=== PATIENT | female | born 1940 | race Caucasian/White ===

== ENCOUNTER 2019-10-22 16:55 | Emergency (ER) | payer MEDICARE ==
[~2019-10-22] VITALS: Ht 157.5 cm; Wt 118.1 kg
[~2019-10-22 16:55] MED LIST: CARV6.2511 PO; EMPA25TA PO; ESCITALOPRAM OX10 MG PO; FURO20TA3 PO; GLIP10TA13 PO; LISI-130 PO; METF10007 PO; NPH,100V5 SQ; OXYC1TAB7 PO; SIMV40TA18 PO
[2019-10-22] MEDS ORDERED: HYDROcodone/APAP 5/325MG 1 TAB TABLET PO ONE (17:15)
--- NOTE | 2019-10-22 17:17 | PHYS DOC ---
Past Medical History Past Medical History: Arthritis, Diabetes-Type II, Hypertension Past Surgical History: Cholecystectomy, Tonsillectomy Additional Past Surgical Histo: BREAST CYSTS, CARPAL TUNNEL Alcohol Use: None Drug Use: None Adult General Chief Complaint Chief Complaint: KNEE INJURY HPI HPI Patient is a 78 year old female who presents with states she is walking with her walker when her right knee gave out and she fell to the carpeted floor. She states she fell on her right knee and then her right shoulder went into the corner of the wall. She denies hitting her head, syncope, dizziness, visual changes, weakness in her extremities, fever, dysuria, back pain, neck pain, numbness or tingling, shortness of breath, chest pain. Patient does wear 3 L of oxygen normally at home due to COPD. Patient is on 3 L of oxygen here in the ED and she is 98%. Review of Systems Review of Systems Musculoskeletal: Denies back pain. right knee and right shoulder joint pain [] All other systems were reviewed and found to be within normal limits, except as documented in this note. Current Medications Current Medications Current Medications Medications (Trade) Dose Ordered Sig/Yulisa Start Time Stop Time Status Last Admin Dose Admin Acetaminophen/ Hydrocodone Bitart (Lortab 5/325) 1 tab 1X ONCE 10/22/19 17:15 10/22/19 17:16 DC 10/22/19 17:55 1 TAB Allergies Allergies Allergies Coded Allergies Type Severity Reaction Last Updated Verified No Known Drug Allergies 08/15/17 No Physical Exam Physical Exam Constitutional: Well developed, well nourished, no acute distress, non-toxic appearance. [] HENT: Normocephalic, atraumatic, bilateral external ears normal, oropharynx moist, no oral exudates, nose normal. [] Eyes: PERRLA, EOMI, conjunctiva normal, no discharge. [] Neck: Normal range of motion, no tenderness, supple, no stridor. [] Cardiovascular:Heart rate regular rhythm, no murmur [] Lungs & Thorax: Bilateral breath sounds clear to auscultation [] Abdomen: Bowel sounds normal, soft, no tenderness, no masses, no pulsatile masses. [] Skin: Warm, dry, no erythema, no rash. [] Back: No tenderness, no CVA tenderness. [] Extremities: Right anterior knee and right lateral shoulder tenderness, no cyanosis, no clubbing, ROM intact, no edema. [] Neurologic: Alert and oriented X 3, normal motor function, normal sensory function, no focal deficits noted. [] Psychologic: Affect normal, judgement normal, mood normal. [] Current Patient Data Vital Signs Vital Signs Date Time Temp Pulse Resp B/P (MAP) Pulse Ox O2 Delivery O2 Flow Rate FiO2 10/22/19 17:55 22 10/22/19 17:04 97.5 84 198/95 (129) 96 Room Air 97.5 EKG EKG [] Radiology/Procedures Radiology/Procedures [] Impressions: [facility] [address] [place] [address] IMAGING REPORT Signed PATIENT: JHONY HOOPER ACCOUNT: [id number] : 1940 LOCATION: ER AGE: 78 SEX: F EXAM STATUS: REG ER ORD. PHYSICIAN: HAI TEJEDA APRN REASON: Fall PROCEDURE: SHOULDER 2+V RIGHT Exam: Right shoulder 3 views INDICATION: Fall TECHNIQUE: Frontal view of the right shoulder with internal and external rotation and transscapular Y view. Comparisons: 11/01/2017 FINDINGS: Right shoulder arthroplasty changes are again noted no acute or healed fractures. Soft tissues are unremarkable. Joint spaces are well-maintained. IMPRESSION: Right shoulder arthroplasty without evidence of acute fracture. Electronically signed by: Pauline Browne MD (10/22/2019 5:52 PM) [facility] DICTATED and SIGNED BY: PAULINE BROWNE MD DATE: 10/22/19 1752 [facility] [address] [place] [address] IMAGING REPORT Signed PATIENT: JHONY HOOPER ACCOUNT: [id number] : 1940 LOCATION: ER AGE: 78 SEX: F EXAM STATUS: REG ER ORD. PHYSICIAN: HAI TEJEDA APRN REASON: Fall PROCEDURE: KNEE RIGHT 4V Exam: Right knee 3 views INDICATION: Fall TECHNIQUE: Frontal, lateral, oblique and sunrise views of the right knee Comparisons: None FINDINGS: Right total knee arthroplasty changes are noted. No acute or healed fractures. Soft tissue swelling overlying the patella. No suprapatellar effusion. IMPRESSION: Right knee arthroplasty without evidence of acute osseous abnormality. Electronically signed by: Pauline Browne MD (10/22/2019 5:50 PM) [facility] DICTATED and SIGNED BY: PAULINE BROWNE MD DATE: 10/22/19 2760 Course & Med Decision Making Course & Med Decision Making She states she has no other complaints besides her knee hurting and her shoulder hurting. She's had a previous right knee replacement 2 years ago at [facility]. She had a right shoulder surgery done by Dr. Carson and 2018. Patient has full range of motion of her right knee. Tenderness to the anterior knee only. No bruising or deformity. Skin is pink warm and dry. No swelling in the knee. Pedal pulses strong and present. Cap refill less than 3 seconds. Lateral right shoulder tenderness with palpation. Patient has full range of motion of the right shoulder. Radial pulses are present. Skin pink warm and dry. There is no bruising, deformity or swelling to the right shoulder. Patient is up and ambulating with a steady gait in the emergency room. She is discharged home. Dragon Disclaimer Dragon Disclaimer This electronic medical record was generated, in whole or in part, using a voice recognition dictation system. Departure Departure Impression: Primary Impression: Fall Additional Impressions: Knee pain, right Shoulder pain, right Disposition: 01 HOME, SELF-CARE Condition: STABLE Referrals: PAIGE HOPE DO (PCP) JERZY CARSON MD Patient Instructions: Fall Prevention and Home Safety Additional Instructions: Follow up with Dr Carson or your primary care provider. Take pain medication as prescribed. Scripts Hydrocodone/Apap 5-325 (NORCO 5-325 TABLET) 1 Each Tablet 1 TAB PO PRN Q6HRS PRN for PAIN, #8 TAB 0 Refills Prov: PAULHAI M SENIOR REPORT DEVELOPER 10/22/19 Problem Qualifiers Primary Impression: Fall Encounter type: initial encounter Qualified Codes: W19.XXXA - Unspecified fall, initial encounter Additional Impressions: Knee pain, right Chronicity: acute Qualified Codes: M25.561 - Pain in right knee Shoulder pain, right Chronicity: acute Qualified Codes: M25.511 - Pain in right shoulder HAI TEJEDA APRN Oct 22, 2019 17:17
--- NOTE | 2019-10-22 17:52 | RAD ---
Exam: Right knee 3 views INDICATION: Fall TECHNIQUE: Frontal, lateral, oblique and sunrise views of the right knee Comparisons: None FINDINGS: Right total knee arthroplasty changes are noted. No acute or healed fractures. Soft tissue swelling overlying the patella. No suprapatellar effusion. IMPRESSION: Right knee arthroplasty without evidence of acute osseous abnormality. Electronically signed by: Pauline Pringle MD (10/22/2019 5:50 PM) [facility] [place]
--- NOTE | 2019-10-22 17:54 | RAD ---
Exam: Right shoulder 3 views INDICATION: Fall TECHNIQUE: Frontal view of the right shoulder with internal and external rotation and transscapular Y view. Comparisons: 11/01/2017 FINDINGS: Right shoulder arthroplasty changes are again noted no acute or healed fractures. Soft tissues are unremarkable. Joint spaces are well-maintained. IMPRESSION: Right shoulder arthroplasty without evidence of acute fracture. Electronically signed by: Pauline Pringle MD (10/22/2019 5:52 PM) [facility]
--- NOTE | 2019-10-22 18:47 | NUR ---
Noreen WARREN notified of pt ambulation.
[2019-10-22 18:49] VITALS: BP 152/100
[2019-10-22] MEDS ORDERED: HYDR-3164 PO (18:51)
== END 2019-10-22 19:15 | disposition home or self-care (01) ==
LOC: ER 16:55
DX: M25.561 Pain in right knee (principal); M25.511 Pain in right shoulder; G89.11 Acute pain due to trauma; E11.9 Type 2 diabetes mellitus without complications; I10 Essential (primary) hypertension; Z90.49 Acquired absence of other specified parts of digestive tract; W18.39XA Other fall on same level, initial encounter; Y93.89 Activity, other specified; Y92.89 Other specified places as the place of occurrence of the external cause; Y99.8 Other external cause status
CPT/HCPCS: 73030; 73564; 99284

== ENCOUNTER 2019-12-14 15:46 | Inpatient (IN) | payer MEDICARE ==
[~2019-12-14] VITALS: Ht 160 cm; Wt 111.6 kg
[~2019-12-14 15:46] MED LIST changes: +HYDR-3164 PO
--- NOTE | 2019-12-14 16:52 | PHYS DOC ---
Past Medical History Past Medical History: Arthritis, COPD, Diabetes-Type II, Hypertension Past Surgical History: Cholecystectomy, Knee Replacement, Tonsillectomy Additional Past Surgical Histo: BREAST CYSTS, CARPAL TUNNEL Smoking Status: Former Smoker Alcohol Use: None Drug Use: None Adult General Chief Complaint Chief Complaint: WEAKNESS/GENERALIZED HPI HPI 78-year-old female past medical history of COPD on 2 L nasal cannula presents with the chief complaint of shortness of breath. Patient states she has had shortness of breath for the last 3 weeks. Patient states today shortness of breath had noticeably increased. Shortness of breath is exacerbated with movement. Patient denies any associated chest pain, new cough, and/or fevers or chills. On exam patient has bilateral lower extremity edema with weeping wounds. Patient denies any chest pain. Review of Systems Review of Systems Constitutional: Denies fever or chills [] Eyes: Denies change in visual acuity, redness, or eye pain [] HENT: Denies nasal congestion or sore throat [] Respiratory: Denies cough or shortness of breath [] Cardiovascular: No additional information not addressed in HPI [] GI: Denies abdominal pain, nausea, vomiting, bloody stools or diarrhea [] : Denies dysuria or hematuria [] Musculoskeletal: Denies back pain or joint pain [] Integument: Denies rash or skin lesions [] Neurologic: Denies headache, focal weakness or sensory changes [] Endocrine: Denies polyuria or polydipsia [] All other systems were reviewed and found to be within normal limits, except as documented in this note. Current Medications Current Medications Current Medications Medications (Trade) Dose Ordered Sig/Yulisa Start Time Stop Time Status Last Admin Dose Admin Albuterol Sulfate (Ventolin Neb Soln) 10 mg 1X ONCE 12/14/19 18:00 12/14/19 18:01 DC Calcium Gluconate (Calcium Gluconate) 1,000 mg 1X ONCE 12/14/19 18:00 12/14/19 18:01 DC Furosemide (Lasix) 40 mg 1X ONCE 12/14/19 18:30 12/14/19 18:31 UNV Sodium Chloride 1,000 ml @ 1,000 mls/hr 1X ONCE 12/14/19 18:00 12/14/19 18:59 Vancomycin HCl 250 ml @ 166.667 mls/hr 1X ONCE 12/14/19 17:45 12/14/19 19:14 Allergies Allergies Allergies Coded Allergies Type Severity Reaction Last Updated Verified No Known Drug Allergies 08/15/17 No Physical Exam Physical Exam Constitutional: Well developed, well nourished, no acute distress, non-toxic appearance. [] HENT: Normocephalic, atraumatic, bilateral external ears normal, oropharynx moist, no oral exudates, nose normal. [] Eyes: PERRLA, EOMI, conjunctiva normal, no discharge. [] Neck: Normal range of motion, no tenderness, supple, no stridor. [] Cardiovascular:Heart rate regular rhythm, no murmur [] Lungs & Thorax: Bilateral breath sounds clear to auscultation [] Abdomen: Bowel sounds normal, soft, no tenderness, no masses, no pulsatile masses. [] Skin: Warm, dry, no erythema, no rash. [] Back: No tenderness, no CVA tenderness. [] Extremities: No tenderness, no cyanosis, no clubbing, ROM intact, no edema. [] Neurologic: Alert and oriented X 3, normal motor function, normal sensory function, no focal deficits noted. [] Psychologic: Affect normal, judgement normal, mood normal. [] Current Patient Data Lab Values Laboratory Tests Test 12/14/19 16:13 White Blood Count 8.3 x10^3/uL (4.0-11.0) Red Blood Count 3.96 x10^6/uL (3.50-5.40) Hemoglobin 10.6 g/dL (12.0-15.5) L Hematocrit 33.6 % (36.0-47.0) L Mean Corpuscular Volume 85 fL (79-100) Mean Corpuscular Hemoglobin 27 pg (25-35) Mean Corpuscular Hemoglobin Concent 31 g/dL (31-37) Red Cell Distribution Width 17.1 % (11.5-14.5) H Platelet Count 372 x10^3/uL (140-400) Neutrophils (%) (Auto) 81 % (31-73) H Lymphocytes (%) (Auto) 11 % (24-48) L Monocytes (%) (Auto) 7 % (0-9) Eosinophils (%) (Auto) 1 % (0-3) Basophils (%) (Auto) 1 % (0-3) Neutrophils # (Auto) 6.8 x10^3/uL (1.8-7.7) Lymphocytes # (Auto) 0.9 x10^3/uL (1.0-4.8) L Monocytes # (Auto) 0.5 x10^3/uL (0.0-1.1) Eosinophils # (Auto) 0.1 x10^3/uL (0.0-0.7) Basophils # (Auto) 0.1 x10^3/uL (0.0-0.2) Prothrombin Time 13.8 SEC (11.7-14.0) Prothrombin Time INR 1.1 (0.8-1.1) Activated Partial Thromboplast Time 30 SEC (24-38) Sodium Level 133 mmol/L (136-145) L Potassium Level 5.8 mmol/L (3.5-5.1) H Chloride Level 95 mmol/L (98-107) L Carbon Dioxide Level 31 mmol/L (21-32) Anion Gap 7 (6-14) Blood Urea Nitrogen 63 mg/dL (7-20) H Creatinine 3.4 mg/dL (0.6-1.0) H Estimated GFR (Cockcroft-Gault) 13.1 BUN/Creatinine Ratio 19 (6-20) Glucose Level 97 mg/dL (70-99) Calcium Level 9.2 mg/dL (8.5-10.1) Total Bilirubin 0.3 mg/dL (0.2-1.0) Aspartate Amino Transferase (AST) 48 U/L (15-37) H Alanine Aminotransferase (ALT) 54 U/L (14-59) Alkaline Phosphatase 354 U/L (46-116) H Troponin I Quantitative 0.324 ng/mL (0.000-0.055) TT-Vyt-I-Type Natriuretic Peptide 49878 pg/mL (0-449) H Total Protein 6.6 g/dL (6.4-8.2) Albumin 2.0 g/dL (3.4-5.0) L Albumin/Globulin Ratio 0.4 (1.0-1.7) L Laboratory Tests 12/14/19 16:13 Laboratory Tests 12/14/19 16:13 EKG EKG 1552hrs Sinus rhythm rate of [address] elevation no ST depression no acute MD [] Radiology/Procedures Radiology/Procedures [] Course & Med Decision Making Course & Med Decision Making Pertinent Labs and Imaging studies reviewed. (See chart for details) [] Dragon Disclaimer Dragon Disclaimer This electronic medical record was generated, in whole or in part, using a voice recognition dictation system. Departure Departure Impression: Primary Impression: Shortness of breath Additional Impressions: Cellulitis CHF (congestive heart failure) Elevated troponin Admitting Physician: [facility] Referrals: PAIGE HOPE DO (PCP) Problem Qualifiers SUDHA BOWDEN DO Dec 14, 2019 16:52
[2019-12-14 17:27] LABS: BASO # 0.1 x10^3/uL (0.0-0.2); BASO % 1 % (0-3); EOS # 0.1 x10^3/uL (0.0-0.7); EOS % 1 % (0-3); HEMATOCRIT 33.6 % (36.0-47.0); HEMOGLOBIN 10.6 g/dL (12.0-15.5); LYMPH # 0.9 x10^3/uL (1.0-4.8); LYMPH % 11 % (24-48); MEAN CORPUSCULAR HEMOGLOBIN 27 pg (25-35); MEAN CORPUSCULAR HGB CONC 31 g/dL (31-37); MEAN CORPUSCULAR VOLUME 85 fL (79-100); MONO # 0.5 x10^3/uL (0.0-1.1); MONO % 7 % (0-9); NEUT # 6.8 x10^3/uL (1.8-7.7); NEUT % 81 % (31-73); PLATELET COUNT 372 x10^3/uL (140-400); RED BLOOD COUNT 3.96 x10^6/uL (3.50-5.40); RED CELL DISTRIBUTION WIDTH 17.1 % (11.5-14.5); WHITE BLOOD COUNT 8.3 x10^3/uL (4.0-11.0)
[2019-12-14 17:37] LABS: CALCIUM 9.2 mg/dL (8.5-10.1); CREATININE 3.4 mg/dL (0.6-1.0); GFR 13.1; POTASSIUM 5.8 mmol/L (3.5-5.1)
[2019-12-14 17:39] LABS: PROTHROMBIN TIME PATIENT 13.8 SEC (11.7-14.0)
[2019-12-14 17:44] LABS: ALBUMIN/GLOBULIN RATIO 0.4 (1.0-1.7); TOTAL BILIRUBIN 0.3 mg/dL (0.2-1.0); TOTAL PROTEIN 6.6 g/dL (6.4-8.2)
[2019-12-14] MEDS ORDERED: VANCOMYCIN 1GM IVPB FOR OMNI 250 ML IV ONE (17:45)
[2019-12-14] MEDS ORDERED: CALCIUM GLUCONATE 1,000 MG/10 ML VIAL. IVP ONE (18:00)
[2019-12-14] MEDS ORDERED: ALBUTEROL SULFATE 2.5 MG/3 ML NEBU. CONT NEB ONE (18:00)
[2019-12-14] MEDS ORDERED: IV NORMAL SALINE 1000ML BAG 1,000 ML IV ONE (18:00)
[2019-12-14] MEDS ORDERED: FUROSEMIDE 40 MG TABLET. PO ONE (18:30)
[2019-12-14] MEDS ORDERED: FUROSEMIDE 40 MG/4 ML VIAL. IVP ONE (19:30)
[2019-12-14 20:20] VITALS: BP 123/68
--- NOTE | 2019-12-14 20:24 | RAD ---
AP portable chest radiograph 12/14/2019 Clinical History: Shortness of breath. An AP erect portable digital radiograph of the chest was obtained. Comparison study is dated 08/15/2017. The patient is post right shoulder joint replacement. The cardiac silhouette is mildly enlarged. Atherosclerotic calcification thoracic aorta is seen. No area of consolidation is noted. No pneumothorax or pleural effusion is seen. Slight prominence of pulmonary vasculature is seen which could reflect mild CHF. Clinical correlation is recommended. Degenerative changes are seen involving the thoracic spine along with the left shoulder. Impression: Question mild CHF. Electronically signed by: Leopoldo Ruff MD (12/14/2019 8:21 PM) [id number]
[2019-12-14 23:00] VITALS: BP 146/65
[2019-12-15] MEDS ORDERED: FLUT9.9S NS (00:36)
[2019-12-15] MEDS ORDERED: TRAM50TA PO (00:36)
[2019-12-15] MEDS ORDERED: TRIA15CR3 TP (00:36)
[2019-12-15 03:00] VITALS: BP 140/55
[2019-12-15 07:00] VITALS: BP 107/49
[2019-12-15 08:03] LABS: CALCIUM 8.6 mg/dL (8.5-10.1); CREATININE 3.7 mg/dL (0.6-1.0); GFR 11.9
[2019-12-15 08:07] LABS: POTASSIUM 6.2 mmol/L (3.5-5.1)
[2019-12-15] MEDS ORDERED: DEXTROSE 50% 25 GM / 50ML DISP.SYRIN. IV ONE ×2 (08:11→21:19)
[2019-12-15] MEDS ORDERED: SODIUM POLYSTYRENE SULFON/SORB 15 GM/60 ML ORAL.SUSP RC ONE (09:00)
[2019-12-15] MEDS ORDERED: SODIUM POLYSTYRENE SULFON/SORB 15 GM/60 ML ORAL.SUSP PO ONE (09:00)
--- NOTE | 2019-12-15 10:43 | PDOC2 ---
CONSULT Date of Consult Date of Consult DATE: 12/15/19 TIME: 10:37 Reason for Consult Reason for Consult: Shortness of breath. Referring Physician Referring Physician: Dr. Rosado Identification/Chief Complaint Chief Complaint Shortness of breath Source Source: Chart review, Patient History of Present Illness Reason for Visit: The patient is a 78-year-old female who presented to the emergency room with 2-3 weeks of increasing shortness of breath. Her shortness of breath had significantly increased the day of admission. Initial evaluation the emergency room showed a blood potassium elevated at 5.8 with a creatinine of 3.4, chest x- ray with probable mild heart failure and an EKG with no acute ischemic changes. Patient has a history of COPD, diabetes as well as hypertension but no documented history of coronary disease. She was treated with pulmonary medications and initially was some Lasix although this has been held at this t [place] due to her elevated creatinine. She is feeling better in the morning but still reports shortness of breath. Additionally she has bilateral lower extremity edema with findings of probable cellulitis. Past Medical History Cardiovascular: HTN, Hyperlipidemia Pulmonary: COPD Musculoskeletal: Osteoarthritis Endocrine: Diabetes Past Surgical History Past Surgical History: Cholecystectomy, Total knee replacement, Tonsillectomy Family History Family History: Hypertension Social History Quit ALCOHOL: none Drugs: None Current Problem List Problem List Problems Medical Problems: (1) Cellulitis Status: Acute (2) CHF (congestive heart failure) Status: Acute (3) Elevated troponin Status: Acute (4) Shortness of breath Status: Acute Current Medications Current Medications Current Medications Vancomycin HCl 250 ml @ 166.667 mls/hr 1X ONCE IV Last administered on 12/14/19at 18:24; Start 12/14/19 at 17:45; Stop 12/14/19 at 19:14; Status DC Sodium Chloride 1,000 ml @ 1,000 mls/hr 1X ONCE IV Last administered on 12/14/19at 18:23; Start 12/14/19 at 18:00; Stop 12/14/19 at 18:59; Status DC Calcium Gluconate (Calcium Gluconate) 1,000 mg 1X ONCE IVP Last administered on 12/14/19at 18:24; Start 12/14/19 at 18:00; Stop 12/14/19 at 18:01; Status DC Albuterol Sulfate (Ventolin Neb Soln) 10 mg 1X ONCE CONT NEB Last administered on 12/14/19at 18:00; Start 12/14/19 at 18:00; Stop 12/14/19 at 18:01; Status DC Furosemide (Lasix) 40 mg 1X ONCE PO ; Start 12/14/19 at 18:30; Stop 12/14/19 at 18:31; Status DC Enoxaparin Sodium (Lovenox 120mg Syringe) 120 mg 1X ONCE SQ Last administered on 12/14/19at 20:05; Start 12/14/19 at 19:30; Stop 12/14/19 at 19:31; Status DC Furosemide (Lasix) 40 mg 1X ONCE IVP Last administered on 12/14/19at 20:05; Start 12/14/19 at 19:30; Stop 12/14/19 at 19:31; Status DC Dextrose (Dextrose 50%-Water Syringe) 25 gm STK-MED ONCE IV ; Start 12/15/19 at 08:11; Stop 12/15/19 at 08:11; Status DC Sodium Polystyrene Sulfonate (Kayexalate) 30 gm 1X ONCE RC ; Start 12/15/19 at 09:00; Stop 12/15/19 at 08:38; Status DC Sodium Polystyrene Sulfonate (Kayexalate) 15 gm 1X ONCE PO Last administered on 12/15/19at 09:24; Start 12/15/19 at 09:00; Stop 12/15/19 at 09:01; Status DC Active Scripts Active Gilman 5-325 Tablet (Acetaminophen/Hydrocodone Bitart) 1 Each Tablet 1 Tab PO PRN Q6HRS PRN Oxycodone-Acetaminophen 5-325 (Oxycodone Hcl/Acetaminophen) 1 Each Tablet 1 Tab PO PRN Q4HRS PRN Reported Triamcinolone Acetonide 0.1% Cream (Triamcinolone Acetonide) 15 Gm Cream..g. 1 Isabell TP BID Tramadol Hcl 50 Mg Tablet 50 Mg PO DAILY PRN Flonase Allergy Relief (Fluticasone Propionate) 9.9 Ml Hardy.susp 2 Sprays NS DAILY Metformin Hcl 1,000 Mg Tablet 1,000 Mg PO BIDWMEALS Lisinopril 40 Mg Tablet 1 Tab PO DAILY Novolin N (Nph, Human Insulin Isophane) 100 Unit/1 Ml Vial 40 Unit SQ DAILY Carvedilol (Carvedilol) 6.25 Mg Tablet 6.25 Mg PO BIDWMEALS Escitalopram Oxalate 10 Mg Tablet 1 Tab PO DAILY Simvastatin 40 Mg Tablet 1 Tab PO QHS Glipizide 10 Mg Tablet 10 Mg PO BID Furosemide 20 Mg Tablet 1 Tab PO DAILY Allergies Allergies: Coded Allergies: No Known Drug Allergies (Unverified , 08/15/17) ROS General: YES: Fatigue Respiratory: YES: Shortness of breath, SOB with excertion Physical Exam General: mild distress Lungs: Other (decreased breath sounds bilaterally) Heart: Regular rate Abdomen: Normal bowel sounds Vitals VITALS Vital Signs Date Time Temp Pulse Resp B/P (MAP) Pulse Ox O2 Delivery O2 Flow Rate FiO2 12/15/19 07:00 97.7 63 20 107/49 (68) 95 Nasal Cannula 3.0 97.7 Labs Labs Laboratory Tests Test 12/14/19 16:13 12/15/19 00:30 12/15/19 06:30 12/15/19 08:38 White Blood Count 8.3 x10^3/uL (4.0-11.0) Red Blood Count 3.96 x10^6/uL (3.50-5.40) Hemoglobin 10.6 g/dL (12.0-15.5) Hematocrit 33.6 % (36.0-47.0) Mean Corpuscular Volume 85 fL (79-100) Mean Corpuscular Hemoglobin 27 pg (25-35) Mean Corpuscular Hemoglobin Concent 31 g/dL (31-37) Red Cell Distribution Width 17.1 % (11.5-14.5) Platelet Count 372 x10^3/uL (140-400) Neutrophils (%) (Auto) 81 % (31-73) Lymphocytes (%) (Auto) 11 % (24-48) Monocytes (%) (Auto) 7 % (0-9) Eosinophils (%) (Auto) 1 % (0-3) Basophils (%) (Auto) 1 % (0-3) Neutrophils # (Auto) 6.8 x10^3/uL (1.8-7.7) Lymphocytes # (Auto) 0.9 x10^3/uL (1.0-4.8) Monocytes # (Auto) 0.5 x10^3/uL (0.0-1.1) Eosinophils # (Auto) 0.1 x10^3/uL (0.0-0.7) Basophils # (Auto) 0.1 x10^3/uL (0.0-0.2) Prothrombin Time 13.8 SEC (11.7-14.0) Prothromb Time International Ratio 1.1 (0.8-1.1) Activated Partial Thromboplast Time 30 SEC (24-38) Sodium Level 133 mmol/L (136-145) 135 mmol/L (136-145) Potassium Level 5.8 mmol/L (3.5-5.1) 6.2 mmol/L (3.5-5.1) Chloride Level 95 mmol/L (98-107) 99 mmol/L (98-107) Carbon Dioxide Level 31 mmol/L (21-32) 32 mmol/L (21-32) Anion Gap 7 (6-14) 4 (6-14) Blood Urea Nitrogen 63 mg/dL (7-20) 68 mg/dL (7-20) Creatinine 3.4 mg/dL (0.6-1.0) 3.7 mg/dL (0.6-1.0) Estimated GFR (Cockcroft-Gault) 13.1 11.9 BUN/Creatinine Ratio 19 (6-20) Glucose Level 97 mg/dL (70-99) 35 mg/dL (70-99) Calcium Level 9.2 mg/dL (8.5-10.1) 8.6 mg/dL (8.5-10.1) Total Bilirubin 0.3 mg/dL (0.2-1.0) Aspartate Amino Transf (AST/SGOT) 48 U/L (15-37) Alanine Aminotransferase (ALT/SGPT) 54 U/L (14-59) Alkaline Phosphatase 354 U/L (46-116) Troponin I Quantitative 0.324 ng/mL (0.000-0.055) 0.278 ng/mL (0.000-0.055) 0.273 ng/mL (0.000-0.055) KK-Mse-L-Type Natriuretic Peptide 04299 pg/mL (0-449) Total Protein 6.6 g/dL (6.4-8.2) Albumin 2.0 g/dL (3.4-5.0) Albumin/Globulin Ratio 0.4 (1.0-1.7) Glucose (Fingerstick) 69 mg/dL (70-99) Laboratory Tests Test 12/14/19 16:13 12/15/19 00:30 12/15/19 06:30 12/15/19 08:38 White Blood Count 8.3 x10^3/uL (4.0-11.0) Red Blood Count 3.96 x10^6/uL (3.50-5.40) Hemoglobin 10.6 g/dL (12.0-15.5) Hematocrit 33.6 % (36.0-47.0) Mean Corpuscular Volume 85 fL (79-100) Mean Corpuscular Hemoglobin 27 pg (25-35) Mean Corpuscular Hemoglobin Concent 31 g/dL (31-37) Red Cell Distribution Width 17.1 % (11.5-14.5) Platelet Count 372 x10^3/uL (140-400) Neutrophils (%) (Auto) 81 % (31-73) Lymphocytes (%) (Auto) 11 % (24-48) Monocytes (%) (Auto) 7 % (0-9) Eosinophils (%) (Auto) 1 % (0-3) Basophils (%) (Auto) 1 % (0-3) Neutrophils # (Auto) 6.8 x10^3/uL (1.8-7.7) Lymphocytes # (Auto) 0.9 x10^3/uL (1.0-4.8) Monocytes # (Auto) 0.5 x10^3/uL (0.0-1.1) Eosinophils # (Auto) 0.1 x10^3/uL (0.0-0.7) Basophils # (Auto) 0.1 x10^3/uL (0.0-0.2) Prothrombin Time 13.8 SEC (11.7-14.0) Prothromb Time International Ratio 1.1 (0.8-1.1) Activated Partial Thromboplast Time 30 SEC (24-38) Sodium Level 133 mmol/L (136-145) 135 mmol/L (136-145) Potassium Level 5.8 mmol/L (3.5-5.1) 6.2 mmol/L (3.5-5.1) Chloride Level 95 mmol/L (98-107) 99 mmol/L (98-107) Carbon Dioxide Level 31 mmol/L (21-32) 32 mmol/L (21-32) Anion Gap 7 (6-14) 4 (6-14) Blood Urea Nitrogen 63 mg/dL (7-20) 68 mg/dL (7-20) Creatinine 3.4 mg/dL (0.6-1.0) 3.7 mg/dL (0.6-1.0) Estimated GFR (Cockcroft-Gault) 13.1 11.9 BUN/Creatinine Ratio 19 (6-20) Glucose Level 97 mg/dL (70-99) 35 mg/dL (70-99) Calcium Level 9.2 mg/dL (8.5-10.1) 8.6 mg/dL (8.5-10.1) Total Bilirubin 0.3 mg/dL (0.2-1.0) Aspartate Amino Transf (AST/SGOT) 48 U/L (15-37) Alanine Aminotransferase (ALT/SGPT) 54 U/L (14-59) Alkaline Phosphatase 354 U/L (46-116) Troponin I Quantitative 0.324 ng/mL (0.000-0.055) 0.278 ng/mL (0.000-0.055) 0.273 ng/mL (0.000-0.055) LH-Xaj-A-Type Natriuretic Peptide 47115 pg/mL (0-449) Total Protein 6.6 g/dL (6.4-8.2) Albumin 2.0 g/dL (3.4-5.0) Albumin/Globulin Ratio 0.4 (1.0-1.7) Glucose (Fingerstick) 69 mg/dL (70-99) Images Images Chest x-ray with findings of mild heart failure Assessment/Plan Assessment/Plan 1. Respiratory failure with elements of COPD, heart failure and [place]. Patient is feeling better this morning. Would continue present treatments. Will hold Lasix at this time until the patient is evaluated by the renal service for her morning creatinine of 3.7. We'll check an echocardiogram to evaluate LV function. 2. Probable acute heart failure. Patient denies a history of heart failure. Holding diuresis until evaluated by the renal service. We'll check an echocardiogram for LV function as above 3. SUN. Elevated potassium and creatinine of 3.7. Would suggest a renal evaluation. 4. Lower extremity cellulitis. Antibiotics as per the primary service. 5. Hypertension. Reasonable control. Will continue to monitor. Continue present medications. 6. Diabetes mellitus. As per the primary service. Thank you for allowing us to participate in the care of your patient. DANNY COLBY MD Dec 15, 2019 10:43
[2019-12-15 11:00] VITALS: BP 118/67
--- NOTE | 2019-12-15 12:41 | PDOC2 ---
CONSULT Date of Consult Date of Consult DATE: 12/15/19 TIME: 12:28 Reason for Consult Reason for Consult: SUN Source Source: Chart review, Patient History of Present Illness Reason for Visit: patient is a 78-year-old female history of COPD, diabetes , hypertension who presented to the emergency room with 2-3 weeks of increasing shortness of breath. Her shortness of breath had significantly increased the day of admission. Initial evaluation the emergency room showed a blood potassium el evated at 5.8 with a creatinine of 3.4, chest x-ray with probable mild heart failure and an EKG with no acute ischemic changes. She is feeling better in the morning but still reports shortness of breath. Additionally she has bilateral lower extremity edema with findings of probable cellulitis. Denies any urinary complaints .No UA or imaging done in ER Past Medical History Cardiovascular: HTN, Hyperlipidemia Pulmonary: COPD Musculoskeletal: Osteoarthritis Endocrine: Diabetes Past Surgical History Past Surgical History: Cholecystectomy, Total knee replacement, Tonsillectomy Family History Family History: Hypertension Social History Quit ALCOHOL: none Drugs: None Current Problem List Problem List Problems Medical Problems: (1) Cellulitis Status: Acute (2) CHF (congestive heart failure) Status: Acute (3) Elevated troponin Status: Acute (4) Shortness of breath Status: Acute Current Medications Current Medications Current Medications Vancomycin HCl 250 ml @ 166.667 mls/hr 1X ONCE IV Last administered on 12/14/19at 18:24; Start 12/14/19 at 17:45; Stop 12/14/19 at 19:14; Status DC Sodium Chloride 1,000 ml @ 1,000 mls/hr 1X ONCE IV Last administered on 12/14/19at 18:23; Start 12/14/19 at 18:00; Stop 12/14/19 at 18:59; Status DC Calcium Gluconate (Calcium Gluconate) 1,000 mg 1X ONCE IVP Last administered on 12/14/19at 18:24; Start 12/14/19 at 18:00; Stop 12/14/19 at 18:01; Status DC Albuterol Sulfate (Ventolin Neb Soln) 10 mg 1X ONCE CONT NEB Last administered on 12/14/19at 18:00; Start 12/14/19 at 18:00; Stop 12/14/19 at 18:01; Status DC Furosemide (Lasix) 40 mg 1X ONCE PO ; Start 12/14/19 at 18:30; Stop 12/14/19 at 18:31; Status DC Enoxaparin Sodium (Lovenox 120mg Syringe) 120 mg 1X ONCE SQ Last administered on 12/14/19at 20:05; Start 12/14/19 at 19:30; Stop 12/14/19 at 19:31; Status DC Furosemide (Lasix) 40 mg 1X ONCE IVP Last administered on 12/14/19at 20:05; Start 12/14/19 at 19:30; Stop 12/14/19 at 19:31; Status DC Dextrose (Dextrose 50%-Water Syringe) 25 gm STK-MED ONCE IV ; Start 12/15/19 at 08:11; Stop 12/15/19 at 08:11; Status DC Sodium Polystyrene Sulfonate (Kayexalate) 30 gm 1X ONCE RC ; Start 12/15/19 at 09:00; Stop 12/15/19 at 08:38; Status DC Sodium Polystyrene Sulfonate (Kayexalate) 15 gm 1X ONCE PO Last administered on 12/15/19at 09:24; Start 12/15/19 at 09:00; Stop 12/15/19 at 09:01; Status DC Active Scripts Active [place] 5-325 Tablet (Acetaminophen/Hydrocodone Bitart) 1 Each Tablet 1 Tab PO PRN Q6HRS PRN Oxycodone-Acetaminophen 5-325 (Oxycodone Hcl/Acetaminophen) 1 Each Tablet 1 Tab PO PRN Q4HRS PRN Reported Triamcinolone Acetonide 0.1% Cream (Triamcinolone Acetonide) 15 Gm Cream..g. 1 [place] TP BID Tramadol Hcl 50 Mg Tablet 50 Mg PO DAILY PRN Flonase Allergy Relief (Fluticasone Propionate) 9.9 Ml [place].susp 2 Sprays NS DAILY Metformin Hcl 1,000 Mg Tablet 1,000 Mg PO BIDWMEALS Lisinopril 40 Mg Tablet 1 Tab PO DAILY Novolin N (Nph, Human Insulin Isophane) 100 Unit/1 Ml Vial 40 Unit SQ DAILY Carvedilol (Carvedilol) 6.25 Mg Tablet 6.25 Mg PO BIDWMEALS Escitalopram Oxalate 10 Mg Tablet 1 Tab PO DAILY Simvastatin 40 Mg Tablet 1 Tab PO QHS Glipizide 10 Mg Tablet 10 Mg PO BID Furosemide 20 Mg Tablet 1 Tab PO DAILY Allergies Allergies: Coded Allergies: No Known Drug Allergies (Unverified , 08/15/17) ROS Review of System Per HPI Physical Exam Physical Exam GEN: NAD HEEN: om moist NECK: supple CVS: S1S2, RRR RESP: CTA, Non labored GI: BS + ve, NO Bruit, Non Tender, Non Distended : No CVA tenderness, No Suprapubic Tenderness NEURO- Grossly normal DERM- no Rash EXT Vital Signs Vital Signs Date Time Temp Pulse Resp B/P (MAP) Pulse Ox O2 Delivery O2 Flow Rate FiO2 12/15/19 11:00 98.0 64 22 118/67 (84) 95 Nasal Cannula 3.0 98.0 Assessment & Plan SUN - Pre-renal / JAYSON-I and lasix both started approx 3 weeks back 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 No EKG changes per ER report Suspect sec to SUN and JAYSON-I HypoNatremia- mild HTN- On Coreg,Lisinopril and Lasix at home Holding, BP low Respiratory failure - On Home O2 2-3 Lts Per primary/cardiology Lower extremity cellulitis. Antibiotics as per the primary service. Diabetes mellitus. As per the primary service. Labs Labs Laboratory Tests Test 12/14/19 16:13 12/15/19 00:30 12/15/19 06:30 12/15/19 08:38 White Blood Count 8.3 x10^3/uL (4.0-11.0) Red Blood Count 3.96 x10^6/uL (3.50-5.40) Hemoglobin 10.6 g/dL (12.0-15.5) Hematocrit 33.6 % (36.0-47.0) Mean Corpuscular Volume 85 fL (79-100) Mean Corpuscular Hemoglobin 27 pg (25-35) Mean Corpuscular Hemoglobin Concent 31 g/dL (31-37) Red Cell Distribution Width 17.1 % (11.5-14.5) Platelet Count 372 x10^3/uL (140-400) Neutrophils (%) (Auto) 81 % (31-73) Lymphocytes (%) (Auto) 11 % (24-48) Monocytes (%) (Auto) 7 % (0-9) Eosinophils (%) (Auto) 1 % (0-3) Basophils (%) (Auto) 1 % (0-3) Neutrophils # (Auto) 6.8 x10^3/uL (1.8-7.7) Lymphocytes # (Auto) 0.9 x10^3/uL (1.0-4.8) Monocytes # (Auto) 0.5 x10^3/uL (0.0-1.1) Eosinophils # (Auto) 0.1 x10^3/uL (0.0-0.7) Basophils # (Auto) 0.1 x10^3/uL (0.0-0.2) Prothrombin Time 13.8 SEC (11.7-14.0) Prothromb Time International Ratio 1.1 (0.8-1.1) Activated Partial Thromboplast Time 30 SEC (24-38) Sodium Level 133 mmol/L (136-145) 135 mmol/L (136-145) Potassium Level 5.8 mmol/L (3.5-5.1) 6.2 mmol/L (3.5-5.1) Chloride Level 95 mmol/L (98-107) 99 mmol/L (98-107) Carbon Dioxide Level 31 mmol/L (21-32) 32 mmol/L (21-32) Anion Gap 7 (6-14) 4 (6-14) Blood Urea Nitrogen 63 mg/dL (7-20) 68 mg/dL (7-20) Creatinine 3.4 mg/dL (0.6-1.0) 3.7 mg/dL (0.6-1.0) Estimated GFR (Cockcroft-Gault) 13.1 11.9 BUN/Creatinine Ratio 19 (6-20) Glucose Level 97 mg/dL (70-99) 35 mg/dL (70-99) Calcium Level 9.2 mg/dL (8.5-10.1) 8.6 mg/dL (8.5-10.1) Total Bilirubin 0.3 mg/dL (0.2-1.0) Aspartate Amino Transf (AST/SGOT) 48 U/L (15-37) Alanine Aminotransferase (ALT/SGPT) 54 U/L (14-59) Alkaline Phosphatase 354 U/L (46-116) Troponin I Quantitative 0.324 ng/mL (0.000-0.055) 0.278 ng/mL (0.000-0.055) 0.273 ng/mL (0.000-0.055) PU-Rmm-K-Type Natriuretic Peptide 93614 pg/mL (0-449) Total Protein 6.6 g/dL (6.4-8.2) Albumin 2.0 g/dL (3.4-5.0) Albumin/Globulin Ratio 0.4 (1.0-1.7) Glucose (Fingerstick) 69 mg/dL (70-99) Test 12/15/19 11:49 Glucose (Fingerstick) 85 mg/dL (70-99) Laboratory Tests Test 12/14/19 16:13 12/15/19 00:30 12/15/19 06:30 12/15/19 08:38 White Blood Count 8.3 x10^3/uL (4.0-11.0) Red Blood Count 3.96 x10^6/uL (3.50-5.40) Hemoglobin 10.6 g/dL (12.0-15.5) Hematocrit 33.6 % (36.0-47.0) Mean Corpuscular Volume 85 fL (79-100) Mean Corpuscular Hemoglobin 27 pg (25-35) Mean Corpuscular Hemoglobin Concent 31 g/dL (31-37) Red Cell Distribution Width 17.1 % (11.5-14.5) Platelet Count 372 x10^3/uL (140-400) Neutrophils (%) (Auto) 81 % (31-73) Lymphocytes (%) (Auto) 11 % (24-48) Monocytes (%) (Auto) 7 % (0-9) Eosinophils (%) (Auto) 1 % (0-3) Basophils (%) (Auto) 1 % (0-3) Neutrophils # (Auto) 6.8 x10^3/uL (1.8-7.7) Lymphocytes # (Auto) 0.9 x10^3/uL (1.0-4.8) Monocytes # (Auto) 0.5 x10^3/uL (0.0-1.1) Eosinophils # (Auto) 0.1 x10^3/uL (0.0-0.7) Basophils # (Auto) 0.1 x10^3/uL (0.0-0.2) Prothrombin Time 13.8 SEC (11.7-14.0) Prothromb Time International Ratio 1.1 (0.8-1.1) Activated Partial Thromboplast Time 30 SEC (24-38) Sodium Level 133 mmol/L (136-145) 135 mmol/L (136-145) Potassium Level 5.8 mmol/L (3.5-5.1) 6.2 mmol/L (3.5-5.1) Chloride Level 95 mmol/L (98-107) 99 mmol/L (98-107) Carbon Dioxide Level 31 mmol/L (21-32) 32 mmol/L (21-32) Anion Gap 7 (6-14) 4 (6-14) Blood Urea Nitrogen 63 mg/dL (7-20) 68 mg/dL (7-20) Creatinine 3.4 mg/dL (0.6-1.0) 3.7 mg/dL (0.6-1.0) Estimated GFR (Cockcroft-Gault) 13.1 11.9 BUN/Creatinine Ratio 19 (6-20) Glucose Level 97 mg/dL (70-99) 35 mg/dL (70-99) Calcium Level 9.2 mg/dL (8.5-10.1) 8.6 mg/dL (8.5-10.1) Total Bilirubin 0.3 mg/dL (0.2-1.0) Aspartate Amino Transf (AST/SGOT) 48 U/L (15-37) Alanine Aminotransferase (ALT/SGPT) 54 U/L (14-59) Alkaline Phosphatase 354 U/L (46-116) Troponin I Quantitative 0.324 ng/mL (0.000-0.055) 0.278 ng/mL (0.000-0.055) 0.273 ng/mL (0.000-0.055) VC-Afm-C-Type Natriuretic Peptide 88831 pg/mL (0-449) Total Protein 6.6 g/dL (6.4-8.2) Albumin 2.0 g/dL (3.4-5.0) Albumin/Globulin Ratio 0.4 (1.0-1.7) Glucose (Fingerstick) 69 mg/dL (70-99) Test 12/15/19 11:49 Glucose (Fingerstick) 85 mg/dL (70-99) Review All relevant outside records, renal labs, imaging studies, telemetry/EKG's were reviewed. Images Images CxR mild CHF EVGENY ESCALANTE MD Dec 15, 2019 12:41
[2019-12-15] MEDS ORDERED: PIP/TAZO PER PHARMACY MC PRN (13:00)
--- NOTE | 2019-12-15 13:23 | HP ---
ADMIT DATE: 12/15/2019 CHIEF COMPLAINT: Weakness. HISTORY OF PRESENT ILLNESS: The patient is a pleasant 78-year-old female who has multiple comorbidities. She is quite large. She has chronic COPD. She is on 2 liters at home. Basically, she presented with shortness of breath. She also has chronic cellulitis on both lower extremities. She is quite edematous. While in the ER, we also noted that she has acute kidney injury and her creatinine is up to 2. I believe she was started on Lasix and JAYSON inhibitor within the past few weeks. She also appears to be in acute on chronic systolic and diastolic heart failure. We are going to admit the patient and consult Cardiology and Nephrology. PAST MEDICAL HISTORY: COPD, arthritis, diabetes, hypertension, obesity, cholecystectomy, knee replacement, tonsillectomy, peripheral vascular disease, chronic lower extremity wounds, breast cyst, carpal tunnel surgery, previous tobacco abuse, probable CHF. ALLERGIES: None. FAMILY HISTORY: Coronary artery disease. SOCIAL HISTORY: She quit smoking, no drinking or drugs. MEDICATIONS: Reviewed, please refer to the MRAD. REVIEW OF SYSTEMS: GENERAL: She complains of weakness. SKIN: No bruising, hair changes or rashes. EYES: No blurred, double or loss of vision. NOSE AND THROAT: No history of nosebleeds, hoarseness or sore throat. HEART: No history of palpitations, chest pain or shortness of breath on exertion. PULMONARY: She complains of shortness of breath. GASTROINTESTINAL: Denies changes in appetite, nausea, vomiting, diarrhea or constipation. GENITOURINARY: No history of frequency, urgency, hesitancy or nocturia. NEUROLOGIC: Denies history of numbness, tingling, tremor or weakness. PSYCHIATRIC: No history of panic, anxiety or depression. ENDOCRINE: No history of heat or cold intolerance, polyuria or polydipsia. EXTREMITIES: She complains of lower extremity swelling and pain and erythema. PHYSICAL EXAMINATION: VITALS: Within normal limits and are stable. GENERAL: She is very large. HEENT: Normal cephalic atraumatic, external auditory canals are patent. Eyes: Extraocular muscles are intact, pupils are equally round and reactive to light and accommodation. MUSKULOSKELETAL: Well developed, well nourished, good range of motion. ENDOCRINE: No thyromegaly was palpated. LYMPHATICS: No cervical chain or axillary nodes were noted. HEMATOPOIETIC: No bruising. NECK: Supple, no JVD, no thyromegaly was noted. PULMONARY: She has decreased breath sounds. HEART: RRR, S1, S2 present. Peripheral pulses intact, no obvious murmurs were noted. ABDOMEN: Soft, nontender. Positive bowel sounds no organomegaly, normal bowel sounds. EXTREMITIES: She has bilateral lower extremity cellulitis with wounds that have been wrapped with clean, dry and intact dressing. NEUROLOGIC: Normal speech, normal tone. A & O x 3, moves all extremities, no obvious focal deficits. PSYCHIATRIC: She is anxious. SKIN: No ulcerations or rashes, good skin turgor, no jaundice. VASCULAR: Good capillary refill, neurovascular bundle appears to be intact. LABORATORY DATA: Potassium is 6.2, BUN 68, creatinine 3.7, hemoglobin is 10.6, INR is 1.1. BNP is 30,161. Troponin 0.27. ASSESSMENT AND PLAN: Acute on chronic kidney injury, hyperkalemia, hyponatremia at 135, azotemia, acute on chronic systolic and diastolic heart failure, elevated troponin which I suspect is secondary to her elevated creatinine, anemia and lower extremity wounds. The patient is being admitted. We will consult Nephrology and Cardiology. Hold her JAYSON inhibitor. Hold her diuretic. IV antibiotics. PT, OT. Wound care nurse to evaluate and treat. We will continue other home meds, DVT prophylaxis. Full code. Prognosis in long-term is extremely guarded. TOTAL TIME: 33 minutes. JOE MORGAN DO DR: NELIA/rose JOB#: [id number] / [id number]
[2019-12-15 15:00] VITALS: BP 120/58
--- NOTE | 2019-12-15 15:02 | RAD ---
RENAL COMPLETE BILATERAL History: Acute kidney injury. Comparison: None. Procedure: Transabdominal ultrasound images are obtained of the kidneys and bladder. Findings: Right kidney: measures 11.4 x 5.8 x 5.7 cm. Degraded evaluation due to patient body habitus. No hydronephrosis. Left kidney: measures 11.1 x 5.9 x 5.8 cm. Degraded evaluation due to patient body habitus. No hydronephrosis. Urinary bladder: Decompressed with Collier catheter in place. Aorta and IVC not well seen due to patient body habitus and patient's decreased mobility. IMPRESSION: 1. Degraded evaluation due to patient body habitus and decreased mobility. 2. No hydronephrosis. Electronically signed by: Te Felder DO (12/15/2019 2:59 PM) [id number]
[2019-12-15] MEDS: PIPERACILLIN/TAZOBACTAM 2.25 GM in IV NORMAL SALINE 50ML 50 ML IV SCH ×2 (16:59→23:18)
[2019-12-15 19:00] VITALS: BP 106/63
[2019-12-15] MEDS ORDERED: IV DEXTROSE 5% 250 ML BAG. IV PRN (21:15)
[2019-12-15] MEDS: DEXTROSE 50% 25 GM / 50ML DISP.SYRIN. IV PRN (21:24)
--- NOTE | 2019-12-15 22:51 | NUR ---
notified of hypoglycemic episode tonight for the second time today. Pt was given an amp of Dextrose and her sugar improved from 43 to 100 afterwards. Pt was slightly sleepy, but still easy to wake during hypoglycemic episode. More alert post dextrose admin. Physician states continue to monitor sugar and administer more dextrose prn hypoglycemia in the future.
[2019-12-15 23:00] VITALS: BP 106/60
[2019-12-16 03:00] VITALS: BP 110/53
[2019-12-16 04:12] LABS: BASO % 1 % (0-3); EOS % 1 % (0-3); HEMATOCRIT 31.4 % (36.0-47.0); HEMOGLOBIN 9.9 g/dL (12.0-15.5); LYMPH % 13 % (24-48); MEAN CORPUSCULAR HEMOGLOBIN 26 pg (25-35); MEAN CORPUSCULAR HGB CONC 31 g/dL (31-37); MEAN CORPUSCULAR VOLUME 84 fL (79-100); MONO # 0.7 x10^3/uL (0.0-1.1); MONO % 9 % (0-9); NEUT # 6.1 x10^3/uL (1.8-7.7); NEUT % 78 % (31-73); PLATELET COUNT 376 x10^3/uL (140-400); RED BLOOD COUNT 3.73 x10^6/uL (3.50-5.40); RED CELL DISTRIBUTION WIDTH 17.2 % (11.5-14.5); WHITE BLOOD COUNT 7.9 x10^3/uL (4.0-11.0)
[2019-12-16 04:31] LABS: CALCIUM 8.4 mg/dL (8.5-10.1); CREATININE 4.6 mg/dL (0.6-1.0); GFR 9.2; MAGNESIUM 1.6 mg/dL (1.8-2.4); POTASSIUM 5.3 mmol/L (3.5-5.1)
[2019-12-16 04:33] LABS: CHOLESTEROL/HDL RATIO 2.2
[2019-12-16] MEDS: PIPERACILLIN/TAZOBACTAM 2.25 GM in IV NORMAL SALINE 50ML 50 ML IV SCH ×3 (05:32→22:39)
--- NOTE | 2019-12-16 06:23 | NUR ---
notified at this time that patient has not had any urine output overnight. I also reported that her creatinine increased to 4.6 today and she is in respiratory distress with oxygen desaturations into low 80% when she is laying flat for turns or other activity. Currently she is resting with head of bed elevated. Order for pedraza catheter and keep NPO for now. We discussed renal sono results and other labs as well.
--- NOTE | 2019-12-16 06:28 | NUR ---
Bladder scan done at this time also was 9cc. No bladder distention noted
[2019-12-16 07:00] VITALS: BP 89/53
[2019-12-16 07:56] LABS: BILIRUBIN,URINE NEGATIVE (NEG); CLARITY,URINE CLOUDY; COLOR,URINE AMBER; NITRITE,URINE NEGATIVE (NEG); PROTEIN,URINE 100 mg/dL (NEG-TRACE); UROBILINOGEN,URINE 0.2 mg/dL (0.2 mg/dL)
[2019-12-16] MEDS: DEXTROSE 50% 25 GM / 50ML DISP.SYRIN. IV PRN (07:56)
[2019-12-16 08:14] LABS: AMORPHOUS SEDIMENT,UR PRESENT /HPF; BACTERIA,URINE 0 /HPF (0-FEW); RBC,URINE 0 /HPF (0-2); SQUAMOUS EPITHELIAL CELL,UR FEW /LPF; WBC,URINE 0 /HPF (0-4)
[2019-12-16 11:00] VITALS: BP 118/65
--- NOTE | 2019-12-16 11:20 | CARD ---
MR#: [id number] Date of Study: 12/16/2019 Ordering Physician: DANNY COLBY, Referring Physician: DANNY COLBY, Tech: Loulou Muhammad [facility] APPROVED REPORT EXAM: Two-dimensional and M-mode echocardiogram with Doppler and color Doppler. Other Information Quality : Fair Technically limited study due to body habitus. INDICATION Congestive Heart Failure Morbid Obesity 2D DIMENSIONS RVDd3.9 (2.9-3.5cm)Left Atrium(2D)4.0 (1.6-4.0cm) IVSd1.3 (0.7-1.1cm)Aortic Root(2D)2.8 (2.0-3.7cm) LVDd4.0 (3.9-5.9cm)LVOT Diameter2.2 (1.8-2.4cm) PWd1.2 (0.7-1.1cm)LVDs2.8 (2.5-4.0cm) FS (%) 29.8 %SV41.0 ml LVEF(%)57.4 (>50%) Aortic Valve AoV Peak Kirby.145.9cm/sAoV VTI27.2cm AO Peak GR.8.5mmHgLVOT VTI 22.06cm AO Mean GR.6mmHgAVA (VTI)3.10cm2 Mitral Valve MV E Eyezfqcw92.8cm/sMV DECEL [id number] MV A Pmbhimlo27.3cm/sE/A Ratio0.8 TDI Lateral E' P. V7.34cm/sMedial E' P. V4.63cm/s E/Lateral E'9.6E/Medial E'15.3 Tricuspid Valve TR P. [id number]/sRAP [id number] TR Peak Gr.[id number] LEFT VENTRICLE The left ventricle is normal size. There is mild concentric left ventricular hypertrophy. The left ve ntricular systolic function is low normal. EF 50% Septal motion suggestive of prior CABG and conducti on defect. Transmitral Doppler flow pattern is Grade I-abnormal relaxation pattern. RIGHT VENTRICLE The right ventricle is moderately dilated. RV Systolic function is mildly reduced. ATRIA The left atrium is mildly dilated. The right atrium is mildly dilated. The interatrial septum is inta ct with no evidence for an atrial septal defect or patent foramen ovale as noted on 2-D or Doppler im aging. AORTIC VALVE The aortic valve is calcified but opens well. Doppler and Color Flow revealed no significant aortic r egurgitation. There is no significant aortic valvular stenosis. MITRAL VALVE The mitral valve is normal in structure and function. Mitral annular calcification is mild. There is no evidence of mitral valve prolapse. There is no mitral valve stenosis. Doppler and Color Flow revea led no mitral valve regurgitation noted. TRICUSPID VALVE The tricuspid valve is normal in structure and function. Doppler and Color Flow revealed mild tricusp id regurgitation. There is moderate pulmonary hypertension. The PA pressure was estimated at 54 mmHg. There is no tricuspid valve stenosis. PULMONIC VALVE Doppler and Color Flow revealed mild pulmonic valvular regurgitation. There is no pulmonic valvular s tenosis. GREAT VESSELS The aortic root is normal in size. The ascending aorta is normal in size. There is mild pulmonary art eduardo dilatation. The IVC is dilated and collapses <50% with inspiration. PERICARDIAL EFFUSION There is no evidence of significant pericardial effusion. Critical Notification Critical Value: No <Conclusion> The left ventricular systolic function is low normal. EF 50% Septal motion suggestive of prior CABG and conduction defect. The right ventricle is moderately dilated. RV Systolic function is mildly reduced. Doppler and Color Flow revealed mild tricuspid regurgitation. There is moderate pulmonary hypertensio n. The PA pressure was estimated at 54 mmHg. Signed by : Giancarlo Aguirre, Electronically Approved : 12/16/2019 11:19:56
--- NOTE | 2019-12-16 11:23 | PDOC ---
PROGRESS NOTES History of Present Illness History of Present Illness ASSESSMENT AND PLAN: Acute on chronic kidney injury, hyperkalemia, hyponatremia at 135, azotemia, acute on chronic systolic and diastolic heart failure, elevated troponin anemia and lower extremity wounds. // Lower extremity cellulitis. admitted. consult Nephrology consult Cardiology. Hold JAYSON inhibitor. IV antibiotics. PT, OT. Wound care nurse to evaluate and treat. DVT prophylaxis. Full code. Prognosis //guarded. temp dialysis cath placement 12/15 38 min pt exam, chart review, > 50% of time spent with exam, chart review, pt care coordination Vitals Vitals Vital Signs Date Time Temp Pulse Resp B/P (MAP) Pulse Ox O2 Delivery O2 Flow Rate FiO2 12/16/19 07:00 97.5 90 22 89/53 (65) 96 Nasal Cannula 4.0 97.5 Physical Exam Physical Exam and accommodation. MUSKULOSKELETAL: Well developed, well nourished, good range of motion. ENDOCRINE: No thyromegaly was palpated. LYMPHATICS: No cervical chain or axillary nodes were noted. HEMATOPOIETIC: No bruising. NECK: Supple, no JVD, no thyromegaly was noted. PULMONARY: She has decreased breath sounds. HEART: RRR, S1, S2 present. Peripheral pulses intact, no obvious murmurs were noted. ABDOMEN: Soft, nontender. Positive bowel sounds no organomegaly, normal bowel sounds. EXTREMITIES: She has bilateral lower extremity cellulitis with wounds that have been wrapped with clean, dry and intact dressing. NEUROLOGIC: Normal speech, normal tone. A & O x 3, moves all extremities, no obvious focal deficits. PSYCHIATRIC: She is anxious. SKIN: No ulcerations or rashes, good skin turgor, no jaundice. VASCULAR: Good capillary refill, neurovascular bundle appears to be intact. General: Alert, Cooperative, mild distress Heart: Regular rate Lungs: Clear Abdomen: Normal bowel sounds, No tenderness Extremities: No cyanosis Labs LABS Mitral Valve MV E Velocity 70.8cm/s MV DECEL TIME 187ms MV A Velocity 92.3cm/s E/A Ratio 0.8 TDI Lateral E' P. V 7.34cm/s Medial E' P. V 4.63cm/s E/Lateral E' 9.6 E/Medial E' 15.3 Tricuspid Valve TR P. Velocity 310cm/s RAP ESTIMATE 15mmHg TR Peak Gr. 39mmHg RVSP 54mmHg LEFT VENTRICLE The left ventricle is normal size. There is mild concentric left ventricular hypertrophy. The left ventricular systolic function is low normal. EF 50% Septal motion suggestive of prior CABG and conduction defect. Transmitral Doppler flow pattern is Grade I-abnormal relaxation pattern. RIGHT VENTRICLE The right ventricle is moderately dilated. RV Systolic function is mildly reduced. ATRIA The left atrium is mildly dilated. The right atrium is mildly dilated. The interatrial septum is intact with no evidence for an atrial septal defect or patent foramen ovale as noted on 2-D or Doppler imaging. AORTIC VALVE The aortic valve is calcified but opens well. Doppler and Color Flow revealed no significant aortic regurgitation. There is no significant aortic valvular stenosis. MITRAL VALVE The mitral valve is normal in structure and function. Mitral annular calcification is mild. There is no evidence of mitral valve prolapse. There is no mitral valve stenosis. Doppler and Color Flow revealed no mitral valve regurgitation noted. TRICUSPID VALVE The tricuspid valve is normal in structure and function. Doppler and Color Flow revealed mild tricuspid regurgitation. There is moderate pulmonary hypertension. The PA pressure was estimated at 54 mmHg. There is no tricuspid valve stenosis. PULMONIC VALVE Doppler and Color Flow revealed mild pulmonic valvular regurgitation. There is no pulmonic valvular stenosis. GREAT VESSELS The aortic root is normal in size. The ascending aorta is normal in size. There is mild pulmonary artery dilatation. The IVC is dilated and collapses <50% with inspiration. PERICARDIAL EFFUSION There is no evidence of significant pericardial effusion. Critical Notification Critical Value: No <Conclusion> The left ventricular systolic function is low normal. EF 50% Septal motion suggestive of prior CABG and conduction defect. The right ventricle is moderately dilated. RV Systolic function is mildly reduced. Doppler and Color Flow revealed mild tricuspid regurgitation. There is moderate pulmonary hypertension. The PA pressure was estimated at 54 mmHg. Signed by : Andree Astorga, Electronically Approved : 12/16/2019 11:19:56 DICTATED and SIGNED BY: ANDREE ASTORGA MD DATE: 12/16/19 1102 Laboratory Tests Test 12/15/19 11:49 12/15/19 12:20 12/15/19 16:51 12/15/19 21:09 Glucose (Fingerstick) 85 mg/dL (70-99) 73 mg/dL (70-99) 40 mg/dL (70-99) Potassium Level 5.6 mmol/L (3.5-5.1) Troponin I Quantitative 0.217 ng/mL (0.000-0.055) Test 12/15/19 21:23 12/15/19 22:00 12/16/19 03:40 12/16/19 07:35 Glucose (Fingerstick) 43 mg/dL (70-99) 100 mg/dL (70-99) 41 mg/dL (70-99) White Blood Count 7.9 x10^3/uL (4.0-11.0) Red Blood Count 3.73 x10^6/uL (3.50-5.40) Hemoglobin 9.9 g/dL (12.0-15.5) Hematocrit 31.4 % (36.0-47.0) Mean Corpuscular Volume 84 fL (79-100) Mean Corpuscular Hemoglobin 26 pg (25-35) Mean Corpuscular Hemoglobin Concent 31 g/dL (31-37) Red Cell Distribution Width 17.2 % (11.5-14.5) Platelet Count 376 x10^3/uL (140-400) Neutrophils (%) (Auto) 78 % (31-73) Lymphocytes (%) (Auto) 13 % (24-48) Monocytes (%) (Auto) 9 % (0-9) Eosinophils (%) (Auto) 1 % (0-3) Basophils (%) (Auto) 1 % (0-3) Neutrophils # (Auto) 6.1 x10^3/uL (1.8-7.7) Lymphocytes # (Auto) 1.0 x10^3/uL (1.0-4.8) Monocytes # (Auto) 0.7 x10^3/uL (0.0-1.1) Eosinophils # (Auto) 0.0 x10^3/uL (0.0-0.7) Basophils # (Auto) 0.0 x10^3/uL (0.0-0.2) Sodium Level 136 mmol/L (136-145) Potassium Level 5.3 mmol/L (3.5-5.1) Chloride Level 98 mmol/L (98-107) Carbon Dioxide Level 30 mmol/L (21-32) Anion Gap 8 (6-14) Blood Urea Nitrogen 72 mg/dL (7-20) Creatinine 4.6 mg/dL (0.6-1.0) Estimated GFR (Cockcroft-Gault) 9.2 Glucose Level 43 mg/dL (70-99) Calcium Level 8.4 mg/dL (8.5-10.1) Magnesium Level 1.6 mg/dL (1.8-2.4) Creatine Kinase 45 U/L (26-192) Triglycerides Level 94 mg/dL (0-150) Cholesterol Level 103 mg/dL (0-200) LDL Cholesterol, Calculated 37 mg/dL (0-100) VLDL Cholesterol, Calculated 19 mg/dL (0-40) Non-HDL Cholesterol Calculated 56 mg/dL (0-129) HDL Cholesterol 47 mg/dL (40-60) Cholesterol/HDL Ratio 2.2 Test 12/16/19 07:45 12/16/19 08:54 Urine Collection Type Unknown Urine Color Ginger Urine Clarity Cloudy Urine pH 5.0 (<5.0-8.0) Urine Specific [place] 1.020 (1.000-1.030) Urine Protein 100 mg/dL (NEG-TRACE) Urine Glucose (UA) Negative mg/dL (NEG) Urine Ketones (Stick) Negative mg/dL (NEG) Urine Blood Trace (NEG) Urine Nitrite Negative (NEG) Urine Bilirubin Negative (NEG) Urine Urobilinogen Dipstick 0.2 mg/dL (0.2 mg/dL) Urine Leukocyte Esterase Negative (NEG) Urine RBC 0 /HPF (0-2) Urine WBC 0 /HPF (0-4) Urine Squamous Epithelial Cells Few /LPF Urine Amorphous Sediment Present /HPF Urine Bacteria 0 /HPF (0-FEW) Glucose (Fingerstick) 175 mg/dL (70-99) Assessment and Plan Assessmemt and Plan Problems Medical Problems: (1) Cellulitis Status: Acute (2) CHF (congestive heart failure) Status: Acute (3) Elevated troponin Status: Acute (4) Shortness of breath Status: Acute Comment Review of Relevant I have reviewed the following items monalisa (where applicable) has been applied. Labs Laboratory Tests Test 12/14/19 16:13 12/15/19 00:30 12/15/19 06:30 12/15/19 08:38 White Blood Count 8.3 x10^3/uL (4.0-11.0) Red Blood Count 3.96 x10^6/uL (3.50-5.40) Hemoglobin 10.6 g/dL (12.0-15.5) Hematocrit 33.6 % (36.0-47.0) Mean Corpuscular Volume 85 fL (79-100) Mean Corpuscular Hemoglobin 27 pg (25-35) Mean Corpuscular Hemoglobin Concent 31 g/dL (31-37) Red Cell Distribution Width 17.1 % (11.5-14.5) Platelet Count 372 x10^3/uL (140-400) Neutrophils (%) (Auto) 81 % (31-73) Lymphocytes (%) (Auto) 11 % (24-48) Monocytes (%) (Auto) 7 % (0-9) Eosinophils (%) (Auto) 1 % (0-3) Basophils (%) (Auto) 1 % (0-3) Neutrophils # (Auto) 6.8 x10^3/uL (1.8-7.7) Lymphocytes # (Auto) 0.9 x10^3/uL (1.0-4.8) Monocytes # (Auto) 0.5 x10^3/uL (0.0-1.1) Eosinophils # (Auto) 0.1 x10^3/uL (0.0-0.7) Basophils # (Auto) 0.1 x10^3/uL (0.0-0.2) Prothrombin Time 13.8 SEC (11.7-14.0) Prothromb Time International Ratio 1.1 (0.8-1.1) Activated Partial Thromboplast Time 30 SEC (24-38) Sodium Level 133 mmol/L (136-145) 135 mmol/L (136-145) Potassium Level 5.8 mmol/L (3.5-5.1) 6.2 mmol/L (3.5-5.1) Chloride Level 95 mmol/L (98-107) 99 mmol/L (98-107) Carbon Dioxide Level 31 mmol/L (21-32) 32 mmol/L (21-32) Anion Gap 7 (6-14) 4 (6-14) Blood Urea Nitrogen 63 mg/dL (7-20) 68 mg/dL (7-20) Creatinine 3.4 mg/dL (0.6-1.0) 3.7 mg/dL (0.6-1.0) Estimated GFR (Cockcroft-Gault) 13.1 11.9 BUN/Creatinine Ratio 19 (6-20) Glucose Level 97 mg/dL (70-99) 35 mg/dL (70-99) Calcium Level 9.2 mg/dL (8.5-10.1) 8.6 mg/dL (8.5-10.1) Total Bilirubin 0.3 mg/dL (0.2-1.0) Aspartate Amino Transf (AST/SGOT) 48 U/L (15-37) Alanine Aminotransferase (ALT/SGPT) 54 U/L (14-59) Alkaline Phosphatase 354 U/L (46-116) Troponin I Quantitative 0.324 ng/mL (0.000-0.055) 0.278 ng/mL (0.000-0.055) 0.273 ng/mL (0.000-0.055) EF-Mba-X-Type Natriuretic Peptide 84491 pg/mL (0-449) Total Protein 6.6 g/dL (6.4-8.2) Albumin 2.0 g/dL (3.4-5.0) Albumin/Globulin Ratio 0.4 (1.0-1.7) Glucose (Fingerstick) 69 mg/dL (70-99) Test 12/15/19 11:49 12/15/19 12:20 12/15/19 16:51 12/15/19 21:09 Glucose (Fingerstick) 85 mg/dL (70-99) 73 mg/dL (70-99) 40 mg/dL (70-99) Potassium Level 5.6 mmol/L (3.5-5.1) Troponin I Quantitative 0.217 ng/mL (0.000-0.055) Test 12/15/19 21:23 12/15/19 22:00 12/16/19 03:40 12/16/19 07:35 Glucose (Fingerstick) 43 mg/dL (70-99) 100 mg/dL (70-99) 41 mg/dL (70-99) White Blood Count 7.9 x10^3/uL (4.0-11.0) Red Blood Count 3.73 x10^6/uL (3.50-5.40) Hemoglobin 9.9 g/dL (12.0-15.5) Hematocrit 31.4 % (36.0-47.0) Mean Corpuscular Volume 84 fL (79-100) Mean Corpuscular Hemoglobin 26 pg (25-35) Mean Corpuscular Hemoglobin Concent 31 g/dL (31-37) Red Cell Distribution Width 17.2 % (11.5-14.5) Platelet Count 376 x10^3/uL (140-400) Neutrophils (%) (Auto) 78 % (31-73) Lymphocytes (%) (Auto) 13 % (24-48) Monocytes (%) (Auto) 9 % (0-9) Eosinophils (%) (Auto) 1 % (0-3) Basophils (%) (Auto) 1 % (0-3) Neutrophils # (Auto) 6.1 x10^3/uL (1.8-7.7) Lymphocytes # (Auto) 1.0 x10^3/uL (1.0-4.8) Monocytes # (Auto) 0.7 x10^3/uL (0.0-1.1) Eosinophils # (Auto) 0.0 x10^3/uL (0.0-0.7) Basophils # (Auto) 0.0 x10^3/uL (0.0-0.2) Sodium Level 136 mmol/L (136-145) Potassium Level 5.3 mmol/L (3.5-5.1) Chloride Level 98 mmol/L (98-107) Carbon Dioxide Level 30 mmol/L (21-32) Anion Gap 8 (6-14) Blood Urea Nitrogen 72 mg/dL (7-20) Creatinine 4.6 mg/dL (0.6-1.0) Estimated GFR (Cockcroft-Gault) 9.2 Glucose Level 43 mg/dL (70-99) Calcium Level 8.4 mg/dL (8.5-10.1) Magnesium Level 1.6 mg/dL (1.8-2.4) Creatine Kinase 45 U/L (26-192) Triglycerides Level 94 mg/dL (0-150) Cholesterol Level 103 mg/dL (0-200) LDL Cholesterol, Calculated 37 mg/dL (0-100) VLDL Cholesterol, Calculated 19 mg/dL (0-40) Non-HDL Cholesterol Calculated 56 mg/dL (0-129) HDL Cholesterol 47 mg/dL (40-60) Cholesterol/HDL Ratio 2.2 Test 12/16/19 07:45 12/16/19 08:54 Urine Collection Type Unknown Urine Color Ginger Urine Clarity Cloudy Urine pH 5.0 (<5.0-8.0) Urine Specific [place] 1.020 (1.000-1.030) Urine Protein 100 mg/dL (NEG-TRACE) Urine Glucose (UA) Negative mg/dL (NEG) Urine Ketones (Stick) Negative mg/dL (NEG) Urine Blood Trace (NEG) Urine Nitrite Negative (NEG) Urine Bilirubin Negative (NEG) Urine Urobilinogen Dipstick 0.2 mg/dL (0.2 mg/dL) Urine Leukocyte Esterase Negative (NEG) Urine RBC 0 /HPF (0-2) Urine WBC 0 /HPF (0-4) Urine Squamous Epithelial Cells Few /LPF Urine Amorphous Sediment Present /HPF Urine Bacteria 0 /HPF (0-FEW) Glucose (Fingerstick) 175 mg/dL (70-99) Laboratory Tests Test 12/15/19 11:49 12/15/19 12:20 12/15/19 16:51 12/15/19 21:09 Glucose (Fingerstick) 85 mg/dL (70-99) 73 mg/dL (70-99) 40 mg/dL (70-99) Potassium Level 5.6 mmol/L (3.5-5.1) Troponin I Quantitative 0.217 ng/mL (0.000-0.055) Test 12/15/19 21:23 12/15/19 22:00 12/16/19 03:40 12/16/19 07:35 Glucose (Fingerstick) 43 mg/dL (70-99) 100 mg/dL (70-99) 41 mg/dL (70-99) White Blood Count 7.9 x10^3/uL (4.0-11.0) Red Blood Count 3.73 x10^6/uL (3.50-5.40) Hemoglobin 9.9 g/dL (12.0-15.5) Hematocrit 31.4 % (36.0-47.0) Mean Corpuscular Volume 84 fL (79-100) Mean Corpuscular Hemoglobin 26 pg (25-35) Mean Corpuscular Hemoglobin Concent 31 g/dL (31-37) Red Cell Distribution Width 17.2 % (11.5-14.5) Platelet Count 376 x10^3/uL (140-400) Neutrophils (%) (Auto) 78 % (31-73) Lymphocytes (%) (Auto) 13 % (24-48) Monocytes (%) (Auto) 9 % (0-9) Eosinophils (%) (Auto) 1 % (0-3) Basophils (%) (Auto) 1 % (0-3) Neutrophils # (Auto) 6.1 x10^3/uL (1.8-7.7) Lymphocytes # (Auto) 1.0 x10^3/uL (1.0-4.8) Monocytes # (Auto) 0.7 x10^3/uL (0.0-1.1) Eosinophils # (Auto) 0.0 x10^3/uL (0.0-0.7) Basophils # (Auto) 0.0 x10^3/uL (0.0-0.2) Sodium Level 136 mmol/L (136-145) Potassium Level 5.3 mmol/L (3.5-5.1) Chloride Level 98 mmol/L (98-107) Carbon Dioxide Level 30 mmol/L (21-32) Anion Gap 8 (6-14) Blood Urea Nitrogen 72 mg/dL (7-20) Creatinine 4.6 mg/dL (0.6-1.0) Estimated GFR (Cockcroft-Gault) 9.2 Glucose Level 43 mg/dL (70-99) Calcium Level 8.4 mg/dL (8.5-10.1) Magnesium Level 1.6 mg/dL (1.8-2.4) Creatine Kinase 45 U/L (26-192) Triglycerides Level 94 mg/dL (0-150) Cholesterol Level 103 mg/dL (0-200) LDL Cholesterol, Calculated 37 mg/dL (0-100) VLDL Cholesterol, Calculated 19 mg/dL (0-40) Non-HDL Cholesterol Calculated 56 mg/dL (0-129) HDL Cholesterol 47 mg/dL (40-60) Cholesterol/HDL Ratio 2.2 Test 12/16/19 07:45 12/16/19 08:54 Urine Collection Type Unknown Urine Color Ginger Urine Clarity Cloudy Urine pH 5.0 (<5.0-8.0) Urine Specific [place] 1.020 (1.000-1.030) Urine Protein 100 mg/dL (NEG-TRACE) Urine Glucose (UA) Negative mg/dL (NEG) Urine Ketones (Stick) Negative mg/dL (NEG) Urine Blood Trace (NEG) Urine Nitrite Negative (NEG) Urine Bilirubin Negative (NEG) Urine Urobilinogen Dipstick 0.2 mg/dL (0.2 mg/dL) Urine Leukocyte Esterase Negative (NEG) Urine RBC 0 /HPF (0-2) Urine WBC 0 /HPF (0-4) Urine Squamous Epithelial Cells Few /LPF Urine Amorphous Sediment Present /HPF Urine Bacteria 0 /HPF (0-FEW) Glucose (Fingerstick) 175 mg/dL (70-99) Medications Current Medications Vancomycin HCl 250 ml @ 166.667 mls/hr 1X ONCE IV Last administered on 12/14/19at 18:24; Start 12/14/19 at 17:45; Stop 12/14/19 at 19:14; Status DC Sodium Chloride 1,000 ml @ 1,000 mls/hr 1X ONCE IV Last administered on 12/14/19at 18:23; Start 12/14/19 at 18:00; Stop 12/14/19 at 18:59; Status DC Calcium Gluconate (Calcium Gluconate) 1,000 mg 1X ONCE IVP Last administered on 12/14/19at 18:24; Start 12/14/19 at 18:00; Stop 12/14/19 at 18:01; Status DC Albuterol Sulfate (Ventolin Neb Soln) 10 mg 1X ONCE CONT NEB Last administered on 12/14/19at 18:00; Start 12/14/19 at 18:00; Stop 12/14/19 at 18:01; Status DC Furosemide (Lasix) 40 mg 1X ONCE PO ; Start 12/14/19 at 18:30; Stop 12/14/19 at 18:31; Status DC Enoxaparin Sodium (Lovenox 120mg Syringe) 120 mg 1X ONCE SQ Last administered on 12/14/19at 20:05; Start 12/14/19 at 19:30; Stop 12/14/19 at 19:31; Status DC Furosemide (Lasix) 40 mg 1X ONCE IVP Last administered on 12/14/19at 20:05; Start 12/14/19 at 19:30; Stop 12/14/19 at 19:31; Status DC Dextrose (Dextrose 50%-Water Syringe) 25 gm STK-MED ONCE IV ; Start 12/15/19 at 08:11; Stop 12/15/19 at 08:11; Status DC Sodium Polystyrene Sulfonate (Kayexalate) 30 gm 1X ONCE RC ; Start 12/15/19 at 09:00; Stop 12/15/19 at 08:38; Status DC Sodium Polystyrene Sulfonate (Kayexalate) 15 gm 1X ONCE PO Last administered on 12/15/19at 09:24; Start 12/15/19 at 09:00; Stop 12/15/19 at 09:01; Status DC Piperacillin Sod/ Tazobactam Sod (Zosyn Per Pharmacy) 1 each PRN DAILY PRN MC SEE COMMENTS; Start 12/15/19 at 13:00 Piperacillin Sod/ Tazobactam Sod 2.25 gm/Sodium Chloride 50 ml @ 100 mls/hr Q6HRS IV Last administered on 12/16/19at 05:32; Start 12/15/19 at 14:00 Dextrose (Dextrose 50%-Water Syringe) 12.5 gm PRN Q15MIN PRN IV SEE COMMENTS Last administered on 12/16/19at 07:56; Start 12/15/19 at 21:15 Dextrose (Iv Dextrose 5%) 250 ml PRN Q15MIN PRN IV SEE COMMENTS; Start 12/15/19 at 21:15 Dextrose (Dextrose 50%-Water Syringe) 25 gm STK-MED ONCE IV ; Start 12/15/19 at 21:19; Stop 12/15/19 at 21:19; Status DC Active Scripts Active [place] 5-325 Tablet (Acetaminophen/Hydrocodone Bitart) 1 Each Tablet 1 Tab PO PRN Q6HRS PRN Oxycodone-Acetaminophen 5-325 (Oxycodone Hcl/Acetaminophen) 1 Each Tablet 1 Tab PO PRN Q4HRS PRN Reported Triamcinolone Acetonide 0.1% Cream (Triamcinolone Acetonide) 15 Gm Cream..g. 1 [place] TP BID Tramadol Hcl 50 Mg Tablet 50 Mg PO DAILY PRN Flonase Allergy Relief (Fluticasone Propionate) 9.9 Ml [place].susp 2 Sprays NS DAILY Metformin Hcl 1,000 Mg Tablet 1,000 Mg PO BIDWMEALS Lisinopril 40 Mg Tablet 1 Tab PO DAILY Novolin N (Nph, Human Insulin Isophane) 100 Unit/1 Ml Vial 40 Unit SQ DAILY Carvedilol (Carvedilol) 6.25 Mg Tablet 6.25 Mg PO BIDWMEALS Escitalopram Oxalate 10 Mg Tablet 1 Tab PO DAILY Simvastatin 40 Mg Tablet 1 Tab PO QHS Glipizide 10 Mg Tablet 10 Mg PO BID Furosemide 20 Mg Tablet 1 Tab PO DAILY Vitals/I & O Vital Sign - Last 24 Hours 12/15/19 12/15/19 12/15/19 12/15/19 15:00 19:00 20:00 23:00 Temp 98.7 97.9 98.6 98.7 97.9 98.6 Pulse 75 74 58 Resp 20 20 B/P (MAP) 120/58 (78) 106/63 (77) 106/60 (75) Pulse Ox 94 93 92 O2 Delivery Nasal Cannula Nasal Cannula Nasal Cannula Nasal Cannula O2 Flow Rate 3.0 3.0 3.0 3.0 12/16/19 12/16/19 03:00 07:00 Temp 97.9 97.5 97.9 97.5 Pulse 55 90 Resp 22 B/P (MAP) 110/53 (72) 89/53 (65) Pulse Ox 94 96 O2 Delivery Nasal Cannula Nasal Cannula O2 Flow Rate 3.0 4.0 Intake and Output 12/15/19 12/15/19 12/16/19 14:59 22:59 06:59 Intake Total 480 ml 440 ml 350 ml Balance 480 ml 440 ml 350 ml CHINO MORALES MD Dec 16, 2019 11:23
--- NOTE | 2019-12-16 11:23 | EKG ---
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
--- NOTE | 2019-12-16 11:43 | PDOC ---
Renal-Progress Notes Subjective Notes Notes SOB History of Present Illness Hx of present illness NOT ANY BETTER, NOW NOT MAKING ANY URINE Vitals Vitals Vital Signs Date Time Temp Pulse Resp B/P (MAP) Pulse Ox O2 Delivery O2 Flow Rate FiO2 12/16/19 11:00 97.5 91 22 118/65 (82) 92 Nasal Cannula 4.0 97.5 Weight Weight [ ] I.O. Intake and Output Intake and Output 12/16/19 07:00 Intake Total 1270 ml Balance 1270 ml Intake Oral 1270 ml # Bowel Movements 5 Labs Labs Laboratory Tests Test 12/15/19 11:49 12/15/19 12:20 12/15/19 16:51 12/15/19 21:09 Glucose (Fingerstick) 85 mg/dL (70-99) 73 mg/dL (70-99) 40 mg/dL (70-99) Potassium Level 5.6 mmol/L (3.5-5.1) Troponin I Quantitative 0.217 ng/mL (0.000-0.055) Test 12/15/19 21:23 12/15/19 22:00 12/16/19 03:40 12/16/19 07:35 Glucose (Fingerstick) 43 mg/dL (70-99) 100 mg/dL (70-99) 41 mg/dL (70-99) White Blood Count 7.9 x10^3/uL (4.0-11.0) Red Blood Count 3.73 x10^6/uL (3.50-5.40) Hemoglobin 9.9 g/dL (12.0-15.5) Hematocrit 31.4 % (36.0-47.0) Mean Corpuscular Volume 84 fL (79-100) Mean Corpuscular Hemoglobin 26 pg (25-35) Mean Corpuscular Hemoglobin Concent 31 g/dL (31-37) Red Cell Distribution Width 17.2 % (11.5-14.5) Platelet Count 376 x10^3/uL (140-400) Neutrophils (%) (Auto) 78 % (31-73) Lymphocytes (%) (Auto) 13 % (24-48) Monocytes (%) (Auto) 9 % (0-9) Eosinophils (%) (Auto) 1 % (0-3) Basophils (%) (Auto) 1 % (0-3) Neutrophils # (Auto) 6.1 x10^3/uL (1.8-7.7) Lymphocytes # (Auto) 1.0 x10^3/uL (1.0-4.8) Monocytes # (Auto) 0.7 x10^3/uL (0.0-1.1) Eosinophils # (Auto) 0.0 x10^3/uL (0.0-0.7) Basophils # (Auto) 0.0 x10^3/uL (0.0-0.2) Sodium Level 136 mmol/L (136-145) Potassium Level 5.3 mmol/L (3.5-5.1) Chloride Level 98 mmol/L (98-107) Carbon Dioxide Level 30 mmol/L (21-32) Anion Gap 8 (6-14) Blood Urea Nitrogen 72 mg/dL (7-20) Creatinine 4.6 mg/dL (0.6-1.0) Estimated GFR (Cockcroft-Gault) 9.2 Glucose Level 43 mg/dL (70-99) Calcium Level 8.4 mg/dL (8.5-10.1) Magnesium Level 1.6 mg/dL (1.8-2.4) Creatine Kinase 45 U/L (26-192) Triglycerides Level 94 mg/dL (0-150) Cholesterol Level 103 mg/dL (0-200) LDL Cholesterol, Calculated 37 mg/dL (0-100) VLDL Cholesterol, Calculated 19 mg/dL (0-40) Non-HDL Cholesterol Calculated 56 mg/dL (0-129) HDL Cholesterol 47 mg/dL (40-60) Cholesterol/HDL Ratio 2.2 Test 12/16/19 07:45 12/16/19 08:54 Urine Collection Type Unknown Urine Color Ginger Urine Clarity Cloudy Urine pH 5.0 (<5.0-8.0) Urine Specific [place] 1.020 (1.000-1.030) Urine Protein 100 mg/dL (NEG-TRACE) Urine Glucose (UA) Negative mg/dL (NEG) Urine Ketones (Stick) Negative mg/dL (NEG) Urine Blood Trace (NEG) Urine Nitrite Negative (NEG) Urine Bilirubin Negative (NEG) Urine Urobilinogen Dipstick 0.2 mg/dL (0.2 mg/dL) Urine Leukocyte Esterase Negative (NEG) Urine RBC 0 /HPF (0-2) Urine WBC 0 /HPF (0-4) Urine Squamous Epithelial Cells Few /LPF Urine Amorphous Sediment Present /HPF Urine Bacteria 0 /HPF (0-FEW) Glucose (Fingerstick) 175 mg/dL (70-99) Review of Systems Constitutional: yes: alert, oriented Eyes: Yes: no symptom reported Pulmonary: Yes dyspnea Cardiovascular: Yes no symptom reported Gastrointestional: Yes: no symptom reported Genitourinary: Yes: no symptom reported Musculoskeletal: Yes: no symptom reported Skin: Yes no symptom reported Psychiatric/Neurological: Yes: no symptom reported Endocrine: Yes: no symptom reported Hematologic/Lymphatic: Yes: no symptom reported Physical Exam General Appearance: no apparent distress Skin: warm Respiratory: decreased breath sounds Heart: S1S2 Abdomen: soft, bowel sounds present Genitourinary: bladder flat Extremities: pulses present Neurology: alert Assessment Assessment IMP SUN - ATN - ANURIA CKD SUSPECT NEAR END STAGE-CR OF 1.7 IN 2017 BUT NEVER FOLLOWED UP ACUTE ON CHRONIC HYPOXIC RESP FAILURE-ON HOME O2 2-3 L LE CELLULITIS MILD HYPOTENSION DM II HTN ANEMIA PLAN ANTIBIOTICS CHECK IRON STORES CHECK PO4 HD RECOMMENDED TO PT TODAY SHE DOES NOT WANT TO DO THIS EXPLAINED TO HER THAT SHE MAY SHE WILL D/W HER FAMILY AND GET BACK TO ME CONT TO HOLD ANTIHYPERTENSIVES D/W STAFF IV ALEXSANDER FOR YASSINE CAMPUZANO MD Dec 16, 2019 11:43
--- NOTE | 2019-12-16 12:17 | NUR ---
SS following for discharge planning. SS reviewed pt chart and discussed with pt RN and Dr. Haynes. Pt is from home and is currently requiring oxygen. Per Dr. Haynes pt needing outpatient dialysis set up. Pt now agreeable to temporary dialysis. SS will continue to follow for discharge planning.
--- NOTE | 2019-12-16 12:27 | PDOC ---
CARDIO Progress Notes Date and Time Date of Service 12/16/19 Time of Evaluation 1210 Subjective Subjective: No Chest Pain, No Palpitations, No Dizziness, Other (still SOA) Vitals Vitals Vital Signs Date Time Temp Pulse Resp B/P (MAP) Pulse Ox O2 Delivery O2 Flow Rate FiO2 12/16/19 11:00 97.5 91 22 118/65 (82) 92 Nasal Cannula 4.0 97.5 Weight Weight [ ] Input and Output Intake and Output Intake and Output 12/16/19 07:00 Intake Total 1270 ml Balance 1270 ml Intake Oral 1270 ml # Bowel Movements 5 Laboratory Labs Laboratory Tests Test 12/15/19 16:51 12/15/19 21:09 12/15/19 21:23 12/15/19 22:00 Glucose (Fingerstick) 73 mg/dL (70-99) 40 mg/dL (70-99) 43 mg/dL (70-99) 100 mg/dL (70-99) Test 12/16/19 03:40 12/16/19 07:35 12/16/19 07:45 12/16/19 08:54 White Blood Count 7.9 x10^3/uL (4.0-11.0) Red Blood Count 3.73 x10^6/uL (3.50-5.40) Hemoglobin 9.9 g/dL (12.0-15.5) Hematocrit 31.4 % (36.0-47.0) Mean Corpuscular Volume 84 fL (79-100) Mean Corpuscular Hemoglobin 26 pg (25-35) Mean Corpuscular Hemoglobin Concent 31 g/dL (31-37) Red Cell Distribution Width 17.2 % (11.5-14.5) Platelet Count 376 x10^3/uL (140-400) Neutrophils (%) (Auto) 78 % (31-73) Lymphocytes (%) (Auto) 13 % (24-48) Monocytes (%) (Auto) 9 % (0-9) Eosinophils (%) (Auto) 1 % (0-3) Basophils (%) (Auto) 1 % (0-3) Neutrophils # (Auto) 6.1 x10^3/uL (1.8-7.7) Lymphocytes # (Auto) 1.0 x10^3/uL (1.0-4.8) Monocytes # (Auto) 0.7 x10^3/uL (0.0-1.1) Eosinophils # (Auto) 0.0 x10^3/uL (0.0-0.7) Basophils # (Auto) 0.0 x10^3/uL (0.0-0.2) Sodium Level 136 mmol/L (136-145) Potassium Level 5.3 mmol/L (3.5-5.1) Chloride Level 98 mmol/L (98-107) Carbon Dioxide Level 30 mmol/L (21-32) Anion Gap 8 (6-14) Blood Urea Nitrogen 72 mg/dL (7-20) Creatinine 4.6 mg/dL (0.6-1.0) Estimated GFR (Cockcroft-Gault) 9.2 Glucose Level 43 mg/dL (70-99) Calcium Level 8.4 mg/dL (8.5-10.1) Magnesium Level 1.6 mg/dL (1.8-2.4) Creatine Kinase 45 U/L (26-192) Triglycerides Level 94 mg/dL (0-150) Cholesterol Level 103 mg/dL (0-200) LDL Cholesterol, Calculated 37 mg/dL (0-100) VLDL Cholesterol, Calculated 19 mg/dL (0-40) Non-HDL Cholesterol Calculated 56 mg/dL (0-129) HDL Cholesterol 47 mg/dL (40-60) Cholesterol/HDL Ratio 2.2 Glucose (Fingerstick) 41 mg/dL (70-99) 175 mg/dL (70-99) Urine Collection Type Unknown Urine Color Ginger Urine Clarity Cloudy Urine pH 5.0 (<5.0-8.0) Urine Specific [place] 1.020 (1.000-1.030) Urine Protein 100 mg/dL (NEG-TRACE) Urine Glucose (UA) Negative mg/dL (NEG) Urine Ketones (Stick) Negative mg/dL (NEG) Urine Blood Trace (NEG) Urine Nitrite Negative (NEG) Urine Bilirubin Negative (NEG) Urine Urobilinogen Dipstick 0.2 mg/dL (0.2 mg/dL) Urine Leukocyte Esterase Negative (NEG) Urine RBC 0 /HPF (0-2) Urine WBC 0 /HPF (0-4) Urine Squamous Epithelial Cells Few /LPF Urine Amorphous Sediment Present /HPF Urine Bacteria 0 /HPF (0-FEW) Test 12/16/19 12:16 Glucose (Fingerstick) 76 mg/dL (70-99) Review of Systems Constitutional: yes: alert, oriented Eyes: Yes: no symptom reported Pulmonary: Yes dyspnea Cardiovascular: Yes no symptom reported Gastrointestional: Yes: no symptom reported Genitourinary: Yes: no symptom reported Musculoskeletal: Yes: no symptom reported Skin: Yes no symptom reported Psychiatric/Neurological: Yes: no symptom reported Endocrine: Yes: no symptom reported Hematologic/Lymphatic: Yes: no symptom reported Physical Exam HEENT: Neck Supple W Full Motion Chest: Symmetric LUNGS: Other (diminished ) Heart: RRR, murmurs (2/6 systolic murmur ) Extremities: Other (2+ bilateral LE edema, erythema ) Neurology: alert, oriented, follow commands Assessment Assessment 1. Acute on chronic respiratory failure with a/c diastolic CHF, AE COPD. Renal disease also contributing factor as she is not producing urine 2. Acute on chronic diastolic CHF; Echo with preserved LV systolic function 3. SUN on CKD; Cr ^ 4.6. Anuric despite IV Lasix. Hesitant to start HD, but has agreed to proceed. As per renal 4. Mild troponin elevation; peak 0.3. Most probably type II, demand ischemia in setting of above. CP free. 5. LE cellulitis. Antibiotics as per IM. 6. Hypertension; BP lower end 7. Diabetes, II 8. Hypomagnesemia Recommendations Hold coreg with hypotension Hold lisinopril with SUN Add ASA Replace Mg Fluid offloading via HD Ongoing antibiotics for LE cellulitis Supportive care Consider outpatient ischemic evaluation given risk factors LA MELARA APRN Dec 16, 2019 12:27
[2019-12-16] MEDS: FUROSEMIDE 40 MG/4 ML VIAL. IVP SCH (12:30)
[2019-12-16] MEDS ORDERED: LIDOCAINE WITH 8.4% SOD BICARB 3 ML DISP.SYRIN. ONE (12:36)
[2019-12-16] MEDS ORDERED: LIDOCAINE WITH 8.4% SOD BICARB 3 ML DISP.SYRIN. INJ ONE (12:45)
[2019-12-16] MEDS ORDERED: IV NORMAL SALINE 1000ML BAG 1,000 ML IV PRN ×2 (13:11)
[2019-12-16] MEDS ORDERED: diphenhydrAMINE 50 MG/ML VIAL IV PRN ×2 (13:15)
[2019-12-16] MEDS ORDERED: ALBUMIN HUMAN 25% 200 ML IV PRN (13:15)
[2019-12-16] MEDS ORDERED: DIALYSIS PATIENT. MC PRN (13:15)
[2019-12-16] MEDS ORDERED: MAGNESIUM SULFATE 2GM 50 ML IV ONE (15:45)
--- NOTE | 2019-12-16 16:41 | NUR ---
SS following up with discharge planning. SS phoned and faxed referral to [facility], ; fax [phone]. SS currently awaiting IR report for tunneled catheter and first flow sheets. SS will continue to follow for discharge planning.
[2019-12-16 19:49] VITALS: BP 109/71
[2019-12-16] MEDS: HYDROcodone/APAP 5/325MG 1 TAB TABLET PO PRN (22:32)
[2019-12-16 22:54] VITALS: BP 111/55
[2019-12-17] VITALS (7 sets, daily range): BP systolic 104–142; BP diastolic 52–69
[2019-12-17 04:53] LABS: HEMATOCRIT 32.1 % (36.0-47.0); HEMOGLOBIN 9.9 g/dL (12.0-15.5); RED BLOOD COUNT 3.76 x10^6/uL (3.50-5.40); RED CELL DISTRIBUTION WIDTH 17.7 % (11.5-14.5); WHITE BLOOD COUNT 8.1 x10^3/uL (4.0-11.0)
[2019-12-17] MEDS: HYDROcodone/APAP 5/325MG 1 TAB TABLET PO PRN ×3 (05:13→23:31)
[2019-12-17 05:22] LABS: CALCIUM 8.1 mg/dL (8.5-10.1); CREATININE 4.1 mg/dL (0.6-1.0); GFR 10.6; PHOSPHORUS 5.2 mg/dL (2.6-4.7); POTASSIUM 4.9 mmol/L (3.5-5.1)
[2019-12-17] MEDS: PIPERACILLIN/TAZOBACTAM 2.25 GM in IV NORMAL SALINE 50ML 50 ML IV SCH ×3 (06:14→22:45)
[2019-12-17] MEDS: FUROSEMIDE 40 MG/4 ML VIAL. IVP SCH (09:29)
[2019-12-17] MEDS: ASPIRIN ENTERIC COATED 81 MG TABLET.DR. PO SCH (09:31)
[2019-12-17] MEDS ORDERED: IV NORMAL SALINE 1000ML BAG 1,000 ML IV PRN ×2 (09:55)
[2019-12-17] MEDS ORDERED: ALBUMIN HUMAN 25% 200 ML IV PRN (10:00)
[2019-12-17] MEDS ORDERED: DIALYSIS PATIENT. MC PRN ×2 (10:00)
--- NOTE | 2019-12-17 10:21 | PDOC ---
LA MELARA FIRER TUNNEL KILN 12/17/19 1021: CARDIO Progress Notes Date and Time Date of Service 12/17/19 Time of Evaluation 1020 Subjective Subjective: No Chest Pain, No Palpitations, No Dizziness, Other (still SOA, cough. Seen in HD) Vitals Vitals Vital Signs Date Time Temp Pulse Resp B/P (MAP) Pulse Ox O2 Delivery O2 Flow Rate FiO2 12/17/19 07:00 96.5 68 24 104/59 (74) 99 Nasal Cannula 4.0 96.5 Weight Weight [ ] Input and Output Intake and Output Intake and Output 12/17/19 07:00 Intake Total 1100 ml Output Total 1 ml Balance 1099 ml Intake Oral 1100 ml Output Stool Total 1 ml # Voids 3 # Bowel Movements 1 Laboratory Labs Laboratory Tests Test 12/16/19 12:16 12/16/19 14:45 12/16/19 15:50 12/16/19 21:34 Glucose (Fingerstick) 76 mg/dL (70-99) 60 mg/dL (70-99) 148 mg/dL (70-99) Hepatitis B Surface Antibody, Quant <3.1 mIU/mL (Immunity>9.9) Test 12/17/19 04:10 12/17/19 07:59 White Blood Count 8.1 x10^3/uL (4.0-11.0) Red Blood Count 3.76 x10^6/uL (3.50-5.40) Hemoglobin 9.9 g/dL (12.0-15.5) Hematocrit 32.1 % (36.0-47.0) Mean Corpuscular Volume 85 fL (79-100) Mean Corpuscular Hemoglobin 26 pg (25-35) Mean Corpuscular Hemoglobin Concent 31 g/dL (31-37) Red Cell Distribution Width 17.7 % (11.5-14.5) Platelet Count 289 x10^3/uL (140-400) Sodium Level 133 mmol/L (136-145) Potassium Level 4.9 mmol/L (3.5-5.1) Chloride Level 97 mmol/L (98-107) Carbon Dioxide Level 29 mmol/L (21-32) Anion Gap 7 (6-14) Blood Urea Nitrogen 50 mg/dL (7-20) Creatinine 4.1 mg/dL (0.6-1.0) Estimated GFR (Cockcroft-Gault) 10.6 Glucose Level 148 mg/dL (70-99) Calcium Level 8.1 mg/dL (8.5-10.1) Phosphorus Level 5.2 mg/dL (2.6-4.7) Iron Level 17 ug/dL (50-170) Total Iron Binding Capacity 237 ug/dL (250-450) Iron Saturation 7 % (15-34) Glucose (Fingerstick) 129 mg/dL (70-99) Review of Systems Constitutional: yes: alert, oriented Eyes: Yes: no symptom reported Pulmonary: Yes dyspnea Cardiovascular: Yes no symptom reported Gastrointestional: Yes: no symptom reported Genitourinary: Yes: no symptom reported Musculoskeletal: Yes: no symptom reported Skin: Yes no symptom reported Psychiatric/Neurological: Yes: no symptom reported Endocrine: Yes: no symptom reported Hematologic/Lymphatic: Yes: no symptom reported Physical Exam HEENT: Neck Supple W Full Motion Chest: Symmetric LUNGS: Other (diminished ) Heart: RRR, murmurs (2/6 systolic murmur ) Abdomen: Soft N/T, Other (obese ) Extremities: Other (1+ bilateral LE edema, erythema bilateral LE dressings intact) Neurology: alert, oriented, follow commands, other (drowsy ) Assessment Assessment 1. Acute on chronic respiratory failure with a/c diastolic CHF, AE COPD. Renal disease also contributing factor as she is not producing urine 2. Acute on chronic diastolic CHF; Echo with preserved LV systolic function 3. SUN on CKD; uremic. HD initiated 12/15. As per renal 4. Mild troponin elevation; peak 0.3. Most probably type II, demand ischemia in setting of above. CP free. 5. LE cellulitis. Antibiotics as per IM. 6. Hypertension; BP low end 7. Diabetes, II Recommendations repeat CXR Hold coreg with hypotension JAYSON discontinued with SUN ASA therapy Fluid offloading via HD Ongoing antibiotics for LE cellulitis Supportive care Consider outpatient ischemic evaluation given risk factors NADREE ASTORGA MD 12/17/19 1525: CARDIO Progress Notes Plan Plan Patient seen and examined. Agree with above nurse practitioner note. She's currently on dialysis. She has tolerated fluid removal. Her echocardiogram demonstrates biventricular failure likely due to morbid obe sity and underlying kidney disease. She will need outpatient ischemic testing. Supportive care for now. Continue diuresis with hemodialysis. LA MELARA APRN Dec 17, 2019 10:21 ANDREE ASTORGA MD Dec 17, 2019 15:25
--- NOTE | 2019-12-17 10:26 | PDOC ---
PROGRESS NOTES History of Present Illness History of Present Illness ASSESSMENT AND PLAN: Acute on chronic kidney injury, hyperkalemia, hyponatremia at 135, azotemia, acute on chronic systolic and diastolic heart failure, elevated troponin anemia and lower extremity wounds. // Lower extremity cellulitis. admitted. consult Nephrology consult Cardiology. Hold JAYSON inhibitor. IV antibiotics. PT, OT. Wound care nurse to evaluate and treat. DVT prophylaxis. Full code. Prognosis //guarded. temp dialysis cath placement 12/15 Ultrasound and fluoroscopic guided placement of right internal jugular temporary dialysis catheter 28 min pt exam, chart review, > 50% of time spent with exam, chart review, pt care coordination Vitals Vitals Vital Signs Date Time Temp Pulse Resp B/P (MAP) Pulse Ox O2 Delivery O2 Flow Rate FiO2 12/17/19 07:00 96.5 68 24 104/59 (74) 99 Nasal Cannula 4.0 96.5 Physical Exam Physical Exam and accommodation. MUSKULOSKELETAL: Well developed, well nourished, good range of motion. ENDOCRINE: No thyromegaly was palpated. LYMPHATICS: No cervical chain or axillary nodes were noted. HEMATOPOIETIC: No bruising. NECK: Supple, no JVD, no thyromegaly was noted. PULMONARY: She has decreased breath sounds. HEART: RRR, S1, S2 present. Peripheral pulses intact, no obvious murmurs were noted. ABDOMEN: Soft, nontender. Positive bowel sounds no organomegaly, normal bowel sounds. EXTREMITIES: She has bilateral lower extremity cellulitis with wounds that have been wrapped with clean, dry and intact dressing. NEUROLOGIC: Normal speech, normal tone. A & O x 3, moves all extremities, no obvious focal deficits. PSYCHIATRIC: She is anxious. SKIN: No ulcerations or rashes, good skin turgor, no jaundice. VASCULAR: Good capillary refill, neurovascular bundle appears to be intact. General: Alert, Cooperative, No acute distress, mild distress Heart: Regular rate Lungs: Clear Abdomen: Normal bowel sounds, No tenderness Extremities: No clubbing, No cyanosis Labs LABS Procedure: Temporary hemodialysis catheter placement under fluoroscopy Clinical Indication: Renal failure Total fluoroscopy time:: 0.2 min Dose area product: 3 Gycm2 Sterility: All elements of maximal sterile barrier technique including the use of a cap, mask, sterile gown, sterile gloves, large sterile sheet, appropriate hand hygiene, and 2% chlorhexidine for cutaneous antisepsis (or acceptable alternative antiseptic per current guidelines) were followed for this procedure. Consent: The procedure was explained in its entirety to the patient or the patients designated liability claims representative by a member of the treatment team, including a discussion of the risks, benefits and commonly accepted alternatives to the procedure, as well as the expected consequences of no therapy whatsoever. Discussion of the risks included, but was not limited to, those that are most frequent and those that are rare but possibly severe or life-threatening, as well as the possibility of unforeseen complications. Technique and Findings: Following informed consent, the patient was prepped and draped in the usual sterile fashion. Ultrasound interrogation of the right neck revealed patency and compressibility of the right internal jugular vein. A 21-gauge micropuncture needle was used to gain access to this vein after 1% Lidocaine was used to achieve local anesthesia. A hardcopy ultrasound image was recorded. The needle was exchanged over a wire for serial dilators followed by a 20 cm temporary hemodialysis catheter which was deployed under fluoroscopic guidance such that the distal tip resided in the mid right atrium. The catheter flow rates were assessed manually and found to be excellent. The catheter was then flushed, packed with Heparin, capped, and sutured to the skin. Complications: No immediate Impression: 1. Ultrasound and fluoroscopic guided placement of right internal jugular temporary dialysis catheter DICTATED and SIGNED BY: HEIDI SARAVIA MD DATE: 12/17/19 1045 Laboratory Tests Test 12/16/19 12:16 12/16/19 14:45 12/16/19 15:50 12/16/19 21:34 Glucose (Fingerstick) 76 mg/dL (70-99) 60 mg/dL (70-99) 148 mg/dL (70-99) Hepatitis B Surface Antibody, Quant <3.1 mIU/mL (Immunity>9.9) Test 12/17/19 04:10 12/17/19 07:59 White Blood Count 8.1 x10^3/uL (4.0-11.0) Red Blood Count 3.76 x10^6/uL (3.50-5.40) Hemoglobin 9.9 g/dL (12.0-15.5) Hematocrit 32.1 % (36.0-47.0) Mean Corpuscular Volume 85 fL (79-100) Mean Corpuscular Hemoglobin 26 pg (25-35) Mean Corpuscular Hemoglobin Concent 31 g/dL (31-37) Red Cell Distribution Width 17.7 % (11.5-14.5) Platelet Count 289 x10^3/uL (140-400) Sodium Level 133 mmol/L (136-145) Potassium Level 4.9 mmol/L (3.5-5.1) Chloride Level 97 mmol/L (98-107) Carbon Dioxide Level 29 mmol/L (21-32) Anion Gap 7 (6-14) Blood Urea Nitrogen 50 mg/dL (7-20) Creatinine 4.1 mg/dL (0.6-1.0) Estimated GFR (Cockcroft-Gault) 10.6 Glucose Level 148 mg/dL (70-99) Calcium Level 8.1 mg/dL (8.5-10.1) Phosphorus Level 5.2 mg/dL (2.6-4.7) Iron Level 17 ug/dL (50-170) Total Iron Binding Capacity 237 ug/dL (250-450) Iron Saturation 7 % (15-34) Glucose (Fingerstick) 129 mg/dL (70-99) Assessment and Plan Assessmemt and Plan Problems Medical Problems: (1) Cellulitis Status: Acute (2) CHF (congestive heart failure) Status: Acute (3) Elevated troponin Status: Acute (4) Shortness of breath Status: Acute Comment Review of Relevant I have reviewed the following items monalisa (where applicable) has been applied. Labs Laboratory Tests Test 12/15/19 11:49 12/15/19 12:20 12/15/19 16:51 12/15/19 21:09 Glucose (Fingerstick) 85 mg/dL (70-99) 73 mg/dL (70-99) 40 mg/dL (70-99) Potassium Level 5.6 mmol/L (3.5-5.1) Troponin I Quantitative 0.217 ng/mL (0.000-0.055) Test 12/15/19 21:23 12/15/19 22:00 12/16/19 03:40 12/16/19 07:35 Glucose (Fingerstick) 43 mg/dL (70-99) 100 mg/dL (70-99) 41 mg/dL (70-99) White Blood Count 7.9 x10^3/uL (4.0-11.0) Red Blood Count 3.73 x10^6/uL (3.50-5.40) Hemoglobin 9.9 g/dL (12.0-15.5) Hematocrit 31.4 % (36.0-47.0) Mean Corpuscular Volume 84 fL (79-100) Mean Corpuscular Hemoglobin 26 pg (25-35) Mean Corpuscular Hemoglobin Concent 31 g/dL (31-37) Red Cell Distribution Width 17.2 % (11.5-14.5) Platelet Count 376 x10^3/uL (140-400) Neutrophils (%) (Auto) 78 % (31-73) Lymphocytes (%) (Auto) 13 % (24-48) Monocytes (%) (Auto) 9 % (0-9) Eosinophils (%) (Auto) 1 % (0-3) Basophils (%) (Auto) 1 % (0-3) Neutrophils # (Auto) 6.1 x10^3/uL (1.8-7.7) Lymphocytes # (Auto) 1.0 x10^3/uL (1.0-4.8) Monocytes # (Auto) 0.7 x10^3/uL (0.0-1.1) Eosinophils # (Auto) 0.0 x10^3/uL (0.0-0.7) Basophils # (Auto) 0.0 x10^3/uL (0.0-0.2) Sodium Level 136 mmol/L (136-145) Potassium Level 5.3 mmol/L (3.5-5.1) Chloride Level 98 mmol/L (98-107) Carbon Dioxide Level 30 mmol/L (21-32) Anion Gap 8 (6-14) Blood Urea Nitrogen 72 mg/dL (7-20) Creatinine 4.6 mg/dL (0.6-1.0) Estimated GFR (Cockcroft-Gault) 9.2 Glucose Level 43 mg/dL (70-99) Calcium Level 8.4 mg/dL (8.5-10.1) Magnesium Level 1.6 mg/dL (1.8-2.4) Creatine Kinase 45 U/L (26-192) Triglycerides Level 94 mg/dL (0-150) Cholesterol Level 103 mg/dL (0-200) LDL Cholesterol, Calculated 37 mg/dL (0-100) VLDL Cholesterol, Calculated 19 mg/dL (0-40) Non-HDL Cholesterol Calculated 56 mg/dL (0-129) HDL Cholesterol 47 mg/dL (40-60) Cholesterol/HDL Ratio 2.2 Hepatitis B Surface Antigen Nonreactive (Nonreactive) Hepatitis B Surface Antibody Nonreactive Hepatitis B Core Total Antibody Nonreactive (Nonreactive) Test 12/16/19 07:45 12/16/19 08:54 12/16/19 12:16 12/16/19 14:45 Urine Collection Type Unknown Urine Color Ginger Urine Clarity Cloudy Urine pH 5.0 (<5.0-8.0) Urine Specific [place] 1.020 (1.000-1.030) Urine Protein 100 mg/dL (NEG-TRACE) Urine Glucose (UA) Negative mg/dL (NEG) Urine Ketones (Stick) Negative mg/dL (NEG) Urine Blood Trace (NEG) Urine Nitrite Negative (NEG) Urine Bilirubin Negative (NEG) Urine Urobilinogen Dipstick 0.2 mg/dL (0.2 mg/dL) Urine Leukocyte Esterase Negative (NEG) Urine RBC 0 /HPF (0-2) Urine WBC 0 /HPF (0-4) Urine Squamous Epithelial Cells Few /LPF Urine Amorphous Sediment Present /HPF Urine Bacteria 0 /HPF (0-FEW) Glucose (Fingerstick) 175 mg/dL (70-99) 76 mg/dL (70-99) Hepatitis B Surface Antibody, Quant <3.1 mIU/mL (Immunity>9.9) Test 12/16/19 15:50 12/16/19 21:34 12/17/19 04:10 12/17/19 07:59 Glucose (Fingerstick) 60 mg/dL (70-99) 148 mg/dL (70-99) 129 mg/dL (70-99) White Blood Count 8.1 x10^3/uL (4.0-11.0) Red Blood Count 3.76 x10^6/uL (3.50-5.40) Hemoglobin 9.9 g/dL (12.0-15.5) Hematocrit 32.1 % (36.0-47.0) Mean Corpuscular Volume 85 fL (79-100) Mean Corpuscular Hemoglobin 26 pg (25-35) Mean Corpuscular Hemoglobin Concent 31 g/dL (31-37) Red Cell Distribution Width 17.7 % (11.5-14.5) Platelet Count 289 x10^3/uL (140-400) Sodium Level 133 mmol/L (136-145) Potassium Level 4.9 mmol/L (3.5-5.1) Chloride Level 97 mmol/L (98-107) Carbon Dioxide Level 29 mmol/L (21-32) Anion Gap 7 (6-14) Blood Urea Nitrogen 50 mg/dL (7-20) Creatinine 4.1 mg/dL (0.6-1.0) Estimated GFR (Cockcroft-Gault) 10.6 Glucose Level 148 mg/dL (70-99) Calcium Level 8.1 mg/dL (8.5-10.1) Phosphorus Level 5.2 mg/dL (2.6-4.7) Iron Level 17 ug/dL (50-170) Total Iron Binding Capacity 237 ug/dL (250-450) Iron Saturation 7 % (15-34) Laboratory Tests Test 12/16/19 12:16 12/16/19 14:45 12/16/19 15:50 12/16/19 21:34 Glucose (Fingerstick) 76 mg/dL (70-99) 60 mg/dL (70-99) 148 mg/dL (70-99) Hepatitis B Surface Antibody, Quant <3.1 mIU/mL (Immunity>9.9) Test 12/17/19 04:10 12/17/19 07:59 White Blood Count 8.1 x10^3/uL (4.0-11.0) Red Blood Count 3.76 x10^6/uL (3.50-5.40) Hemoglobin 9.9 g/dL (12.0-15.5) Hematocrit 32.1 % (36.0-47.0) Mean Corpuscular Volume 85 fL (79-100) Mean Corpuscular Hemoglobin 26 pg (25-35) Mean Corpuscular Hemoglobin Concent 31 g/dL (31-37) Red Cell Distribution Width 17.7 % (11.5-14.5) Platelet Count 289 x10^3/uL (140-400) Sodium Level 133 mmol/L (136-145) Potassium Level 4.9 mmol/L (3.5-5.1) Chloride Level 97 mmol/L (98-107) Carbon Dioxide Level 29 mmol/L (21-32) Anion Gap 7 (6-14) Blood Urea Nitrogen 50 mg/dL (7-20) Creatinine 4.1 mg/dL (0.6-1.0) Estimated GFR (Cockcroft-Gault) 10.6 Glucose Level 148 mg/dL (70-99) Calcium Level 8.1 mg/dL (8.5-10.1) Phosphorus Level 5.2 mg/dL (2.6-4.7) Iron Level 17 ug/dL (50-170) Total Iron Binding Capacity 237 ug/dL (250-450) Iron Saturation 7 % (15-34) Glucose (Fingerstick) 129 mg/dL (70-99) Medications Current Medications Vancomycin HCl 250 ml @ 166.667 mls/hr 1X ONCE IV Last administered on 12/14/19at 18:24; Start 12/14/19 at 17:45; Stop 12/14/19 at 19:14; Status DC Sodium Chloride 1,000 ml @ 1,000 mls/hr 1X ONCE IV Last administered on 12/14/19at 18:23; Start 12/14/19 at 18:00; Stop 12/14/19 at 18:59; Status DC Calcium Gluconate (Calcium Gluconate) 1,000 mg 1X ONCE IVP Last administered on 12/14/19at 18:24; Start 12/14/19 at 18:00; Stop 12/14/19 at 18:01; Status DC Albuterol Sulfate (Ventolin Neb Soln) 10 mg 1X ONCE CONT NEB Last administered on 12/14/19at 18:00; Start 12/14/19 at 18:00; Stop 12/14/19 at 18:01; Status DC Furosemide (Lasix) 40 mg 1X ONCE PO ; Start 12/14/19 at 18:30; Stop 12/14/19 at 18:31; Status DC Enoxaparin Sodium (Lovenox 120mg Syringe) 120 mg 1X ONCE SQ Last administered on 12/14/19at 20:05; Start 12/14/19 at 19:30; Stop 12/14/19 at 19:31; Status DC Furosemide (Lasix) 40 mg 1X ONCE IVP Last administered on 12/14/19at 20:05; Start 12/14/19 at 19:30; Stop 12/14/19 at 19:31; Status DC Dextrose (Dextrose 50%-Water Syringe) 25 gm STK-MED ONCE IV ; Start 12/15/19 at 08:11; Stop 12/15/19 at 08:11; Status DC Sodium Polystyrene Sulfonate (Kayexalate) 30 gm 1X ONCE RC ; Start 12/15/19 at 09:00; Stop 12/15/19 at 08:38; Status DC Sodium Polystyrene Sulfonate (Kayexalate) 15 gm 1X ONCE PO Last administered on 12/15/19at 09:24; Start 12/15/19 at 09:00; Stop 12/15/19 at 09:01; Status DC Piperacillin Sod/ Tazobactam Sod (Zosyn Per Pharmacy) 1 each PRN DAILY PRN MC SEE COMMENTS; Start 12/15/19 at 13:00 Piperacillin Sod/ Tazobactam Sod 2.25 gm/Sodium Chloride 50 ml @ 100 mls/hr Q6HRS IV Last administered on 12/16/19at 05:32; Start 12/15/19 at 14:00; Stop 12/16/19 at 16:05; Status DC Dextrose (Dextrose 50%-Water Syringe) 12.5 gm PRN Q15MIN PRN IV SEE COMMENTS Last administered on 12/16/19at 07:56; Start 12/15/19 at 21:15 Dextrose (Iv Dextrose 5%) 250 ml PRN Q15MIN PRN IV SEE COMMENTS; Start 12/15/19 at 21:15 Dextrose (Dextrose 50%-Water Syringe) 25 gm STK-MED ONCE IV ; Start 12/15/19 at 21:19; Stop 12/15/19 at 21:19; Status DC Furosemide (Lasix) 60 mg DAILY IVP Last administered on 12/17/19at 09:29; Start 12/16/19 at 12:30 Lidocaine HCl (Buffered Lidocaine 1%) 3 ml STK-MED ONCE .ROUTE ; Start 12/16/19 at 12:36; Stop 12/16/19 at 12:36; Status DC Lidocaine HCl (Buffered Lidocaine 1%) 6 ml 1X ONCE INJ Last administered on 12/16/19at 12:56; Start 12/16/19 at 12:45; Stop 12/16/19 at 12:46; Status DC Sodium Chloride 1,000 ml @ 1,000 mls/hr Q1H PRN IV hypotension; Start 12/16/19 at 13:11; Stop 12/16/19 at 19:10; Status DC Albumin Human 200 ml @ 200 mls/hr 1X PRN PRN IV Hypotension; Start 12/16/19 at 13:15; Stop 12/16/19 at 19:14; Status DC Diphenhydramine HCl (Benadryl) 25 mg 1X PRN PRN IV ITCHING; Start 12/16/19 at 13:15; Stop 12/17/19 at 13:14 Diphenhydramine HCl (Benadryl) 25 mg 1X PRN PRN IV ITCHING; Start 12/16/19 at 13:15; Stop 12/17/19 at 13:14 Sodium Chloride 1,000 ml @ 400 mls/hr Q2H30M PRN IV PATENCY; Start 12/16/19 at 13:11; Stop 12/17/19 at 01:10; Status DC Info (PHARMACY MONITORING -- do not chart) 1 each PRN DAILY PRN MC SEE COMMENTS; Start 12/16/19 at 13:15 Magnesium Sulfate 50 ml @ 25 mls/hr 1X ONCE IV Last administered on 12/16/19at 19:21; Start 12/16/19 at 15:45; Stop 12/16/19 at 17:44; Status DC Aspirin (Ecotrin) 81 mg DAILYWBKFT PO Last administered on 12/17/19at 09:31; Start 12/17/19 at 08:00 Piperacillin Sod/ Tazobactam Sod 2.25 gm/Sodium Chloride 50 ml @ 100 mls/hr Q8HRS IV Last administered on 12/17/19at 06:14; Start 12/16/19 at 17:00 Acetaminophen/ Hydrocodone Bitart (Lortab 5/325) 1 tab PRN Q6HRS PRN PO MODERATE PAIN 4-6 Last administered on 12/17/19at 05:13; Start 12/16/19 at 22:00 Sodium Chloride 1,000 ml @ 1,000 mls/hr Q1H PRN IV hypotension; Start 12/17/19 at 09:55; Stop 12/17/19 at 15:54 Albumin Human 200 ml @ 200 mls/hr 1X PRN PRN IV Hypotension; Start 12/17/19 at 10:00; Stop 12/17/19 at 15:59 Sodium Chloride 1,000 ml @ 400 mls/hr Q2H30M PRN IV PATENCY; Start 12/17/19 at 09:55; Stop 12/17/19 at 21:54 Info (PHARMACY MONITORING -- do not chart) 1 each PRN DAILY PRN MC SEE COMMENTS; Start 12/17/19 at 10:00; Status UNV Info (PHARMACY MONITORING -- do not chart) 1 each PRN DAILY PRN MC SEE COMMENTS; Start 12/17/19 at 10:00; Status UNV Active Scripts Active [place] 5-325 Tablet (Acetaminophen/Hydrocodone Bitart) 1 Each Tablet 1 Tab PO PRN Q6HRS PRN Oxycodone-Acetaminophen 5-325 (Oxycodone Hcl/Acetaminophen) 1 Each Tablet 1 Tab PO PRN Q4HRS PRN Reported Triamcinolone Acetonide 0.1% Cream (Triamcinolone Acetonide) 15 Gm Cream..g. 1 [place] TP BID Tramadol Hcl 50 Mg Tablet 50 Mg PO DAILY PRN Flonase Allergy Relief (Fluticasone Propionate) 9.9 Ml [place].susp 2 Sprays NS DAILY Metformin Hcl 1,000 Mg Tablet 1,000 Mg PO BIDWMEALS Lisinopril 40 Mg Tablet 1 Tab PO DAILY Novolin N (Nph, Human Insulin Isophane) 100 Unit/1 Ml Vial 40 Unit SQ DAILY Carvedilol (Carvedilol) 6.25 Mg Tablet 6.25 Mg PO BIDWMEALS Escitalopram Oxalate 10 Mg Tablet 1 Tab PO DAILY Simvastatin 40 Mg Tablet 1 Tab PO QHS Glipizide 10 Mg Tablet 10 Mg PO BID Furosemide 20 Mg Tablet 1 Tab PO DAILY Vitals/I & O Vital Sign - Last 24 Hours 12/16/19 12/16/19 12/16/19 12/16/19 11:00 19:49 22:32 22:54 Temp 97.5 97.5 98.0 97.5 97.5 98.0 Pulse 91 90 90 Resp 22 22 B/P (MAP) 118/65 (82) 109/71 (84) 111/55 (73) Pulse Ox 92 92 98 97 O2 Delivery Nasal Cannula Nasal Cannula Nasal Cannula Nasal Cannula O2 Flow Rate 4.0 4.0 4.0 4.0 12/16/19 12/17/19 12/17/19 12/17/19 23:35 02:17 05:13 06:17 Temp 98.3 98.3 Pulse 88 Resp 20 20 24 22 B/P (MAP) 104/52 (69) Pulse Ox 98 O2 Delivery Nasal Cannula Nasal Cannula Nasal Cannula O2 Flow Rate 4.0 4.0 12/17/19 07:00 Temp 96.5 96.5 Pulse 68 Resp 24 B/P (MAP) 104/59 (74) Pulse Ox 99 O2 Delivery Nasal Cannula O2 Flow Rate 4.0 Intake and Output 12/16/19 12/16/19 12/17/19 15:00 23:00 07:00 Intake Total 0 ml 800 ml 300 ml Output Total 1 ml Balance 0 ml 800 ml 299 ml CHINO MORALES MD Dec 17, 2019 10:26
--- NOTE | 2019-12-17 10:49 | RAD ---
Procedure: Temporary hemodialysis catheter placement under fluoroscopy Clinical Indication: Renal failure Total fluoroscopy time:: 0.2 min Dose area product: 3 Gycm2 Sterility: All elements of maximal sterile barrier technique including the use of a cap, mask, sterile gown, sterile gloves, large sterile sheet, appropriate hand hygiene, and 2% chlorhexidine for cutaneous antisepsis (or acceptable alternative antiseptic per current guidelines) were followed for this procedure. Consent: The procedure was explained in its entirety to the patient or the patients designated traveling representative by a member of the treatment team, including a discussion of the risks, benefits and commonly accepted alternatives to the procedure, as well as the expected consequences of no therapy whatsoever. Discussion of the risks included, but was not limited to, those that are most frequent and those that are rare but possibly severe or life-threatening, as well as the possibility of unforeseen complications. Technique and Findings: Following informed consent, the patient was prepped and draped in the usual sterile fashion. Ultrasound interrogation of the right neck revealed patency and compressibility of the right internal jugular vein. A 21-gauge micropuncture needle was used to gain access to this vein after 1% Lidocaine was used to achieve local anesthesia. A hardcopy ultrasound image was recorded. The needle was exchanged over a wire for serial dilators followed by a 20 cm temporary hemodialysis catheter which was deployed under fluoroscopic guidance such that the distal tip resided in the mid right atrium. The catheter flow rates were assessed manually and found to be excellent. The catheter was then flushed, packed with Heparin, capped, and sutured to the skin. Complications: No immediate Impression: 1. Ultrasound and fluoroscopic guided placement of right internal jugular temporary dialysis catheter
--- NOTE | 2019-12-17 11:43 | NUR ---
KATINA following. Discussed with RN. data processing systems project planner, Promise faxed additional clinicals to Gabino. Gabino contacted KATINA with various questions. KATINA passed on questions to Promise Zaragoza.
--- NOTE | 2019-12-17 12:11 | PDOC ---
Renal-Progress Notes Subjective Notes Notes LESS SOB AFTER HD YESTERDAY History of Present Illness Hx of present illness NO CHANGES Vitals Vitals Vital Signs Date Time Temp Pulse Resp B/P (MAP) Pulse Ox O2 Delivery O2 Flow Rate FiO2 12/17/19 07:00 96.5 68 24 104/59 (74) 99 Nasal Cannula 4.0 96.5 Weight Weight [ ] I.O. Intake and Output Intake and Output 12/17/19 07:00 Intake Total 1100 ml Output Total 1 ml Balance 1099 ml Intake Oral 1100 ml Output Stool Total 1 ml # Voids 3 # Bowel Movements 1 Labs Labs Laboratory Tests Test 12/16/19 12:16 12/16/19 14:45 12/16/19 15:50 12/16/19 21:34 Glucose (Fingerstick) 76 mg/dL (70-99) 60 mg/dL (70-99) 148 mg/dL (70-99) Hepatitis B Surface Antibody, Quant <3.1 mIU/mL (Immunity>9.9) Test 12/17/19 04:10 12/17/19 07:59 White Blood Count 8.1 x10^3/uL (4.0-11.0) Red Blood Count 3.76 x10^6/uL (3.50-5.40) Hemoglobin 9.9 g/dL (12.0-15.5) Hematocrit 32.1 % (36.0-47.0) Mean Corpuscular Volume 85 fL (79-100) Mean Corpuscular Hemoglobin 26 pg (25-35) Mean Corpuscular Hemoglobin Concent 31 g/dL (31-37) Red Cell Distribution Width 17.7 % (11.5-14.5) Platelet Count 289 x10^3/uL (140-400) Sodium Level 133 mmol/L (136-145) Potassium Level 4.9 mmol/L (3.5-5.1) Chloride Level 97 mmol/L (98-107) Carbon Dioxide Level 29 mmol/L (21-32) Anion Gap 7 (6-14) Blood Urea Nitrogen 50 mg/dL (7-20) Creatinine 4.1 mg/dL (0.6-1.0) Estimated GFR (Cockcroft-Gault) 10.6 Glucose Level 148 mg/dL (70-99) Calcium Level 8.1 mg/dL (8.5-10.1) Phosphorus Level 5.2 mg/dL (2.6-4.7) Magnesium Level 2.0 mg/dL (1.8-2.4) Iron Level 17 ug/dL (50-170) Total Iron Binding Capacity 237 ug/dL (250-450) Iron Saturation 7 % (15-34) Glucose (Fingerstick) 129 mg/dL (70-99) Review of Systems Constitutional: yes: alert, oriented Eyes: Yes: no symptom reported Pulmonary: Yes dyspnea Cardiovascular: Yes no symptom reported Gastrointestional: Yes: no symptom reported Genitourinary: Yes: no symptom reported Musculoskeletal: Yes: no symptom reported Skin: Yes no symptom reported Psychiatric/Neurological: Yes: no symptom reported Endocrine: Yes: no symptom reported Hematologic/Lymphatic: Yes: no symptom reported Physical Exam General Appearance: no apparent distress Skin: warm Respiratory: decreased breath sounds Heart: S1S2 Abdomen: soft, bowel sounds present Genitourinary: bladder flat Extremities: pulses present Neurology: alert, oriented, follow commands Assessment Assessment IMP SUN - ATN - ANURIA-SUSPECT ESRD-RENAL SONO NEG, UA NEG CKD SUSPECT NEAR END STAGE-CR OF 1.7 IN 2017 BUT NEVER FOLLOWED UP ACUTE ON CHRONIC HYPOXIC RESP FAILURE-ON HOME O2 2-3 L LE CELLULITIS MILD HYPOTENSION DM II HTN ANEMIA IRON DEFICIENCY PLAN ANTIBIOTICS IV VENOFER MAY NEED AYAD PT DECIDED TO PURSURE HD HD TODAY UF ABOUT 3.0 LITERS TOLERATED CONT TO HOLD ANTIHYPERTENSIVES D/W STAFF IV LASIX FOR NOW WILL PROB NEED TDC AND OP HD SET UP D/W YASSINE THOMSON MD Dec 17, 2019 12:11
[2019-12-17] MEDS ORDERED: LIDOCAINE 1%/EPI 1:100,000 20 ML VIAL. ONE (12:29)
[2019-12-17] MEDS ORDERED: fentaNYL PF VIAL 100 MCG/2 ML VIAL ONE (12:34)
[2019-12-17] MEDS ORDERED: MIDAZOLAM HCL/PF 2 MG/2 ML VIAL. ONE (12:34)
[2019-12-17] MEDS ORDERED: fentaNYL PF VIAL 100 MCG/2 ML VIAL IV ONE (12:45)
[2019-12-17] MEDS ORDERED: LIDOCAINE 1%/EPI 1:100,000 20 ML VIAL. SQ ONE (12:45)
[2019-12-17] MEDS ORDERED: MIDAZOLAM HCL/PF 2 MG/2 ML VIAL. IV ONE (12:45)
[2019-12-17] MEDS ORDERED: IRON SUCROSE COMPLEX 500 MG in IV NORMAL SALINE 250ML 250 ML IV ONE (13:00)
--- NOTE | 2019-12-17 13:42 | RAD ---
CHEST AP ONLY History: Shortness of breath. Cough. Comparison: December 14, 2019 Findings: Decreased volumes compared to prior. Interstitial and patchy bibasilar opacities. Small left pleural effusion, unchanged. No pneumothorax. Interval placement right IJ central line with tip projecting over the right atrium, unchanged. Unchanged heart size. Postoperative changes right reverse total shoulder arthroplasty. Impression: 1. Diffuse interstitial thickening with patchy bibasilar opacities, similar compared to prior. Findings may represent pulmonary edema or atypical infection including viral pneumonia. 2. Small left pleural effusion, unchanged. Electronically signed by: Te Felder DO (12/17/2019 1:39 PM) [id number]
--- NOTE | 2019-12-17 17:00 | NUR ---
Wound Care Wound Type/Assessment: BLE stasis ulcers, L plantar heel DFU, bilateral buttocks & coccyx Stage III pressure ulcers Treatment Recommendations/Plan: BLE-Thorough cleaning and removal of skin in the periwound, lotion to intact skin, Xeroform gauze, ABDs and kerlix, Medigrip compression (when pt can tolerate), change dressings every other day. L plantar foot/heel-Iodoflex and foam dressing, after imaging completed, change every 3-4 days. Buttocks/Coccyx-Calazime cream TID and PRN, as pt is having incontinent episodes. Once that resolves, recommend Hydrocolloid and foam dressings every 3-4 days. Education provided: Pt educated on turning Q2 hours from side to side d/t P.U. on backside, and also instructed on allowing staff to clean and change her dressings on her legs every other day, pt v/u. POC discussed with KELVIN Cruz. Offloading surface/device: P500 low air loss bed Recommended Referrals/Tests: Soft tissue x-ray of L plantar foot/heel to evaluate for foreign body. Also would like BLE Arterial & Venous U/S, but understand this may have to be done on outpt basis. Discharge Recommendations for dressings: BLE-Thorough cleaning and removal of skin in the periwound, lotion to intact skin, Xeroform gauze, ABDs and kerlix, Medigrip compression (when pt can tolerate), change dressings every other day. L plantar foot/heel-Iodoflex and foam dressing, change every 3-4 days. Buttocks/Coccyx-Calazime cream TID and PRN, as pt is having incontinent episodes. Once that resolves, recommend Hydrocolloid and foam dressings every 3-4 days.
[2019-12-17] MEDS: LACTOBACILLUS RHAMNOSUS GG 1 CAPSULE. PO SCH (21:30)
[2019-12-18 03:13] VITALS: BP 96/54
[2019-12-18 03:38] LABS: HEMOGLOBIN 9.8 g/dL (12.0-15.5); RED BLOOD COUNT 3.72 x10^6/uL (3.50-5.40); RED CELL DISTRIBUTION WIDTH 18.1 % (11.5-14.5); WHITE BLOOD COUNT 7.1 x10^3/uL (4.0-11.0)
[2019-12-18 04:43] LABS: CALCIUM 7.9 mg/dL (8.5-10.1); CREATININE 4.1 mg/dL (0.6-1.0); GFR 10.6; POTASSIUM 4.9 mmol/L (3.5-5.1)
[2019-12-18] MEDS: PIPERACILLIN/TAZOBACTAM 2.25 GM in IV NORMAL SALINE 50ML 50 ML IV SCH ×2 (05:44→18:39)
[2019-12-18 07:00] VITALS: BP 148/72
--- NOTE | 2019-12-18 07:54 | RAD ---
Conversion of right internal jugular temporary dialysis catheter to a tunneled hemodialysis catheter Indication: Longer term dialysis access needed Procedure: The procedure was explained in its entirety to the patient or the patients designated risk control field representative by a member of the treatment team, including a discussion of the risks, benefits and commonly accepted alternatives to the procedure, as well as the expected consequences of no therapy whatsoever. Discussion of the risks included, but was not limited to, those that are most frequent and those that are rare but possibly severe or life-threatening, as well as the possibility of unforeseen complications. All elements of maximal sterile barrier technique including the use of a cap, mask, sterile gown, sterile gloves, large sterile sheet, appropriate hand hygiene, and 2% chlorhexidine for cutaneous antisepsis (or acceptable alternative antiseptic per current guidelines) were followed for this procedure. The pre-existing catheter was evaluated under fluoroscopy and found to be normal in position. A guidewire was advanced into the IVC. A 23 cm tip to cuff tunneled hemodialysis catheter was advanced from small dermatotomy, several centimeters inferior to the pre-existing catheter entry site, to the venotomy site. The pre-existing catheter was removed over the guidewire and a peel-away sheath placed. The new tunneled catheter was advanced through the peel-away sheath such that its tip was positioned in the proximal right atrium with the patient supine. The sheath was removed. The new catheter was found to flush and aspirate normally. Catheter was flushed, and secured in place. Sterile dressings were applied. No immediate complications were identified. Total fluoroscopy time: 0.6 min Dose area product: 4 Gycm2 The procedure was performed under conscious sedation including continuous cardiopulmonary monitoring via dedicated sedation nurse. [id number] sedation time: 20 minutes Impression: Conversion of a right internal jugular temporary dialysis catheter to a tunneled dialysis catheter
[2019-12-18] MEDS: ASPIRIN ENTERIC COATED 81 MG TABLET.DR. PO SCH (08:29)
[2019-12-18] MEDS: LACTOBACILLUS RHAMNOSUS GG 1 CAPSULE. PO SCH ×2 (08:29→22:01)
[2019-12-18] MEDS: HYDROcodone/APAP 5/325MG 1 TAB TABLET PO PRN (08:30)
[2019-12-18] MEDS: FUROSEMIDE 40 MG/4 ML VIAL. IVP SCH (08:30)
--- NOTE | 2019-12-18 10:45 | PDOC ---
PROGRESS NOTES History of Present Illness History of Present Illness ASSESSMENT AND PLAN: Acute on chronic kidney injury, hyperkalemia, hyponatremia at 135, azotemia, acute on chronic systolic and diastolic heart failure, elevated troponin anemia and lower extremity wounds. // Lower extremity cellulitis. admitted. consult Nephrology consult Cardiology. Hold JAYSON inhibitor. IV antibiotics. PT, OT. Wound care nurse to evaluate and treat. DVT prophylaxis. Full code. Prognosis //guarded. temp dialysis cath placement 12/15 Ultrasound and fluoroscopic guided placement of right internal jugular temporary dialysis catheter NEEDS TDC AND OP HD SET UP 12/17 dilysis today 29 min pt exam, chart review, > 50% of time spent with exam, chart review, pt care coordination Vitals Vitals Vital Signs Date Time Temp Pulse Resp B/P (MAP) Pulse Ox O2 Delivery O2 Flow Rate FiO2 12/18/19 09:30 91 Nasal Cannula 5.0 12/18/19 07:00 97.4 69 24 148/72 (97) 97.4 Physical Exam Physical Exam and accommodation. MUSKULOSKELETAL: Well developed, well nourished, good range of motion. ENDOCRINE: No thyromegaly was palpated. LYMPHATICS: No cervical chain or axillary nodes were noted. HEMATOPOIETIC: No bruising. NECK: Supple, no JVD, no thyromegaly was noted. PULMONARY: She has decreased breath sounds. HEART: RRR, S1, S2 present. Peripheral pulses intact, no obvious murmurs were noted. ABDOMEN: Soft, nontender. Positive bowel sounds no organomegaly, normal bowel sounds. EXTREMITIES: She has bilateral lower extremity cellulitis with wounds that have been wrapped with clean, dry and intact dressing. NEUROLOGIC: Normal speech, normal tone. A & O x 3, moves all extremities, no obvious focal deficits. PSYCHIATRIC: She is anxious. SKIN: No ulcerations or rashes, good skin turgor, no jaundice. VASCULAR: Good capillary refill, neurovascular bundle appears to be intact. General: Alert, Oriented X3, Cooperative, No acute distress, mild distress Heart: Regular rate Lungs: Clear Abdomen: Normal bowel sounds, No tenderness Extremities: No clubbing, No cyanosis Labs LABS Laboratory Tests Test 12/17/19 17:09 12/17/19 20:25 12/18/19 03:15 12/18/19 07:13 Glucose (Fingerstick) 181 mg/dL (70-99) 237 mg/dL (70-99) 273 mg/dL (70-99) White Blood Count 7.1 x10^3/uL (4.0-11.0) Red Blood Count 3.72 x10^6/uL (3.50-5.40) Hemoglobin 9.8 g/dL (12.0-15.5) Hematocrit 32.0 % (36.0-47.0) Mean Corpuscular Volume 86 fL (79-100) Mean Corpuscular Hemoglobin 26 pg (25-35) Mean Corpuscular Hemoglobin Concent 31 g/dL (31-37) Red Cell Distribution Width 18.1 % (11.5-14.5) Platelet Count 280 x10^3/uL (140-400) Sodium Level 133 mmol/L (136-145) Potassium Level 4.9 mmol/L (3.5-5.1) Chloride Level 96 mmol/L (98-107) Carbon Dioxide Level 28 mmol/L (21-32) Anion Gap 9 (6-14) Blood Urea Nitrogen 42 mg/dL (7-20) Creatinine 4.1 mg/dL (0.6-1.0) Estimated GFR (Cockcroft-Gault) 10.6 Glucose Level 201 mg/dL (70-99) Calcium Level 7.9 mg/dL (8.5-10.1) Assessment and Plan Assessmemt and Plan Problems Medical Problems: (1) Cellulitis Status: Acute (2) CHF (congestive heart failure) Status: Acute (3) Elevated troponin Status: Acute (4) Shortness of breath Status: Acute Comment Review of Relevant I have reviewed the following items monalisa (where applicable) has been applied. Labs Laboratory Tests Test 12/16/19 12:16 12/16/19 14:45 12/16/19 15:50 12/16/19 21:34 Glucose (Fingerstick) 76 mg/dL (70-99) 60 mg/dL (70-99) 148 mg/dL (70-99) Hepatitis B Surface Antibody, Quant <3.1 mIU/mL (Immunity>9.9) Test 12/17/19 04:10 12/17/19 07:59 12/17/19 17:09 12/17/19 20:25 White Blood Count 8.1 x10^3/uL (4.0-11.0) Red Blood Count 3.76 x10^6/uL (3.50-5.40) Hemoglobin 9.9 g/dL (12.0-15.5) Hematocrit 32.1 % (36.0-47.0) Mean Corpuscular Volume 85 fL (79-100) Mean Corpuscular Hemoglobin 26 pg (25-35) Mean Corpuscular Hemoglobin Concent 31 g/dL (31-37) Red Cell Distribution Width 17.7 % (11.5-14.5) Platelet Count 289 x10^3/uL (140-400) Sodium Level 133 mmol/L (136-145) Potassium Level 4.9 mmol/L (3.5-5.1) Chloride Level 97 mmol/L (98-107) Carbon Dioxide Level 29 mmol/L (21-32) Anion Gap 7 (6-14) Blood Urea Nitrogen 50 mg/dL (7-20) Creatinine 4.1 mg/dL (0.6-1.0) Estimated GFR (Cockcroft-Gault) 10.6 Glucose Level 148 mg/dL (70-99) Calcium Level 8.1 mg/dL (8.5-10.1) Phosphorus Level 5.2 mg/dL (2.6-4.7) Magnesium Level 2.0 mg/dL (1.8-2.4) Iron Level 17 ug/dL (50-170) Total Iron Binding Capacity 237 ug/dL (250-450) Iron Saturation 7 % (15-34) Glucose (Fingerstick) 129 mg/dL (70-99) 181 mg/dL (70-99) 237 mg/dL (70-99) Test 12/18/19 03:15 12/18/19 07:13 White Blood Count 7.1 x10^3/uL (4.0-11.0) Red Blood Count 3.72 x10^6/uL (3.50-5.40) Hemoglobin 9.8 g/dL (12.0-15.5) Hematocrit 32.0 % (36.0-47.0) Mean Corpuscular Volume 86 fL (79-100) Mean Corpuscular Hemoglobin 26 pg (25-35) Mean Corpuscular Hemoglobin Concent 31 g/dL (31-37) Red Cell Distribution Width 18.1 % (11.5-14.5) Platelet Count 280 x10^3/uL (140-400) Sodium Level 133 mmol/L (136-145) Potassium Level 4.9 mmol/L (3.5-5.1) Chloride Level 96 mmol/L (98-107) Carbon Dioxide Level 28 mmol/L (21-32) Anion Gap 9 (6-14) Blood Urea Nitrogen 42 mg/dL (7-20) Creatinine 4.1 mg/dL (0.6-1.0) Estimated GFR (Cockcroft-Gault) 10.6 Glucose Level 201 mg/dL (70-99) Calcium Level 7.9 mg/dL (8.5-10.1) Glucose (Fingerstick) 273 mg/dL (70-99) Laboratory Tests Test 12/17/19 17:09 12/17/19 20:25 12/18/19 03:15 12/18/19 07:13 Glucose (Fingerstick) 181 mg/dL (70-99) 237 mg/dL (70-99) 273 mg/dL (70-99) White Blood Count 7.1 x10^3/uL (4.0-11.0) Red Blood Count 3.72 x10^6/uL (3.50-5.40) Hemoglobin 9.8 g/dL (12.0-15.5) Hematocrit 32.0 % (36.0-47.0) Mean Corpuscular Volume 86 fL (79-100) Mean Corpuscular Hemoglobin 26 pg (25-35) Mean Corpuscular Hemoglobin Concent 31 g/dL (31-37) Red Cell Distribution Width 18.1 % (11.5-14.5) Platelet Count 280 x10^3/uL (140-400) Sodium Level 133 mmol/L (136-145) Potassium Level 4.9 mmol/L (3.5-5.1) Chloride Level 96 mmol/L (98-107) Carbon Dioxide Level 28 mmol/L (21-32) Anion Gap 9 (6-14) Blood Urea Nitrogen 42 mg/dL (7-20) Creatinine 4.1 mg/dL (0.6-1.0) Estimated GFR (Cockcroft-Gault) 10.6 Glucose Level 201 mg/dL (70-99) Calcium Level 7.9 mg/dL (8.5-10.1) Medications Current Medications Vancomycin HCl 250 ml @ 166.667 mls/hr 1X ONCE IV Last administered on 12/14/19at 18:24; Start 12/14/19 at 17:45; Stop 12/14/19 at 19:14; Status DC Sodium Chloride 1,000 ml @ 1,000 mls/hr 1X ONCE IV Last administered on 12/14/19at 18:23; Start 12/14/19 at 18:00; Stop 12/14/19 at 18:59; Status DC Calcium Gluconate (Calcium Gluconate) 1,000 mg 1X ONCE IVP Last administered on 12/14/19at 18:24; Start 12/14/19 at 18:00; Stop 12/14/19 at 18:01; Status DC Albuterol Sulfate (Ventolin Neb Soln) 10 mg 1X ONCE CONT NEB Last administered on 12/14/19at 18:00; Start 12/14/19 at 18:00; Stop 12/14/19 at 18:01; Status DC Furosemide (Lasix) 40 mg 1X ONCE PO ; Start 12/14/19 at 18:30; Stop 12/14/19 at 18:31; Status DC Enoxaparin Sodium (Lovenox 120mg Syringe) 120 mg 1X ONCE SQ Last administered on 12/14/19at 20:05; Start 12/14/19 at 19:30; Stop 12/14/19 at 19:31; Status DC Furosemide (Lasix) 40 mg 1X ONCE IVP Last administered on 12/14/19at 20:05; Start 12/14/19 at 19:30; Stop 12/14/19 at 19:31; Status DC Dextrose (Dextrose 50%-Water Syringe) 25 gm STK-MED ONCE IV ; Start 12/15/19 at 08:11; Stop 12/15/19 at 08:11; Status DC Sodium Polystyrene Sulfonate (Kayexalate) 30 gm 1X ONCE RC ; Start 12/15/19 at 09:00; Stop 12/15/19 at 08:38; Status DC Sodium Polystyrene Sulfonate (Kayexalate) 15 gm 1X ONCE PO Last administered on 12/15/19at 09:24; Start 12/15/19 at 09:00; Stop 12/15/19 at 09:01; Status DC Piperacillin Sod/ Tazobactam Sod (Zosyn Per Pharmacy) 1 each PRN DAILY PRN MC SEE COMMENTS; Start 12/15/19 at 13:00 Piperacillin Sod/ Tazobactam Sod 2.25 gm/Sodium Chloride 50 ml @ 100 mls/hr Q6HRS IV Last administered on 12/16/19at 05:32; Start 12/15/19 at 14:00; Stop 12/16/19 at 16:05; Status DC Dextrose (Dextrose 50%-Water Syringe) 12.5 gm PRN Q15MIN PRN IV SEE COMMENTS Last administered on 12/16/19at 07:56; Start 12/15/19 at 21:15 Dextrose (Iv Dextrose 5%) 250 ml PRN Q15MIN PRN IV SEE COMMENTS; Start 12/15/19 at 21:15 Dextrose (Dextrose 50%-Water Syringe) 25 gm STK-MED ONCE IV ; Start 12/15/19 at 21:19; Stop 12/15/19 at 21:19; Status DC Furosemide (Lasix) 60 mg DAILY IVP Last administered on 12/18/19at 08:30; Start 12/16/19 at 12:30 Lidocaine HCl (Buffered Lidocaine 1%) 3 ml STK-MED ONCE .ROUTE ; Start 12/16/19 at 12:36; Stop 12/16/19 at 12:36; Status DC Lidocaine HCl (Buffered Lidocaine 1%) 6 ml 1X ONCE INJ Last administered on 12/16/19at 12:56; Start 12/16/19 at 12:45; Stop 12/16/19 at 12:46; Status DC Sodium Chloride 1,000 ml @ 1,000 mls/hr Q1H PRN IV hypotension; Start 12/16/19 at 13:11; Stop 12/16/19 at 19:10; Status DC Albumin Human 200 ml @ 200 mls/hr 1X PRN PRN IV Hypotension; Start 12/16/19 at 13:15; Stop 12/16/19 at 19:14; Status DC Diphenhydramine HCl (Benadryl) 25 mg 1X PRN PRN IV ITCHING; Start 12/16/19 at 13:15; Stop 12/17/19 at 13:14; Status DC Diphenhydramine HCl (Benadryl) 25 mg 1X PRN PRN IV ITCHING; Start 12/16/19 at 13:15; Stop 12/17/19 at 13:14; Status DC Sodium Chloride 1,000 ml @ 400 mls/hr Q2H30M PRN IV PATENCY; Start 12/16/19 at 13:11; Stop 12/17/19 at 01:10; Status DC Info (PHARMACY MONITORING -- do not chart) 1 each PRN DAILY PRN MC SEE COMMENTS; Start 12/16/19 at 13:15 Magnesium Sulfate 50 ml @ 25 mls/hr 1X ONCE IV Last administered on 12/16/19at 19:21; Start 12/16/19 at 15:45; Stop 12/16/19 at 17:44; Status DC Aspirin (Ecotrin) 81 mg DAILYWBKFT PO Last administered on 12/18/19at 08:29; Start 12/17/19 at 08:00 Piperacillin Sod/ Tazobactam Sod 2.25 gm/Sodium Chloride 50 ml @ 100 mls/hr Q8HRS IV Last administered on 12/18/19at 05:44; Start 12/16/19 at 17:00 Acetaminophen/ Hydrocodone Bitart (Lortab 5/325) 1 tab PRN Q6HRS PRN PO MODERATE PAIN 4-6 Last administered on 12/18/19at 08:30; Start 12/16/19 at 22:00 Sodium Chloride 1,000 ml @ 1,000 mls/hr Q1H PRN IV hypotension; Start 12/17/19 at 09:55; Stop 12/17/19 at 15:54; Status DC Albumin Human 200 ml @ 200 mls/hr 1X PRN PRN IV Hypotension Last administered on 12/17/19at 10:48; Start 12/17/19 at 10:00; Stop 12/17/19 at 15:59; Status DC Sodium Chloride 1,000 ml @ 400 mls/hr Q2H30M PRN IV PATENCY; Start 12/17/19 at 09:55; Stop 12/17/19 at 21:54; Status DC Info (PHARMACY MONITORING -- do not chart) 1 each PRN DAILY PRN MC SEE COMMENTS; Start 12/17/19 at 10:00; Status UNV Info (PHARMACY MONITORING -- do not chart) 1 each PRN DAILY PRN MC SEE COMMENTS; Start 12/17/19 at 10:00; Status UNV Iron Sucrose 500 mg/Sodium Chloride 275 ml @ 78.571 mls/ hr 1X ONCE IV Last administered on 12/17/19at 16:08; Start 12/17/19 at 13:00; Stop 12/17/19 at 16:29; Status DC Lidocaine/ Epinephrine (LIDOCAINE 1%-EPI 1:100,000 Multi-Dose) 20 ml STK-MED ONCE .ROUTE ; Start 12/17/19 at 12:29; Stop 12/17/19 at 12:30; Status DC Midazolam HCl (Versed) 2 mg STK-MED ONCE .ROUTE ; Start 12/17/19 at 12:34; Stop 12/17/19 at 12:34; Status DC Fentanyl Citrate (Fentanyl 2ml Vial) 100 mcg STK-MED ONCE .ROUTE ; Start at 12:34; Stop 12/17/19 at 12:34; Status DC Midazolam HCl (Versed) 2 mg 1X ONCE IV Last administered on 12/17/19at 13:08; Start 12/17/19 at 12:45; Stop 12/17/19 at 12:47; Status DC Fentanyl Citrate (Fentanyl 2ml Vial) 100 mcg 1X ONCE IV Last administered on 12/17/19at 13:08; Start 12/17/19 at 12:45; Stop 12/17/19 at 12:47; Status DC Lidocaine/ Epinephrine (LIDOCAINE 1%-EPI 1:100,000 Multi-Dose) 20 ml 1X ONCE SQ Last administered on 12/17/19at 13:10; Start 12/17/19 at 12:45; Stop 12/17/19 at 12:47; Status DC Lactobacillus Rhamnosus (Culturelle) 1 cap BID PO Last administered on 12/18/19at 08:29; Start 12/17/19 at 21:00 Active Scripts Active Ransom 5-325 Tablet (Acetaminophen/Hydrocodone Bitart) 1 Each Tablet 1 Tab PO PRN Q6HRS PRN Oxycodone-Acetaminophen 5-325 (Oxycodone Hcl/Acetaminophen) 1 Each Tablet 1 Tab PO PRN Q4HRS PRN Reported Triamcinolone Acetonide 0.1% Cream (Triamcinolone Acetonide) 15 Gm Cream..g. 1 Isabell TP BID Tramadol Hcl 50 Mg Tablet 50 Mg PO DAILY PRN Flonase Allergy Relief (Fluticasone Propionate) 9.9 Ml Perdido.susp 2 Sprays NS DAILY Metformin Hcl 1,000 Mg Tablet 1,000 Mg PO BIDWMEALS Lisinopril 40 Mg Tablet 1 Tab PO DAILY Novolin N (Nph, Human Insulin Isophane) 100 Unit/1 Ml Vial 40 Unit SQ DAILY Carvedilol (Carvedilol) 6.25 Mg Tablet 6.25 Mg PO BIDWMEALS Escitalopram Oxalate 10 Mg Tablet 1 Tab PO DAILY Simvastatin 40 Mg Tablet 1 Tab PO QHS Glipizide 10 Mg Tablet 10 Mg PO BID Furosemide 20 Mg Tablet 1 Tab PO DAILY Vitals/I & O Vital Sign - Last 24 Hours 12/17/19 12/17/19 12/17/19 12/17/19 12:15 13:08 13:25 15:00 Temp 97.3 97.3 Pulse 65 73 Resp 22 24 24 B/P (MAP) 119/59 (79) 114/58 (76) Pulse Ox 100 93 O2 Delivery Nasal Cannula Nasal Cannula O2 Flow Rate 4.0 4.0 12/17/19 12/17/19 12/17/19 12/17/19 17:35 18:35 19:16 20:00 Temp 97.5 97.5 Pulse 73 Resp 24 B/P (MAP) 118/53 (74) Pulse Ox 93 93 95 O2 Delivery Nasal Cannula Nasal Cannula Nasal Cannula Nasal Cannula O2 Flow Rate 4.0 4.0 4.0 4.0 12/17/19 12/17/19 12/18/19 12/18/19 22:48 23:31 00:31 03:13 Temp 97.5 97.5 97.5 97.5 Pulse 73 87 Resp 24 20 20 24 B/P (MAP) 122/69 (86) 96/54 (68) Pulse Ox 95 95 95 95 O2 Delivery Nasal Cannula Nasal Cannula Nasal Cannula Nasal Cannula O2 Flow Rate 4.0 4.0 4.0 4.0 12/18/19 12/18/19 12/18/19 12/18/19 07:00 08:00 08:30 09:30 Temp 97.4 97.4 Pulse 69 Resp 24 B/P (MAP) 148/72 (97) Pulse Ox 91 91 91 O2 Delivery Nasal Cannula Nasal Cannula Nasal Cannula Nasal Cannula O2 Flow Rate 4.0 4.0 5.0 5.0 Intake and Output 12/17/19 12/17/19 12/18/19 15:00 23:00 07:00 Intake Total 180 ml 340 ml 420 ml Output Total 200 ml 200 ml Balance 180 ml 140 ml 220 ml CHINO MORALES MD Dec 18, 2019 10:45
[2019-12-18 11:00] VITALS: BP 140/82
--- NOTE | 2019-12-18 11:29 | NUR ---
SS following up with discharge planning. SS notified that pt has outpatient dialysis chair time at [facility], ; fax [phone], Monday, Monday, and Monday, at 0630. SS faxed IR report for tunneled catheter and recent flow sheets to [facility], fax [phone]. SS received phone contact from pt's niece, Leigh Ann, , expressing concern that pt cannot return to home and is unsafe to go home. Pt's niece reported that nephew cannot take care of pt due to pt's weakness. Pt's niece requesting PT/OT evaluations. Pt's niece reported that there is no Power of Warehouse Coordinator and pt is own person. Pt's niece reported that pt was DNR at home and would look in pt's home for copy. Pt's niece reporting that pt and nephew wanting pt to return to home. SS discussed with pt's RN. PT/OT ordered. SS will discuss recommendations of PT/OT with pt. SS will continue to follow for discharge planning.
--- NOTE | 2019-12-18 11:34 | PDOC ---
LA MELARA SUPERVISOR AGRICULTURAL EDUCATION 12/18/19 1134: CARDIO Progress Notes Date and Time Date of Service 12/18/19 Time of Evaluation 0940 Subjective Subjective: No Chest Pain, No Palpitations, No Dizziness, Other (SOA and LE edema improved ) Vitals Vitals Vital Signs Date Time Temp Pulse Resp B/P (MAP) Pulse Ox O2 Delivery O2 Flow Rate FiO2 12/18/19 09:30 91 Nasal Cannula 5.0 12/18/19 07:00 97.4 69 24 148/72 (97) 97.4 Weight Weight [ ] Input and Output Intake and Output Intake and Output 12/18/19 07:00 Intake Total 940 ml Output Total 400 ml Balance 540 ml Intake Oral 940 ml Output Urine Total 400 ml # Bowel Movements 3 Laboratory Labs Laboratory Tests Test 12/17/19 17:09 12/17/19 20:25 12/18/19 03:15 12/18/19 07:13 Glucose (Fingerstick) 181 mg/dL (70-99) 237 mg/dL (70-99) 273 mg/dL (70-99) White Blood Count 7.1 x10^3/uL (4.0-11.0) Red Blood Count 3.72 x10^6/uL (3.50-5.40) Hemoglobin 9.8 g/dL (12.0-15.5) Hematocrit 32.0 % (36.0-47.0) Mean Corpuscular Volume 86 fL (79-100) Mean Corpuscular Hemoglobin 26 pg (25-35) Mean Corpuscular Hemoglobin Concent 31 g/dL (31-37) Red Cell Distribution Width 18.1 % (11.5-14.5) Platelet Count 280 x10^3/uL (140-400) Sodium Level 133 mmol/L (136-145) Potassium Level 4.9 mmol/L (3.5-5.1) Chloride Level 96 mmol/L (98-107) Carbon Dioxide Level 28 mmol/L (21-32) Anion Gap 9 (6-14) Blood Urea Nitrogen 42 mg/dL (7-20) Creatinine 4.1 mg/dL (0.6-1.0) Estimated GFR (Cockcroft-Gault) 10.6 Glucose Level 201 mg/dL (70-99) Calcium Level 7.9 mg/dL (8.5-10.1) Review of Systems Constitutional: yes: alert, oriented Eyes: Yes: no symptom reported Pulmonary: Yes dyspnea Cardiovascular: Yes no symptom reported Gastrointestional: Yes: no symptom reported Genitourinary: Yes: no symptom reported Musculoskeletal: Yes: no symptom reported Skin: Yes no symptom reported Psychiatric/Neurological: Yes: no symptom reported Endocrine: Yes: no symptom reported Hematologic/Lymphatic: Yes: no symptom reported Physical Exam HEENT: Neck Supple W Full Motion Chest: Symmetric LUNGS: Other (diminished ) Heart: RRR, murmurs (2/6 systolic murmur ) Abdomen: Soft N/T, Other (obese ) Extremities: Other (1+ bilateral LE edema, bilateral LE dressings intact) Neurology: alert, oriented, follow commands, other (drowsy ) Assessment Assessment 1. Acute on chronic respiratory failure with a/c diastolic CHF, AE COPD. improved 2. Acute on chronic diastolic CHF; Echo with preserved LV systolic function 3. SUN on CKD; uremic. HD initiated 12/15. 4. Mild troponin elevation; peak 0.3. Most probably type II, demand ischemia in setting of above. CP free. 5. LE cellulitis. Antibiotics as per IM. 6. Hypertension; BP low end 7. Diabetes, II Recommendations Resume low-dose coreg as BP allows No ACEi with SUN ASA therapy Fluid offloading via HD Supportive care Will plan for outpatient ischemic evaluation Follow up in our office with Dr. Berg as scheduled. ANDREE ASTORGA MD 12/18/19 1341: CARDIO Progress Notes Plan Plan Pt. seen and examined. 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 Supportive care. Continue HD treatments. LA MELARA APRN Dec 18, 2019 11:34 ANDREE ASTORGA MD Dec 18, 2019 13:41
--- NOTE | 2019-12-18 11:40 | PDOC ---
Renal-Progress Notes Subjective Notes Notes NO NEW COMPLAINTS History of Present Illness Hx of present illness STABLE Vitals Vitals Vital Signs Date Time Temp Pulse Resp B/P (MAP) Pulse Ox O2 Delivery O2 Flow Rate FiO2 12/18/19 09:30 91 Nasal Cannula 5.0 12/18/19 07:00 97.4 69 24 148/72 (97) 97.4 Weight Weight [ ] I.O. Intake and Output Intake and Output 12/18/19 07:00 Intake Total 940 ml Output Total 400 ml Balance 540 ml Intake Oral 940 ml Output Urine Total 400 ml # Bowel Movements 3 Labs Labs Laboratory Tests Test 12/17/19 17:09 12/17/19 20:25 12/18/19 03:15 12/18/19 07:13 Glucose (Fingerstick) 181 mg/dL (70-99) 237 mg/dL (70-99) 273 mg/dL (70-99) White Blood Count 7.1 x10^3/uL (4.0-11.0) Red Blood Count 3.72 x10^6/uL (3.50-5.40) Hemoglobin 9.8 g/dL (12.0-15.5) Hematocrit 32.0 % (36.0-47.0) Mean Corpuscular Volume 86 fL (79-100) Mean Corpuscular Hemoglobin 26 pg (25-35) Mean Corpuscular Hemoglobin Concent 31 g/dL (31-37) Red Cell Distribution Width 18.1 % (11.5-14.5) Platelet Count 280 x10^3/uL (140-400) Sodium Level 133 mmol/L (136-145) Potassium Level 4.9 mmol/L (3.5-5.1) Chloride Level 96 mmol/L (98-107) Carbon Dioxide Level 28 mmol/L (21-32) Anion Gap 9 (6-14) Blood Urea Nitrogen 42 mg/dL (7-20) Creatinine 4.1 mg/dL (0.6-1.0) Estimated GFR (Cockcroft-Gault) 10.6 Glucose Level 201 mg/dL (70-99) Calcium Level 7.9 mg/dL (8.5-10.1) Review of Systems Constitutional: yes: alert, oriented Eyes: Yes: no symptom reported Pulmonary: Yes dyspnea Cardiovascular: Yes no symptom reported Gastrointestional: Yes: no symptom reported Genitourinary: Yes: no symptom reported Musculoskeletal: Yes: no symptom reported Skin: Yes no symptom reported Psychiatric/Neurological: Yes: no symptom reported Endocrine: Yes: no symptom reported Hematologic/Lymphatic: Yes: no symptom reported Physical Exam General Appearance: no apparent distress Skin: warm Respiratory: decreased breath sounds Heart: S1S2 Abdomen: soft, bowel sounds present Genitourinary: bladder flat Extremities: pulses present Neurology: alert, oriented, follow commands, other (drowsy ) Assessment Assessment IMP SUN - ATN - ANURIA-SUSPECT ESRD-RENAL SONO NEG, UA NEG CKD SUSPECT NEAR END STAGE-CR OF 1.7 IN 2017 BUT NEVER FOLLOWED UP ACUTE ON CHRONIC HYPOXIC RESP FAILURE-ON HOME O2 2-3 L O2 DEPENDENT COPD LE CELLULITIS MILD HYPOTENSION DM II HTN ANEMIA IRON DEFICIENCY S/P TUNNELED HD CATHETER PLAN ANTIBIOTICS IV VENOFER ARANESP OP HD BEING SET UP SUPPLEMENTAL O2 HD TODAY UF TO YASSINE SAWYER MD Dec 18, 2019 11:40
[2019-12-18] MEDS: ALBUTEROL SULFATE 2.5 MG/3 ML NEBU. NEB SCH ×3 (11:55→19:49)
[2019-12-18] MEDS ORDERED: IV NORMAL SALINE 1000ML BAG 1,000 ML IV PRN (14:02)
[2019-12-18] MEDS ORDERED: 0.9 % SODIUM CHLORIDE 10 ML DISP.SYRIN. IV PRN ×2 (14:15)
[2019-12-18] MEDS ORDERED: DIALYSIS PATIENT. MC PRN ×2 (14:15)
--- NOTE | 2019-12-18 14:57 | RAD ---
FOOT LEFT 3V History: Diabetic foot ulcer. Technique: 3 views left foot. Comparison: None. Findings: Normal alignment. No fracture. No radiopaque foreign body. Mild first MTP DJD. Left fifth proximal phalanx periosteal reaction Impression: 1. Left fifth proximal phalanx periosteal reaction, may relate to healing fracture. If concern for infection this region, recommend MRI to rule out osteomyelitis. 2. No radiopaque foreign body. Electronically signed by: Te Felder DO (12/18/2019 2:54 PM) [id number]
[2019-12-18 18:10] VITALS: BP 140/88
[2019-12-18] MEDS ORDERED: DARBEPOETIN ALFA 60 MCG/0.3 ML DISP.SYRIN. SQ SCH (21:00)
[2019-12-18 23:33] VITALS: BP 153/61
[2019-12-19] MEDS: PIPERACILLIN/TAZOBACTAM 2.25 GM in IV NORMAL SALINE 50ML 50 ML IV SCH ×4 (00:28→21:43)
[2019-12-19 02:25] VITALS: BP 116/66
[2019-12-19 07:00] VITALS: BP 164/65
[2019-12-19 07:16] LABS: BASO # 0.1 x10^3/uL (0.0-0.2); BASO % 1 % (0-3); EOS # 0.1 x10^3/uL (0.0-0.7); EOS % 2 % (0-3); HEMATOCRIT 33.1 % (36.0-47.0); HEMOGLOBIN 10.3 g/dL (12.0-15.5); LYMPH # 0.7 x10^3/uL (1.0-4.8); LYMPH % 10 % (24-48); MEAN CORPUSCULAR HEMOGLOBIN 27 pg (25-35); MEAN CORPUSCULAR HGB CONC 31 g/dL (31-37); MEAN CORPUSCULAR VOLUME 86 fL (79-100); MONO # 0.6 x10^3/uL (0.0-1.1); MONO % 9 % (0-9); NEUT # 5.3 x10^3/uL (1.8-7.7); NEUT % 78 % (31-73); PLATELET COUNT 313 x10^3/uL (140-400); RED BLOOD COUNT 3.87 x10^6/uL (3.50-5.40); WHITE BLOOD COUNT 6.7 x10^3/uL (4.0-11.0)
[2019-12-19 07:30] LABS: ALBUMIN 2.3 g/dL (3.4-5.0); ALBUMIN/GLOBULIN RATIO 0.5 (1.0-1.7); CALCIUM 8.5 mg/dL (8.5-10.1); CREATININE 3.4 mg/dL (0.6-1.0); GFR 13.1; POTASSIUM 4.5 mmol/L (3.5-5.1); TOTAL BILIRUBIN 0.6 mg/dL (0.2-1.0); TOTAL PROTEIN 6.9 g/dL (6.4-8.2)
[2019-12-19] MEDS: ALBUTEROL SULFATE 2.5 MG/3 ML NEBU. NEB SCH ×4 (07:51→20:01)
--- NOTE | 2019-12-19 09:04 | PDOC ---
Infectious Disease Note Vital Sign Vital Signs Vital Signs Date Time Temp Pulse Resp B/P (MAP) Pulse Ox O2 Delivery O2 Flow Rate FiO2 12/19/19 07:53 92 Venturi Mask 12.0 12/19/19 07:00 98.6 82 20 164/65 (98) 98.6 Physical Exam PHYSICAL EXAM and accommodation. MUSKULOSKELETAL: Well developed, well nourished, good range of motion. ENDOCRINE: No thyromegaly was palpated. LYMPHATICS: No cervical chain or axillary nodes were noted. HEMATOPOIETIC: No bruising. NECK: Supple, no JVD, no thyromegaly was noted. PULMONARY: She has decreased breath sounds. HEART: RRR, S1, S2 present. Peripheral pulses intact, no obvious murmurs were noted. ABDOMEN: Soft, nontender. Positive bowel sounds no organomegaly, normal bowel sounds. EXTREMITIES: She has bilateral lower extremity cellulitis with wounds that have been wrapped with clean, dry and intact dressing. NEUROLOGIC: Normal speech, normal tone. A & O x 3, moves all extremities, no obvious focal deficits. PSYCHIATRIC: She is anxious. SKIN: No ulcerations or rashes, good skin turgor, no jaundice. VASCULAR: Good capillary refill, neurovascular bundle appears to be intact. Labs Lab Laboratory Tests Test 12/18/19 12:15 12/18/19 18:32 12/18/19 21:10 12/19/19 06:40 Glucose (Fingerstick) 178 mg/dL (70-99) 125 mg/dL (70-99) 243 mg/dL (70-99) White Blood Count 6.7 x10^3/uL (4.0-11.0) Red Blood Count 3.87 x10^6/uL (3.50-5.40) Hemoglobin 10.3 g/dL (12.0-15.5) Hematocrit 33.1 % (36.0-47.0) Mean Corpuscular Volume 86 fL (79-100) Mean Corpuscular Hemoglobin 27 pg (25-35) Mean Corpuscular Hemoglobin Concent 31 g/dL (31-37) Red Cell Distribution Width 18.0 % (11.5-14.5) Platelet Count 313 x10^3/uL (140-400) Neutrophils (%) (Auto) 78 % (31-73) Lymphocytes (%) (Auto) 10 % (24-48) Monocytes (%) (Auto) 9 % (0-9) Eosinophils (%) (Auto) 2 % (0-3) Basophils (%) (Auto) 1 % (0-3) Neutrophils # (Auto) 5.3 x10^3/uL (1.8-7.7) Lymphocytes # (Auto) 0.7 x10^3/uL (1.0-4.8) Monocytes # (Auto) 0.6 x10^3/uL (0.0-1.1) Eosinophils # (Auto) 0.1 x10^3/uL (0.0-0.7) Basophils # (Auto) 0.1 x10^3/uL (0.0-0.2) Sodium Level 137 mmol/L (136-145) Potassium Level 4.5 mmol/L (3.5-5.1) Chloride Level 99 mmol/L (98-107) Carbon Dioxide Level 29 mmol/L (21-32) Anion Gap 9 (6-14) Blood Urea Nitrogen 29 mg/dL (7-20) Creatinine 3.4 mg/dL (0.6-1.0) Estimated GFR (Cockcroft-Gault) 13.1 BUN/Creatinine Ratio 9 (6-20) Glucose Level 200 mg/dL (70-99) Calcium Level 8.5 mg/dL (8.5-10.1) Total Bilirubin 0.6 mg/dL (0.2-1.0) Aspartate Amino Transf (AST/SGOT) 20 U/L (15-37) Alanine Aminotransferase (ALT/SGPT) 33 U/L (14-59) Alkaline Phosphatase 452 U/L (46-116) Total Protein 6.9 g/dL (6.4-8.2) Albumin 2.3 g/dL (3.4-5.0) Albumin/Globulin Ratio 0.5 (1.0-1.7) Test 12/19/19 08:05 Glucose (Fingerstick) 190 mg/dL (70-99) Objective Assessment pt seen, consult dictated Plan Plan of Care // SKIP JACKSON MD Dec 19, 2019 09:04
[2019-12-19] MEDS: MULTIVITAMIN with MINERAL TABLET. PO SCH (09:39)
[2019-12-19] MEDS: ASPIRIN ENTERIC COATED 81 MG TABLET.DR. PO SCH (09:39)
[2019-12-19] MEDS: LACTOBACILLUS RHAMNOSUS GG 1 CAPSULE. PO SCH ×2 (09:39→21:43)
[2019-12-19] MEDS: ASCORBIC ACID 500 MG TABLET PO SCH (09:39)
[2019-12-19] MEDS: FUROSEMIDE 40 MG/4 ML VIAL. IVP SCH (09:47)
--- NOTE | 2019-12-19 09:51 | CONS ---
DATE OF CONSULTATION: 12/19/2019 REQUESTING PHYSICIAN: Dr. Rosado. REASON FOR CONSULTATION: Cellulitis of the leg and question osteomyelitis of the foot. HISTORY OF PRESENT ILLNESS: This is a 79-year-old female with history of multiple medical problems who came in with weakness. The patient had lower extremity swelling. The patient was found to have acute kidney injury on top of chronic renal insufficiency, hyperkalemia, hyponatremia, azotemia. The patient also has congestive heart failure, feet pains, more so on the left than right and the redness and blistering of both legs. The focus was on the kidney and electrolytes which appears to have improved. The new dialysis catheter was placed and dialysis has been started in last 3 days. The patient is still requiring Ventimask with more oxygen than her usual at home and not able to do anything. The patient has been put on Zosyn for bilateral lower extremity cellulitis and x-ray of the foot showed questionable old fracture versus osteo, hence the consultation. The patient denies any nausea, vomiting, diarrhea. Denies any chest pains. Denied any trauma to the feet. Denied any abdominal pain, urinary symptoms, headache or visual symptoms. The patient's oxygen is not great and requiring Ventimask. PAST MEDICAL HISTORY: Positive for COPD, congestive heart failure, diabetes, obesity, arthritis. Has had knee replacement, cholecystectomy, venous insufficiency. SOCIAL HISTORY: The patient quit smoking, no drinking or drug use. ALLERGIES: No known drug allergies. CURRENT MEDICATIONS: Reviewed. The patient is on Zosyn. REVIEW OF SYSTEMS: As per HPI, all other systems reviewed are negative. PHYSICAL EXAMINATION: GENERAL: Alert, oriented female, not in distress. VITAL SIGNS: Stable, afebrile. HEENT: NAD. NECK: Supple, no JVP, no lymphadenopathy. LUNGS: Clear. HEART: S1, S2 regular. ABDOMEN: Soft and nontender. No organomegaly. EXTREMITIES: Bilateral lower extremity pitting edema present. The patient does have excoriation of both the legs with superficial ulcerations. Foot has no wound at the fifth metatarsal or phalangeal area bilaterally. The patient appears to have puncture wound with slight dry crackly skin into the actually calcaneal area. Dorsalis pedis is palpable bilaterally. NEUROLOGIC: The patient is alert, awake and appropriate. No focal neurologic deficit. LABORATORY DATA: White count is normal, hemoglobin 10.3, platelets are normal. BUN and creatinine are 29 and 3.4. Urinalysis unremarkable. Hepatitis screen is negative. Foot x-ray showed left fifth proximal phalanx periosteal reaction, it read as may relate to healing fracture. There is no wound there, so there is no concern for osteomyelitis. Chest x-ray showed diffuse interstitial thickening with patchy bibasilar opacity, pulmonary edema versus infection, small left pleural effusion. IMPRESSION: 1. Bilateral lower extremity venous insufficiency with superficial ulcerations and possible secondary infection. 2. Left fifth phalangeal changes on x-ray, likely secondary to the trauma and healing fracture, not infection as there is no open wound there. Likely have a puncture wound into the calcaneal area with pain. 3. Congestive heart failure. 4. Acute on chronic renal insufficiency, on hemodialysis now. 5. Diabetes. 6. Hypertension. 7. Obesity. RECOMMENDATIONS: 1. The patient needs leg elevation to be able to heal those superficial ulcers. 2. Continue Zosyn for the time being. 3. Supportive care. Oxygenation has not improved. The patient has not been able to ambulate yet. The patient needs PT, OT and we will continue to follow. Thank you very much, Dr. Rosado, for giving me the opportunity to participate in this patient's care. SKIP JACKSON MD DR: AYDEE/rose JOB#: [id number] / [id number]
--- NOTE | 2019-12-19 10:43 | PDOC ---
PROGRESS NOTES History of Present Illness History of Present Illness ASSESSMENT AND PLAN: Acute on chronic kidney injury, hyperkalemia, hyponatremia at 135, azotemia, acute on chronic systolic and diastolic heart failure, elevated troponin anemia and lower extremity wounds. // Lower extremity cellulitis. admitted. consult Nephrology consult Cardiology. Hold JAYSON inhibitor. IV antibiotics. PT, OT. Wound care nurse to evaluate and treat. DVT prophylaxis. Full code. Prognosis //guarded. temp dialysis cath placement 12/15 OP HD SET UP FOR MWF Ultrasound and fluoroscopic guided placement of right internal jugular temporary dialysis catheter NEEDS TDC AND OP HD SET UP 12/18 dilysis tomorrow 27 min pt exam, chart review, > 50% of time spent with exam, chart review, pt care coordination Vitals Vitals Vital Signs Date Time Temp Pulse Resp B/P (MAP) Pulse Ox O2 Delivery O2 Flow Rate FiO2 12/19/19 07:53 92 Venturi Mask 12.0 12/19/19 07:00 98.6 82 20 164/65 (98) 98.6 Physical Exam Physical Exam and accommodation. MUSKULOSKELETAL: Well developed, well nourished, good range of motion. ENDOCRINE: No thyromegaly was palpated. LYMPHATICS: No cervical chain or axillary nodes were noted. HEMATOPOIETIC: No bruising. NECK: Supple, no JVD, no thyromegaly was noted. PULMONARY: She has decreased breath sounds. HEART: RRR, S1, S2 present. Peripheral pulses intact, no obvious murmurs were noted. ABDOMEN: Soft, nontender. Positive bowel sounds no organomegaly, normal bowel sounds. EXTREMITIES: She has bilateral lower extremity cellulitis with wounds that have been wrapped with clean, dry and intact dressing. NEUROLOGIC: Normal speech, normal tone. A & O x 3, moves all extremities, no obvious focal deficits. PSYCHIATRIC: She is anxious. SKIN: No ulcerations or rashes, good skin turgor, no jaundice. VASCULAR: Good capillary refill, neurovascular bundle appears to be intact. General: Alert, Oriented X3, Cooperative, No acute distress, mild distress Heart: Regular rate Lungs: Clear Abdomen: Normal bowel sounds, No tenderness Extremities: No clubbing, No cyanosis Labs LABS Laboratory Tests Test 12/18/19 12:15 12/18/19 18:32 12/18/19 21:10 12/19/19 06:40 Glucose (Fingerstick) 178 mg/dL (70-99) 125 mg/dL (70-99) 243 mg/dL (70-99) White Blood Count 6.7 x10^3/uL (4.0-11.0) Red Blood Count 3.87 x10^6/uL (3.50-5.40) Hemoglobin 10.3 g/dL (12.0-15.5) Hematocrit 33.1 % (36.0-47.0) Mean Corpuscular Volume 86 fL (79-100) Mean Corpuscular Hemoglobin 27 pg (25-35) Mean Corpuscular Hemoglobin Concent 31 g/dL (31-37) Red Cell Distribution Width 18.0 % (11.5-14.5) Platelet Count 313 x10^3/uL (140-400) Neutrophils (%) (Auto) 78 % (31-73) Lymphocytes (%) (Auto) 10 % (24-48) Monocytes (%) (Auto) 9 % (0-9) Eosinophils (%) (Auto) 2 % (0-3) Basophils (%) (Auto) 1 % (0-3) Neutrophils # (Auto) 5.3 x10^3/uL (1.8-7.7) Lymphocytes # (Auto) 0.7 x10^3/uL (1.0-4.8) Monocytes # (Auto) 0.6 x10^3/uL (0.0-1.1) Eosinophils # (Auto) 0.1 x10^3/uL (0.0-0.7) Basophils # (Auto) 0.1 x10^3/uL (0.0-0.2) Sodium Level 137 mmol/L (136-145) Potassium Level 4.5 mmol/L (3.5-5.1) Chloride Level 99 mmol/L (98-107) Carbon Dioxide Level 29 mmol/L (21-32) Anion Gap 9 (6-14) Blood Urea Nitrogen 29 mg/dL (7-20) Creatinine 3.4 mg/dL (0.6-1.0) Estimated GFR (Cockcroft-Gault) 13.1 BUN/Creatinine Ratio 9 (6-20) Glucose Level 200 mg/dL (70-99) Calcium Level 8.5 mg/dL (8.5-10.1) Total Bilirubin 0.6 mg/dL (0.2-1.0) Aspartate Amino Transf (AST/SGOT) 20 U/L (15-37) Alanine Aminotransferase (ALT/SGPT) 33 U/L (14-59) Alkaline Phosphatase 452 U/L (46-116) Total Protein 6.9 g/dL (6.4-8.2) Albumin 2.3 g/dL (3.4-5.0) Albumin/Globulin Ratio 0.5 (1.0-1.7) Test 12/19/19 08:05 Glucose (Fingerstick) 190 mg/dL (70-99) Assessment and Plan Assessmemt and Plan Problems Medical Problems: (1) Cellulitis Status: Acute (2) CHF (congestive heart failure) Status: Acute (3) Elevated troponin Status: Acute (4) Shortness of breath Status: Acute Comment Review of Relevant I have reviewed the following items monalisa (where applicable) has been applied. Labs Laboratory Tests Test 12/17/19 17:09 12/17/19 20:25 12/18/19 03:15 12/18/19 07:13 Glucose (Fingerstick) 181 mg/dL (70-99) 237 mg/dL (70-99) 273 mg/dL (70-99) White Blood Count 7.1 x10^3/uL (4.0-11.0) Red Blood Count 3.72 x10^6/uL (3.50-5.40) Hemoglobin 9.8 g/dL (12.0-15.5) Hematocrit 32.0 % (36.0-47.0) Mean Corpuscular Volume 86 fL (79-100) Mean Corpuscular Hemoglobin 26 pg (25-35) Mean Corpuscular Hemoglobin Concent 31 g/dL (31-37) Red Cell Distribution Width 18.1 % (11.5-14.5) Platelet Count 280 x10^3/uL (140-400) Sodium Level 133 mmol/L (136-145) Potassium Level 4.9 mmol/L (3.5-5.1) Chloride Level 96 mmol/L (98-107) Carbon Dioxide Level 28 mmol/L (21-32) Anion Gap 9 (6-14) Blood Urea Nitrogen 42 mg/dL (7-20) Creatinine 4.1 mg/dL (0.6-1.0) Estimated GFR (Cockcroft-Gault) 10.6 Glucose Level 201 mg/dL (70-99) Calcium Level 7.9 mg/dL (8.5-10.1) Test 12/18/19 12:15 12/18/19 18:32 12/18/19 21:10 12/19/19 06:40 Glucose (Fingerstick) 178 mg/dL (70-99) 125 mg/dL (70-99) 243 mg/dL (70-99) White Blood Count 6.7 x10^3/uL (4.0-11.0) Red Blood Count 3.87 x10^6/uL (3.50-5.40) Hemoglobin 10.3 g/dL (12.0-15.5) Hematocrit 33.1 % (36.0-47.0) Mean Corpuscular Volume 86 fL (79-100) Mean Corpuscular Hemoglobin 27 pg (25-35) Mean Corpuscular Hemoglobin Concent 31 g/dL (31-37) Red Cell Distribution Width 18.0 % (11.5-14.5) Platelet Count 313 x10^3/uL (140-400) Neutrophils (%) (Auto) 78 % (31-73) Lymphocytes (%) (Auto) 10 % (24-48) Monocytes (%) (Auto) 9 % (0-9) Eosinophils (%) (Auto) 2 % (0-3) Basophils (%) (Auto) 1 % (0-3) Neutrophils # (Auto) 5.3 x10^3/uL (1.8-7.7) Lymphocytes # (Auto) 0.7 x10^3/uL (1.0-4.8) Monocytes # (Auto) 0.6 x10^3/uL (0.0-1.1) Eosinophils # (Auto) 0.1 x10^3/uL (0.0-0.7) Basophils # (Auto) 0.1 x10^3/uL (0.0-0.2) Sodium Level 137 mmol/L (136-145) Potassium Level 4.5 mmol/L (3.5-5.1) Chloride Level 99 mmol/L (98-107) Carbon Dioxide Level 29 mmol/L (21-32) Anion Gap 9 (6-14) Blood Urea Nitrogen 29 mg/dL (7-20) Creatinine 3.4 mg/dL (0.6-1.0) Estimated GFR (Cockcroft-Gault) 13.1 BUN/Creatinine Ratio 9 (6-20) Glucose Level 200 mg/dL (70-99) Calcium Level 8.5 mg/dL (8.5-10.1) Total Bilirubin 0.6 mg/dL (0.2-1.0) Aspartate Amino Transf (AST/SGOT) 20 U/L (15-37) Alanine Aminotransferase (ALT/SGPT) 33 U/L (14-59) Alkaline Phosphatase 452 U/L (46-116) Total Protein 6.9 g/dL (6.4-8.2) Albumin 2.3 g/dL (3.4-5.0) Albumin/Globulin Ratio 0.5 (1.0-1.7) Test 12/19/19 08:05 Glucose (Fingerstick) 190 mg/dL (70-99) Laboratory Tests Test 12/18/19 12:15 12/18/19 18:32 12/18/19 21:10 12/19/19 06:40 Glucose (Fingerstick) 178 mg/dL (70-99) 125 mg/dL (70-99) 243 mg/dL (70-99) White Blood Count 6.7 x10^3/uL (4.0-11.0) Red Blood Count 3.87 x10^6/uL (3.50-5.40) Hemoglobin 10.3 g/dL (12.0-15.5) Hematocrit 33.1 % (36.0-47.0) Mean Corpuscular Volume 86 fL (79-100) Mean Corpuscular Hemoglobin 27 pg (25-35) Mean Corpuscular Hemoglobin Concent 31 g/dL (31-37) Red Cell Distribution Width 18.0 % (11.5-14.5) Platelet Count 313 x10^3/uL (140-400) Neutrophils (%) (Auto) 78 % (31-73) Lymphocytes (%) (Auto) 10 % (24-48) Monocytes (%) (Auto) 9 % (0-9) Eosinophils (%) (Auto) 2 % (0-3) Basophils (%) (Auto) 1 % (0-3) Neutrophils # (Auto) 5.3 x10^3/uL (1.8-7.7) Lymphocytes # (Auto) 0.7 x10^3/uL (1.0-4.8) Monocytes # (Auto) 0.6 x10^3/uL (0.0-1.1) Eosinophils # (Auto) 0.1 x10^3/uL (0.0-0.7) Basophils # (Auto) 0.1 x10^3/uL (0.0-0.2) Sodium Level 137 mmol/L (136-145) Potassium Level 4.5 mmol/L (3.5-5.1) Chloride Level 99 mmol/L (98-107) Carbon Dioxide Level 29 mmol/L (21-32) Anion Gap 9 (6-14) Blood Urea Nitrogen 29 mg/dL (7-20) Creatinine 3.4 mg/dL (0.6-1.0) Estimated GFR (Cockcroft-Gault) 13.1 BUN/Creatinine Ratio 9 (6-20) Glucose Level 200 mg/dL (70-99) Calcium Level 8.5 mg/dL (8.5-10.1) Total Bilirubin 0.6 mg/dL (0.2-1.0) Aspartate Amino Transf (AST/SGOT) 20 U/L (15-37) Alanine Aminotransferase (ALT/SGPT) 33 U/L (14-59) Alkaline Phosphatase 452 U/L (46-116) Total Protein 6.9 g/dL (6.4-8.2) Albumin 2.3 g/dL (3.4-5.0) Albumin/Globulin Ratio 0.5 (1.0-1.7) Test 12/19/19 08:05 Glucose (Fingerstick) 190 mg/dL (70-99) Medications Current Medications Vancomycin HCl 250 ml @ 166.667 mls/hr 1X ONCE IV Last administered on 12/14/19at 18:24; Start 12/14/19 at 17:45; Stop 12/14/19 at 19:14; Status DC Sodium Chloride 1,000 ml @ 1,000 mls/hr 1X ONCE IV Last administered on 12/14/19at 18:23; Start 12/14/19 at 18:00; Stop 12/14/19 at 18:59; Status DC Calcium Gluconate (Calcium Gluconate) 1,000 mg 1X ONCE IVP Last administered on 12/14/19at 18:24; Start 12/14/19 at 18:00; Stop 12/14/19 at 18:01; Status DC Albuterol Sulfate (Ventolin Neb Soln) 10 mg 1X ONCE CONT NEB Last administered on 12/14/19at 18:00; Start 12/14/19 at 18:00; Stop 12/14/19 at 18:01; Status DC Furosemide (Lasix) 40 mg 1X ONCE PO ; Start 12/14/19 at 18:30; Stop 12/14/19 at 18:31; Status DC Enoxaparin Sodium (Lovenox 120mg Syringe) 120 mg 1X ONCE SQ Last administered on 12/14/19at 20:05; Start 12/14/19 at 19:30; Stop 12/14/19 at 19:31; Status DC Furosemide (Lasix) 40 mg 1X ONCE IVP Last administered on 12/14/19at 20:05; Start 12/14/19 at 19:30; Stop 12/14/19 at 19:31; Status DC Dextrose (Dextrose 50%-Water Syringe) 25 gm STK-MED ONCE IV ; Start 12/15/19 at 08:11; Stop 12/15/19 at 08:11; Status DC Sodium Polystyrene Sulfonate (Kayexalate) 30 gm 1X ONCE RC ; Start 12/15/19 at 09:00; Stop 12/15/19 at 08:38; Status DC Sodium Polystyrene Sulfonate (Kayexalate) 15 gm 1X ONCE PO Last administered on 12/15/19at 09:24; Start 12/15/19 at 09:00; Stop 12/15/19 at 09:01; Status DC Piperacillin Sod/ Tazobactam Sod (Zosyn Per Pharmacy) 1 each PRN DAILY PRN MC SEE COMMENTS; Start 12/15/19 at 13:00 Piperacillin Sod/ Tazobactam Sod 2.25 gm/Sodium Chloride 50 ml @ 100 mls/hr Q6HRS IV Last administered on 12/16/19at 05:32; Start 12/15/19 at 14:00; Stop 12/16/19 at 16:05; Status DC Dextrose (Dextrose 50%-Water Syringe) 12.5 gm PRN Q15MIN PRN IV SEE COMMENTS Last administered on 12/16/19at 07:56; Start 12/15/19 at 21:15 Dextrose (Iv Dextrose 5%) 250 ml PRN Q15MIN PRN IV SEE COMMENTS; Start 12/15/19 at 21:15 Dextrose (Dextrose 50%-Water Syringe) 25 gm STK-MED ONCE IV ; Start 12/15/19 at 21:19; Stop 12/15/19 at 21:19; Status DC Furosemide (Lasix) 60 mg DAILY IVP Last administered on 12/19/19at 09:47; Start 12/16/19 at 12:30 Lidocaine HCl (Buffered Lidocaine 1%) 3 ml STK-MED ONCE .ROUTE ; Start 12/16/19 at 12:36; Stop 12/16/19 at 12:36; Status DC Lidocaine HCl (Buffered Lidocaine 1%) 6 ml 1X ONCE INJ Last administered on 12/16/19at 12:56; Start 12/16/19 at 12:45; Stop 12/16/19 at 12:46; Status DC Sodium Chloride 1,000 ml @ 1,000 mls/hr Q1H PRN IV hypotension; Start 12/16/19 at 13:11; Stop 12/16/19 at 19:10; Status DC Albumin Human 200 ml @ 200 mls/hr 1X PRN PRN IV Hypotension; Start 12/16/19 at 13:15; Stop 12/16/19 at 19:14; Status DC Diphenhydramine HCl (Benadryl) 25 mg 1X PRN PRN IV ITCHING; Start 12/16/19 at 13:15; Stop 12/17/19 at 13:14; Status DC Diphenhydramine HCl (Benadryl) 25 mg 1X PRN PRN IV ITCHING; Start 12/16/19 at 13:15; Stop 12/17/19 at 13:14; Status DC Sodium Chloride 1,000 ml @ 400 mls/hr Q2H30M PRN IV PATENCY; Start 12/16/19 at 13:11; Stop 12/17/19 at 01:10; Status DC Info (PHARMACY MONITORING -- do not chart) 1 each PRN DAILY PRN MC SEE COMMENTS; Start 12/16/19 at 13:15 Magnesium Sulfate 50 ml @ 25 mls/hr 1X ONCE IV Last administered on 12/16/19at 19:21; Start 12/16/19 at 15:45; Stop 12/16/19 at 17:44; Status DC Aspirin (Ecotrin) 81 mg DAILYWBKFT PO Last administered on 12/19/19at 09:39; Start 12/17/19 at 08:00 Piperacillin Sod/ Tazobactam Sod 2.25 gm/Sodium Chloride 50 ml @ 100 mls/hr Q8HRS IV Last administered on 12/19/19at 06:16; Start 12/16/19 at 17:00 Acetaminophen/ Hydrocodone Bitart (Lortab 5/325) 1 tab PRN Q6HRS PRN PO MODERATE PAIN 4-6 Last administered on 12/18/19at 08:30; Start 12/16/19 at 22:00 Sodium Chloride 1,000 ml @ 1,000 mls/hr Q1H PRN IV hypotension; Start 12/17/19 at 09:55; Stop 12/17/19 at 15:54; Status DC Albumin Human 200 ml @ 200 mls/hr 1X PRN PRN IV Hypotension Last administered on 12/17/19at 10:48; Start 12/17/19 at 10:00; Stop 12/17/19 at 15:59; Status DC Sodium Chloride 1,000 ml @ 400 mls/hr Q2H30M PRN IV PATENCY; Start 12/17/19 at 09:55; Stop 12/17/19 at 21:54; Status DC Info (PHARMACY MONITORING -- do not chart) 1 each PRN DAILY PRN MC SEE COMMENTS; Start 12/17/19 at 10:00; Status UNV Info (PHARMACY MONITORING -- do not chart) 1 each PRN DAILY PRN MC SEE COMMENTS; Start 12/17/19 at 10:00; Status UNV Iron Sucrose 500 mg/Sodium Chloride 275 ml @ 78.571 mls/ hr 1X ONCE IV Last administered on 12/17/19at 16:08; Start 12/17/19 at 13:00; Stop 12/17/19 at 16:29; Status DC Lidocaine/ Epinephrine (LIDOCAINE 1%-EPI 1:100,000 Multi-Dose) 20 ml STK-MED ONCE .ROUTE ; Start 12/17/19 at 12:29; Stop 12/17/19 at 12:30; Status DC Midazolam HCl (Versed) 2 mg STK-MED ONCE .ROUTE ; Start 12/17/19 at 12:34; Stop 12/17/19 at 12:34; Status DC Fentanyl Citrate (Fentanyl 2ml Vial) 100 mcg STK-MED ONCE .ROUTE ; Start 12/17/19 at 12:34; Stop 12/17/19 at 12:34; Status DC Midazolam HCl (Versed) 2 mg 1X ONCE IV Last administered on 12/17/19at 13:08; Start 12/17/19 at 12:45; Stop 12/17/19 at 12:47; Status DC Fentanyl Citrate (Fentanyl 2ml Vial) 100 mcg 1X ONCE IV Last administered on 12/17/19at 13:08; Start 12/17/19 at 12:45; Stop 12/17/19 at 12:47; Status DC Lidocaine/ Epinephrine (LIDOCAINE 1%-EPI 1:100,000 Multi-Dose) 20 ml 1X ONCE SQ Last administered on 12/17/19at 13:10; Start 12/17/19 at 12:45; Stop 12/17/19 at 12:47; Status DC Lactobacillus Rhamnosus (Culturelle) 1 cap BID PO Last administered on 12/19/19at 09:39; Start 12/17/19 at 21:00 Albuterol Sulfate (Ventolin Neb Soln) 2.5 mg RTQID NEB Last administered on 12/19/19at 07:51; Start 12/18/19 at 12:00 Darbepoetin Norberto (ARANESP for DIALYSIS PTS) 60 mcg WEEKLYHS SQ Last administered on 12/18/19at 22:02; Start 12/18/19 at 21:00 Sodium Chloride 1,000 ml @ 1,000 mls/hr Q1H PRN IV hypotension; Start 12/18/19 at 14:02; Stop 12/18/19 at 20:01; Status DC Sodium Chloride (Normal Saline Flush) 10 ml 1X PRN PRN IV AP catheter pack; Start 12/18/19 at 14:15; Stop 12/19/19 at 14:14 Sodium Chloride (Normal Saline Flush) 10 ml 1X PRN PRN IV [employer] catheter pack; Start 12/18/19 at 14:15; Stop 12/19/19 at 14:14 Info (PHARMACY MONITORING -- do not chart) 1 each PRN DAILY PRN MC SEE COMMENTS; Start 12/18/19 at 14:15; Status UNV Info (PHARMACY MONITORING -- do not chart) 1 each PRN DAILY PRN MC SEE COMMENTS; Start 12/18/19 at 14:15 Multivitamins (Thera M Plus) 1 tab DAILY PO Last administered on 12/19/19at 09:39; Start 12/19/19 at 09:00 Ascorbic Acid (Vitamin C) 500 mg DAILY PO Last administered on 12/19/19at 09:39; Start 12/19/19 at 09:00 Active Scripts Active [place] 5-325 Tablet (Acetaminophen/Hydrocodone Bitart) 1 Each Tablet 1 Tab PO PRN Q6HRS PRN Oxycodone-Acetaminophen 5-325 (Oxycodone Hcl/Acetaminophen) 1 Each Tablet 1 Tab PO PRN Q4HRS PRN Reported Triamcinolone Acetonide 0.1% Cream (Triamcinolone Acetonide) 15 Gm Cream..g. 1 [place] TP BID Tramadol Hcl 50 Mg Tablet 50 Mg PO DAILY PRN Flonase Allergy Relief (Fluticasone Propionate) 9.9 Ml [place].susp 2 Sprays NS DAILY Metformin Hcl 1,000 Mg Tablet 1,000 Mg PO BIDWMEALS Lisinopril 40 Mg Tablet 1 Tab PO DAILY Novolin N (Nph, Human Insulin Isophane) 100 Unit/1 Ml Vial 40 Unit SQ DAILY Carvedilol (Carvedilol) 6.25 Mg Tablet 6.25 Mg PO BIDWMEALS Escitalopram Oxalate 10 Mg Tablet 1 Tab PO DAILY Simvastatin 40 Mg Tablet 1 Tab PO QHS Glipizide 10 Mg Tablet 10 Mg PO BID Furosemide 20 Mg Tablet 1 Tab PO DAILY Vitals/I & O Vital Sign - Last 24 Hours 12/18/19 12/18/19 12/18/19 12/18/19 11:00 11:56 16:37 18:10 Temp 97.8 97.4 97.8 97.4 Pulse 76 85 Resp 24 24 B/P (MAP) 140/82 (101) 140/88 (105) Pulse Ox 93 98 95 92 O2 Delivery Nasal Cannula Simple Mask Venturi Mask Venturi Mask O2 Flow Rate 4.0 5.0 12.0 12.0 4/1/20 12/18/19 12/18/19 12/19/19 19:57 20:00 23:33 02:25 Temp 97.6 97.5 97.6 97.5 Pulse 85 85 Resp 24 24 B/P (MAP) 153/61 (91) 116/66 (83) Pulse Ox 90 91 99 O2 Delivery Venturi Mask Venturi Mask Venturi Mask Venturi Mask O2 Flow Rate 12.0 15.0 12.0 12.0 12/19/19 12/19/19 07:00 07:53 Temp 98.6 98.6 Pulse 82 Resp 20 B/P (MAP) 164/65 (98) Pulse Ox 93 92 O2 Delivery Venturi Mask Venturi Mask O2 Flow Rate 12.0 12.0 Intake and Output 12/18/19 12/18/19 12/19/19 15:00 23:00 07:00 Intake Total 750 ml 500 ml Output Total 450 ml 100 ml Balance 300 ml 400 ml CHINO MORALES MD Dec 19, 2019 10:43
[2019-12-19 11:00] VITALS: BP 177/86
--- NOTE | 2019-12-19 11:12 | PDOC ---
Renal-Progress Notes Subjective Notes Notes NO NEW COMPLAINTS History of Present Illness Hx of present illness STABLE Vitals Vitals Vital Signs Date Time Temp Pulse Resp B/P (MAP) Pulse Ox O2 Delivery O2 Flow Rate FiO2 12/19/19 07:53 92 Venturi Mask 12.0 12/19/19 07:00 98.6 82 20 164/65 (98) 98.6 Weight Weight [ ] I.O. Intake and Output Intake and Output 12/19/19 07:00 Intake Total 1250 ml Output Total 550 ml Balance 700 ml Intake Oral 1200 ml IV Total 50 ml Output Urine Total 550 ml # Bowel Movements 2 Labs Labs Laboratory Tests Test 12/18/19 12:15 12/18/19 18:32 12/18/19 21:10 12/19/19 06:40 Glucose (Fingerstick) 178 mg/dL (70-99) 125 mg/dL (70-99) 243 mg/dL (70-99) White Blood Count 6.7 x10^3/uL (4.0-11.0) Red Blood Count 3.87 x10^6/uL (3.50-5.40) Hemoglobin 10.3 g/dL (12.0-15.5) Hematocrit 33.1 % (36.0-47.0) Mean Corpuscular Volume 86 fL (79-100) Mean Corpuscular Hemoglobin 27 pg (25-35) Mean Corpuscular Hemoglobin Concent 31 g/dL (31-37) Red Cell Distribution Width 18.0 % (11.5-14.5) Platelet Count 313 x10^3/uL (140-400) Neutrophils (%) (Auto) 78 % (31-73) Lymphocytes (%) (Auto) 10 % (24-48) Monocytes (%) (Auto) 9 % (0-9) Eosinophils (%) (Auto) 2 % (0-3) Basophils (%) (Auto) 1 % (0-3) Neutrophils # (Auto) 5.3 x10^3/uL (1.8-7.7) Lymphocytes # (Auto) 0.7 x10^3/uL (1.0-4.8) Monocytes # (Auto) 0.6 x10^3/uL (0.0-1.1) Eosinophils # (Auto) 0.1 x10^3/uL (0.0-0.7) Basophils # (Auto) 0.1 x10^3/uL (0.0-0.2) Sodium Level 137 mmol/L (136-145) Potassium Level 4.5 mmol/L (3.5-5.1) Chloride Level 99 mmol/L (98-107) Carbon Dioxide Level 29 mmol/L (21-32) Anion Gap 9 (6-14) Blood Urea Nitrogen 29 mg/dL (7-20) Creatinine 3.4 mg/dL (0.6-1.0) Estimated GFR (Cockcroft-Gault) 13.1 BUN/Creatinine Ratio 9 (6-20) Glucose Level 200 mg/dL (70-99) Calcium Level 8.5 mg/dL (8.5-10.1) Total Bilirubin 0.6 mg/dL (0.2-1.0) Aspartate Amino Transf (AST/SGOT) 20 U/L (15-37) Alanine Aminotransferase (ALT/SGPT) 33 U/L (14-59) Alkaline Phosphatase 452 U/L (46-116) Total Protein 6.9 g/dL (6.4-8.2) Albumin 2.3 g/dL (3.4-5.0) Albumin/Globulin Ratio 0.5 (1.0-1.7) Test 12/19/19 08:05 Glucose (Fingerstick) 190 mg/dL (70-99) Review of Systems Constitutional: yes: alert, oriented Eyes: Yes: no symptom reported Pulmonary: Yes dyspnea Cardiovascular: Yes no symptom reported Gastrointestional: Yes: no symptom reported Genitourinary: Yes: no symptom reported Musculoskeletal: Yes: no symptom reported Skin: Yes no symptom reported Psychiatric/Neurological: Yes: no symptom reported Endocrine: Yes: no symptom reported Hematologic/Lymphatic: Yes: no symptom reported Physical Exam General Appearance: no apparent distress Skin: warm Respiratory: decreased breath sounds Heart: S1S2 Abdomen: soft, bowel sounds present Genitourinary: bladder flat Extremities: pulses present Neurology: alert, oriented, follow commands, other (drowsy ) Assessment Assessment IMP ESRD-RENAL SONO NEG, UA NEG CKD SUSPECT NEAR END STAGE-CR OF 1.7 IN 2017 BUT NEVER FOLLOWED UP ACUTE ON CHRONIC HYPOXIC RESP FAILURE-ON HOME O2 2-3 L O2 DEPENDENT COPD LE CELLULITIS MILD HYPOTENSION DM II HTN ANEMIA IRON DEFICIENCY S/P TUNNELED HD CATHETER PLAN ANTIBIOTICS ARANESP OP HD SET UP FOR MWF SUPPLEMENTAL O2 HD TOMORROW YASSINE MARTINEZ MD Dec 19, 2019 11:12
[2019-12-19 15:00] VITALS: BP 155/79
--- NOTE | 2019-12-19 15:06 | NUR ---
SS following up with discharge planning. PT/OT recommended retirement unit at discharge. SS met with pt and discussed retirement unit and discharge planning. SS also contacted pt's nephew per request. Pt and pt's nephew agreeable to retirement unit and requested referral be sent to [facility], ; fax [phone] with a second option of [facility] [place], ; fax [phone]. SS phoned and faxed referral to [facility]. SS will await acceptance decision and insurance determination and will proceed accordingly with discharge planning.
[2019-12-19 19:36] VITALS: BP 179/79
[2019-12-19 22:29] VITALS: BP 138/57
[2019-12-20 03:57] VITALS: BP 148/58
[2019-12-20] MEDS: PIPERACILLIN/TAZOBACTAM 2.25 GM in IV NORMAL SALINE 50ML 50 ML IV SCH ×3 (06:22→21:39)
[2019-12-20 07:00] VITALS: BP 142/65
[2019-12-20] MEDS: ALBUTEROL SULFATE 2.5 MG/3 ML NEBU. NEB SCH ×4 (07:17→20:15)
[2019-12-20] MEDS: ASPIRIN ENTERIC COATED 81 MG TABLET.DR. PO SCH (08:00)
[2019-12-20] MEDS ORDERED: IV NORMAL SALINE 1000ML BAG 1,000 ML IV PRN ×2 (08:11)
[2019-12-20] MEDS ORDERED: diphenhydrAMINE 50 MG/ML VIAL IV PRN ×2 (08:15)
[2019-12-20] MEDS ORDERED: DIALYSIS PATIENT. MC PRN (08:15)
[2019-12-20] MEDS ORDERED: ALBUMIN HUMAN 25% 200 ML IV PRN (08:15)
[2019-12-20] MEDS ORDERED: ACETAMINOPHEN 500 MG TABLET PO PRN (08:15)
[2019-12-20] MEDS: MULTIVITAMIN with MINERAL TABLET. PO SCH (08:23)
[2019-12-20] MEDS: FUROSEMIDE 40 MG/4 ML VIAL. IVP SCH (08:23)
[2019-12-20] MEDS: ASCORBIC ACID 500 MG TABLET PO SCH (08:23)
[2019-12-20] MEDS: LACTOBACILLUS RHAMNOSUS GG 1 CAPSULE. PO SCH ×2 (08:23→20:47)
--- NOTE | 2019-12-20 08:46 | PDOC ---
Infectious Disease Note Subjective Subjective pt is feeling good ROS ROS no n/v/d/sob Vital Sign Vital Signs Vital Signs Date Time Temp Pulse Resp B/P (MAP) Pulse Ox O2 Delivery O2 Flow Rate FiO2 12/20/19 07:17 96 Venturi Mask 12.0 12/20/19 03:57 97.5 97 22 148/58 (88) 97.5 Physical Exam PHYSICAL EXAM GENERAL: Alert, oriented female, not in distress. VITAL SIGNS: Stable, afebrile. HEENT: NAD. NECK: Supple, no JVP, no lymphadenopathy. LUNGS: Clear. HEART: S1, S2 regular. ABDOMEN: Soft and nontender. No organomegaly. EXTREMITIES: Bilateral lower extremity pitting edema present. The patient does have excoriation of both the legs with superficial ulcerations. Foot has no wound at the fifth metatarsal or phalangeal area bilaterally. The patient appears to have puncture wound with slight dry crackly skin into the actually calcaneal area. Dorsalis pedis is palpable bilaterally. NEUROLOGIC: The patient is alert, awake and appropriate. No focal neurologic deficit. Labs Lab Laboratory Tests Test 12/19/19 12:30 12/19/19 17:09 12/19/19 21:08 12/20/19 07:46 Glucose (Fingerstick) 213 mg/dL (70-99) 201 mg/dL (70-99) 257 mg/dL (70-99) 204 mg/dL (70-99) Objective Assessment IMPRESSION: 1. Bilateral lower extremity venous insufficiency with superficial ulcerations and possible secondary infection. 2. Left fifth phalangeal changes on x-ray, likely secondary to the trauma and healing fracture, not infection as there is no open wound there. Likely have a puncture wound into the calcaneal area with pain. 3. Congestive heart failure. 4. Acute on chronic renal insufficiency, on hemodialysis now. 5. Diabetes. 6. Hypertension. 7. Obesity. Plan Plan of Care cont antibiotics cont supportive care SKIP JACKSON MD Dec 20, 2019 08:46
--- NOTE | 2019-12-20 10:40 | PDOC ---
PROGRESS NOTES History of Present Illness History of Present Illness ASSESSMENT AND PLAN: Acute on chronic kidney injury, hyperkalemia, hyponatremia at 135, azotemia, acute on chronic systolic and diastolic heart failure, elevated troponin anemia and lower extremity wounds. // Lower extremity cellulitis. Left fifth phalangeal changes on x-ray, likely secondary to the trauma and healing fracture, admitted. consult Nephrology consult Cardiology. Hold JAYSON inhibitor. IV antibiotics. PT, OT. Wound care nurse to evaluate and treat. DVT prophylaxis. Full code. Prognosis //guarded. temp dialysis cath placement 12/15 OP HD SET UP FOR MWF Ultrasound and fluoroscopic guided placement of right internal jugular temporary dialysis catheter NEEDS TDC AND OP HD SET UP 12/18 dilysis tomorrow 27 min pt exam, chart review, > 50% of time spent with exam, chart review, pt care coordination Vitals Vitals Vital Signs Date Time Temp Pulse Resp B/P (MAP) Pulse Ox O2 Delivery O2 Flow Rate FiO2 12/20/19 07:17 96 Venturi Mask 12.0 12/20/19 07:00 96.5 78 26 142/65 (90) 96.5 Physical Exam Physical Exam GENERAL: Alert, oriented female, not in distress. VITAL SIGNS: Stable, afebrile. HEENT: NAD. NECK: Supple, no JVP, no lymphadenopathy. LUNGS: Clear. HEART: S1, S2 regular. ABDOMEN: Soft and nontender. No organomegaly. EXTREMITIES: Bilateral lower extremity pitting edema present. The patient does have excoriation of both the legs with superficial ulcerations. Foot has no wound at the fifth metatarsal or phalangeal area bilaterally. The patient appears to have puncture wound with slight dry crackly skin into the actually calcaneal area. Dorsalis pedis is palpable bilaterally. NEUROLOGIC: The patient is alert, awake and appropriate. No focal neurologic deficit. General: Alert, Oriented X3, Cooperative, No acute distress, mild distress Heart: Regular rate Lungs: Clear Abdomen: Normal bowel sounds, No tenderness Extremities: No clubbing, No cyanosis Labs LABS FOOT LEFT 3V History: Diabetic foot ulcer. Technique: 3 views left foot. Comparison: None. Findings: Normal alignment. No fracture. No radiopaque foreign body. Mild first MTP DJD. Left fifth proximal phalanx periosteal reaction Impression: 1. Left fifth proximal phalanx periosteal reaction, may relate to healing fracture. If concern for infection this region, recommend MRI to rule out osteomyelitis. 2. No radiopaque foreign body. Electronically signed by: Te Colin DO (12/18/2019 2:54 PM) [id number] DICTATED and SIGNED BY: TE COLIN DO DATE: 12/18/19 1454 Laboratory Tests Test 12/19/19 12:30 12/19/19 17:09 12/19/19 21:08 12/20/19 07:46 Glucose (Fingerstick) 213 mg/dL (70-99) 201 mg/dL (70-99) 257 mg/dL (70-99) 204 mg/dL (70-99) Assessment and Plan Assessmemt and Plan Problems Medical Problems: (1) Cellulitis Status: Acute (2) CHF (congestive heart failure) Status: Acute (3) Elevated troponin Status: Acute (4) Shortness of breath Status: Acute Comment Review of Relevant I have reviewed the following items monalisa (where applicable) has been applied. Labs Laboratory Tests Test 12/18/19 12:15 12/18/19 18:32 12/18/19 21:10 12/19/19 06:40 Glucose (Fingerstick) 178 mg/dL (70-99) 125 mg/dL (70-99) 243 mg/dL (70-99) White Blood Count 6.7 x10^3/uL (4.0-11.0) Red Blood Count 3.87 x10^6/uL (3.50-5.40) Hemoglobin 10.3 g/dL (12.0-15.5) Hematocrit 33.1 % (36.0-47.0) Mean Corpuscular Volume 86 fL (79-100) Mean Corpuscular Hemoglobin 27 pg (25-35) Mean Corpuscular Hemoglobin Concent 31 g/dL (31-37) Red Cell Distribution Width 18.0 % (11.5-14.5) Platelet Count 313 x10^3/uL (140-400) Neutrophils (%) (Auto) 78 % (31-73) Lymphocytes (%) (Auto) 10 % (24-48) Monocytes (%) (Auto) 9 % (0-9) Eosinophils (%) (Auto) 2 % (0-3) Basophils (%) (Auto) 1 % (0-3) Neutrophils # (Auto) 5.3 x10^3/uL (1.8-7.7) Lymphocytes # (Auto) 0.7 x10^3/uL (1.0-4.8) Monocytes # (Auto) 0.6 x10^3/uL (0.0-1.1) Eosinophils # (Auto) 0.1 x10^3/uL (0.0-0.7) Basophils # (Auto) 0.1 x10^3/uL (0.0-0.2) Sodium Level 137 mmol/L (136-145) Potassium Level 4.5 mmol/L (3.5-5.1) Chloride Level 99 mmol/L (98-107) Carbon Dioxide Level 29 mmol/L (21-32) Anion Gap 9 (6-14) Blood Urea Nitrogen 29 mg/dL (7-20) Creatinine 3.4 mg/dL (0.6-1.0) Estimated GFR (Cockcroft-Gault) 13.1 BUN/Creatinine Ratio 9 (6-20) Glucose Level 200 mg/dL (70-99) Calcium Level 8.5 mg/dL (8.5-10.1) Total Bilirubin 0.6 mg/dL (0.2-1.0) Aspartate Amino Transf (AST/SGOT) 20 U/L (15-37) Alanine Aminotransferase (ALT/SGPT) 33 U/L (14-59) Alkaline Phosphatase 452 U/L (46-116) Total Protein 6.9 g/dL (6.4-8.2) Albumin 2.3 g/dL (3.4-5.0) Albumin/Globulin Ratio 0.5 (1.0-1.7) Test 12/19/19 08:05 12/19/19 12:30 12/19/19 17:09 12/19/19 21:08 Glucose (Fingerstick) 190 mg/dL (70-99) 213 mg/dL (70-99) 201 mg/dL (70-99) 257 mg/dL (70-99) Test 12/20/19 07:46 Glucose (Fingerstick) 204 mg/dL (70-99) Laboratory Tests Test 12/19/19 12:30 12/19/19 17:09 12/19/19 21:12/20/19 07:46 Glucose (Fingerstick) 213 mg/dL (70-99) 201 mg/dL (70-99) 257 mg/dL (70-99) 204 mg/dL (70-99) Medications Current Medications Vancomycin HCl 250 ml @ 166.667 mls/hr 1X ONCE IV Last administered on 11/17 18:24; Start 12/14/19 at 17:45; Stop 12/14/19 at 19:14; Status DC Sodium Chloride 1,000 ml @ 1,000 mls/hr 1X ONCE IV Last administered on 12/14/19at 18:23; Start 12/14/19 at 18:00; Stop 12/14/19 at 18:59; Status DC Calcium Gluconate (Calcium Gluconate) 1,000 mg 1X ONCE IVP Last administered on 12/14/19at 18:24; Start 12/14/19 at 18:00; Stop 12/14/19 at 18:01; Status DC Albuterol Sulfate (Ventolin Neb Soln) 10 mg 1X ONCE CONT NEB Last administered on 12/14/19at 18:00; Start 12/14/19 at 18:00; Stop 12/14/19 at 18:01; Status DC Furosemide (Lasix) 40 mg 1X ONCE PO ; Start 12/14/19 at 18:30; Stop 12/14/19 at 18:31; Status DC Enoxaparin Sodium (Lovenox 120mg Syringe) 120 mg 1X ONCE SQ Last administered on 12/14/19at 20:05; Start 12/14/19 at 19:30; Stop 12/14/19 at 19:31; Status DC Furosemide (Lasix) 40 mg 1X ONCE IVP Last administered on 12/14/19at 20:05; Start 12/14/19 at 19:30; Stop 12/14/19 at 19:31; Status DC Dextrose (Dextrose 50%-Water Syringe) 25 gm STK-MED ONCE IV ; Start 12/15/19 at 08:11; Stop 12/15/19 at 08:11; Status DC Sodium Polystyrene Sulfonate (Kayexalate) 30 gm 1X ONCE RC ; Start 12/15/19 at 09:00; Stop 12/15/19 at 08:38; Status DC Sodium Polystyrene Sulfonate (Kayexalate) 15 gm 1X ONCE PO Last administered on 12/15/19at 09:24; Start 12/15/19 at 09:00; Stop 12/15/19 at 09:01; Status DC Piperacillin Sod/ Tazobactam Sod (Zosyn Per Pharmacy) 1 each PRN DAILY PRN MC SEE COMMENTS; Start 12/15/19 at 13:00 Piperacillin Sod/ Tazobactam Sod 2.25 gm/Sodium Chloride 50 ml @ 100 mls/hr Q6HRS IV Last administered on 12/16/19at 05:32; Start 12/15/19 at 14:00; Stop 12/16/19 at 16:05; Status DC Dextrose (Dextrose 50%-Water Syringe) 12.5 gm PRN Q15MIN PRN IV SEE COMMENTS Last administered on 12/16/19at 07:56; Start 12/15/19 at 21:15 Dextrose (Iv Dextrose 5%) 250 ml PRN Q15MIN PRN IV SEE COMMENTS; Start 12/15/19 at 21:15 Dextrose (Dextrose 50%-Water Syringe) 25 gm STK-MED ONCE IV ; Start 12/15/19 at 21:19; Stop 12/15/19 at 21:19; Status DC Furosemide (Lasix) 60 mg DAILY IVP Last administered on 12/19/19at 09:47; Start 12/16/19 at 12:30 Lidocaine HCl (Buffered Lidocaine 1%) 3 ml STK-MED ONCE .ROUTE ; Start 12/16/19 at 12:36; Stop 12/16/19 at 12:36; Status DC Lidocaine HCl (Buffered Lidocaine 1%) 6 ml 1X ONCE INJ Last administered on 12/16/19at 12:56; Start 12/16/19 at 12:45; Stop 12/16/19 at 12:46; Status DC Sodium Chloride 1,000 ml @ 1,000 mls/hr Q1H PRN IV hypotension; Start 12/16/19 at 13:11; Stop 12/16/19 at 19:10; Status DC Albumin Human 200 ml @ 200 mls/hr 1X PRN PRN IV Hypotension; Start 12/16/19 at 13:15; Stop 12/16/19 at 19:14; Status DC Diphenhydramine HCl (Benadryl) 25 mg 1X PRN PRN IV ITCHING; Start 12/16/19 at 13:15; Stop 12/17/19 at 13:14; Status DC Diphenhydramine HCl (Benadryl) 25 mg 1X PRN PRN IV ITCHING; Start 12/16/19 at 13:15; Stop 12/17/19 at 13:14; Status DC Sodium Chloride 1,000 ml @ 400 mls/hr Q2H30M PRN IV PATENCY; Start 12/16/19 at 13:11; Stop 12/17/19 at 01:10; Status DC Info (PHARMACY MONITORING -- do not chart) 1 each PRN DAILY PRN MC SEE COMMENTS; Start 12/16/19 at 13:15 Magnesium Sulfate 50 ml @ 25 mls/hr 1X ONCE IV Last administered on 12/16/19at 19:21; Start 12/16/19 at 15:45; Stop 12/16/19 at 17:44; Status DC Aspirin (Ecotrin) 81 mg DAILYWBKFT PO Last administered on 12/19/19at 09:39; Start 12/17/19 at 08:00 Piperacillin Sod/ Tazobactam Sod 2.25 gm/Sodium Chloride 50 ml @ 100 mls/hr Q8HRS IV Last administered on 12/20/19at 06:22; Start 12/16/19 at 17:00 Acetaminophen/ Hydrocodone Bitart (Lortab 5/325) 1 tab PRN Q6HRS PRN PO MODERATE PAIN 4-6 Last administered on 12/18/19at 08:30; Start 12/16/19 at 22:00 Sodium Chloride 1,000 ml @ 1,000 mls/hr Q1H PRN IV hypotension; Start 12/17/19 at 09:55; Stop 12/17/19 at 15:54; Status DC Albumin Human 200 ml @ 200 mls/hr 1X PRN PRN IV Hypotension Last administered on 12/17/19at 10:48; Start 12/17/19 at 10:00; Stop 12/17/19 at 15:59; Status DC Sodium Chloride 1,000 ml @ 400 mls/hr Q2H30M PRN IV PATENCY; Start 12/17/19 at 09:55; Stop 12/17/19 at 21:54; Status DC Info (PHARMACY MONITORING -- do not chart) 1 each PRN DAILY PRN MC SEE COMMENTS; Start 12/17/19 at 10:00; Status UNV Info (PHARMACY MONITORING -- do not chart) 1 each PRN DAILY PRN MC SEE COMMENTS; Start 12/17/19 at 10:00; Status UNV Iron Sucrose 500 mg/Sodium Chloride 275 ml @ 78.571 mls/ hr 1X ONCE IV Last administered on 12/17/19at 16:08; Start 12/17/19 at 13:00; Stop 12/17/19 at 16:29; Status DC Lidocaine/ Epinephrine (LIDOCAINE 1%-EPI 1:100,000 Multi-Dose) 20 ml STK-MED ONCE .ROUTE ; Start 12/17/19 at 12:29; Stop 12/17/19 at 12:30; Status DC Midazolam HCl (Versed) 2 mg STK-MED ONCE .ROUTE ; Start 12/17/19 at 12:34; Stop 12/17/19 at 12:34; Status DC Fentanyl Citrate (Fentanyl 2ml Vial) 100 mcg STK-MED ONCE .ROUTE ; Start 12/17/19 at 12:34; Stop 12/17/19 at 12:34; Status DC Midazolam HCl (Versed) 2 mg 1X ONCE IV Last administered on 12/17/19at 13:08; Start 12/17/19 at 12:45; Stop 12/17/19 at 12:47; Status DC Fentanyl Citrate (Fentanyl 2ml Vial) 100 mcg 1X ONCE IV Last administered on 12/17/19at 13:08; Start 12/17/19 at 12:45; Stop 12/17/19 at 12:47; Status DC Lidocaine/ Epinephrine (LIDOCAINE 1%-EPI 1:100,000 Multi-Dose) 20 ml 1X ONCE SQ Last administered on 12/17/19at 13:10; Start 12/17/19 at 12:45; Stop 12/17/19 at 12:47; Status DC Lactobacillus Rhamnosus (Culturelle) 1 cap BID PO Last administered on 12/19/19at 21:43; Start 12/17/19 at 21:00 Albuterol Sulfate (Ventolin Neb Soln) 2.5 mg RTQID NEB Last administered on 12/20/19at 07:17; Start 12/18/19 at 12:00 Darbepoetin Norberto (ARANESP for DIALYSIS PTS) 60 mcg WEEKLYHS SQ Last administered on 12/18/19at 22:02; Start 12/18/19 at 21:00 Sodium Chloride 1,000 ml @ 1,000 mls/hr Q1H PRN IV hypotension; Start 12/18/19 at 14:02; Stop 12/18/19 at 20:01; Status DC Sodium Chloride (Normal Saline Flush) 10 ml 1X PRN PRN IV AP catheter pack; Start 12/18/19 at 14:15; Stop 12/19/19 at 14:14; Status DC Sodium Chloride (Normal Saline Flush) 10 ml 1X PRN PRN IV MANAGER ANALYSIS catheter pack; Start 12/18/19 at 14:15; Stop 12/19/19 at 14:14; Status DC Info (PHARMACY MONITORING -- do not chart) 1 each PRN DAILY PRN MC SEE SOHAN TS; Start 12/18/19 at 14:15; Status UNV Info (PHARMACY MONITORING -- do not chart) 1 each PRN DAILY PRN MC SEE COMMENTS; Start 12/18/19 at 14:15 Multivitamins (Thera M Plus) 1 tab DAILY PO Last administered on 12/19/19at 09:39; Start 12/19/19 at 09:00 Ascorbic Acid (Vitamin C) 500 mg DAILY PO Last administered on 12/19/19at 09:39; Start 12/19/19 at 09:00 Sodium Chloride 1,000 ml @ 1,000 mls/hr Q1H PRN IV hypotension; Start 12/20/19 at 08:11; Stop 12/20/19 at 14:10 Albumin Human 200 ml @ 200 mls/hr 1X PRN PRN IV Hypotension; Start 12/20/19 at 08:15; Stop 12/20/19 at 14:14 Acetaminophen (Tylenol) 500 mg 1X PRN PRN PO MILD PAIN / TEMP; Start 12/20/19 at 08:15; Stop 12/21/19 at 08:14 Diphenhydramine HCl (Benadryl) 25 mg 1X PRN PRN IV ITCHING; Start 12/20/19 at 08:15; Stop 12/21/19 at 08:14 Diphenhydramine HCl (Benadryl) 25 mg 1X PRN PRN IV ITCHING; Start 12/20/19 at 08:15; Stop 12/21/19 at 08:14 Sodium Chloride 1,000 ml @ 400 mls/hr Q2H30M PRN IV PATENCY; Start 12/20/19 at 08:11; Stop 12/20/19 at 20:10 Info (PHARMACY MONITORING -- do not chart) 1 each PRN DAILY PRN MC SEE COMMENTS; Start 12/20/19 at 08:15 Active Scripts Active Treece 5-325 Tablet (Acetaminophen/Hydrocodone Bitart) 1 Each Tablet 1 Tab PO PRN Q6HRS PRN Oxycodone-Acetaminophen 5-325 (Oxycodone Hcl/Acetaminophen) 1 Each Tablet 1 Tab PO PRN Q4HRS PRN Reported Triamcinolone Acetonide 0.1% Cream (Triamcinolone Acetonide) 15 Gm Cream..g. 1 Isabell TP BID Tramadol Hcl 50 Mg Tablet 50 Mg PO DAILY PRN Flonase Allergy Relief (Fluticasone Propionate) 9.9 Ml [place].susp 2 Sprays NS DAILY Metformin Hcl 1,000 Mg Tablet 1,000 Mg PO BIDWMEALS Lisinopril 40 Mg Tablet 1 Tab PO DAILY Novolin N (Nph, Human Insulin Isophane) 100 Unit/1 Ml Vial 40 Unit SQ DAILY Carvedilol (Carvedilol) 6.25 Mg Tablet 6.25 Mg PO BIDWMEALS Escitalopram Oxalate 10 Mg Tablet 1 Tab PO DAILY Simvastatin 40 Mg Tablet 1 Tab PO QHS Glipizide 10 Mg Tablet 10 Mg PO BID Furosemide 20 Mg Tablet 1 Tab PO DAILY Vitals/I & O Vital Sign - Last 24 Hours 12/19/19 12/19/19 12/19/19 12/19/19 11:00 15:00 16:06 19:36 Temp 97.9 97.4 98.1 97.9 97.4 98.1 Pulse 87 99 81 Resp 20 20 20 B/P (MAP) 177/86 (116) 155/79 (104) 179/79 (112) Pulse Ox 96 90 93 95 O2 Delivery Venturi Mask Venturi Mask Venturi Mask Venturi Mask O2 Flow Rate 15.0 15.0 12.0 15.0 12/19/19 12/19/19 12/19/19 12/20/19 20:00 20:01 22:29 03:57 Temp 97.3 97.5 97.3 97.5 Pulse 93 97 Resp 18 22 B/P (MAP) 138/57 (84) 148/58 (88) Pulse Ox 93 94 94 O2 Delivery Venturi Mask Venturi Mask Venturi Mask Venturi Mask O2 Flow Rate 15.0 12.0 15.0 15.0 12/20/19 12/20/19 07:00 07:17 Temp 96.5 96.5 Pulse 78 Resp 26 B/P (MAP) 142/65 (90) Pulse Ox 94 96 O2 Delivery Venturi Mask Venturi Mask O2 Flow Rate 15.0 12.0 Intake and Output 12/19/19 12/19/19 12/20/19 14:59 22:59 06:59 Intake Total 280 ml 50 ml Output Total 125 ml 225 ml Balance 155 ml -175 ml CHINO MORALES MD Dec 20, 2019 10:40
--- NOTE | 2019-12-20 12:07 | NUR ---
SS following up with discharge planning. [facility] notified SS that they are not taking admissions at this time. SS phoned and faxed referral to [facility], ; fax [phone]. [facility] notified SS that they are not accepting admissions until 12/23/2019. SS contacted pt's nephew, Ruddy, and notified. Pt and pt's nephew declining [facility] due to previous experience. SS provided other options to pt and pt's nephew. Pt's nephew reporting that he is going to contact pt by phone to discuss and will contact SS once discussed. Per pt's RN, pt on 15 liter venturi mask and not ready today. SS will continue to follow for discharge planning.
[2019-12-20 13:00] VITALS: BP 108/51
--- NOTE | 2019-12-20 13:13 | PDOC ---
Renal-Progress Notes Subjective Notes Notes NO NEW COMPLAINTS History of Present Illness Hx of present illness NO CHANGES Vitals Vitals Vital Signs Date Time Temp Pulse Resp B/P (MAP) Pulse Ox O2 Delivery O2 Flow Rate FiO2 12/20/19 07:17 96 Venturi Mask 12.0 12/20/19 07:00 96.5 78 26 142/65 (90) 96.5 Weight Weight [ ] I.O. Intake and Output Intake and Output 12/20/19 07:00 Intake Total 330 ml Output Total 350 ml Balance -20 ml Intake Oral 330 ml Output Urine Total 350 ml # Bowel Movements 2 Labs Labs Laboratory Tests Test 12/19/19 17:09 12/19/19 21:08 12/20/19 07:46 Glucose (Fingerstick) 201 mg/dL (70-99) 257 mg/dL (70-99) 204 mg/dL (70-99) Review of Systems Constitutional: yes: alert, oriented Eyes: Yes: no symptom reported Pulmonary: Yes dyspnea Cardiovascular: Yes no symptom reported Gastrointestional: Yes: no symptom reported Genitourinary: Yes: no symptom reported Musculoskeletal: Yes: no symptom reported Skin: Yes no symptom reported Psychiatric/Neurological: Yes: no symptom reported Endocrine: Yes: no symptom reported Hematologic/Lymphatic: Yes: no symptom reported Physical Exam General Appearance: no apparent distress Skin: warm Respiratory: decreased breath sounds Heart: S1S2 Abdomen: soft, bowel sounds present Genitourinary: bladder flat Extremities: pulses present Neurology: alert, oriented, follow commands, other (drowsy ) Assessment Assessment IMP ESRD-RENAL SONO NEG, UA NEG CKD SUSPECT NEAR END STAGE-CR OF 1.7 IN 2017 BUT NEVER FOLLOWED UP ACUTE ON CHRONIC HYPOXIC RESP FAILURE-ON HOME O2 2-3 L O2 DEPENDENT COPD LE CELLULITIS DM II HTN ANEMIA IRON DEFICIENCY-S/P VENOFER S/P TUNNELED HD CATHETER PLAN ANTIBIOTICS ARANESP OP HD SET UP FOR MWF SUPPLEMENTAL O2 HD TODAY UF OF 4.0 L TOLERATED. WILL NEED ADDITIONAL FLUID OFF LOADING WILL THEREFORE PLAN HD AGAIN TOMORROW D/C SHOULD BE POSTPONED YASSINE MARTINEZ MD Dec 20, 2019 13:12
[2019-12-20 15:00] VITALS: BP 162/86
[2019-12-20] MEDS ORDERED: LATA2.5D2 OP (16:13)
[2019-12-20] MEDS ORDERED: LISI1TAB19 PO (16:13)
[2019-12-20] MEDS ORDERED: GLIP10TA24 PO (16:13)
[2019-12-20] MEDS ORDERED: METF100010 PO (16:14)
[2019-12-20 19:43] VITALS: BP 149/62
[2019-12-20 23:18] VITALS: BP 127/70
[2019-12-21 03:13] VITALS: BP 157/79
[2019-12-21] MEDS: PIPERACILLIN/TAZOBACTAM 2.25 GM in IV NORMAL SALINE 50ML 50 ML IV SCH ×3 (06:15→21:04)
[2019-12-21 07:00] VITALS: BP 163/70
[2019-12-21] MEDS ORDERED: IV NORMAL SALINE 1000ML BAG 1,000 ML IV PRN ×2 (07:40)
[2019-12-21] MEDS ORDERED: DIALYSIS PATIENT. MC PRN (07:45)
[2019-12-21] MEDS ORDERED: ALBUMIN HUMAN 25% 200 ML IV PRN (07:45)
[2019-12-21] MEDS ORDERED: ACETAMINOPHEN 500 MG TABLET PO PRN (07:45)
[2019-12-21] MEDS ORDERED: 0.9 % SODIUM CHLORIDE 10 ML DISP.SYRIN. IV PRN ×2 (07:45)
[2019-12-21] MEDS ORDERED: diphenhydrAMINE 50 MG/ML VIAL IV PRN ×2 (07:45)
[2019-12-21] MEDS: ALBUTEROL SULFATE 2.5 MG/3 ML NEBU. NEB SCH ×4 (08:07→20:03)
[2019-12-21] MEDS: MULTIVITAMIN with MINERAL TABLET. PO SCH (13:47)
[2019-12-21] MEDS: FUROSEMIDE 40 MG/4 ML VIAL. IVP SCH (13:47)
[2019-12-21] MEDS: ASCORBIC ACID 500 MG TABLET PO SCH (13:47)
[2019-12-21] MEDS: ASPIRIN ENTERIC COATED 81 MG TABLET.DR. PO SCH (13:47)
[2019-12-21] MEDS: LACTOBACILLUS RHAMNOSUS GG 1 CAPSULE. PO SCH ×2 (13:47→21:00)
[2019-12-21] MEDS: INSULIN GLARGINE SYRINGE. SQ SCH (13:48)
--- NOTE | 2019-12-21 14:05 | PDOC ---
SUBJECTIVE ROS Follow-up for ESRD She was dialyzed earlier today and tolerated well. She remains on a Venti-mask currently. Patient claims her breathing is more or less the same. This hasn't improved much. She does feel tired and somewhat dry CVS: no Orthopnea, no CP RESP: + SOB, ? JOYCE (not ambulated much) denies phlegm sputum production GI: no Nausea, no Vomiting : no Dysuria, no Urgency OBJECTIVE Vital Signs Vital Signs Date Time Temp Pulse Resp B/P (MAP) Pulse Ox O2 Delivery O2 Flow Rate FiO2 12/21/19 13:25 93 Venturi Mask 15.0 12/21/19 07:00 98.1 99 16 163/70 (101) 98.1 I & 0 Intake and Output 12/21/19 07:00 Intake Total 760 ml Output Total 150 ml Balance 610 ml Intake Oral 760 ml Output Urine Total 150 ml # Bowel Movements 1 PHYSICAL EXAM Physical Exam GEN: Awake, Oriented x 2-3 , In no visible resp distress EYES: Vision Unchanged, Conjunctiva Normal EN: No EN Drainage, Mucous Membranes dryish NECK: no JVD, min JVP, Supple, no Thyromegaly CVS: S1S2, ? Murmur, No Gallop, No Rub,tr Edema RESP: no Rales, no Rhonchi,no Acc. Muscle Use GI: BS + ve, NO Bruit, Non Tender, Non Distended : no CVA tenderness, no Suprapubic Tenderness DIAGNOSIS/ASSESSMENT Assessment & Plan ESRD: Patient was dialyzed earlier today and tolerated well by her reports she does feel a little tired currently. On her ongoing respiratory difficulty, she may need extra dialysis tomorrow. We'll check chest x-ray Room air hypoxemia: Patient remains on a Ventimask at this time. She does appear to use 2-3 L nasal cannula as an outpatient as reported. We'll check chest x-ray for fluid status/infiltrates. May need extra dialysis tomorrow Possible pneumonia: Patient remains on antibiotics. We'll await ID recommendations with regards to transitioning to oral antibiotics versus need for near-term central access for the same ANEMIAb (and deficiency as well as C KD associated); when necessary as ordered. Aranap as ordered, Transfuse with next HD as needed HTN: Current BP meds as reviewed. See orders for changes. BONE & MINERAL: Follow phosphorus levels and add/alter binder regimen if needed. end point for discharge would probably be able off oxygen dependency Discussed Plan of Care with patient and nurse at bedside COMMENT/RELEVANT DATA Meds Current Medications Medications (Trade) Dose Ordered Sig/Yulisa Start Time Stop Time Status Last Admin Dose Admin Acetaminophen (Tylenol) 500 mg 1X PRN PRN 12/21/19 07:45 12/22/19 07:44 Acetaminophen/ Hydrocodone Bitart (Lortab 5/325) 1 tab PRN Q6HRS PRN 12/16/19 22:00 12/18/19 08:30 1 TAB Albumin Human 200 ml @ 200 mls/hr 1X PRN PRN 12/21/19 07:45 12/21/19 13:44 DC Albuterol Sulfate (Ventolin Neb Soln) 2.5 mg RTQID 12/18/19 12:00 12/21/19 13:25 2.5 MG Ascorbic Acid (Vitamin C) 500 mg DAILY 12/19/19 09:00 12/19/19 09:39 500 MG Aspirin (Ecotrin) 81 mg DAILYWBKFT 12/17/19 08:00 12/19/19 09:39 81 MG Calcium Gluconate (Calcium Gluconate) 1,000 mg 1X ONCE 12/14/19 18:00 12/14/19 18:01 DC 12/14/19 18:24 1,000 MG Darbepoetin Norberto (ARANESP for DIALYSIS PTS) 60 mcg WEEKLYHS 12/18/19 21:00 12/18/19 22:02 60 MCG Dextrose (Dextrose 50%-Water Syringe) 25 gm STK-MED ONCE 12/15/19 21:19 12/15/19 21:19 DC Dextrose (Iv Dextrose 5%) 250 ml PRN Q15MIN PRN 12/15/19 21:15 Diphenhydramine HCl (Benadryl) 25 mg 1X PRN PRN 12/21/19 07:45 12/22/19 07:44 Enoxaparin Sodium (Lovenox 120mg Syringe) 120 mg 1X ONCE 12/14/19 19:30 12/14/19 19:31 DC 12/14/19 20:05 120 MG Fentanyl Citrate (Fentanyl 2ml Vial) 100 mcg 1X ONCE 12/17/19 12:45 12/17/19 12:47 DC 12/17/19 13:08 50 MCG Furosemide (Lasix) 60 mg DAILY 12/16/19 12:30 12/19/19 09:47 60 MG Info (PHARMACY MONITORING -- do not chart) 1 each PRN DAILY PRN 12/21/19 07:45 Insulin Glargine (Lantus Syringe) 40 unit DAILY 12/21/19 09:00 Iron Sucrose 500 mg/Sodium Chloride 275 ml @ 78.571 mls/ hr 1X ONCE 12/17/19 13:00 12/17/19 16:29 DC 12/17/19 16:08 78.571 MLS/HR Lactobacillus Rhamnosus (Culturelle) 1 cap BID 12/17/19 21:00 12/20/19 20:47 1 CAP Lidocaine HCl (Buffered Lidocaine 1%) 6 ml 1X ONCE 12/16/19 12:45 12/16/19 12:46 DC 12/16/19 12:56 3 ML Lidocaine/ Epinephrine (LIDOCAINE 1%-EPI 1:100,000 Multi-Dose) 20 ml 1X ONCE 12/17/19 12:45 12/17/19 12:47 DC 12/17/19 13:10 10 ML Magnesium Sulfate 50 ml @ 25 mls/hr 1X ONCE 12/16/19 15:45 12/16/19 17:44 DC 12/16/19 19:21 25 MLS/HR Midazolam HCl (Versed) 2 mg 1X ONCE 12/17/19 12:45 12/17/19 12:47 DC 12/17/19 13:08 1 MG Multivitamins (Thera M Plus) 1 tab DAILY 12/19/19 09:00 12/19/19 09:39 1 TAB Piperacillin Sod/ Tazobactam Sod (Zosyn Per Pharmacy) 1 each PRN DAILY PRN 12/15/19 13:00 Piperacillin Sod/ Tazobactam Sod 2.25 gm/Sodium Chloride 50 ml @ 100 mls/hr Q8HRS 12/16/19 17:00 12/21/19 06:15 100 MLS/HR Sodium Polystyrene Sulfonate (Kayexalate) 15 gm 1X ONCE 12/15/19 09:00 12/15/19 09:01 DC 12/15/19 09:24 15 GM Sodium Chloride 1,000 ml @ 400 mls/hr Q2H30M PRN 12/21/19 07:40 12/21/19 19:39 Sodium Chloride (Normal Saline Flush) 10 ml 1X PRN PRN 12/21/19 07:45 12/22/19 07:44 Vancomycin HCl 250 ml @ 166.667 mls/hr 1X ONCE 12/14/19 17:45 12/14/19 19:14 DC 12/14/19 18:24 166.667 MLS/HR Lab Laboratory Tests Test 12/20/19 17:08 12/20/19 20:33 12/21/19 08:02 Glucose (Fingerstick) 194 mg/dL (70-99) 228 mg/dL (70-99) 182 mg/dL (70-99) Results All relevant outside records, renal labs, imaging studies, telemetry/EKG's were reviewed. ANAYELI JACKSON MD Dec 21, 2019 14:05
[2019-12-21 14:51] LABS: BASO # 0.1 x10^3/uL (0.0-0.2); BASO % 1 % (0-3); EOS # 0.1 x10^3/uL (0.0-0.7); EOS % 1 % (0-3); HEMATOCRIT 33.7 % (36.0-47.0); HEMOGLOBIN 10.4 g/dL (12.0-15.5); LYMPH # 0.6 x10^3/uL (1.0-4.8); LYMPH % 8 % (24-48); MEAN CORPUSCULAR HEMOGLOBIN 27 pg (25-35); MEAN CORPUSCULAR HGB CONC 31 g/dL (31-37); MEAN CORPUSCULAR VOLUME 87 fL (79-100); MONO # 0.7 x10^3/uL (0.0-1.1); MONO % 9 % (0-9); NEUT # 6.4 x10^3/uL (1.8-7.7); NEUT % 81 % (31-73); PLATELET COUNT 287 x10^3/uL (140-400); RED BLOOD COUNT 3.89 x10^6/uL (3.50-5.40); RED CELL DISTRIBUTION WIDTH 18.2 % (11.5-14.5); WHITE BLOOD COUNT 7.9 x10^3/uL (4.0-11.0)
[2019-12-21 15:00] VITALS: BP 123/53
[2019-12-21 15:03] LABS: GFR 24.2; PHOSPHORUS 2.3 mg/dL (2.6-4.7); POTASSIUM 3.9 mmol/L (3.5-5.1)
--- NOTE | 2019-12-21 15:46 | PDOC ---
Infectious Disease Note Subjective: Subjective Pt says feels better no f/c/n/v Vital Signs: Vital Signs Vital Signs Date Time Temp Pulse Resp B/P (MAP) Pulse Ox O2 Delivery O2 Flow Rate FiO2 12/21/19 13:25 93 Venturi Mask 15.0 12/21/19 07:00 98.1 99 16 163/70 (101) 98.1 Physical Exam: PHYSICAL EXAM GENERAL: Alert, oriented female, not in distress. VITAL SIGNS: Stable, afebrile. HEENT: NAD. NECK: Supple, no JVP, no lymphadenopathy. LUNGS: Clear. HEART: S1, S2 regular. ABDOMEN: Soft and nontender. No organomegaly. EXTREMITIES: Bilateral lower extremity pitting edema present. The patient does have excoriation of both the legs with superficial ulcerations. Foot has no wound at the fifth metatarsal or phalangeal area bilaterally. The patient appears to have puncture wound with slight dry crackly skin into the actually calcaneal area. Dorsalis pedis is palpable bilaterally. NEUROLOGIC: The patient is alert, awake and appropriate. No focal neurologic deficit. Medications: Inpatient Meds: Current Medications Medications (Trade) Dose Ordered Sig/Yulisa Start Time Stop Time Status Last Admin Dose Admin Acetaminophen (Tylenol) 500 mg 1X PRN PRN 12/21/19 07:45 12/22/19 07:44 Acetaminophen/ Hydrocodone Bitart (Lortab 5/325) 1 tab PRN Q6HRS PRN 12/16/19 22:00 12/18/19 08:30 1 TAB Albumin Human 200 ml @ 200 mls/hr 1X PRN PRN 12/21/19 07:45 12/21/19 13:44 DC Albuterol Sulfate (Ventolin Neb Soln) 2.5 mg RTQID 12/18/19 12:00 12/21/19 13:25 2.5 MG Ascorbic Acid (Vitamin C) 500 mg DAILY 12/19/19 09:00 12/21/19 13:47 500 MG Aspirin (Ecotrin) 81 mg DAILYWBKFT 12/17/19 08:00 12/21/19 13:47 81 MG Calcium Gluconate (Calcium Gluconate) 1,000 mg 1X ONCE 12/14/19 18:00 12/14/19 18:01 DC 12/14/19 18:24 1,000 MG Darbepoetin Norberto (ARANESP for DIALYSIS PTS) 60 mcg WEEKLYHS 12/18/19 21:00 12/18/19 22:02 60 MCG Dextrose (Dextrose 50%-Water Syringe) 25 gm STK-MED ONCE 12/15/19 21:19 12/15/19 21:19 DC Dextrose (Iv Dextrose 5%) 250 ml PRN Q15MIN PRN 12/15/19 21:15 Diphenhydramine HCl (Benadryl) 25 mg 1X PRN PRN 12/21/19 07:45 12/22/19 07:44 Enoxaparin Sodium (Lovenox 120mg Syringe) 120 mg 1X ONCE 12/14/19 19:30 12/14/19 19:31 DC 12/14/19 20:05 120 MG Fentanyl Citrate (Fentanyl 2ml Vial) 100 mcg 1X ONCE 12/17/19 12:45 12/17/19 12:47 DC 12/17/19 13:08 50 MCG Furosemide (Lasix) 60 mg DAILY 12/16/19 12:30 12/21/19 13:47 60 MG Info (PHARMACY MONITORING -- do not chart) 1 each PRN DAILY PRN 12/21/19 07:45 Insulin Glargine (Lantus Syringe) 40 unit DAILY 12/21/19 09:00 12/21/19 13:48 40 UNIT Iron Sucrose 500 mg/Sodium Chloride 275 ml @ 78.571 mls/ hr 1X ONCE 12/17/19 13:00 12/17/19 16:29 DC 12/17/19 16:08 78.571 MLS/HR Lactobacillus Rhamnosus (Culturelle) 1 cap BID 12/17/19 21:00 12/21/19 13:47 1 CAP Lidocaine HCl (Buffered Lidocaine 1%) 6 ml 1X ONCE 12/16/19 12:45 12/16/19 12:46 DC 12/16/19 12:56 3 ML Lidocaine/ Epinephrine (LIDOCAINE 1%-EPI 1:100,000 Multi-Dose) 20 ml 1X ONCE 12/17/19 12:45 12/17/19 12:47 DC 12/17/19 13:10 10 ML Magnesium Sulfate 50 ml @ 25 mls/hr 1X ONCE 12/16/19 15:45 12/16/19 17:44 DC 12/16/19 19:21 25 MLS/HR Midazolam HCl (Versed) 2 mg 1X ONCE 12/17/19 12:45 12/17/19 12:47 DC 12/17/19 13:08 1 MG Multivitamins (Thera M Plus) 1 tab DAILY 12/19/19 09:00 12/21/19 13:47 1 TAB Piperacillin Sod/ Tazobactam Sod (Zosyn Per Pharmacy) 1 each PRN DAILY PRN 12/15/19 13:00 Piperacillin Sod/ Tazobactam Sod 2.25 gm/Sodium Chloride 50 ml @ 100 mls/hr Q8HRS 12/16/19 17:00 12/21/19 13:55 100 MLS/HR Sodium Polystyrene Sulfonate (Kayexalate) 15 gm 1X ONCE 12/15/19 09:00 12/15/19 09:01 DC 12/15/19 09:24 15 GM Sodium Chloride 1,000 ml @ 400 mls/hr Q2H30M PRN 12/21/19 07:40 12/21/19 19:39 Sodium Chloride (Normal Saline Flush) 10 ml 1X PRN PRN 12/21/19 07:45 12/22/19 07:44 Vancomycin HCl 250 ml @ 166.667 mls/hr 1X ONCE 12/14/19 17:45 12/14/19 19:14 DC 12/14/19 18:24 166.667 MLS/HR Labs: Lab Laboratory Tests Test 12/20/19 17:08 12/20/19 20:33 12/21/19 08:02 12/21/19 14:35 Glucose (Fingerstick) 194 mg/dL (70-99) 228 mg/dL (70-99) 182 mg/dL (70-99) White Blood Count 7.9 x10^3/uL (4.0-11.0) Red Blood Count 3.89 x10^6/uL (3.50-5.40) Hemoglobin 10.4 g/dL (12.0-15.5) Hematocrit 33.7 % (36.0-47.0) Mean Corpuscular Volume 87 fL (79-100) Mean Corpuscular Hemoglobin 27 pg (25-35) Mean Corpuscular Hemoglobin Concent 31 g/dL (31-37) Red Cell Distribution Width 18.2 % (11.5-14.5) Platelet Count 287 x10^3/uL (140-400) Neutrophils (%) (Auto) 81 % (31-73) Lymphocytes (%) (Auto) 8 % (24-48) Monocytes (%) (Auto) 9 % (0-9) Eosinophils (%) (Auto) 1 % (0-3) Basophils (%) (Auto) 1 % (0-3) Neutrophils # (Auto) 6.4 x10^3/uL (1.8-7.7) Lymphocytes # (Auto) 0.6 x10^3/uL (1.0-4.8) Monocytes # (Auto) 0.7 x10^3/uL (0.0-1.1) Eosinophils # (Auto) 0.1 x10^3/uL (0.0-0.7) Basophils # (Auto) 0.1 x10^3/uL (0.0-0.2) Sodium Level 138 mmol/L (136-145) Potassium Level 3.9 mmol/L (3.5-5.1) Chloride Level 100 mmol/L (98-107) Carbon Dioxide Level 33 mmol/L (21-32) Anion Gap 5 (6-14) Blood Urea Nitrogen 10 mg/dL (7-20) Creatinine 2.0 mg/dL (0.6-1.0) Estimated GFR (Cockcroft-Gault) 24.2 Glucose Level 200 mg/dL (70-99) Calcium Level 8.0 mg/dL (8.5-10.1) Phosphorus Level 2.3 mg/dL (2.6-4.7) Albumin 2.0 g/dL (3.4-5.0) Objective: Assessment: 1. Bilateral lower extremity venous insufficiency with superficial ulcerations and possible secondary infection. 2. Left fifth phalangeal changes on x-ray, likely secondary to the trauma and healing fracture, not infection as there is no open wound there. Likely have a puncture wound into the calcaneal area with pain. 3. Congestive heart failure. 4. Acute on chronic renal insufficiency, on hemodialysis now. 5. Diabetes. 6. Hypertension. 7. Obesity Plan: Plan of Care cont zosyn will deescalate soon to po abx cont local wound care cont supportive care ASIA JACKSON MD Dec 21, 2019 15:46
--- NOTE | 2019-12-21 18:14 | PDOC ---
PROGRESS NOTES Chief Complaint Chief Complaint Acute on chronic kidney injury, hyperkalemia, hyponatremia at 135, azotemia, acute on chronic systolic and diastolic heart failure, elevated troponin anemia and lower extremity wounds. // Lower extremity cellulitis. Left fifth phalangeal changes on x-ray, likely secondary to the trauma and healing fracture, follow Nephrology crop consultant recommendations follow Cardiology. recommendations Hold JAYSON inhibitor. IV antibiotics. PT, OT. Wound care nurse to evaluate and treat. DVT prophylaxis. Full code. Prognosis //guarded. temp dialysis cath placement 12/15 OP HD SET UP FOR MWF Ultrasound and fluoroscopic guided placement of right internal jugular temporary dialysis catheter NEEDS TDC AND OP HD SET UP 12/18 dilysis tomorrow History of Present Illness History of Present Illness No acute events reported overnight, case discussed with nursing staff patient in no acute distress no complaints during my visit Vitals Vitals Vital Signs Date Time Temp Pulse Resp B/P (MAP) Pulse Ox O2 Delivery O2 Flow Rate FiO2 12/21/19 16:34 94 Venturi Mask 12.0 12/21/19 15:00 98.6 73 16 123/53 (76) 98.6 Physical Exam Physical Exam GENERAL: Alert, oriented female, not in distress. VITAL SIGNS: Stable, afebrile. HEENT: NAD. NECK: Supple, no JVP, no lymphadenopathy. LUNGS: Clear. HEART: S1, S2 regular. ABDOMEN: Soft and nontender. No organomegaly. EXTREMITIES: Bilateral lower extremity pitting edema present. The patient does have excoriation of both the legs with superficial ulcerations. Foot has no wound at the fifth metatarsal or phalangeal area bilaterally. The patient appears to have puncture wound with slight dry crackly skin into the actually calcaneal area. Dorsalis pedis is palpable bilaterally. NEUROLOGIC: The patient is alert, awake and appropriate. No focal neurologic deficit. General: Alert, Oriented X3, Cooperative, No acute distress, mild distress Heart: Regular rate Lungs: Clear Abdomen: Normal bowel sounds, No tenderness Extremities: No clubbing, No cyanosis Labs LABS Laboratory Tests Test 12/20/19 20:33 12/21/19 08:02 12/21/19 14:35 12/21/19 17:31 Glucose (Fingerstick) 228 mg/dL (70-99) 182 mg/dL (70-99) 182 mg/dL (70-99) White Blood Count 7.9 x10^3/uL (4.0-11.0) Red Blood Count 3.89 x10^6/uL (3.50-5.40) Hemoglobin 10.4 g/dL (12.0-15.5) Hematocrit 33.7 % (36.0-47.0) Mean Corpuscular Volume 87 fL (79-100) Mean Corpuscular Hemoglobin 27 pg (25-35) Mean Corpuscular Hemoglobin Concent 31 g/dL (31-37) Red Cell Distribution Width 18.2 % (11.5-14.5) Platelet Count 287 x10^3/uL (140-400) Neutrophils (%) (Auto) 81 % (31-73) Lymphocytes (%) (Auto) 8 % (24-48) Monocytes (%) (Auto) 9 % (0-9) Eosinophils (%) (Auto) 1 % (0-3) Basophils (%) (Auto) 1 % (0-3) Neutrophils # (Auto) 6.4 x10^3/uL (1.8-7.7) Lymphocytes # (Auto) 0.6 x10^3/uL (1.0-4.8) Monocytes # (Auto) 0.7 x10^3/uL (0.0-1.1) Eosinophils # (Auto) 0.1 x10^3/uL (0.0-0.7) Basophils # (Auto) 0.1 x10^3/uL (0.0-0.2) Sodium Level 138 mmol/L (136-145) Potassium Level 3.9 mmol/L (3.5-5.1) Chloride Level 100 mmol/L (98-107) Carbon Dioxide Level 33 mmol/L (21-32) Anion Gap 5 (6-14) Blood Urea Nitrogen 10 mg/dL (7-20) Creatinine 2.0 mg/dL (0.6-1.0) Estimated GFR (Cockcroft-Gault) 24.2 Glucose Level 200 mg/dL (70-99) Calcium Level 8.0 mg/dL (8.5-10.1) Phosphorus Level 2.3 mg/dL (2.6-4.7) Albumin 2.0 g/dL (3.4-5.0) Assessment and Plan Assessmemt and Plan Problems Medical Problems: (1) Cellulitis Status: Acute (2) CHF (congestive heart failure) Status: Acute (3) Elevated troponin Status: Acute (4) Shortness of breath Status: Acute Comment Review of Relevant I have reviewed the following items monalisa (where applicable) has been applied. Labs Laboratory Tests Test 12/19/19 21:08 12/20/19 07:46 12/20/19 13:25 12/20/19 17:08 Glucose (Fingerstick) 257 mg/dL (70-99) 204 mg/dL (70-99) 124 mg/dL (70-99) 194 mg/dL (70-99) Test 12/20/19 20:33 12/21/19 08:02 12/21/19 14:35 12/21/19 17:31 Glucose (Fingerstick) 228 mg/dL (70-99) 182 mg/dL (70-99) 182 mg/dL (70-99) White Blood Count 7.9 x10^3/uL (4.0-11.0) Red Blood Count 3.89 x10^6/uL (3.50-5.40) Hemoglobin 10.4 g/dL (12.0-15.5) Hematocrit 33.7 % (36.0-47.0) Mean Corpuscular Volume 87 fL (79-100) Mean Corpuscular Hemoglobin 27 pg (25-35) Mean Corpuscular Hemoglobin Concent 31 g/dL (31-37) Red Cell Distribution Width 18.2 % (11.5-14.5) Platelet Count 287 x10^3/uL (140-400) Neutrophils (%) (Auto) 81 % (31-73) Lymphocytes (%) (Auto) 8 % (24-48) Monocytes (%) (Auto) 9 % (0-9) Eosinophils (%) (Auto) 1 % (0-3) Basophils (%) (Auto) 1 % (0-3) Neutrophils # (Auto) 6.4 x10^3/uL (1.8-7.7) Lymphocytes # (Auto) 0.6 x10^3/uL (1.0-4.8) Monocytes # (Auto) 0.7 x10^3/uL (0.0-1.1) Eosinophils # (Auto) 0.1 x10^3/uL (0.0-0.7) Basophils # (Auto) 0.1 x10^3/uL (0.0-0.2) Sodium Level 138 mmol/L (136-145) Potassium Level 3.9 mmol/L (3.5-5.1) Chloride Level 100 mmol/L (98-107) Carbon Dioxide Level 33 mmol/L (21-32) Anion Gap 5 (6-14) Blood Urea Nitrogen 10 mg/dL (7-20) Creatinine 2.0 mg/dL (0.6-1.0) Estimated GFR (Cockcroft-Gault) 24.2 Glucose Level 200 mg/dL (70-99) Calcium Level 8.0 mg/dL (8.5-10.1) Phosphorus Level 2.3 mg/dL (2.6-4.7) Albumin 2.0 g/dL (3.4-5.0) Laboratory Tests Test 12/20/19 20:33 12/21/19 08:02 12/21/19 14:35 12/21/19 17:31 Glucose (Fingerstick) 228 mg/dL (70-99) 182 mg/dL (70-99) 182 mg/dL (70-99) White Blood Count 7.9 x10^3/uL (4.0-11.0) Red Blood Count 3.89 x10^6/uL (3.50-5.40) Hemoglobin 10.4 g/dL (12.0-15.5) Hematocrit 33.7 % (36.0-47.0) Mean Corpuscular Volume 87 fL (79-100) Mean Corpuscular Hemoglobin 27 pg (25-35) Mean Corpuscular Hemoglobin Concent 31 g/dL (31-37) Red Cell Distribution Width 18.2 % (11.5-14.5) Platelet Count 287 x10^3/uL (140-400) Neutrophils (%) (Auto) 81 % (31-73) Lymphocytes (%) (Auto) 8 % (24-48) Monocytes (%) (Auto) 9 % (0-9) Eosinophils (%) (Auto) 1 % (0-3) Basophils (%) (Auto) 1 % (0-3) Neutrophils # (Auto) 6.4 x10^3/uL (1.8-7.7) Lymphocytes # (Auto) 0.6 x10^3/uL (1.0-4.8) Monocytes # (Auto) 0.7 x10^3/uL (0.0-1.1) Eosinophils # (Auto) 0.1 x10^3/uL (0.0-0.7) Basophils # (Auto) 0.1 x10^3/uL (0.0-0.2) Sodium Level 138 mmol/L (136-145) Potassium Level 3.9 mmol/L (3.5-5.1) Chloride Level 100 mmol/L (98-107) Carbon Dioxide Level 33 mmol/L (21-32) Anion Gap 5 (6-14) Blood Urea Nitrogen 10 mg/dL (7-20) Creatinine 2.0 mg/dL (0.6-1.0) Estimated GFR (Cockcroft-Gault) 24.2 Glucose Level 200 mg/dL (70-99) Calcium Level 8.0 mg/dL (8.5-10.1) Phosphorus Level 2.3 mg/dL (2.6-4.7) Albumin 2.0 g/dL (3.4-5.0) Medications Current Medications Vancomycin HCl 250 ml @ 166.667 mls/hr 1X ONCE IV Last administered on 12/14/19at 18:24; Start 12/14/19 at 17:45; Stop 12/14/19 at 19:14; Status DC Sodium Chloride 1,000 ml @ 1,000 mls/hr 1X ONCE IV Last administered on 12/14/19at 18:23; Start 12/14/19 at 18:00; Stop 12/14/19 at 18:59; Status DC Calcium Gluconate (Calcium Gluconate) 1,000 mg 1X ONCE IVP Last administered on 12/14/19at 18:24; Start 12/14/19 at 18:00; Stop 12/14/19 at 18:01; Status DC Albuterol Sulfate (Ventolin Neb Soln) 10 mg 1X ONCE CONT NEB Last administered on 12/14/19at 18:00; Start 12/14/19 at 18:00; Stop 12/14/19 at 18:01; Status DC Furosemide (Lasix) 40 mg 1X ONCE PO ; Start 12/14/19 at 18:30; Stop 12/14/19 at 18:31; Status DC Enoxaparin Sodium (Lovenox 120mg Syringe) 120 mg 1X ONCE SQ Last administered on 12/14/19at 20:05; Start 12/14/19 at 19:30; Stop 12/14/19 at 19:31; Status DC Furosemide (Lasix) 40 mg 1X ONCE IVP Last administered on 12/14/19at 20:05; Start 12/14/19 at 19:30; Stop 12/14/19 at 19:31; Status DC Dextrose (Dextrose 50%-Water Syringe) 25 gm STK-MED ONCE IV ; Start 12/15/19 at 08:11; Stop 12/15/19 at 08:11; Status DC Sodium Polystyrene Sulfonate (Kayexalate) 30 gm 1X ONCE RC ; Start 12/15/19 at 09:00; Stop 12/15/19 at 08:38; Status DC Sodium Polystyrene Sulfonate (Kayexalate) 15 gm 1X ONCE PO Last administered on 12/15/19at 09:24; Start 12/15/19 at 09:00; Stop 12/15/19 at 09:01; Status DC Piperacillin Sod/ Tazobactam Sod (Zosyn Per Pharmacy) 1 each PRN DAILY PRN MC SEE COMMENTS; Start 12/15/19 at 13:00 Piperacillin Sod/ Tazobactam Sod 2.25 gm/Sodium Chloride 50 ml @ 100 mls/hr Q6HRS IV Last administered on 12/16/19at 05:32; Start 12/15/19 at 14:00; Stop 12/16/19 at 16:05; Status DC Dextrose (Dextrose 50%-Water Syringe) 12.5 gm PRN Q15MIN PRN IV SEE COMMENTS Last administered on 12/16/19at 07:56; Start 12/15/19 at 21:15 Dextrose (Iv Dextrose 5%) 250 ml PRN Q15MIN PRN IV SEE COMMENTS; Start 12/15/19 at 21:15 Dextrose (Dextrose 50%-Water Syringe) 25 gm STK-MED ONCE IV ; Start 12/15/19 at 21:19; Stop 12/15/19 at 21:19; Status DC Furosemide (Lasix) 60 mg DAILY IVP Last administered on 12/21/19at 13:47; Start 12/16/19 at 12:30 Lidocaine HCl (Buffered Lidocaine 1%) 3 ml STK-MED ONCE .ROUTE ; Start 12/16/19 at 12:36; Stop 12/16/19 at 12:36; Status DC Lidocaine HCl (Buffered Lidocaine 1%) 6 ml 1X ONCE INJ Last administered on 12/16/19at 12:56; Start 12/16/19 at 12:45; Stop 12/16/19 at 12:46; Status DC Sodium Chloride 1,000 ml @ 1,000 mls/hr Q1H PRN IV hypotension; Start 12/16/19 at 13:11; Stop 12/16/19 at 19:10; Status DC Albumin Human 200 ml @ 200 mls/hr 1X PRN PRN IV Hypotension; Start 12/16/19 at 13:15; Stop 12/16/19 at 19:14; Status DC Diphenhydramine HCl (Benadryl) 25 mg 1X PRN PRN IV ITCHING; Start 12/16/19 at 13:15; Stop 12/17/19 at 13:14; Status DC Diphenhydramine HCl (Benadryl) 25 mg 1X PRN PRN IV ITCHING; Start 12/16/19 at 13:15; Stop 12/17/19 at 13:14; Status DC Sodium Chloride 1,000 ml @ 400 mls/hr Q2H30M PRN IV PATENCY; Start 12/16/19 at 13:11; Stop 12/17/19 at 01:10; Status DC Info (PHARMACY MONITORING -- do not chart) 1 each PRN DAILY PRN MC SEE COMMENTS; Start 12/16/19 at 13:15; Stop 12/20/19 at 16:02; Status DC Magnesium Sulfate 50 ml @ 25 mls/hr 1X ONCE IV Last administered on 12/16/19at 19:21; Start 12/16/19 at 15:45; Stop 12/16/19 at 17:44; Status DC Aspirin (Ecotrin) 81 mg DAILYWBKFT PO Last administered on 12/21/19at 13:47; Start 12/17/19 at 08:00 Piperacillin Sod/ Tazobactam Sod 2.25 gm/Sodium Chloride 50 ml @ 100 mls/hr Q8HRS IV Last administered on 12/21/19at 13:55; Start 12/16/19 at 17:00 Acetaminophen/ Hydrocodone Bitart (Lortab 5/325) 1 tab PRN Q6HRS PRN PO MODERATE PAIN 4-6 Last administered on 12/18/19at 08:30; Start 12/16/19 at 22:00 Sodium Chloride 1,000 ml @ 1,000 mls/hr Q1H PRN IV hypotension; Start 12/17/19 at 09:55; Stop 12/17/19 at 15:54; Status DC Albumin Human 200 ml @ 200 mls/hr 1X PRN PRN IV Hypotension Last administered on 12/17/19at 10:48; Start 12/17/19 at 10:00; Stop 12/17/19 at 15:59; Status DC Sodium Chloride 1,000 ml @ 400 mls/hr Q2H30M PRN IV PATENCY; Start 12/17/19 at 09:55; Stop 12/17/19 at 21:54; Status DC Info (PHARMACY MONITORING -- do not chart) 1 each PRN DAILY PRN MC SEE COMMENTS; Start 12/17/19 at 10:00; Status UNV Info (PHARMACY MONITORING -- do not chart) 1 each PRN DAILY PRN MC SEE C OMMENTS; Start 12/17/19 at 10:00; Status UNV Iron Sucrose 500 mg/Sodium Chloride 275 ml @ 78.571 mls/ hr 1X ONCE IV Last administered on 12/17/19at 16:08; Start 12/17/19 at 13:00; Stop 12/17/19 at 16:29; Status DC Lidocaine/ Epinephrine (LIDOCAINE 1%-EPI 1:100,000 Multi-Dose) 20 ml STK-MED ONCE .ROUTE ; Start 12/17/19 at 12:29; Stop 12/17/19 at 12:30; Status DC Midazolam HCl (Versed) 2 mg STK-MED ONCE .ROUTE ; Start 12/17/19 at 12:34; Stop 12/17/19 at 12:34; Status DC Fentanyl Citrate (Fentanyl 2ml Vial) 100 mcg STK-MED ONCE .ROUTE ; Start 12/17/19 at 12:34; Stop 12/17/19 at 12:34; Status DC Midazolam HCl (Versed) 2 mg 1X ONCE IV Last administered on 12/17/19at 13:08; Start 12/17/19 at 12:45; Stop 12/17/19 at 12:47; Status DC Fentanyl Citrate (Fentanyl 2ml Vial) 100 mcg 1X ONCE IV Last administered on 12/17/19at 13:08; Start 12/17/19 at 12:45; Stop 12/17/19 at 12:47; Status DC Lidocaine/ Epinephrine (LIDOCAINE 1%-EPI 1:100,000 Multi-Dose) 20 ml 1X ONCE SQ Last administered on 12/17/19at 13:10; Start 12/17/19 at 12:45; Stop 12/17/19 at 12:47; Status DC Lactobacillus Rhamnosus (Culturelle) 1 cap BID PO Last administered on 12/21/19at 13:47; Start 12/17/19 at 21:00 Albuterol Sulfate (Ventolin Neb Soln) 2.5 mg RTQID NEB Last administered on 12/21/19at 16:34; Start 12/18/19 at 12:00 Darbepoetin Norberto (ARANESP for DIALYSIS PTS) 60 mcg WEEKLYHS SQ Last administered on 12/18/19at 22:02; Start 12/18/19 at 21:00 Sodium Chloride 1,000 ml @ 1,000 mls/hr Q1H PRN IV hypotension; Start 12/18/19 at 14:02; Stop 12/18/19 at 20:01; Status DC Sodium Chloride (Normal Saline Flush) 10 ml 1X PRN PRN IV AP catheter pack; Start 12/18/19 at 14:15; Stop 12/19/19 at 14:14; Status DC Sodium Chloride (Normal Saline Flush) 10 ml 1X PRN PRN IV SECURITY STRATEGIST catheter pack; Start 12/18/19 at 14:15; Stop 12/19/19 at 14:14; Status DC Info (PHARMACY MONITORING -- do not chart) 1 each PRN DAILY PRN MC SEE COMMENTS; Start 12/18/19 at 14:15; Status UNV Info (PHARMACY MONITORING -- do not chart) 1 each PRN DAILY PRN MC SEE COMMENTS; Start 12/18/19 at 14:15; Stop 12/20/19 at 16:03; Status DC Multivitamins (Thera M Plus) 1 tab DAILY PO Last administered on 12/21/19at 13:47; Start 12/19/19 at 09:00 Ascorbic Acid (Vitamin C) 500 mg DAILY PO Last administered on 12/21/19at 13:47; Start 12/19/19 at 09:00 Sodium Chloride 1,000 ml @ 1,000 mls/hr Q1H PRN IV hypotension; Start 12/20/19 at 08:11; Stop 12/20/19 at 14:10; Status DC Albumin Human 200 ml @ 200 mls/hr 1X PRN PRN IV Hypotension; Start 12/20/19 at 08:15; Stop 12/20/19 at 14:14; Status DC Acetaminophen (Tylenol) 500 mg 1X PRN PRN PO MILD PAIN / TEMP; Start 12/20/19 at 08:15; Stop 12/21/19 at 08:14; Status DC Diphenhydramine HCl (Benadryl) 25 mg 1X PRN PRN IV ITCHING; Start 12/20/19 at 08:15; Stop 12/21/19 at 08:14; Status DC Diphenhydramine HCl (Benadryl) 25 mg 1X PRN PRN IV ITCHING; Start 12/20/19 at 08:15; Stop 12/21/19 at 08:14; Status DC Sodium Chloride 1,000 ml @ 400 mls/hr Q2H30M PRN IV PATENCY; Start 12/20/19 at 08:11; Stop 12/20/19 at 20:10; Status DC Info (PHARMACY MONITORING -- do not chart) 1 each PRN DAILY PRN MC SEE COMMENTS; Start 12/20/19 at 08:15 Insulin Glargine (Lantus Syringe) 40 unit DAILY SQ Last administered on 12/21/19 at 13:48; Start 12/21/19 at 09:00 Sodium Chloride 1,000 ml @ 1,000 mls/hr Q1H PRN IV hypotension; Start 12/21/19 at 07:40; Stop 12/21/19 at 13:39; Status DC Albumin Human 200 ml @ 200 mls/hr 1X PRN PRN IV Hypotension; Start 12/21/19 at 07:45; Stop 12/21/19 at 13:44; Status DC Acetaminophen (Tylenol) 500 mg 1X PRN PRN PO MILD PAIN / TEMP; Start 12/21/19 at 07:45; Stop 12/22/19 at 07:44 Diphenhydramine HCl (Benadryl) 25 mg 1X PRN PRN IV ITCHING; Start 12/21/19 at 07:45; Stop 12/22/19 at 07:44 Diphenhydramine HCl (Benadryl) 25 mg 1X PRN PRN IV ITCHING; Start 12/21/19 at 07:45; Stop 12/22/19 at 07:44 Sodium Chloride (Normal Saline Flush) 10 ml 1X PRN PRN IV AP catheter pack; Start 12/21/19 at 07:45; Stop 12/22/19 at 07:44 Sodium Chloride (Normal Saline Flush) 10 ml 1X PRN PRN IV SECURITY STRATEGIST catheter pack; Start 12/21/19 at 07:45; Stop 12/22/19 at 07:44 Sodium Chloride 1,000 ml @ 400 mls/hr Q2H30M PRN IV PATENCY; Start 12/21/19 at 07:40; Stop 12/21/19 at 19:39 Info (PHARMACY MONITORING -- do not chart) 1 each PRN DAILY PRN MC SEE COMMENTS; Start 12/21/19 at 07:45 Active Scripts Active Reported Metformin Hcl Er (Metformin Hcl) 1,000 Mg Tab.er.24 1,000 Mg PO BIDWMEALS Lisinopril-Hctz 20-12.5 Mg Tab (Lisinopril/Hydrochlorothiazide) 1 Each Tablet 1 Tab PO DAILY Glipizide Er (Glipizide) 10 Mg Tab.er.24 10 Mg PO BIDWMEALS Xalatan (Latanoprost) 2.5 Ml Drops 1 Drop OP HS Triamcinolone Acetonide 0.1% Cream (Triamcinolone Acetonide) 15 Gm Cream..g. 1 Isabell TP BID Tramadol Hcl 50 Mg Tablet 50 Mg PO DAILY PRN Flonase Allergy Relief (Fluticasone Propionate) 9.9 Ml [place].susp 2 Sprays NS DAILY Novolin N (Nph, Human Insulin Isophane) 100 Unit/1 Ml Vial 40 Unit SQ DAILYWBKFT Carvedilol (Carvedilol) 6.25 Mg Tablet 6.25 Mg PO BIDWMEALS Simvastatin 40 Mg Tablet 1 Tab PO QHS Furosemide 20 Mg Tablet 1 Tab PO DAILY Vitals/I & O Vital Sign - Last 24 Hours 12/20/19 12/20/19 12/20/1920 19:43 19:54 20:16 23:18 Temp 97.8 97.9 97.8 97.9 Pulse 107 107 Resp B/P (MAP) 149/62 (91) 127/70 (89) Pulse Ox 95 99 97 O2 Delivery Venturi Mask Venturi Mask Venturi Mask Venturi Mask O2 Flow Rate 12.0 12.0 12/21/19 12/21/19 12/21/19 12/21/19 03:13 07:00 08:00 08:08 Temp 97.7 98.1 97.7 98.1 Pulse 87 99 Resp 16 B/P (MAP) 157/79 (105) 163/70 (101) Pulse Ox 97 95 97 O2 Delivery Venturi Mask Venturi Mask Venturi Mask Venturi Mask O2 Flow Rate 12.0 12.0 12/21/19 12/21/19 12/21/19 13:25 15:00 16:34 Temp 98.6 98.6 Pulse 73 Resp 16 B/P (MAP) 123/53 (76) Pulse Ox 93 97 94 O2 Delivery Venturi Mask Venturi Mask Venturi Mask O2 Flow Rate 15.0 12.0 Intake and Output 12/20/19 12/20/19 12/21/19 14:59 22:59 06:59 Intake Total 0 ml 500 ml 260 ml Output Total 150 ml Balance 0 ml 500 ml 110 ml JO OLIVIA MD Dec 21, 2019 18:14
--- NOTE | 2019-12-21 18:46 | RAD ---
AP chest. HISTORY: Persistent hypoxia AP view was taken of the chest. Right dialysis catheter is unchanged. 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 There is a left pleural effusion. There is left basilar atelectasis or infiltrate. Pattern is similar to the study from December 16. There is still mild vascular congestion. IMPRESSION: 1. Little change from the prior study. Electronically signed by: Jett Chung MD (12/21/2019 6:43 PM) [id number]
[2019-12-21 19:29] VITALS: BP 120/88
[2019-12-21 22:30] VITALS: BP 118/54
[2019-12-22 02:50] VITALS: BP 141/69
[2019-12-22] MEDS: PIPERACILLIN/TAZOBACTAM 2.25 GM in IV NORMAL SALINE 50ML 50 ML IV SCH ×3 (05:40→21:06)
[2019-12-22 07:00] VITALS: BP 127/56
[2019-12-22] MEDS: INSULIN GLARGINE SYRINGE. SQ SCH (07:55)
[2019-12-22] MEDS: ALBUTEROL SULFATE 2.5 MG/3 ML NEBU. NEB SCH ×4 (08:20→19:55)
[2019-12-22] MEDS: ASPIRIN ENTERIC COATED 81 MG TABLET.DR. PO SCH (08:54)
[2019-12-22] MEDS: LACTOBACILLUS RHAMNOSUS GG 1 CAPSULE. PO SCH ×2 (08:54→21:06)
[2019-12-22] MEDS: MULTIVITAMIN with MINERAL TABLET. PO SCH (08:54)
[2019-12-22] MEDS: ASCORBIC ACID 500 MG TABLET PO SCH (08:54)
[2019-12-22] MEDS: FUROSEMIDE 40 MG/4 ML VIAL. IVP SCH (08:55)
--- NOTE | 2019-12-22 09:24 | PDOC ---
Infectious Disease Note Subjective Subjective Comfortable, denies pain Some sinus drainage On 4L O2 Loose stools Denies F/C/SOA/N/V ROS ROS per HPI Vital Sign Vital Signs Vital Signs Date Time Temp Pulse Resp B/P (MAP) Pulse Ox O2 Delivery O2 Flow Rate FiO2 12/22/19 07:00 98.5 92 19 127/56 (79) 95 Ventilator 98.5 12/21/19 20:03 12.0 Physical Exam PHYSICAL EXAM GENERAL: Propped up in bed, alert in NAD HEENT: Oral cavity pink, no lesions NECK: Supple LUNGS: Clear. HEART: S1, S2 regular. ABDOMEN: Obese, soft and nontender. : Collier in place EXTREMITIES: Bilateral lower extremity pitting edema and excoriation of both the legs with superficial ulcerations. Foot has no wound at the fifth metatarsal or phalangeal area bilaterally. The patient appears to have puncture wound with slight dry crackly skin into the actually calcaneal area. Dorsalis pedis is palpable bilaterally. NEUROLOGIC: Alert, awake and appropriate. No focal neurologic deficit. Tunneled HD catheter (12/16) without signs of infection PIV ok Labs Lab Laboratory Tests Test 12/21/19 14:35 12/21/19 17:31 12/21/19 20:28 12/22/19 07:49 White Blood Count 7.9 x10^3/uL (4.0-11.0) Red Blood Count 3.89 x10^6/uL (3.50-5.40) Hemoglobin 10.4 g/dL (12.0-15.5) Hematocrit 33.7 % (36.0-47.0) Mean Corpuscular Volume 87 fL (79-100) Mean Corpuscular Hemoglobin 27 pg (25-35) Mean Corpuscular Hemoglobin Concent 31 g/dL (31-37) Red Cell Distribution Width 18.2 % (11.5-14.5) Platelet Count 287 x10^3/uL (140-400) Neutrophils (%) (Auto) 81 % (31-73) Lymphocytes (%) (Auto) 8 % (24-48) Monocytes (%) (Auto) 9 % (0-9) Eosinophils (%) (Auto) 1 % (0-3) Basophils (%) (Auto) 1 % (0-3) Neutrophils # (Auto) 6.4 x10^3/uL (1.8-7.7) Lymphocytes # (Auto) 0.6 x10^3/uL (1.0-4.8) Monocytes # (Auto) 0.7 x10^3/uL (0.0-1.1) Eosinophils # (Auto) 0.1 x10^3/uL (0.0-0.7) Basophils # (Auto) 0.1 x10^3/uL (0.0-0.2) Sodium Level 138 mmol/L (136-145) Potassium Level 3.9 mmol/L (3.5-5.1) Chloride Level 100 mmol/L (98-107) Carbon Dioxide Level 33 mmol/L (21-32) Anion Gap 5 (6-14) Blood Urea Nitrogen 10 mg/dL (7-20) Creatinine 2.0 mg/dL (0.6-1.0) Estimated GFR (Cockcroft-Gault) 24.2 Glucose Level 200 mg/dL (70-99) Calcium Level 8.0 mg/dL (8.5-10.1) Phosphorus Level 2.3 mg/dL (2.6-4.7) Albumin 2.0 g/dL (3.4-5.0) Glucose (Fingerstick) 182 mg/dL (70-99) 184 mg/dL (70-99) 68 mg/dL (70-99) Test 12/22/19 08:24 Glucose (Fingerstick) 118 mg/dL (70-99) CXR, 12/20 HISTORY: Persistent hypoxia AP view was taken of the chest. Right dialysis catheter is unchanged. 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 There is a left pleural effusion. There is left basilar atelectasis or infiltrate. Pattern is similar to the study from December 16. There is still mild vascular congestion. IMPRESSION: 1. Little change from the prior study. Objective Assessment Bilateral lower extremity venous insufficiency with superficial ulcerations and possible secondary infection. Left fifth phalangeal changes on x-ray, likely secondary to the trauma and healing fracture, not infection as there is no open wound there. Likely have a puncture wound into the calcaneal area with pain. Congestive heart failure. Acute on chronic renal insufficiency, on hemodialysis now via tunneled HD catheter Diabetes. Hypertension. Obesity Plan Plan of Care cont zosyn for now, wean to po soon Probiotics Local wound care Supportive care Attending Co-Sign The patient was seen and interviewed as well as examined at the bedside. The art was reviewed. The case was discussed. Agree with the plan of care. JOSELIN SMITH APRN Dec 22, 2019 09:24 ASIA JACKSON MD Dec 22, 2019 12:14
--- NOTE | 2019-12-22 10:20 | PDOC ---
SUBJECTIVE ROS New onset ESRD Patient time she is feeling much better today. She was able to be weaned from a Ventimask to nasal cannula oxygen and appears to be oxygenating well with the same. She did have IV access issues yesterday this appears to have been addressed. She does not know when was the last time she walked independently on her own. She is reported to have significant weakness and is unable to stand for a PA and lateral chest x-ray. Orthostasis is not documented CVS: no Orthopnea, no CP RESP: Improved SOB, no JOYCE GI: no Nausea, no Vomiting : no Dysuria, no Urgency OBJECTIVE Vital Signs Vital Signs Date Time Temp Pulse Resp B/P (MAP) Pulse Ox O2 Delivery O2 Flow Rate FiO2 12/22/19 08:00 Nasal Cannula 4.0 12/22/19 07:00 98.5 92 19 127/56 (79) 95 98.5 I & 0 Intake and Output 12/22/19 07:00 Intake Total 150 ml Output Total 300 ml Balance -150 ml Intake Oral 150 ml Output Urine Total 300 ml # Bowel Movements 1 PHYSICAL EXAM Physical Exam GEN: Awake, Oriented x 2-3 , In no visible resp distress, on nasal cannula oxygen EYES: Vision Unchanged, Conjunctiva Normal EN: No EN Drainage, Mucous Membranes moist NECK: no JVD, min JVP, Supple, no Thyromegaly CVS: S1S2, ? Murmur, No Gallop, No Rub,tr Edema RESP: no Rales, no Rhonchi,no Acc. Muscle Use GI: BS + ve, NO Bruit, Non Tender, Non Distended him a somewhat obese : no CVA tenderness, no Suprapubic Tenderness DIAGNOSIS/ASSESSMENT Assessment & Plan ESRD: Current fluid and E-lyte status does not necessitate emergent need for dialysis. Will re-evaluate for dialysis in the am and continue on Monday schedule. Room air hypoxemia: Patient remains on a nasal cannula oxygen at 4 L at this time. She does appear to use 2-3 L nasal cannula as an outpatient as reported. chest x-ray does not show any significant worsening for fluid status/infiltrates. Possible pneumonia: Patient remains on antibiotics. We'll await ID recommendations with regards to transitioning to oral antibiotics versus need for near-term central access for the same ANEMIA (iron deficiency as well as CKD associated); . Aranap as ordered, Transfuse with next HD as needed HTN: Current BP meds as reviewed. See orders for changes. BONE & MINERAL: Follow phosphorus levels and add/alter binder regimen if needed. Potentially nearing point of discharge Discussed Plan of Care with patient and nurse at bedside COMMENT/RELEVANT DATA Meds Current Medications Medications (Trade) Dose Ordered Sig/Yulisa Start Time Stop Time Status Last Admin Dose Admin Acetaminophen (Tylenol) 500 mg 1X PRN PRN 12/21/19 07:45 12/22/19 07:44 DC Acetaminophen/ Hydrocodone Bitart (Lortab 5/325) 1 tab PRN Q6HRS PRN 12/16/19 22:00 12/18/19 08:30 1 TAB Albumin Human 200 ml @ 200 mls/hr 1X PRN PRN 12/21/19 07:45 12/21/19 13:44 DC Albuterol Sulfate (Ventolin Neb Soln) 2.5 mg RTQID 12/18/19 12:00 12/22/19 08:20 2.5 MG Ascorbic Acid (Vitamin C) 500 mg DAILY 12/19/19 09:00 12/22/19 08:54 500 MG Aspirin (Ecotrin) 81 mg DAILYWBKFT 12/17/19 08:00 12/22/19 08:54 81 MG Calcium Gluconate (Calcium Gluconate) 1,000 mg 1X ONCE 12/14/19 18:00 12/14/19 18:01 DC 12/14/19 18:24 1,000 MG Darbepoetin Norberto (ARANESP for DIALYSIS PTS) 60 mcg WEEKLYHS 12/18/19 21:00 12/18/19 22:02 60 MCG Dextrose (Dextrose 50%-Water Syringe) 25 gm STK-MED ONCE 12/15/19 21:19 12/15/19 21:19 DC Dextrose (Iv Dextrose 5%) 250 ml PRN Q15MIN PRN 12/15/19 21:15 Diphenhydramine HCl (Benadryl) 25 mg 1X PRN PRN 12/21/19 07:45 12/22/19 07:44 DC Enoxaparin Sodium (Lovenox 120mg Syringe) 120 mg 1X ONCE 12/14/19 19:30 12/14/19 19:31 DC 12/14/19 20:05 120 MG Fentanyl Citrate (Fentanyl 2ml Vial) 100 mcg 1X ONCE 12/17/19 12:45 12/17/19 12:47 DC 12/17/19 13:08 50 MCG Furosemide (Lasix) 60 mg DAILY 12/16/19 12:30 12/22/19 08:55 60 MG Info (PHARMACY MONITORING -- do not chart) 1 each PRN DAILY PRN 12/21/19 07:45 Insulin Glargine (Lantus Syringe) 40 unit DAILY 12/21/19 09:00 12/21/19 13:48 40 UNIT Iron Sucrose 500 mg/Sodium Chloride 275 ml @ 78.571 mls/ hr 1X ONCE 12/17/19 13:00 12/17/19 16:29 DC 12/17/19 16:08 78.571 MLS/HR Lactobacillus Rhamnosus (Culturelle) 1 cap BID 12/17/19 21:00 12/22/19 08:54 1 CAP Lidocaine HCl (Buffered Lidocaine 1%) 6 ml 1X ONCE 12/16/19 12:45 12/16/19 12:46 DC 12/16/19 12:56 3 ML Lidocaine/ Epinephrine (LIDOCAINE 1%-EPI 1:100,000 Multi-Dose) 20 ml 1X ONCE 12/17/19 12:45 12/17/19 12:47 DC 12/17/19 13:10 10 ML Magnesium Sulfate 50 ml @ 25 mls/hr 1X ONCE 12/16/19 15:45 12/16/19 17:44 DC 12/16/19 19:21 25 MLS/HR Midazolam HCl (Versed) 2 mg 1X ONCE 12/17/19 12:45 12/17/19 12:47 DC 12/17/19 13:08 1 MG Multivitamins (Thera M Plus) 1 tab DAILY 12/19/19 09:00 12/22/19 08:54 1 TAB Piperacillin Sod/ Tazobactam Sod (Zosyn Per Pharmacy) 1 each PRN DAILY PRN 12/15/19 13:00 Piperacillin Sod/ Tazobactam Sod 2.25 gm/Sodium Chloride 50 ml @ 100 mls/hr Q8HRS 12/16/19 17:00 12/22/19 05:40 100 MLS/HR Sodium Polystyrene Sulfonate (Kayexalate) 15 gm 1X ONCE 3/29/20 09:00 12/15/19 09:01 DC 12/15/19 09:24 15 GM Sodium Chloride 1,000 ml @ 400 mls/hr Q2H30M PRN 12/21/19 07:40 12/21/19 19:39 DC Sodium Chloride (Normal Saline Flush) 10 ml 1X PRN PRN 12/21/19 07:45 12/22/19 07:44 DC Vancomycin HCl 250 ml @ 166.667 mls/hr 1X ONCE 12/14/19 17:45 12/14/19 19:14 DC 12/14/19 18:24 166.667 MLS/HR Lab Laboratory Tests Test 12/21/19 14:35 12/21/19 17:31 12/21/19 20:28 12/22/19 07:49 White Blood Count 7.9 x10^3/uL (4.0-11.0) Red Blood Count 3.89 x10^6/uL (3.50-5.40) Hemoglobin 10.4 g/dL (12.0-15.5) Hematocrit 33.7 % (36.0-47.0) Mean Corpuscular Volume 87 fL (79-100) Mean Corpuscular Hemoglobin 27 pg (25-35) Mean Corpuscular Hemoglobin Concent 31 g/dL (31-37) Red Cell Distribution Width 18.2 % (11.5-14.5) Platelet Count 287 x10^3/uL (140-400) Neutrophils (%) (Auto) 81 % (31-73) Lymphocytes (%) (Auto) 8 % (24-48) Monocytes (%) (Auto) 9 % (0-9) Eosinophils (%) (Auto) 1 % (0-3) Basophils (%) (Auto) 1 % (0-3) Neutrophils # (Auto) 6.4 x10^3/uL (1.8-7.7) Lymphocytes # (Auto) 0.6 x10^3/uL (1.0-4.8) Monocytes # (Auto) 0.7 x10^3/uL (0.0-1.1) Eosinophils # (Auto) 0.1 x10^3/uL (0.0-0.7) Basophils # (Auto) 0.1 x10^3/uL (0.0-0.2) Sodium Level 138 mmol/L (136-145) Potassium Level 3.9 mmol/L (3.5-5.1) Chloride Level 100 mmol/L (98-107) Carbon Dioxide Level 33 mmol/L (21-32) Anion Gap 5 (6-14) Blood Urea Nitrogen 10 mg/dL (7-20) Creatinine 2.0 mg/dL (0.6-1.0) Estimated GFR (Cockcroft-Gault) 24.2 Glucose Level 200 mg/dL (70-99) Calcium Level 8.0 mg/dL (8.5-10.1) Phosphorus Level 2.3 mg/dL (2.6-4.7) Albumin 2.0 g/dL (3.4-5.0) Glucose (Fingerstick) 182 mg/dL (70-99) 184 mg/dL (70-99) 68 mg/dL (70-99) Test 12/22/19 08:24 Glucose (Fingerstick) 118 mg/dL (70-99) Results All relevant outside records, renal labs, imaging studies, telemetry/EKG's were reviewed. Other Chest x-ray from 12/21/19 (post dialysis) HISTORY: Persistent hypoxia AP view was taken of the chest. Right dialysis catheter is unchanged. 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 There is a left pleural effusion. There is left basilar atelectasis or infiltrate. Pattern is similar to the study from December 16. There is still mild vascular congestion. IMPRESSION: 1. Little change from the prior study. ANAYELI JACKSON MD Dec 22, 2019 10:20
[2019-12-22 11:00] VITALS: BP 99/41
[2019-12-22] MEDS: HYDROcodone/APAP 5/325MG 1 TAB TABLET PO PRN ×2 (14:42→21:06)
[2019-12-22 15:00] VITALS: BP 90/47
--- NOTE | 2019-12-22 16:10 | PDOC ---
PROGRESS NOTES Chief Complaint Chief Complaint Acute on chronic kidney injury, hyperkalemia, resolved hyponatremia resolved azotemia, imrpoved acute on chronic systolic and diastolic heart failure, elevated troponin anemia and lower extremity wounds. // Lower extremity cellulitis. Left fifth phalangeal changes on x-ray, likely secondary to the trauma and healing fracture, follow Nephrology art consultant recommendations follow Cardiology. recommendations Hold JAYSON inhibitor. IV antibiotics. PT, OT. Wound care nurse to evaluate and treat. DVT prophylaxis. Full code. Prognosis //guarded. temp dialysis cath placement 12/15 OP HD SET UP FOR MWF Ultrasound and fluoroscopic guided placement of right internal jugular temporary dialysis catheter NEEDS TDC AND OP HD SET UP Dialysis as per art consultant History of Present Illness History of Present Illness No acute events reported overnight, case discussed with nursing staff patient in no acute distress no complaints during my visit most likely will require placement Vitals Vitals Vital Signs Date Time Temp Pulse Resp B/P (MAP) Pulse Ox O2 Delivery O2 Flow Rate FiO2 12/22/19 15:42 93 Nasal Cannula 5.0 12/22/19 15:00 98.0 100 19 90/47 (61) 98.0 Physical Exam Physical Exam GENERAL: Propped up in bed, alert in NAD HEENT: Oral cavity pink, no lesions NECK: Supple LUNGS: Clear. HEART: S1, S2 regular. ABDOMEN: Obese, soft and nontender. : Collier in place EXTREMITIES: Bilateral lower extremity pitting edema and excoriation of both the legs with superficial ulcerations. Foot has no wound at the fifth metatarsal or phalangeal area bilaterally. The patient appears to have puncture wound with slight dry crackly skin into the actually calcaneal area. Dorsalis pedis is palpable bilaterally. NEUROLOGIC: Alert, awake and appropriate. No focal neurologic deficit. Tunneled HD catheter (12/16) without signs of infection PIV ok General: Alert, Oriented X3, Cooperative, No acute distress, mild distress Heart: Regular rate Lungs: Clear Abdomen: Normal bowel sounds, No tenderness Extremities: No clubbing, No cyanosis Labs LABS Laboratory Tests Test 12/21/19 17:31 12/21/19 20:28 12/22/19 07:49 12/22/19 08:24 Glucose (Fingerstick) 182 mg/dL (70-99) 184 mg/dL (70-99) 68 mg/dL (70-99) 118 mg/dL (70-99) Test 12/22/19 11:42 Glucose (Fingerstick) 119 mg/dL (70-99) Assessment and Plan Assessmemt and Plan Problems Medical Problems: (1) Cellulitis Status: Acute (2) CHF (congestive heart failure) Status: Acute (3) Elevated troponin Status: Acute (4) Shortness of breath Status: Acute Comment Review of Relevant I have reviewed the following items monalisa (where applicable) has been applied. Labs Laboratory Tests Test 12/20/19 17:08 12/20/19 20:33 12/21/19 08:02 12/21/19 14:35 Glucose (Fingerstick) 194 mg/dL (70-99) 228 mg/dL (70-99) 182 mg/dL (70-99) White Blood Count 7.9 x10^3/uL (4.0-11.0) Red Blood Count 3.89 x10^6/uL (3.50-5.40) Hemoglobin 10.4 g/dL (12.0-15.5) Hematocrit 33.7 % (36.0-47.0) Mean Corpuscular Volume 87 fL (79-100) Mean Corpuscular Hemoglobin 27 pg (25-35) Mean Corpuscular Hemoglobin Concent 31 g/dL (31-37) Red Cell Distribution Width 18.2 % (11.5-14.5) Platelet Count 287 x10^3/uL (140-400) Neutrophils (%) (Auto) 81 % (31-73) Lymphocytes (%) (Auto) 8 % (24-48) Monocytes (%) (Auto) 9 % (0-9) Eosinophils (%) (Auto) 1 % (0-3) Basophils (%) (Auto) 1 % (0-3) Neutrophils # (Auto) 6.4 x10^3/uL (1.8-7.7) Lymphocytes # (Auto) 0.6 x10^3/uL (1.0-4.8) Monocytes # (Auto) 0.7 x10^3/uL (0.0-1.1) Eosinophils # (Auto) 0.1 x10^3/uL (0.0-0.7) Basophils # (Auto) 0.1 x10^3/uL (0.0-0.2) Sodium Level 138 mmol/L (136-145) Potassium Level 3.9 mmol/L (3.5-5.1) Chloride Level 100 mmol/L (98-107) Carbon Dioxide Level 33 mmol/L (21-32) Anion Gap 5 (6-14) Blood Urea Nitrogen 10 mg/dL (7-20) Creatinine 2.0 mg/dL (0.6-1.0) Estimated GFR (Cockcroft-Gault) 24.2 Glucose Level 200 mg/dL (70-99) Calcium Level 8.0 mg/dL (8.5-10.1) Phosphorus Level 2.3 mg/dL (2.6-4.7) Albumin 2.0 g/dL (3.4-5.0) Test 12/21/19 17:31 12/21/19 20:28 12/22/19 07:49 12/22/19 08:24 Glucose (Fingerstick) 182 mg/dL (70-99) 184 mg/dL (70-99) 68 mg/dL (70-99) 118 mg/dL (70-99) Test 12/22/19 11:42 Glucose (Fingerstick) 119 mg/dL (70-99) Laboratory Tests Test 12/21/19 17:31 12/21/19 20:28 12/22/19 07:49 12/22/19 08:24 Glucose (Fingerstick) 182 mg/dL (70-99) 184 mg/dL (70-99) 68 mg/dL (70-99) 118 mg/dL (70-99) Test 12/22/19 11:42 Glucose (Fingerstick) 119 mg/dL (70-99) Medications Current Medications Vancomycin HCl 250 ml @ 166.667 mls/hr 1X ONCE IV Last administered on 12/14/19at 18:24; Start 12/14/19 at 17:45; Stop 12/14/19 at 19:14; Status DC Sodium Chloride 1,000 ml @ 1,000 mls/hr 1X ONCE IV Last administered on 12/14/19at 18:23; Start 12/14/19 at 18:00; Stop 12/14/19 at 18:59; Status DC Calcium Gluconate (Calcium Gluconate) 1,000 mg 1X ONCE IVP Last administered on 12/14/19at 18:24; Start 12/14/19 at 18:00; Stop 12/14/19 at 18:01; Status DC Albuterol Sulfate (Ventolin Neb Soln) 10 mg 1X ONCE CONT NEB Last administered on 12/14/19at 18:00; Start 12/14/19 at 18:00; Stop 12/14/19 at 18:01; Status DC Furosemide (Lasix) 40 mg 1X ONCE PO ; Start 12/14/19 at 18:30; Stop 12/14/19 at 18:31; Status DC Enoxaparin Sodium (Lovenox 120mg Syringe) 120 mg 1X ONCE SQ Last administered on 12/14/19at 20:05; Start 12/14/19 at 19:30; Stop 12/14/19 at 19:31; Status DC Furosemide (Lasix) 40 mg 1X ONCE IVP Last administered on 12/14/19at 20:05; Start 12/14/19 at 19:30; Stop 12/14/19 at 19:31; Status DC Dextrose (Dextrose 50%-Water Syringe) 25 gm STK-MED ONCE IV ; Start 12/15/19 at 08:11; Stop 12/15/19 at 08:11; Status DC Sodium Polystyrene Sulfonate (Kayexalate) 30 gm 1X ONCE RC ; Start 12/15/19 at 09:00; Stop 12/15/19 at 08:38; Status DC Sodium Polystyrene Sulfonate (Kayexalate) 15 gm 1X ONCE PO Last administered on 12/15/19at 09:24; Start 12/15/19 at 09:00; Stop 12/15/19 at 09:01; Status DC Piperacillin Sod/ Tazobactam Sod (Zosyn Per Pharmacy) 1 each PRN DAILY PRN MC SEE COMMENTS; Start 12/15/19 at 13:00 Piperacillin Sod/ Tazobactam Sod 2.25 gm/Sodium Chloride 50 ml @ 100 mls/hr Q6HRS IV Last administered on 12/16/19at 05:32; Start 12/15/19 at 14:00; Stop 12/16/19 at 16:05; Status DC Dextrose (Dextrose 50%-Water Syringe) 12.5 gm PRN Q15MIN PRN IV SEE COMMENTS Last administered on 12/16/19at 07:56; Start 12/15/19 at 21:15 Dextrose (Iv Dextrose 5%) 250 ml PRN Q15MIN PRN IV SEE COMMENTS; Start 12/15/19 at 21:15 Dextrose (Dextrose 50%-Water Syringe) 25 gm STK-MED ONCE IV ; Start 12/15/19 at 21:19; Stop 12/15/19 at 21:19; Status DC Furosemide (Lasix) 60 mg DAILY IVP Last administered on 12/22/19at 08:55; Start 12/16/19 at 12:30 Lidocaine HCl (Buffered Lidocaine 1%) 3 ml STK-MED ONCE .ROUTE ; Start 12/16/19 at 12:36; Stop 12/16/19 at 12:36; Status DC Lidocaine HCl (Buffered Lidocaine 1%) 6 ml 1X ONCE INJ Last administered on 12/16/19at 12:56; Start 12/16/19 at 12:45; Stop 12/16/19 at 12:46; Status DC Sodium Chloride 1,000 ml @ 1,000 mls/hr Q1H PRN IV hypotension; Start 12/16/19 at 13:11; Stop 12/16/19 at 19:10; Status DC Albumin Human 200 ml @ 200 mls/hr 1X PRN PRN IV Hypotension; Start 12/16/19 at 13:15; Stop 12/16/19 at 19:14; Status DC Diphenhydramine HCl (Benadryl) 25 mg 1X PRN PRN IV ITCHING; Start 12/16/19 at 13:15; Stop 12/17/19 at 13:14; Status DC Diphenhydramine HCl (Benadryl) 25 mg 1X PRN PRN IV ITCHING; Start 12/16/19 at 13:15; Stop 12/17/19 at 13:14; Status DC Sodium Chloride 1,000 ml @ 400 mls/hr Q2H30M PRN IV PATENCY; Start 12/16/19 at 13:11; Stop 12/17/19 at 01:10; Status DC Info (PHARMACY MONITORING -- do not chart) 1 each PRN DAILY PRN MC SEE COMMEN TS; Start 12/16/19 at 13:15; Stop 12/20/19 at 16:02; Status DC Magnesium Sulfate 50 ml @ 25 mls/hr 1X ONCE IV Last administered on 12/16/19at 19:21; Start 12/16/19 at 15:45; Stop 12/16/19 at 17:44; Status DC Aspirin (Ecotrin) 81 mg DAILYWBKFT PO Last administered on 12/22/19at 08:54; Start 12/17/19 at 08:00 Piperacillin Sod/ Tazobactam Sod 2.25 gm/Sodium Chloride 50 ml @ 100 mls/hr Q8HRS IV Last administered on 12/22/19at 15:15; Start 12/16/19 at 17:00 Acetaminophen/ Hydrocodone Bitart (Lortab 5/325) 1 tab PRN Q6HRS PRN PO MODERATE PAIN 4-6 Last administered on 12/22/19at 14:42; Start 12/16/19 at 22:00 Sodium Chloride 1,000 ml @ 1,000 mls/hr Q1H PRN IV hypotension; Start 12/17/19 at 09:55; Stop 12/17/19 at 15:54; Status DC Albumin Human 200 ml @ 200 mls/hr 1X PRN PRN IV Hypotension Last administered on 12/17/19at 10:48; Start 12/17/19 at 10:00; Stop 12/17/19 at 15:59; Status DC Sodium Chloride 1,000 ml @ 400 mls/hr Q2H30M PRN IV PATENCY; Start 12/17/19 at 09:55; Stop 12/17/19 at 21:54; Status DC Info (PHARMACY MONITORING -- do not chart) 1 each PRN DAILY PRN MC SEE COMMENTS; Start 12/17/19 at 10:00; Status UNV Info (PHARMACY MONITORING -- do not chart) 1 each PRN DAILY PRN MC SEE COMMENTS; Start 12/17/19 at 10:00; Status UNV Iron Sucrose 500 mg/Sodium Chloride 275 ml @ 78.571 mls/ hr 1X ONCE IV Last administered on 12/17/19at 16:08; Start 12/17/19 at 13:00; Stop 12/17/19 at 16:29; Status DC Lidocaine/ Epinephrine (LIDOCAINE 1%-EPI 1:100,000 Multi-Dose) 20 ml STK-MED ONCE .ROUTE ; Start 12/17/19 at 12:29; Stop 12/17/19 at 12:30; Status DC Midazolam HCl (Versed) 2 mg STK-MED ONCE .ROUTE ; Start 12/17/19 at 12:34; Stop 12/17/19 at 12:34; Status DC Fentanyl Citrate (Fentanyl 2ml Vial) 100 mcg STK-MED ONCE .ROUTE ; Start 12/17/19 at 12:34; Stop 12/17/19 at 12:34; Status DC Midazolam HCl (Versed) 2 mg 1X ONCE IV Last administered on 12/17/19at 13:08; Start 12/17/19 at 12:45; Stop 12/17/19 at 12:47; Status DC Fentanyl Citrate (Fentanyl 2ml Vial) 100 mcg 1X ONCE IV Last administered on 12/17/19at 13:08; Start 12/17/19 at 12:45; Stop 12/17/19 at 12:47; Status DC Lidocaine/ Epinephrine (LIDOCAINE 1%-EPI 1:100,000 Multi-Dose) 20 ml 1X ONCE SQ Last administered on 12/17/19at 13:10; Start 12/17/19 at 12:45; Stop 12/17/19 at 12:47; Status DC Lactobacillus Rhamnosus (Culturelle) 1 cap BID PO Last administered on 12/22/19at 08:54; Start 12/17/19 at 21:00 Albuterol Sulfate (Ventolin Neb Soln) 2.5 mg RTQID NEB Last administered on 12/22/19at 12:34; Start 12/18/19 at 12:00 Darbepoetin Norberto (ARANESP for DIALYSIS PTS) 60 mcg WEEKLYHS SQ Last administered on 12/18/19at 22:02; Start 12/18/19 at 21:00 Sodium Chloride 1,000 ml @ 1,000 mls/hr Q1H PRN IV hypotension; Start 12/18/19 at 14:02; Stop 12/18/19 at 20:01; Status DC Sodium Chloride (Normal Saline Flush) 10 ml 1X PRN PRN IV AP catheter pack; Start 12/18/19 at 14:15; Stop 12/19/19 at 14:14; Status DC Sodium Chloride (Normal Saline Flush) 10 ml 1X PRN PRN IV ACTIVITIES ASSISTANT catheter pack; Start 12/18/19 at 14:15; Stop 12/19/19 at 14:14; Status DC Info (PHARMACY MONITORING -- do not chart) 1 each PRN DAILY PRN MC SEE COMMENTS; Start 12/18/19 at 14:15; Status UNV Info (PHARMACY MONITORING -- do not chart) 1 each PRN DAILY PRN MC SEE COMMENTS; Start 12/18/19 at 14:15; Stop 12/20/19 at 16:03; Status DC Multivitamins (Thera M Plus) 1 tab DAILY PO Last administered on 12/22/19at 08:54; Start 12/19/19 at 09:00 Ascorbic Acid (Vitamin C) 500 mg DAILY PO Last administered on 12/22/19at 08:54; Start 12/19/19 at 09:00 Sodium Chloride 1,000 ml @ 1,000 mls/hr Q1H PRN IV hypotension; Start 12/20/19 at 08:11; Stop 12/20/19 at 14:10; Status DC Albumin Human 200 ml @ 200 mls/hr 1X PRN PRN IV Hypotension; Start 12/20/19 at 08:15; Stop 12/20/19 at 14:14; Status DC Acetaminophen (Tylenol) 500 mg 1X PRN PRN PO MILD PAIN / TEMP; Start 12/20/19 at 08:15; Stop 12/21/19 at 08:14; Status DC Diphenhydramine HCl (Benadryl) 25 mg 1X PRN PRN IV ITCHING; Start 12/20/19 at 08:15; Stop 12/21/19 at 08:14; Status DC Diphenhydramine HCl (Benadryl) 25 mg 1X PRN PRN IV ITCHING; Start 12/20/19 at 08:15; Stop 12/21/19 at 08:14; Status DC Sodium Chloride 1,000 ml @ 400 mls/hr Q2H30M PRN IV PATENCY; Start 12/20/19 at 08:11; Stop 12/20/19 at 20:10; Status DC Info (PHARMACY MONITORING -- do not chart) 1 each PRN DAILY PRN MC SEE COMMENTS; Start 12/20/19 at 08:15 Insulin Glargine (Lantus Syringe) 40 unit DAILY SQ Last administered on 12/21/19at 13:48; Start 12/21/19 at 09:00 Sodium Chloride 1,000 ml @ 1,000 mls/hr Q1H PRN IV hypotension; Start 4/4/20 at 07:40; Stop 12/21/19 at 13:39; Status DC Albumin Human 200 ml @ 200 mls/hr 1X PRN PRN IV Hypotension; Start 12/21/19 at 07:45; Stop 12/21/19 at 13:44; Status DC Acetaminophen (Tylenol) 500 mg 1X PRN PRN PO MILD PAIN / TEMP; Start 12/21/19 at 07:45; Stop 12/22/19 at 07:44; Status DC Diphenhydramine HCl (Benadryl) 25 mg 1X PRN PRN IV ITCHING; Start 12/21/19 at 07:45; Stop 12/22/19 at 07:44; Status DC Diphenhydramine HCl (Benadryl) 25 mg 1X PRN PRN IV ITCHING; Start 12/21/19 at 07:45; Stop 12/22/19 at 07:44; Status DC Sodium Chloride (Normal Saline Flush) 10 ml 1X PRN PRN IV AP catheter pack; Start 12/21/19 at 07:45; Stop 12/22/19 at 07:44; Status DC Sodium Chloride (Normal Saline Flush) 10 ml 1X PRN PRN IV ACTIVITIES ASSISTANT catheter pack; Start 12/21/19 at 07:45; Stop 12/22/19 at 07:44; Status DC Sodium Chloride 1,000 ml @ 400 mls/hr Q2H30M PRN IV PATENCY; Start 12/21/19 at 07:40; Stop 12/21/19 at 19:39; Status DC Info (PHARMACY MONITORING -- do not chart) 1 each PRN DAILY PRN MC SEE COMMENTS; Start 12/21/19 at 07:45 Active Scripts Active Reported Metformin Hcl Er (Metformin Hcl) 1,000 Mg Tab.er.24 1,000 Mg PO BIDWMEALS Lisinopril-Hctz 20-12.5 Mg Tab (Lisinopril/Hydrochlorothiazide) 1 Each Tablet 1 Tab PO DAILY Glipizide Er (Glipizide) 10 Mg Tab.er.24 10 Mg PO BIDWMEALS Xalatan (Latanoprost) 2.5 Ml Drops 1 Drop OP HS Triamcinolone Acetonide 0.1% Cream (Triamcinolone Acetonide) 15 Gm Cream..g. 1 [place]ab[place] TP BID Tramadol Hcl 50 Mg Tablet 50 Mg PO DAILY PRN Flonase Allergy Relief (Fluticasone Propionate) 9.9 Ml [place].susp 2 Sprays NS DAILY Novolin N (Nph, Human Insulin Isophane) 100 Unit/1 Ml Vial 40 Unit SQ DAILYWBKFT Carvedilol (Carvedilol) 6.25 Mg Tablet 6.25 Mg PO BIDWMEALS Simvastatin 40 Mg Tablet 1 Tab PO QHS Furosemide 20 Mg Tablet 1 Tab PO DAILY Vitals/I & O Vital Sign - Last 24 Hours 12/21/19 12/21/19 12/21/19 12/21/19 16:34 19:11 19:29 20:03 Temp 98.7 98.7 Pulse 73 Resp 16 B/P (MAP) 120/88 (99) Pulse Ox 94 97 95 O2 Delivery Venturi Mask Venturi Mask Venturi Mask Venturi Mask O2 Flow Rate 12.0 12.0 12.0 12/21/19 12/22/19 12/22/19 12/22/19 22:30 02:50 07:00 08:00 Temp 98.5 98.7 98.5 98.5 98.7 98.5 Pulse 73 73 92 Resp 16 16 19 B/P (MAP) 118/54 (75) 141/69 (93) 127/56 (79) Pulse Ox 97 97 95 O2 Delivery Venturi Mask Venturi Mask Ventilator Nasal Cannula O2 Flow Rate 4.0 12/22/19 12/22/19 12/22/19 12/22/19 11:00 12:32 14:42 15:00 Temp 98.2 98.0 98.2 98.0 Pulse 85 100 Resp 19 18 19 B/P (MAP) 99/41 (60) 90/47 (61) Pulse Ox 93 93 93 93 O2 Delivery Nasal Cannula Nasal Cannula Nasal Cannula Nasal Cannula O2 Flow Rate 4.0 5.0 5.0 5.0 12/22/19 15:42 Pulse Ox 93 O2 Delivery Nasal Cannula O2 Flow Rate 5.0 Intake and Output 12/21/19 12/21/19 12/22/19 15:00 23:00 07:00 Intake Total 100 ml 50 ml Output Total 200 ml 100 ml Balance -100 ml -50 ml JO OLIVIA MD Dec 22, 2019 16:10
[2019-12-22 19:55] VITALS: BP 119/60
[2019-12-22 23:41] VITALS: BP 115/51
[2019-12-23 03:00] VITALS: BP 116/51
[2019-12-23] MEDS: PIPERACILLIN/TAZOBACTAM 2.25 GM in IV NORMAL SALINE 50ML 50 ML IV SCH (04:59)
[2019-12-23 07:00] VITALS: BP 129/71
[2019-12-23 07:02] LABS: CALCIUM 8.5 mg/dL (8.5-10.1); CREATININE 4.2 mg/dL (0.6-1.0); GFR 10.3; POTASSIUM 3.9 mmol/L (3.5-5.1)
[2019-12-23 07:11] LABS: BASO # 0.1 x10^3/uL (0.0-0.2); BASO % 1 % (0-3); EOS # 0.2 x10^3/uL (0.0-0.7); EOS % 2 % (0-3); HEMATOCRIT 34.7 % (36.0-47.0); HEMOGLOBIN 10.5 g/dL (12.0-15.5); LYMPH # 0.9 x10^3/uL (1.0-4.8); LYMPH % 13 % (24-48); MEAN CORPUSCULAR HEMOGLOBIN 27 pg (25-35); MEAN CORPUSCULAR HGB CONC 30 g/dL (31-37); MEAN CORPUSCULAR VOLUME 88 fL (79-100); MONO # 0.7 x10^3/uL (0.0-1.1); MONO % 10 % (0-9); NEUT # 5.1 x10^3/uL (1.8-7.7); NEUT % 73 % (31-73); PLATELET COUNT 302 x10^3/uL (140-400); RED BLOOD COUNT 3.93 x10^6/uL (3.50-5.40); RED CELL DISTRIBUTION WIDTH 18.5 % (11.5-14.5)
[2019-12-23] MEDS: ALBUTEROL SULFATE 2.5 MG/3 ML NEBU. NEB SCH ×4 (07:14→20:04)
[2019-12-23] MEDS ORDERED: IV NORMAL SALINE 1000ML BAG 1,000 ML IV PRN ×2 (07:41)
[2019-12-23] MEDS ORDERED: ACETAMINOPHEN 500 MG TABLET PO PRN (07:45)
[2019-12-23] MEDS ORDERED: diphenhydrAMINE 50 MG/ML VIAL IV PRN ×2 (07:45)
[2019-12-23] MEDS ORDERED: ALBUMIN HUMAN 25% 200 ML IV PRN (07:45)
[2019-12-23] MEDS ORDERED: DIALYSIS PATIENT. MC PRN (07:45)
--- NOTE | 2019-12-23 08:03 | PDOC ---
Infectious Disease Note Subjective: Subjective Comfortable, denies pain eager for dc to rehab facility Denies F/C/SOA/N/V Vital Signs: Vital Signs Vital Signs Date Time Temp Pulse Resp B/P (MAP) Pulse Ox O2 Delivery O2 Flow Rate FiO2 12/23/19 07:15 93 Nasal Cannula 5.0 12/23/19 07:00 98.3 98 18 129/71 (90) 98.3 Physical Exam: PHYSICAL EXAM GENERAL: Propped up in bed, alert in NAD HEENT: Oral cavity pink, no lesions NECK: Supple LUNGS: Clear. HEART: S1, S2 regular. ABDOMEN: Obese, soft and nontender. : Collier in place EXTREMITIES: Bilateral lower extremity pitting edema and excoriation of both the legs with superficial ulcerations. Foot has no wound at the fifth metatarsal or phalangeal area bilaterally. The patient appears to have puncture wound with slight dry crackly skin into the actually calcaneal area. Dorsalis pedis is palpable bilaterally. NEUROLOGIC: Alert, awake and appropriate. No focal neurologic deficit. Tunneled HD catheter (12/16) without signs of infection PIV ok Medications: Inpatient Meds: Current Medications Medications (Trade) Dose Ordered Sig/Yulisa Start Time Stop Time Status Last Admin Dose Admin Acetaminophen (Tylenol) 500 mg 1X PRN PRN 12/23/19 07:45 12/24/19 07:44 Acetaminophen/ Hydrocodone Bitart (Lortab 5/325) 1 tab PRN Q6HRS PRN 12/16/19 22:00 12/22/19 21:06 1 TAB Albumin Human 200 ml @ 200 mls/hr 1X PRN PRN 12/23/19 07:45 12/23/19 13:44 Albuterol Sulfate (Ventolin Neb Soln) 2.5 mg RTQID 12/18/19 12:00 12/23/19 07:14 2.5 MG Ascorbic Acid (Vitamin C) 500 mg DAILY 12/19/19 09:00 12/22/19 08:54 500 MG Aspirin (Ecotrin) 81 mg [id number] 12/17/19 08:00 12/22/19 08:54 81 MG Calcium Gluconate (Calcium Gluconate) 1,000 mg 1X ONCE 12/14/19 18:00 12/14/19 18:01 DC 12/14/19 18:24 1,000 MG Darbepoetin Norberto (ARANESP for DIALYSIS PTS) 60 mcg WEEKLYHS 12/18/19 21:00 12/18/19 22:02 60 MCG Dextrose (Dextrose 50%-Water Syringe) 25 gm STK-MED ONCE 12/15/19 21:19 12/15/19 21:19 DC Dextrose (Iv Dextrose 5%) 250 ml PRN Q15MIN PRN 12/15/19 21:15 Diphenhydramine HCl (Benadryl) 25 mg 1X PRN PRN 12/23/19 07:45 12/24/19 07:44 Enoxaparin Sodium (Lovenox 120mg Syringe) 120 mg 1X ONCE 12/14/19 19:30 12/14/19 19:31 DC 12/14/19 20:05 120 MG Fentanyl Citrate (Fentanyl 2ml Vial) 100 mcg 1X ONCE 12/17/19 12:45 12/17/19 12:47 DC 12/17/19 13:08 50 MCG Furosemide (Lasix) 60 mg DAILY 12/16/19 12:30 12/22/19 08:55 60 MG Info (PHARMACY MONITORING -- do not chart) 1 each PRN DAILY PRN 12/23/19 07:45 Insulin Glargine (Lantus Syringe) 40 unit DAILY 12/21/19 09:00 12/21/19 13:48 40 UNIT Iron Sucrose 500 mg/Sodium Chloride 275 ml @ 78.571 mls/ hr 1X ONCE 12/17/19 13:00 12/17/19 16:29 DC 12/17/19 16:08 78.571 MLS/HR Lactobacillus Rhamnosus (Culturelle) 1 cap BID 12/17/19 21:00 12/22/19 21:06 1 CAP Lidocaine HCl (Buffered Lidocaine 1%) 6 ml 1X ONCE 12/16/19 12:45 12/16/19 12:46 DC 12/16/19 12:56 3 ML Lidocaine/ Epinephrine (LIDOCAINE 1%-EPI 1:100,000 Multi-Dose) 20 ml 1X ONCE 12/17/19 12:45 12/17/19 12:47 DC 12/17/19 13:10 10 ML Magnesium Sulfate 50 ml @ 25 mls/hr 1X ONCE 12/16/19 15:45 12/16/19 17:44 DC 12/16/19 19:21 25 MLS/HR Midazolam HCl (Versed) 2 mg 1X ONCE 12/17/19 12:45 12/17/19 12:47 DC 12/17/19 13:08 1 MG Multivitamins (Thera M Plus) 1 tab DAILY 12/19/19 09:00 12/22/19 08:54 1 TAB Piperacillin Sod/ Tazobactam Sod (Zosyn Per Pharmacy) 1 each PRN DAILY PRN 12/15/19 13:00 Piperacillin Sod/ Tazobactam Sod 2.25 gm/Sodium Chloride 50 ml @ 100 mls/hr Q8HRS 12/16/19 17:00 12/23/19 04:59 100 MLS/HR Sodium Polystyrene Sulfonate (Kayexalate) 15 gm 1X ONCE 12/15/19 09:00 12/15/19 09:01 DC 12/15/19 09:24 15 GM Sodium Chloride 1,000 ml @ 400 mls/hr Q2H30M PRN 12/23/19 07:41 12/23/19 19:40 Sodium Chloride (Normal Saline Flush) 10 ml 1X PRN PRN 12/21/19 07:45 12/22/19 07:44 DC Vancomycin HCl 250 ml @ 166.667 mls/hr 1X ONCE 12/14/19 17:45 12/14/19 19:14 DC 12/14/19 18:24 166.667 MLS/HR Labs: Lab Laboratory Tests Test 12/22/19 08:24 12/22/19 11:42 12/22/19 16:35 12/22/19 20:46 Glucose (Fingerstick) 118 mg/dL (70-99) 119 mg/dL (70-99) 268 mg/dL (70-99) 271 mg/dL (70-99) Test 12/23/19 06:00 12/23/19 07:26 White Blood Count 7.0 x10^3/uL (4.0-11.0) Red Blood Count 3.93 x10^6/uL (3.50-5.40) Hemoglobin 10.5 g/dL (12.0-15.5) Hematocrit 34.7 % (36.0-47.0) Mean Corpuscular Volume 88 fL (79-100) Mean Corpuscular Hemoglobin 27 pg (25-35) Mean Corpuscular Hemoglobin Concent 30 g/dL (31-37) Red Cell Distribution Width 18.5 % (11.5-14.5) Platelet Count 302 x10^3/uL (140-400) Neutrophils (%) (Auto) 73 % (31-73) Lymphocytes (%) (Auto) 13 % (24-48) Monocytes (%) (Auto) 10 % (0-9) Eosinophils (%) (Auto) 2 % (0-3) Basophils (%) (Auto) 1 % (0-3) Neutrophils # (Auto) 5.1 x10^3/uL (1.8-7.7) Lymphocytes # (Auto) 0.9 x10^3/uL (1.0-4.8) Monocytes # (Auto) 0.7 x10^3/uL (0.0-1.1) Eosinophils # (Auto) 0.2 x10^3/uL (0.0-0.7) Basophils # (Auto) 0.1 x10^3/uL (0.0-0.2) Sodium Level 139 mmol/L (136-145) Potassium Level 3.9 mmol/L (3.5-5.1) Chloride Level 100 mmol/L (98-107) Carbon Dioxide Level 30 mmol/L (21-32) Anion Gap 9 (6-14) Blood Urea Nitrogen 22 mg/dL (7-20) Creatinine 4.2 mg/dL (0.6-1.0) Estimated GFR (Cockcroft-Gault) 10.3 Glucose Level 198 mg/dL (70-99) Calcium Level 8.5 mg/dL (8.5-10.1) Glucose (Fingerstick) 195 mg/dL (70-99) Objective: Assessment: 1. Bilateral lower extremity venous insufficiency with superficial ulcerations and possible secondary infection. 2. Left fifth phalangeal changes on x-ray, likely secondary to the trauma and healing fracture, not infection as there is no open wound there. Likely have a puncture wound into the calcaneal area with pain. 3. Congestive heart failure. 4. Acute on chronic renal insufficiency, on hemodialysis now. 5. Diabetes. 6. Hypertension. 7. Obesity Plan: Plan of Care DC zosyn augmentin bid 5 days renal dosing Probiotics Local wound care Supportive care ASIA JACKSON MD Dec 23, 2019 08:03
[2019-12-23] MEDS: INSULIN GLARGINE SYRINGE. SQ SCH (09:00)
--- NOTE | 2019-12-23 10:08 | PDOC ---
PROGRESS NOTES Chief Complaint Chief Complaint Acute on chronic kidney injury, hyperkalemia, resolved hyponatremia resolved azotemia, imrpoved acute on chronic systolic and diastolic heart failure, elevated troponin anemia and lower extremity wounds. // Lower extremity cellulitis. Left fifth phalangeal changes on x-ray, likely secondary to the trauma and healing fracture, follow Nephrology business operations consultant recommendations follow Cardiology. recommendations Hold JAYSON inhibitor. IV antibiotics. PT, OT. Wound care nurse to evaluate and treat. DVT prophylaxis. Full code. Prognosis //guarded. temp dialysis cath placement 12/15 OP HD SET UP FOR MWF Ultrasound and fluoroscopic guided placement of right internal jugular temporary dialysis catheter NEEDS TDC AND OP HD SET UP Dialysis as per business operations consultant History of Present Illness History of Present Illness No acute events reported overnight, case discussed with nursing staff patient in no acute distress no complaints during my visit most likely will require placement Vitals Vitals Vital Signs Date Time Temp Pulse Resp B/P (MAP) Pulse Ox O2 Delivery O2 Flow Rate FiO2 12/23/19 07:15 93 Nasal Cannula 5.0 12/23/19 07:00 98.3 98 18 129/71 (90) 98.3 Physical Exam Physical Exam GENERAL: Propped up in bed, alert in NAD HEENT: Oral cavity pink, no lesions NECK: Supple LUNGS: Clear. HEART: S1, S2 regular. ABDOMEN: Obese, soft and nontender. : Collier in place EXTREMITIES: Bilateral lower extremity pitting edema and excoriation of both the legs with superficial ulcerations. Foot has no wound at the fifth metatarsal or phalangeal area bilaterally. The patient appears to have puncture wound with slight dry crackly skin into the actually calcaneal area. Dorsalis pedis is palpable bilaterally. NEUROLOGIC: Alert, awake and appropriate. No focal neurologic deficit. Tunneled HD catheter (12/16) without signs of infection PIV ok General: Alert, Oriented X3, Cooperative, No acute distress, mild distress Heart: Regular rate Lungs: Clear Abdomen: Normal bowel sounds, No tenderness Extremities: No clubbing, No cyanosis Labs LABS Laboratory Tests Test 12/22/19 11:42 12/22/19 16:35 12/22/19 20:46 12/23/19 06:00 Glucose (Fingerstick) 119 mg/dL (70-99) 268 mg/dL (70-99) 271 mg/dL (70-99) White Blood Count 7.0 x10^3/uL (4.0-11.0) Red Blood Count 3.93 x10^6/uL (3.50-5.40) Hemoglobin 10.5 g/dL (12.0-15.5) Hematocrit 34.7 % (36.0-47.0) Mean Corpuscular Volume 88 fL (79-100) Mean Corpuscular Hemoglobin 27 pg (25-35) Mean Corpuscular Hemoglobin Concent 30 g/dL (31-37) Red Cell Distribution Width 18.5 % (11.5-14.5) Platelet Count 302 x10^3/uL (140-400) Neutrophils (%) (Auto) 73 % (31-73) Lymphocytes (%) (Auto) 13 % (24-48) Monocytes (%) (Auto) 10 % (0-9) Eosinophils (%) (Auto) 2 % (0-3) Basophils (%) (Auto) 1 % (0-3) Neutrophils # (Auto) 5.1 x10^3/uL (1.8-7.7) Lymphocytes # (Auto) 0.9 x10^3/uL (1.0-4.8) Monocytes # (Auto) 0.7 x10^3/uL (0.0-1.1) Eosinophils # (Auto) 0.2 x10^3/uL (0.0-0.7) Basophils # (Auto) 0.1 x10^3/uL (0.0-0.2) Sodium Level 139 mmol/L (136-145) Potassium Level 3.9 mmol/L (3.5-5.1) Chloride Level 100 mmol/L (98-107) Carbon Dioxide Level 30 mmol/L (21-32) Anion Gap 9 (6-14) Blood Urea Nitrogen 22 mg/dL (7-20) Creatinine 4.2 mg/dL (0.6-1.0) Estimated GFR (Cockcroft-Gault) 10.3 Glucose Level 198 mg/dL (70-99) Calcium Level 8.5 mg/dL (8.5-10.1) Test 12/23/19 07:26 Glucose (Fingerstick) 195 mg/dL (70-99) Assessment and Plan Assessmemt and Plan Problems Medical Problems: (1) Cellulitis Status: Acute (2) CHF (congestive heart failure) Status: Acute (3) Elevated troponin Status: Acute (4) Shortness of breath Status: Acute Comment Review of Relevant I have reviewed the following items monalisa (where applicable) has been applied. Labs Laboratory Tests Test 12/21/19 14:35 12/21/19 17:31 12/21/19 20:28 12/22/19 07:49 White Blood Count 7.9 x10^3/uL (4.0-11.0) Red Blood Count 3.89 x10^6/uL (3.50-5.40) Hemoglobin 10.4 g/dL (12.0-15.5) Hematocrit 33.7 % (36.0-47.0) Mean Corpuscular Volume 87 fL (79-100) Mean Corpuscular Hemoglobin 27 pg (25-35) Mean Corpuscular Hemoglobin Concent 31 g/dL (31-37) Red Cell Distribution Width 18.2 % (11.5-14.5) Platelet Count 287 x10^3/uL (140-400) Neutrophils (%) (Auto) 81 % (31-73) Lymphocytes (%) (Auto) 8 % (24-48) Monocytes (%) (Auto) 9 % (0-9) Eosinophils (%) (Auto) 1 % (0-3) Basophils (%) (Auto) 1 % (0-3) Neutrophils # (Auto) 6.4 x10^3/uL (1.8-7.7) Lymphocytes # (Auto) 0.6 x10^3/uL (1.0-4.8) Monocytes # (Auto) 0.7 x10^3/uL (0.0-1.1) Eosinophils # (Auto) 0.1 x10^3/uL (0.0-0.7) Basophils # (Auto) 0.1 x10^3/uL (0.0-0.2) Sodium Level 138 mmol/L (136-145) Potassium Level 3.9 mmol/L (3.5-5.1) Chloride Level 100 mmol/L (98-107) Carbon Dioxide Level 33 mmol/L (21-32) Anion Gap 5 (6-14) Blood Urea Nitrogen 10 mg/dL (7-20) Creatinine 2.0 mg/dL (0.6-1.0) Estimated GFR (Cockcroft-Gault) 24.2 Glucose Level 200 mg/dL (70-99) Calcium Level 8.0 mg/dL (8.5-10.1) Phosphorus Level 2.3 mg/dL (2.6-4.7) Albumin 2.0 g/dL (3.4-5.0) Glucose (Fingerstick) 182 mg/dL (70-99) 184 mg/dL (70-99) 68 mg/dL (70-99) Test 12/22/19 08:24 12/22/19 11:42 12/22/19 16:35 12/22/19 20:46 Glucose (Fingerstick) 118 mg/dL (70-99) 119 mg/dL (70-99) 268 mg/dL (70-99) 271 mg/dL (70-99) Test 12/23/19 06:00 12/23/19 07:26 White Blood Count 7.0 x10^3/uL (4.0-11.0) Red Blood Count 3.93 x10^6/uL (3.50-5.40) Hemoglobin 10.5 g/dL (12.0-15.5) Hematocrit 34.7 % (36.0-47.0) Mean Corpuscular Volume 88 fL (79-100) Mean Corpuscular Hemoglobin 27 pg (25-35) Mean Corpuscular Hemoglobin Concent 30 g/dL (31-37) Red Cell Distribution Width 18.5 % (11.5-14.5) Platelet Count 302 x10^3/uL (140-400) Neutrophils (%) (Auto) 73 % (31-73) Lymphocytes (%) (Auto) 13 % (24-48) Monocytes (%) (Auto) 10 % (0-9) Eosinophils (%) (Auto) 2 % (0-3) Basophils (%) (Auto) 1 % (0-3) Neutrophils # (Auto) 5.1 x10^3/uL (1.8-7.7) Lymphocytes # (Auto) 0.9 x10^3/uL (1.0-4.8) Monocytes # (Auto) 0.7 x10^3/uL (0.0-1.1) Eosinophils # (Auto) 0.2 x10^3/uL (0.0-0.7) Basophils # (Auto) 0.1 x10^3/uL (0.0-0.2) Sodium Level 139 mmol/L (136-145) Potassium Level 3.9 mmol/L (3.5-5.1) Chloride Level 100 mmol/L (98-107) Carbon Dioxide Level 30 mmol/L (21-32) Anion Gap 9 (6-14) Blood Urea Nitrogen 22 mg/dL (7-20) Creatinine 4.2 mg/dL (0.6-1.0) Estimated GFR (Cockcroft-Gault) 10.3 Glucose Level 198 mg/dL (70-99) Calcium Level 8.5 mg/dL (8.5-10.1) Glucose (Fingerstick) 195 mg/dL (70-99) Laboratory Tests Test 12/22/19 11:42 12/22/19 16:35 12/22/19 20:46 12/23/19 06:00 Glucose (Fingerstick) 119 mg/dL (70-99) 268 mg/dL (70-99) 271 mg/dL (70-99) White Blood Count 7.0 x10^3/uL (4.0-11.0) Red Blood Count 3.93 x10^6/uL (3.50-5.40) Hemoglobin 10.5 g/dL (12.0-15.5) Hematocrit 34.7 % (36.0-47.0) Mean Corpuscular Volume 88 fL (79-100) Mean Corpuscular Hemoglobin 27 pg (25-35) Mean Corpuscular Hemoglobin Concent 30 g/dL (31-37) Red Cell Distribution Width 18.5 % (11.5-14.5) Platelet Count 302 x10^3/uL (140-400) Neutrophils (%) (Auto) 73 % (31-73) Lymphocytes (%) (Auto) 13 % (24-48) Monocytes (%) (Auto) 10 % (0-9) Eosinophils (%) (Auto) 2 % (0-3) Basophils (%) (Auto) 1 % (0-3) Neutrophils # (Auto) 5.1 x10^3/uL (1.8-7.7) Lymphocytes # (Auto) 0.9 x10^3/uL (1.0-4.8) Monocytes # (Auto) 0.7 x10^3/uL (0.0-1.1) Eosinophils # (Auto) 0.2 x10^3/uL (0.0-0.7) Basophils # (Auto) 0.1 x10^3/uL (0.0-0.2) Sodium Level 139 mmol/L (136-145) Potassium Level 3.9 mmol/L (3.5-5.1) Chloride Level 100 mmol/L (98-107) Carbon Dioxide Level 30 mmol/L (21-32) Anion Gap 9 (6-14) Blood Urea Nitrogen 22 mg/dL (7-20) Creatinine 4.2 mg/dL (0.6-1.0) Estimated GFR (Cockcroft-Gault) 10.3 Glucose Level 198 mg/dL (70-99) Calcium Level 8.5 mg/dL (8.5-10.1) Test 12/23/19 07:26 Glucose (Fingerstick) 195 mg/dL (70-99) Medications Current Medications Vancomycin HCl 250 ml @ 166.667 mls/hr 1X ONCE IV Last administered on 12/14/19at 18:24; Start 12/14/19 at 17:45; Stop 12/14/19 at 19:14; Status DC Sodium Chloride 1,000 ml @ 1,000 mls/hr 1X ONCE IV Last administered on 12/14/19at 18:23; Start 12/14/19 at 18:00; Stop 12/14/19 at 18:59; Status DC Calcium Gluconate (Calcium Gluconate) 1,000 mg 1X ONCE IVP Last administered on 12/14/19at 18:24; Start 12/14/19 at 18:00; Stop 12/14/19 at 18:01; Status DC Albuterol Sulfate (Ventolin Neb Soln) 10 mg 1X ONCE CONT NEB Last administered on 12/14/19at 18:00; Start 12/14/19 at 18:00; Stop 12/14/19 at 18:01; Status DC Furosemide (Lasix) 40 mg 1X ONCE PO ; Start 12/14/19 at 18:30; Stop 12/14/19 at 18:31; Status DC Enoxaparin Sodium (Lovenox 120mg Syringe) 120 mg 1X ONCE SQ Last administered on 12/14/19at 20:05; Start 12/14/19 at 19:30; Stop 12/14/19 at 19:31; Status DC Furosemide (Lasix) 40 mg 1X ONCE IVP Last administered on 12/14/19at 20:05; Start 12/14/19 at 19:30; Stop 12/14/19 at 19:31; Status DC Dextrose (Dextrose 50%-Water Syringe) 25 gm STK-MED ONCE IV ; Start 12/15/19 at 08:11; Stop 12/15/19 at 08:11; Status DC Sodium Polystyrene Sulfonate (Kayexalate) 30 gm 1X ONCE RC ; Start 12/15/19 at 09:00; Stop 12/15/19 at 08:38; Status DC Sodium Polystyrene Sulfonate (Kayexalate) 15 gm 1X ONCE PO Last administered on 12/15/19at 09:24; Start 12/15/19 at 09:00; Stop 12/15/19 at 09:01; Status DC Piperacillin Sod/ Tazobactam Sod (Zosyn Per Pharmacy) 1 each PRN DAILY PRN MC SEE COMMENTS; Start 12/15/19 at 13:00; Stop 12/23/19 at 08:56; Status DC Piperacillin Sod/ Tazobactam Sod 2.25 gm/Sodium Chloride 50 ml @ 100 mls/hr Q6HRS IV Last administered on 12/16/19at 05:32; Start 12/15/19 at 14:00; Stop 12/16/19 at 16:05; Status DC Dextrose (Dextrose 50%-Water Syringe) 12.5 gm PRN Q15MIN PRN IV SEE COMMENTS Last administered on 12/16/19at 07:56; Start 12/15/19 at 21:15 Dextrose (Iv Dextrose 5%) 250 ml PRN Q15MIN PRN IV SEE COMMENTS; Start 12/15/19 at 21:15 Dextrose (Dextrose 50%-Water Syringe) 25 gm STK-MED ONCE IV ; Start 12/15/19 at 21:19; Stop 12/15/19 at 21:19; Status DC Furosemide (Lasix) 60 mg DAILY IVP Last administered on 12/22/19at 08:55; Start 12/16/19 at 12:30 Lidocaine HCl (Buffered Lidocaine 1%) 3 ml STK-MED ONCE .ROUTE ; Start 12/16/19 at 12:36; Stop 12/16/19 at 12:36; Status DC Lidocaine HCl (Buffered Lidocaine 1%) 6 ml 1X ONCE INJ Last administered on 12/16/19at 12:56; Start 12/16/19 at 12:45; Stop 12/16/19 at 12:46; Status DC Sodium Chloride 1,000 ml @ 1,000 mls/hr Q1H PRN IV hypotension; Start 12/16/19 at 13:11; Stop 12/16/19 at 19:10; Status DC Albumin Human 200 ml @ 200 mls/hr 1X PRN PRN IV Hypotension; Start 12/16/19 at 13:15; Stop 12/16/19 at 19:14; Status DC Diphenhydramine HCl (Benadryl) 25 mg 1X PRN PRN IV ITCHING; Start 12/16/19 at 13:15; Stop 12/17/19 at 13:14; Status DC Diphenhydramine HCl (Benadryl) 25 mg 1X PRN PRN IV ITCHING; Start 12/16/19 at 13:15; Stop 12/17/19 at 13:14; Status DC Sodium Chloride 1,000 ml @ 400 mls/hr Q2H30M PRN IV PATENCY; Start 12/16/19 at 13:11; Stop 12/17/19 at 01:10; Status DC Info (PHARMACY MONITORING -- do not chart) 1 each PRN DAILY PRN MC SEE COMMENTS; Start 12/16/19 at 13:15; Stop 12/20/19 at 16:02; Status DC Magnesium Sulfate 50 ml @ 25 mls/hr 1X ONCE IV Last administered on 12/16/19at 19:21; Start 12/16/19 at 15:45; Stop 12/16/19 at 17:44; Status DC Aspirin (Ecotrin) 81 mg DAILYWBKFT PO Last administered on 12/22/19at 08:54; Start 12/17/19 at 08:00 Piperacillin Sod/ Tazobactam Sod 2.25 gm/Sodium Chloride 50 ml @ 100 mls/hr Q8HRS IV Last administered on 12/23/19at 04:59; Start 12/16/19 at 17:00; Stop 12/23/19 at 08:54; Status DC Acetaminophen/ Hydrocodone Bitart (Lortab 5/325) 1 tab PRN Q6HRS PRN PO MODERATE PAIN 4-6 Last administered on 12/22/19at 21:06; Start 12/16/19 at 22:00 Sodium Chloride 1,000 ml @ 1,000 mls/hr Q1H PRN IV hypotension; Start 12/17/19 at 09:55; Stop 12/17/19 at 15:54; Status DC Albumin Human 200 ml @ 200 mls/hr 1X PRN PRN IV Hypotension Last administered on 12/17/19at 10:48; Start 12/17/19 at 10:00; Stop 12/17/19 at 15:59; Status DC Sodium Chloride 1,000 ml @ 400 mls/hr Q2H30M PRN IV PATENCY; Start 12/17/19 at 09:55; Stop 12/17/19 at 21:54; Status DC Info (PHARMACY MONITORING -- do not chart) 1 each PRN DAILY PRN MC SEE COMMENTS; Start 12/17/19 at 10:00; Status UNV Info (PHARMACY MONITORING -- do not chart) 1 each PRN DAILY PRN MC SEE COMMENTS; Start 12/17/19 at 10:00; Status UNV Iron Sucrose 500 mg/Sodium Chloride 275 ml @ 78.571 mls/ hr 1X ONCE IV Last administered on 12/17/19at 16:08; Start 12/17/19 at 13:00; Stop 12/17/19 at 16:29; Status DC Lidocaine/ Epinephrine (LIDOCAINE 1%-EPI 1:100,000 Multi-Dose) 20 ml STK-MED ONCE .ROUTE ; Start 12/17/19 at 12:29; Stop 12/17/19 at 12:30; Status DC Midazolam HCl (Versed) 2 mg STK-MED ONCE .ROUTE ; Start 12/17/19 at 12:34; Stop 12/17/19 at 12:34; Status DC Fentanyl Citrate (Fentanyl 2ml Vial) 100 mcg STK-MED ONCE .ROUTE ; Start 12/17/19 at 12:34; Stop 12/17/19 at 12:34; Status DC Midazolam HCl (Versed) 2 mg 1X ONCE IV Last administered on 12/17/19at 13:08; Start 12/17/19 at 12:45; Stop 12/17/19 at 12:47; Status DC Fentanyl Citrate (Fentanyl 2ml Vial) 100 mcg 1X ONCE IV Last administered on 12/17/19at 13:08; Start 12/17/19 at 12:45; Stop 12/17/19 at 12:47; Status DC Lidocaine/ Epinephrine (LIDOCAINE 1%-EPI 1:100,000 Multi-Dose) 20 ml 1X ONCE SQ Last administered on 12/17/19at 13:10; Start 12/17/19 at 12:45; Stop 12/17/19 at 12:47; Status DC Lactobacillus Rhamnosus (Culturelle) 1 cap BID PO Last administered on 12/22/19at 21:06; Start 12/17/19 at 21:00 Albuterol Sulfate (Ventolin Neb Soln) 2.5 mg RTQID NEB Last administered on 12/23/19at 07:14; Start 12/18/19 at 12:00 Darbepoetin Norberto (ARANESP for DIALYSIS PTS) 60 mcg WEEKLYHS SQ Last administered on 12/18/19at 22:02; Start 12/18/19 at 21:00 Sodium Chloride 1,000 ml @ 1,000 mls/hr Q1H PRN IV hypotension; Start 12/18/19 at 14:02; Stop 12/18/19 at 20:01; Status DC Sodium Chloride (Normal Saline Flush) 10 ml 1X PRN PRN IV AP catheter pack; Start 12/18/19 at 14:15; Stop 12/19/19 at 14:14; Status DC Sodium Chloride (Normal Saline Flush) 10 ml 1X PRN PRN IV LEAD RUBY ON RAILS DEVELOPER catheter pack; Start 12/18/19 at 14:15; Stop 12/19/19 at 14:14; Status DC Info (PHARMACY MONITORING -- do not chart) 1 each PRN DAILY PRN MC SEE COMMENTS; Start 12/18/19 at 14:15; Status UNV Info (PHARMACY MONITORING -- do not chart) 1 each PRN DAILY PRN MC SEE COMMENTS; Start 12/18/19 at 14:15; Stop 12/20/19 at 16:03; Status DC Multivitamins (Thera M Plus) 1 tab DAILY PO Last administered on 12/22/19at 08:54; Start 12/19/19 at 09:00 Ascorbic Acid (Vitamin C) 500 mg DAILY PO Last administered on 12/22/19at 08:54; Start 12/19/19 at 09:00 Sodium Chloride 1,000 ml @ 1,000 mls/hr Q1H PRN IV hypotension; Start 12/20/19 at 08:11; Stop 12/20/19 at 14:10; Status DC Albumin Human 200 ml @ 200 mls/hr 1X PRN PRN IV Hypotension; Start 12/20/19 at 08:15; Stop 12/20/19 at 14:14; Status DC Acetaminophen (Tylenol) 500 mg 1X PRN PRN PO MILD PAIN / TEMP; Start 12/20/19 at 08:15; Stop 12/21/19 at 08:14; Status DC Diphenhydramine HCl (Benadryl) 25 mg 1X PRN PRN IV ITCHING; Start 12/20/19 at 08:15; Stop 12/21/19 at 08:14; Status DC Diphenhydramine HCl (Benadryl) 25 mg 1X PRN PRN IV ITCHING; Start 12/20/19 at 08:15; Stop 12/21/19 at 08:14; Status DC Sodium Chloride 1,000 ml @ 400 mls/hr Q2H30M PRN IV PATENCY; Start 12/20/19 at 08:11; Stop 12/20/19 at 20:10; Status DC Info (PHARMACY MONITORING -- do not chart) 1 each PRN DAILY PRN MC SEE COMMENTS; Start 12/20/19 at 08:15; Status Cancel Insulin Glargine (Lantus Syringe) 40 unit DAILY SQ Last administered on 12/21/19at 13:48; Start 12/21/19 at 09:00 Sodium Chloride 1,000 ml @ 1,000 mls/hr Q1H PRN IV hypotension; Start 12/21/19 at 07:40; Stop 12/21/19 at 13:39; Status DC Albumin Human 200 ml @ 200 mls/hr 1X PRN PRN IV Hypotension; Start 12/21/19 at 07:45; Stop 12/21/19 at 13:44; Status DC Acetaminophen (Tylenol) 500 mg 1X PRN PRN PO MILD PAIN / TEMP; Start 12/21/19 at 07:45; Stop 12/22/19 at 07:44; Status DC Diphenhydramine HCl (Benadryl) 25 mg 1X PRN PRN IV ITCHING; Start 12/21/19 at 07:45; Stop 12/22/19 at 07:44; Status DC Diphenhydramine HCl (Benadryl) 25 mg 1X PRN PRN IV ITCHING; Start 12/21/19 at 07:45; Stop 12/22/19 at 07:44; Status DC Sodium Chloride (Normal Saline Flush) 10 ml 1X PRN PRN IV AP catheter pack; Start 12/21/19 at 07:45; Stop 12/22/19 at 07:44; Status DC Sodium Chloride (Normal Saline Flush) 10 ml 1X PRN PRN IV LEAD RUBY ON RAILS DEVELOPER catheter pack; Start 12/21/19 at 07:45; Stop 12/22/19 at 07:44; Status DC Sodium Chloride 1,000 ml @ 400 mls/hr Q2H30M PRN IV PATENCY; Start 12/21/19 at 07:40; Stop 12/21/19 at 19:39; Status DC Info (PHARMACY MONITORING -- do not chart) 1 each PRN DAILY PRN MC SEE COMMENTS; Start 12/21/19 at 07:45; Status Cancel Sodium Chloride 1,000 ml @ 1,000 mls/hr Q1H PRN IV hypotension; Start 12/23/19 at 07:41; Stop 12/23/19 at 13:40 Albumin Human 200 ml @ 200 mls/hr 1X PRN PRN IV Hypotension; Start 12/23/19 at 07:45; Stop 12/23/19 at 13:44 Acetaminophen (Tylenol) 500 mg 1X PRN PRN PO MILD PAIN / TEMP; Start 12/23/19 at 07:45; Stop 12/24/19 at 07:44 Diphenhydramine HCl (Benadryl) 25 mg 1X PRN PRN IV ITCHING; Start 12/23/19 at 07:45; Stop 12/24/19 at 07:44 Diphenhydramine HCl (Benadryl) 25 mg 1X PRN PRN IV ITCHING; Start 12/23/19 at 07:45; Stop 12/24/19 at 07:44 Sodium Chloride 1,000 ml @ 400 mls/hr Q2H30M PRN IV PATENCY; Start 12/23/19 at 07:41; Stop 12/23/19 at 19:40 Info (PHARMACY MONITORING -- do not chart) 1 each PRN DAILY PRN MC SEE COMMENTS; Start 12/23/19 at 07:45 Amoxicillin/ Clavulanate Potassium (Augmentin 500/ 125mg) 1 tab BID PO ; Start 12/23/19 at 09:00; Stop 12/27/19 at 21:01 Active Scripts Active Reported Metformin Hcl Er (Metformin Hcl) 1,000 Mg Tab.er.24 1,000 Mg PO BIDWMEALS Lisinopril-Hctz 20-12.5 Mg Tab (Lisinopril/Hydrochlorothiazide) 1 Each Tablet 1 Tab PO DAILY Glipizide Er (Glipizide) 10 Mg Tab.er.24 10 Mg PO BIDWMEALS Xalatan (Latanoprost) 2.5 Ml Drops 1 Drop OP HS Triamcinolone Acetonide 0.1% Cream (Triamcinolone Acetonide) 15 Gm Cream..g. 1 Isabell TP BID Tramadol Hcl 50 Mg Tablet 50 Mg PO DAILY PRN Flonase Allergy Relief (Fluticasone Propionate) 9.9 Ml Buckner.susp 2 Sprays NS DAILY Novolin N (Nph, Human Insulin Isophane) 100 Unit/1 Ml Vial 40 Unit SQ DAILYWBKFT Carvedilol (Carvedilol) 6.25 Mg Tablet 6.25 Mg PO BIDWMEALS Simvastatin 40 Mg Tablet 1 Tab PO QHS Furosemide 20 Mg Tablet 1 Tab PO DAILY Vitals/I & O Vital Sign - Last 24 Hours 12/22/19 12/22/19 12/22/19 12/22/19 11:00 12:32 14:42 15:00 Temp 98.2 98.0 98.2 98.0 Pulse 85 100 Resp 19 18 19 B/P (MAP) 99/41 (60) 90/47 (61) Pulse Ox 93 93 93 93 O2 Delivery Nasal Cannula Nasal Cannula Nasal Cannula Nasal Cannula O2 Flow Rate 4.0 5.0 5.0 5.0 12/22/19 12/22/19 12/22/19 12/22/19 15:42 16:10 19:55 19:55 Temp 97.9 97.9 Pulse 86 Resp 16 B/P (MAP) 119/60 (79) Pulse Ox 93 93 92 93 O2 Delivery Nasal Cannula Nasal Cannula Nasal Cannula Nasal Cannula O2 Flow Rate 5.0 5.0 5.0 5.0 12/22/19 12/22/19 12/22/19 12/22/19 19:58 21:06 22:06 23:41 Temp 97.8 97.8 Pulse 81 Resp 20 18 16 B/P (MAP) 115/51 (72) Pulse Ox 97 95 O2 Delivery Nasal Cannula Nasal Cannula Nasal Cannula O2 Flow Rate 4.0 4.0 4.0 12/23/19 12/23/19 12/23/19 03:00 07:00 07:15 Temp 97.5 98.3 97.5 98.3 Pulse 83 98 Resp 16 18 B/P (MAP) 116/51 (72) 129/71 (90) Pulse Ox 97 94 93 O2 Delivery Nasal Cannula Nasal Cannula Nasal Cannula O2 Flow Rate 5.0 5.0 5.0 Intake and Output 12/22/19 12/22/19 12/23/19 15:00 23:00 07:00 Intake Total 900 ml 300 ml 200 ml Output Total 300 ml 150 ml Balance 900 ml 0 ml 50 ml CHNIO MORALES MD Dec 23, 2019 10:08
--- NOTE | 2019-12-23 10:37 | PDOC ---
SUBJECTIVE ROS Stable seen on HD OBJECTIVE Vital Signs Vital Signs Date Time Temp Pulse Resp B/P (MAP) Pulse Ox O2 Delivery O2 Flow Rate FiO2 12/23/19 07:15 93 Nasal Cannula 5.0 12/23/19 07:00 98.3 98 18 129/71 (90) 98.3 I & 0 Intake and Output 12/23/19 07:00 Intake Total 1400 ml Output Total 450 ml Balance 950 ml Intake Oral 1400 ml Output Urine Total 450 ml # Bowel Movements 1 PHYSICAL EXAM Physical Exam GENERAL: NAD HEENT: Oral cavity moist NECK: Supple LUNGS: Clear. HEART: S1, S2 regular. ABDOMEN: Obese, soft and nontender. : Collier in place EXTREMITIES: Bilateral lower extremity pitting edema and excoriation of both the legs with superficial ulcerations.(Per ID) NEUROLOGIC: Alert, awake and appropriate. No focal neurologic deficit. Tunneled HD catheter (12/16) DIAGNOSIS/ASSESSMENT Assessment & Plan ESRD: New Onset ESRD continue on Monday schedule Seen on HD, tolerating well, Continue as Discussed and reviewed with [facility] Access Tunnelled HDC, OP Chair time per SW ANEMIA On as ordered, HTN: antihypertensives Bilateral lower extremity venous insufficiency with superficial ulcerations and possible secondary infection. Congestive heart failure- compensated DM per primary COMMENT/RELEVANT DATA Meds Current Medications Medications (Trade) Dose Ordered Sig/Yulisa Start Time Stop Time Status Last Admin Dose Admin Acetaminophen (Tylenol) 500 mg 1X PRN PRN 12/23/19 07:45 12/24/19 07:44 Acetaminophen/ Hydrocodone Bitart (Lortab 5/325) 1 tab PRN Q6HRS PRN 12/16/19 22:00 12/22/19 21:06 1 TAB Albumin Human 200 ml @ 200 mls/hr 1X PRN PRN 12/23/19 07:45 12/23/19 13:44 Albuterol Sulfate (Ventolin Neb Soln) 2.5 mg RTQID 12/18/19 12:00 12/23/19 07:14 2.5 MG Amoxicillin/ Clavulanate Potassium (Augmentin 500/ 125mg) 1 tab BID 12/23/19 09:00 12/27/19 21:01 Ascorbic Acid (Vitamin C) 500 mg DAILY 12/19/19 09:00 12/22/19 08:54 500 MG Aspirin (Ecotrin) 81 mg DAILYWBKFT 12/17/19 08:00 12/22/19 08:54 81 MG Calcium Gluconate (Calcium Gluconate) 1,000 mg 1X ONCE 12/14/19 18:00 12/14/19 18:01 DC 12/14/19 18:24 1,000 MG Darbepoetin Norberto (ARANESP for DIALYSIS PTS) 60 mcg WEEKLYHS 12/18/19 21:00 12/18/19 22:02 60 MCG Dextrose (Dextrose 50%-Water Syringe) 25 gm STK-MED ONCE 12/15/19 21:19 12/15/19 21:19 DC Dextrose (Iv Dextrose 5%) 250 ml PRN Q15MIN PRN 12/15/19 21:15 Diphenhydramine HCl (Benadryl) 25 mg 1X PRN PRN 12/23/19 07:45 12/24/19 07:44 Enoxaparin Sodium (Lovenox 120mg Syringe) 120 mg 1X ONCE 12/14/19 19:30 12/14/19 19:31 DC 12/14/19 20:05 120 MG Fentanyl Citrate (Fentanyl 2ml Vial) 100 mcg 1X ONCE 12/17/19 12:45 12/17/19 12:47 DC 12/17/19 13:08 50 MCG Furosemide (Lasix) 60 mg DAILY 12/16/19 12:30 12/22/19 08:55 60 MG Info (PHARMACY MONITORING -- do not chart) 1 each PRN DAILY PRN 12/23/19 07:45 Insulin Glargine (Lantus Syringe) 40 unit DAILY 12/21/19 09:00 12/21/19 13:48 40 UNIT Iron Sucrose 500 mg/Sodium Chloride 275 ml @ 78.571 mls/ hr 1X ONCE 12/17/19 13:00 12/17/19 16:29 DC 12/17/19 16:08 78.571 MLS/HR Lactobacillus Rhamnosus (Culturelle) 1 cap BID 12/17/19 21:00 12/22/19 21:06 1 CAP Lidocaine HCl (Buffered Lidocaine 1%) 6 ml 1X ONCE 12/16/19 12:45 12/16/19 12:46 DC 12/16/19 12:56 3 ML Lidocaine/ Epinephrine (LIDOCAINE 1%-EPI 1:100,000 Multi-Dose) 20 ml 1X ONCE 12/17/19 12:45 12/17/19 12:47 DC 12/17/19 13:10 10 ML Magnesium Sulfate 50 ml @ 25 mls/hr 1X ONCE 12/16/19 15:45 12/16/19 17:44 DC 12/16/19 19:21 25 MLS/HR Midazolam HCl (Versed) 2 mg 1X ONCE 12/17/19 12:45 12/17/19 12:47 DC 12/17/19 13:08 1 MG Multivitamins (Thera M Plus) 1 tab DAILY 12/19/19 09:00 12/22/19 08:54 1 TAB Piperacillin Sod/ Tazobactam Sod (Zosyn Per Pharmacy) 1 each PRN DAILY PRN 12/15/19 13:00 12/23/19 08:56 DC Piperacillin Sod/ Tazobactam Sod 2.25 gm/Sodium Chloride 50 ml @ 100 mls/hr Q8HRS 12/16/19 17:00 12/23/19 08:54 DC 12/23/19 04:59 100 MLS/HR Sodium Polystyrene Sulfonate (Kayexalate) 15 gm 1X ONCE 12/15/19 09:00 12/15/19 09:01 DC 12/15/19 09:24 15 GM Sodium Chloride 1,000 ml @ 400 mls/hr Q2H30M PRN 12/23/19 07:41 12/23/19 19:40 Sodium Chloride (Normal Saline Flush) 10 ml 1X PRN PRN 12/21/19 07:45 12/22/19 07:44 DC Vancomycin HCl 250 ml @ 166.667 mls/hr 1X ONCE 12/14/19 17:45 12/14/19 19:14 DC 12/14/19 18:24 166.667 MLS/HR Lab Laboratory Tests Test 12/22/19 11:42 12/22/19 16:35 12/22/19 20:46 12/23/19 06:00 Glucose (Fingerstick) 119 mg/dL (70-99) 268 mg/dL (70-99) 271 mg/dL (70-99) White Blood Count 7.0 x10^3/uL (4.0-11.0) Red Blood Count 3.93 x10^6/uL (3.50-5.40) Hemoglobin 10.5 g/dL (12.0-15.5) Hematocrit 34.7 % (36.0-47.0) Mean Corpuscular Volume 88 fL (79-100) Mean Corpuscular Hemoglobin 27 pg (25-35) Mean Corpuscular Hemoglobin Concent 30 g/dL (31-37) Red Cell Distribution Width 18.5 % (11.5-14.5) Platelet Count 302 x10^3/uL (140-400) Neutrophils (%) (Auto) 73 % (31-73) Lymphocytes (%) (Auto) 13 % (24-48) Monocytes (%) (Auto) 10 % (0-9) Eosinophils (%) (Auto) 2 % (0-3) Basophils (%) (Auto) 1 % (0-3) Neutrophils # (Auto) 5.1 x10^3/uL (1.8-7.7) Lymphocytes # (Auto) 0.9 x10^3/uL (1.0-4.8) Monocytes # (Auto) 0.7 x10^3/uL (0.0-1.1) Eosinophils # (Auto) 0.2 x10^3/uL (0.0-0.7) Basophils # (Auto) 0.1 x10^3/uL (0.0-0.2) Sodium Level 139 mmol/L (136-145) Potassium Level 3.9 mmol/L (3.5-5.1) Chloride Level 100 mmol/L (98-107) Carbon Dioxide Level 30 mmol/L (21-32) Anion Gap 9 (6-14) Blood Urea Nitrogen 22 mg/dL (7-20) Creatinine 4.2 mg/dL (0.6-1.0) Estimated GFR (Cockcroft-Gault) 10.3 Glucose Level 198 mg/dL (70-99) Calcium Level 8.5 mg/dL (8.5-10.1) Test 12/23/19 07:26 Glucose (Fingerstick) 195 mg/dL (70-99) Results All relevant outside records, renal labs, imaging studies, telemetry/EKG's were reviewed. EVGENY ESCALANTE MD Dec 23, 2019 10:37
[2019-12-23 13:25] VITALS: BP 129/54
[2019-12-23] MEDS: AMOXICILLIN/K CLAV 500/125MG TABLET. PO SCH ×2 (14:10→20:39)
[2019-12-23] MEDS: FUROSEMIDE 40 MG/4 ML VIAL. IVP SCH (14:10)
[2019-12-23] MEDS: ASPIRIN ENTERIC COATED 81 MG TABLET.DR. PO SCH (14:10)
[2019-12-23] MEDS: ASCORBIC ACID 500 MG TABLET PO SCH (14:11)
[2019-12-23] MEDS: LACTOBACILLUS RHAMNOSUS GG 1 CAPSULE. PO SCH ×2 (14:11→20:39)
[2019-12-23] MEDS: MULTIVITAMIN with MINERAL TABLET. PO SCH (14:14)
[2019-12-23 14:58] VITALS: BP 120/54
[2019-12-23 18:35] VITALS: BP 119/50
[2019-12-23] MEDS: HYDROcodone/APAP 5/325MG 1 TAB TABLET PO PRN (20:40)
[2019-12-23 22:45] VITALS: BP 123/48
[2019-12-24 03:30] VITALS: BP 144/60
[2019-12-24 07:23] VITALS: BP 143/66
--- NOTE | 2019-12-24 08:07 | PDOC ---
Infectious Disease Note Subjective: Subjective Comfortable, denies pain Denies F/C/SOA/N/V Vital Signs: Vital Signs Vital Signs Date Time Temp Pulse Resp B/P (MAP) Pulse Ox O2 Delivery O2 Flow Rate FiO2 12/24/19 07:23 97.6 105 18 143/66 (91) 100 Nasal Cannula 5.0 97.6 Physical Exam: PHYSICAL EXAM GENERAL: Propped up in bed, alert in NAD HEENT: Oral cavity pink, no lesions NECK: Supple LUNGS: Clear. HEART: S1, S2 regular. ABDOMEN: Obese, soft and nontender. : Collier in place EXTREMITIES: Bilateral lower extremity pitting edema and excoriation of both the legs with superficial ulcerations. Foot has no wound at the fifth metatarsal or phalangeal area bilaterally. The patient appears to have puncture wound with slight dry crackly skin into the actually calcaneal area. Dorsalis pedis is palpable bilaterally. NEUROLOGIC: Alert, awake and appropriate. No focal neurologic deficit. Tunneled HD catheter (12/16) without signs of infection PIV ok Medications: Inpatient Meds: Current Medications Medications (Trade) Dose Ordered Sig/Yulisa Start Time Stop Time Status Last Admin Dose Admin Acetaminophen (Tylenol) 500 mg 1X PRN PRN 12/23/19 07:45 12/24/19 07:44 DC Acetaminophen/ Hydrocodone Bitart (Lortab 5/325) 1 tab PRN Q6HRS PRN 12/16/19 22:00 12/23/19 20:40 1 TAB Albumin Human 200 ml @ 200 mls/hr 1X PRN PRN 12/23/19 07:45 12/23/19 13:44 DC Albuterol Sulfate (Ventolin Neb Soln) 2.5 mg RTQID 12/18/19 12:00 12/23/19 20:04 2.5 MG Amoxicillin/ Clavulanate Potassium (Augmentin 500/ 125mg) 1 tab BID 12/23/19 09:00 12/27/19 21:01 12/23/19 20:39 1 TAB Ascorbic Acid (Vitamin C) 500 mg DAILY 12/19/19 09:00 12/23/19 14:11 500 MG Aspirin (Ecotrin) 81 mg DAILYWBKFT 12/17/19 08:00 12/23/19 14:10 81 MG Calcium Gluconate (Calcium Gluconate) 1,000 mg 1X ONCE 12/14/19 18:00 12/14/19 18:01 DC 12/14/19 18:24 1,000 MG Darbepoetin Norberto (ARANESP for DIALYSIS PTS) 60 mcg WEEKLYHS 12/18/19 21:00 12/18/19 22:02 60 MCG Dextrose (Dextrose 50%-Water Syringe) 25 gm STK-MED ONCE 12/15/19 21:19 12/15/19 21:19 DC Dextrose (Iv Dextrose 5%) 250 ml PRN Q15MIN PRN 12/15/19 21:15 Diphenhydramine HCl (Benadryl) 25 mg 1X PRN PRN 12/23/19 07:45 12/24/19 07:44 DC Enoxaparin Sodium (Lovenox 120mg Syringe) 120 mg 1X ONCE 12/14/19 19:30 12/14/19 19:31 DC 12/14/19 20:05 120 MG Fentanyl Citrate (Fentanyl 2ml Vial) 100 mcg 1X ONCE 12/17/19 12:45 12/17/19 12:47 DC 12/17/19 13:08 50 MCG Furosemide (Lasix) 60 mg DAILY 12/16/19 12:30 12/23/19 14:10 60 MG Info (PHARMACY MONITORING -- do not chart) 1 each PRN DAILY PRN 12/23/19 07:45 Insulin Glargine (Lantus Syringe) 40 unit DAILY 12/21/19 09:00 12/21/19 13:48 40 UNIT Iron Sucrose 500 mg/Sodium Chloride 275 ml @ 78.571 mls/ hr 1X ONCE 12/17/19 13:00 12/17/19 16:29 DC 12/17/19 16:08 78.571 MLS/HR Lactobacillus Rhamnosus (Culturelle) 1 cap BID 12/17/19 21:00 12/23/19 20:39 1 CAP Lidocaine HCl (Buffered Lidocaine 1%) 6 ml 1X ONCE 12/16/19 12:45 12/16/19 12:46 DC 12/16/19 12:56 3 ML Lidocaine/ Epinephrine (LIDOCAINE 1%-EPI 1:100,000 Multi-Dose) 20 ml 1X ONCE 12/17/19 12:45 12/17/19 12:47 DC 12/17/19 13:10 10 ML Magnesium Sulfate 50 ml @ 25 mls/hr 1X ONCE 12/16/19 15:45 12/16/19 17:44 DC 12/16/19 19:21 25 MLS/HR Midazolam HCl (Versed) 2 mg 1X ONCE 12/17/19 12:45 12/17/19 12:47 DC 12/17/19 13:08 1 MG Multivitamins (Thera M Plus) 1 tab DAILY 12/19/19 09:00 12/23/19 14:14 1 TAB Piperacillin Sod/ Tazobactam Sod (Zosyn Per Pharmacy) 1 each PRN DAILY PRN 12/15/19 13:00 12/23/19 08:56 DC Piperacillin Sod/ Tazobactam Sod 2.25 gm/Sodium Chloride 50 ml @ 100 mls/hr Q8HRS 12/16/19 17:00 12/23/19 08:54 DC 12/23/19 04:59 100 MLS/HR Sodium Polystyrene Sulfonate (Kayexalate) 15 gm 1X ONCE 12/15/19 09:00 12/15/19 09:01 DC 12/15/19 09:24 15 GM Sodium Chloride 1,000 ml @ 400 mls/hr Q2H30M PRN 12/23/19 07:41 12/23/19 19:40 DC Sodium Chloride (Normal Saline Flush) 10 ml 1X PRN PRN 12/21/19 07:45 12/22/19 07:44 DC Vancomycin HCl 250 ml @ 166.667 mls/hr 1X ONCE 12/14/19 17:45 12/14/19 19:14 DC 12/14/19 18:24 166.667 MLS/HR Labs: Lab Laboratory Tests Test 12/23/19 13:20 12/23/19 16:33 12/23/19 20:48 12/24/19 07:35 Glucose (Fingerstick) 128 mg/dL (70-99) 203 mg/dL (70-99) 352 mg/dL (70-99) 181 mg/dL (70-99) Objective: Assessment: 1. Bilateral lower extremity venous insufficiency with superficial ulcerations and possible secondary infection. 2. Left fifth phalangeal changes on x-ray, likely secondary to the trauma and healing fracture, not infection as there is no open wound there. Likely have a puncture wound into the calcaneal area with pain. 3. Congestive heart failure. 4. Acute on chronic renal insufficiency, on hemodialysis now. 5. Diabetes. 6. Hypertension. 7. Obesity Plan: Plan of Care awaiting tx to rehab augmentin bid 4 more days renal dosing Probiotics Local wound care Supportive care ASIA JACKSON MD Dec 24, 2019 08:06
[2019-12-24] MEDS: AMOXICILLIN/K CLAV 500/125MG TABLET. PO SCH (08:23)
[2019-12-24] MEDS: LACTOBACILLUS RHAMNOSUS GG 1 CAPSULE. PO SCH ×2 (08:23→23:36)
[2019-12-24] MEDS: ASPIRIN ENTERIC COATED 81 MG TABLET.DR. PO SCH (08:23)
[2019-12-24] MEDS: MULTIVITAMIN with MINERAL TABLET. PO SCH (08:23)
[2019-12-24] MEDS: ASCORBIC ACID 500 MG TABLET PO SCH (08:23)
[2019-12-24] MEDS: FUROSEMIDE 40 MG/4 ML VIAL. IVP SCH (08:25)
[2019-12-24] MEDS: INSULIN GLARGINE SYRINGE. SQ SCH (08:35)
[2019-12-24] MEDS: ALBUTEROL SULFATE 2.5 MG/3 ML NEBU. NEB SCH ×3 (08:49→16:29)
--- NOTE | 2019-12-24 10:35 | PDOC ---
PROGRESS NOTES Chief Complaint Chief Complaint Acute on chronic kidney injury, hyperkalemia, resolved hyponatremia resolved azotemia, imrpoved acute on chronic systolic and diastolic heart failure, elevated troponin anemia and lower extremity wounds. // Lower extremity cellulitis. Left fifth phalangeal changes on x-ray, likely secondary to the trauma and healing fracture, covid-19 exposure in hospital noted follow Nephrology wireless consultant recommendations follow Cardiology. recommendations Hold JAYSON inhibitor. IV antibiotics. PT, OT. Wound care nurse to evaluate and treat. DVT prophylaxis. Full code. Prognosis //guarded. temp dialysis cath placement 12/15 OP HD SET UP FOR MWF Ultrasound and fluoroscopic guided placement of right internal jugular temporary dialysis catheter NEEDS TDC AND OP HD SET UP Dialysis as per wireless consultant covid-19 testing 12/23 COVID-19 CRITERIA: The patient was evaluated during the global COVID-19 pandemic, and that diagnosis was suspected/considered upon their initial presentation. Their evaluation, treatment and testing was consistent with current guidelines for patients who present with complaints or symptoms that may be related to COVID-19. 37 min pt exam, chart review, > 50% of time spent with exam, chart review, pt care coordination History of Present Illness History of Present Illness No acute events reported overnight, case discussed with nursing staff patient in no acute distress no complaints during my visit most likely will require placement Vitals Vitals Vital Signs Date Time Temp Pulse Resp B/P (MAP) Pulse Ox O2 Delivery O2 Flow Rate FiO2 12/24/19 08:52 98 Nasal Cannula 5.0 12/24/19 07:23 97.6 105 18 143/66 (91) 97.6 Physical Exam Physical Exam GENERAL: Propped up in bed, alert in NAD HEENT: Oral cavity pink, no lesions NECK: Supple LUNGS: Clear. HEART: S1, S2 regular. ABDOMEN: Obese, soft and nontender. : Collier in place EXTREMITIES: Bilateral lower extremity pitting edema and excoriation of both the legs with superficial ulcerations. Foot has no wound at the fifth metatarsal or phalangeal area bilaterally. The patient appears to have puncture wound with slight dry crackly skin into the actually calcaneal area. Dorsalis pedis is palpable bilaterally. NEUROLOGIC: Alert, awake and appropriate. No focal neurologic deficit. Tunneled HD catheter (12/16) without signs of infection PIV ok General: Alert, Oriented X3, Cooperative, No acute distress Heart: Regular rate Lungs: Clear Abdomen: Normal bowel sounds, No tenderness Extremities: No clubbing, No cyanosis Labs LABS Laboratory Tests Test 12/23/19 13:20 12/23/19 16:33 12/23/19 20:48 12/24/19 07:35 Glucose (Fingerstick) 128 mg/dL (70-99) 203 mg/dL (70-99) 352 mg/dL (70-99) 181 mg/dL (70-99) Assessment and Plan Assessmemt and Plan Problems Medical Problems: (1) Cellulitis Status: Acute (2) CHF (congestive heart failure) Status: Acute (3) Elevated troponin Status: Acute (4) Shortness of breath Status: Acute Comment Review of Relevant I have reviewed the following items monalisa (where applicable) has been applied. Labs Laboratory Tests Test 12/22/19 11:42 12/22/19 16:35 12/22/19 20:46 12/23/19 06:00 Glucose (Fingerstick) 119 mg/dL (70-99) 268 mg/dL (70-99) 271 mg/dL (70-99) White Blood Count 7.0 x10^3/uL (4.0-11.0) Red Blood Count 3.93 x10^6/uL (3.50-5.40) Hemoglobin 10.5 g/dL (12.0-15.5) Hematocrit 34.7 % (36.0-47.0) Mean Corpuscular Volume 88 fL (79-100) Mean Corpuscular Hemoglobin 27 pg (25-35) Mean Corpuscular Hemoglobin Concent 30 g/dL (31-37) Red Cell Distribution Width 18.5 % (11.5-14.5) Platelet Count 302 x10^3/uL (140-400) Neutrophils (%) (Auto) 73 % (31-73) Lymphocytes (%) (Auto) 13 % (24-48) Monocytes (%) (Auto) 10 % (0-9) Eosinophils (%) (Auto) 2 % (0-3) Basophils (%) (Auto) 1 % (0-3) Neutrophils # (Auto) 5.1 x10^3/uL (1.8-7.7) Lymphocytes # (Auto) 0.9 x10^3/uL (1.0-4.8) Monocytes # (Auto) 0.7 x10^3/uL (0.0-1.1) Eosinophils # (Auto) 0.2 x10^3/uL (0.0-0.7) Basophils # (Auto) 0.1 x10^3/uL (0.0-0.2) Sodium Level 139 mmol/L (136-145) Potassium Level 3.9 mmol/L (3.5-5.1) Chloride Level 100 mmol/L (98-107) Carbon Dioxide Level 30 mmol/L (21-32) Anion Gap 9 (6-14) Blood Urea Nitrogen 22 mg/dL (7-20) Creatinine 4.2 mg/dL (0.6-1.0) Estimated GFR (Cockcroft-Gault) 10.3 Glucose Level 198 mg/dL (70-99) Calcium Level 8.5 mg/dL (8.5-10.1) Test 12/23/19 07:26 12/23/19 13:20 12/23/19 16:33 12/23/19 20:48 Glucose (Fingerstick) 195 mg/dL (70-99) 128 mg/dL (70-99) 203 mg/dL (70-99) 352 mg/dL (70-99) Test 12/24/19 07:35 Glucose (Fingerstick) 181 mg/dL (70-99) Laboratory Tests Test 12/23/19 13:20 12/23/19 16:33 12/23/19 20:48 12/24/19 07:35 Glucose (Fingerstick) 128 mg/dL (70-99) 203 mg/dL (70-99) 352 mg/dL (70-99) 181 mg/dL (70-99) Medications Current Medications Vancomycin HCl 250 ml @ 166.667 mls/hr 1X ONCE IV Last administered on 12/14/19at 18:24; Start 12/14/19 at 17:45; Stop 12/14/19 at 19:14; Status DC Sodium Chloride 1,000 ml @ 1,000 mls/hr 1X ONCE IV Last administered on 12/14/19at 18:23; Start 12/14/19 at 18:00; Stop 12/14/19 at 18:59; Status DC Calcium Gluconate (Calcium Gluconate) 1,000 mg 1X ONCE IVP Last administered on 12/14/19at 18:24; Start 12/14/19 at 18:00; Stop 12/14/19 at 18:01; Status DC Albuterol Sulfate (Ventolin Neb Soln) 10 mg 1X ONCE CONT NEB Last administered on 12/14/19at 18:00; Start 12/14/19 at 18:00; Stop 12/14/19 at 18:01; Status DC Furosemide (Lasix) 40 mg 1X ONCE PO ; Start 12/14/19 at 18:30; Stop 12/14/19 at 18:31; Status DC Enoxaparin Sodium (Lovenox 120mg Syringe) 120 mg 1X ONCE SQ Last administered on 12/14/19at 20:05; Start 12/14/19 at 19:30; Stop 12/14/19 at 19:31; Status DC Furosemide (Lasix) 40 mg 1X ONCE IVP Last administered on 12/14/19at 20:05; Start 12/14/19 at 19:30; Stop 12/14/19 at 19:31; Status DC Dextrose (Dextrose 50%-Water Syringe) 25 gm STK-MED ONCE IV ; Start 12/15/19 at 08:11; Stop 12/15/19 at 08:11; Status DC Sodium Polystyrene Sulfonate (Kayexalate) 30 gm 1X ONCE RC ; Start 12/15/19 at 09:00; Stop 12/15/19 at 08:38; Status DC Sodium Polystyrene Sulfonate (Kayexalate) 15 gm 1X ONCE PO Last administered on 12/15/19at 09:24; Start 12/15/19 at 09:00; Stop 12/15/19 at 09:01; Status DC Piperacillin Sod/ Tazobactam Sod (Zosyn Per Pharmacy) 1 each PRN DAILY PRN MC SEE COMMENTS; Start 12/15/19 at 13:00; Stop 12/23/19 at 08:56; Status DC Piperacillin Sod/ Tazobactam Sod 2.25 gm/Sodium Chloride 50 ml @ 100 mls/hr Q6HRS IV Last administered on 12/16/19at 05:32; Start 12/15/19 at 14:00; Stop 12/16/19 at 16:05; Status DC Dextrose (Dextrose 50%-Water Syringe) 12.5 gm PRN Q15MIN PRN IV SEE COMMENTS Last administered on 12/16/19at 07:56; Start 12/15/19 at 21:15 Dextrose (Iv Dextrose 5%) 250 ml PRN Q15MIN PRN IV SEE COMMENTS; Start 12/15/19 at 21:15 Dextrose (Dextrose 50%-Water Syringe) 25 gm STK-MED ONCE IV ; Start 12/15/19 at 21:19; Stop 12/15/19 at 21:19; Status DC Furosemide (Lasix) 60 mg DAILY IVP Last administered on 12/24/19at 08:25; Start 12/16/19 at 12:30 Lidocaine HCl (Buffered Lidocaine 1%) 3 ml STK-MED ONCE .ROUTE ; Start 12/16/19 at 12:36; Stop 12/16/19 at 12:36; Status DC Lidocaine HCl (Buffered Lidocaine 1%) 6 ml 1X ONCE INJ Last administered on 12/16/19at 12:56; Start 12/16/19 at 12:45; Stop 12/16/19 at 12:46; Status DC Sodium Chloride 1,000 ml @ 1,000 mls/hr Q1H PRN IV hypotension; Start 12/16/19 at 13:11; Stop 12/16/19 at 19:10; Status DC Albumin Human 200 ml @ 200 mls/hr 1X PRN PRN IV Hypotension; Start 12/16/19 at 13:15; Stop 12/16/19 at 19:14; Status DC Diphenhydramine HCl (Benadryl) 25 mg 1X PRN PRN IV ITCHING; Start 12/16/19 at 13:15; Stop 12/17/19 at 13:14; Status DC Diphenhydramine HCl (Benadryl) 25 mg 1X PRN PRN IV ITCHING; Start 12/16/19 at 13:15; Stop 12/17/19 at 13:14; Status DC Sodium Chloride 1,000 ml @ 400 mls/hr Q2H30M PRN IV PATENCY; Start 12/16/19 at 13:11; Stop 12/17/19 at 01:10; Status DC Info (PHARMACY MONITORING -- do not chart) 1 each PRN DAILY PRN MC SEE COMMENTS; Start 12/16/19 at 13:15; Stop 12/20/19 at 16:02; Status DC Magnesium Sulfate 50 ml @ 25 mls/hr 1X ONCE IV Last administered on 12/16/19at 19:21; Start 12/16/19 at 15:45; Stop 12/16/19 at 17:44; Status DC Aspirin (Ecotrin) 81 mg DAILYWBKFT PO Last administered on 12/24/19at 08:23; Start 12/17/19 at 08:00 Piperacillin Sod/ Tazobactam Sod 2.25 gm/Sodium Chloride 50 ml @ 100 mls/hr Q8HRS IV Last administered on 12/23/19at 04:59; Start 12/16/19 at 17:00; Stop 12/23/19 at 08:54; Status DC Acetaminophen/ Hydrocodone Bitart (Lortab 5/325) 1 tab PRN Q6HRS PRN PO MODERATE PAIN 4-6 Last administered on 12/23/19at 20:40; Start 12/16/19 at 22:00 Sodium Chloride 1,000 ml @ 1,000 mls/hr Q1H PRN IV hypotension; Start 12/17/19 at 09:55; Stop 12/17/19 at 15:54; Status DC Albumin Human 200 ml @ 200 mls/hr 1X PRN PRN IV Hypotension Last administered on 12/17/19at 10:48; Start 12/17/19 at 10:00; Stop 12/17/19 at 15:59; Status DC Sodium Chloride 1,000 ml @ 400 mls/hr Q2H30M PRN IV PATENCY; Start 12/17/19 at 09:55; Stop 12/17/19 at 21:54; Status DC Info (PHARMACY MONITORING -- do not chart) 1 each PRN DAILY PRN MC SEE COMMENTS; Start 12/17/19 at 10:00; Status UNV Info (PHARMACY MONITORING -- do not chart) 1 each PRN DAILY PRN MC SEE COMMENTS; Start 12/17/19 at 10:00; Status UNV Iron Sucrose 500 mg/Sodium Chloride 275 ml @ 78.571 mls/ hr 1X ONCE IV Last administered on 12/17/19at 16:08; Start 12/17/19 at 13:00; Stop 12/17/19 at 16:29; Status DC Lidocaine/ Epinephrine (LIDOCAINE 1%-EPI 1:100,000 Multi-Dose) 20 ml STK-MED ONCE .ROUTE ; Start 12/17/19 at 12:29; Stop 12/17/19 at 12:30; Status DC Midazolam HCl (Versed) 2 mg STK-MED ONCE .ROUTE ; Start 12/17/19 at 12:34; Stop 12/17/19 at 12:34; Status DC Fentanyl Citrate (Fentanyl 2ml Vial) 100 mcg STK-MED ONCE .ROUTE ; Start 12/17/19 at 12:34; Stop 12/17/19 at 12:34; Status DC Midazolam HCl (Versed) 2 mg 1X ONCE IV Last administered on 12/17/19at 13:08; Start 12/17/19 at 12:45; Stop 12/17/19 at 12:47; Status DC Fentanyl Citrate (Fentanyl 2ml Vial) 100 mcg 1X ONCE IV Last administered on 12/17/19at 13:08; Start 12/17/19 at 12:45; Stop 12/17/19 at 12:47; Status DC Lidocaine/ Epinephrine (LIDOCAINE 1%-EPI 1:100,000 Multi-Dose) 20 ml 1X ONCE SQ Last administered on 12/17/19at 13:10; Start 12/17/19 at 12:45; Stop 12/17/19 at 12:47; Status DC Lactobacillus Rhamnosus (Culturelle) 1 cap BID PO Last administered on 12/24/19at 08:23; Start 12/17/19 at 21:00 Albuterol Sulfate (Ventolin Neb Soln) 2.5 mg RTQID NEB Last administered on 12/24/19at 08:49; Start 12/18/19 at 12:00 Darbepoetin Norberto (ARANESP for DIALYSIS PTS) 60 mcg WEEKLYHS SQ Last administered on 12/18/19at 22:02; Start 12/18/19 at 21:00 Sodium Chloride 1,000 ml @ 1,000 mls/hr Q1H PRN IV hypotension; Start 12/18/19 at 14:02; Stop 12/18/19 at 20:01; Status DC Sodium Chloride (Normal Saline Flush) 10 ml 1X PRN PRN IV AP catheter pack; Start 12/18/19 at 14:15; Stop 12/19/19 at 14:14; Status DC Sodium Chloride (Normal Saline Flush) 10 ml 1X PRN PRN IV CLINICAL FELLOW catheter pack; Start 12/18/19 at 14:15; Stop 12/19/19 at 14:14; Status DC Info (PHARMACY MONITORING -- do not chart) 1 each PRN DAILY PRN MC SEE COMMENTS; Start 12/18/19 at 14:15; Status UNV Info (PHARMACY MONITORING -- do not chart) 1 each PRN DAILY PRN MC SEE COMMENTS; Start 12/18/19 at 14:15; Stop 12/20/19 at 16:03; Status DC Multivitamins (Thera M Plus) 1 tab DAILY PO Last administered on 12/24/19at 08:23; Start 12/19/19 at 09:00 Ascorbic Acid (Vitamin C) 500 mg DAILY PO Last administered on 12/24/19at 08:23; Start 12/19/19 at 09:00 Sodium Chloride 1,000 ml @ 1,000 mls/hr Q1H PRN IV hypotension; Start 12/20/19 at 08:11; Stop 12/20/19 at 14:10; Status DC Albumin Human 200 ml @ 200 mls/hr 1X PRN PRN IV Hypotension; Start 12/20/19 at 08:15; Stop 12/20/19 at 14:14; Status DC Acetaminophen (Tylenol) 500 mg 1X PRN PRN PO MILD PAIN / TEMP; Start 12/20/19 at 08:15; Stop 12/21/19 at 08:14; Status DC Diphenhydramine HCl (Benadryl) 25 mg 1X PRN PRN IV ITCHING; Start 12/20/19 at 08:15; Stop 12/21/19 at 08:14; Status DC Diphenhydramine HCl (Benadryl) 25 mg 1X PRN PRN IV ITCHING; Start 12/20/19 at 08:15; Stop 12/21/19 at 08:14; Status DC Sodium Chloride 1,000 ml @ 400 mls/hr Q2H30M PRN IV PATENCY; Start 12/20/19 at 08:11; Stop 12/20/19 at 20:10; Status DC Info (PHARMACY MONITORING -- do not chart) 1 each PRN DAILY PRN MC SEE COMMENTS; Start 12/20/19 at 08:15; Status Cancel Insulin Glargine (Lantus Syringe) 40 unit DAILY SQ Last administered on 12/24/19at 08:35; Start 12/21/19 at 09:00 Sodium Chloride 1,000 ml @ 1,000 mls/hr Q1H PRN IV hypotension; Start 12/21/19 at 07:40; Stop 12/21/19 at 13:39; Status DC Albumin Human 200 ml @ 200 mls/hr 1X PRN PRN IV Hypotension; Start 12/21/19 at 07:45; Stop 12/21/19 at 13:44; Status DC Acetaminophen (Tylenol) 500 mg 1X PRN PRN PO MILD PAIN / TEMP; Start 12/21/19 at 07:45; Stop 12/22/19 at 07:44; Status DC Diphenhydramine HCl (Benadryl) 25 mg 1X PRN PRN IV ITCHING; Start 12/21/19 at 07:45; Stop 12/22/19 at 07:44; Status DC Diphenhydramine HCl (Benadryl) 25 mg 1X PRN PRN IV ITCHING; Start 12/21/19 at 07:45; Stop 12/22/19 at 07:44; Status DC Sodium Chloride (Normal Saline Flush) 10 ml 1X PRN PRN IV AP catheter pack; Start 12/21/19 at 07:45; Stop 12/22/19 at 07:44; Status DC Sodium Chloride (Normal Saline Flush) 10 ml 1X PRN PRN IV CLINICAL FELLOW catheter pack; Start 12/21/19 at 07:45; Stop 12/22/19 at 07:44; Status DC Sodium Chloride 1,000 ml @ 400 mls/hr Q2H30M PRN IV PATENCY; Start 12/21/19 at 07:40; Stop 12/21/19 at 19:39; Status DC Info (PHARMACY MONITORING -- do not chart) 1 each PRN DAILY PRN MC SEE COMMENTS; Start 12/21/19 at 07:45; Status Cancel Sodium Chloride 1,000 ml @ 1,000 mls/hr Q1H PRN IV hypotension; Start 12/23/19 at 07:41; Stop 12/23/19 at 13:40; Status DC Albumin Human 200 ml @ 200 mls/hr 1X PRN PRN IV Hypotension; Start 12/23/19 at 07:45; Stop 12/23/19 at 13:44; Status DC Acetaminophen (Tylenol) 500 mg 1X PRN PRN PO MILD PAIN / TEMP; Start 12/23/19 at 07:45; Stop 12/24/19 at 07:44; Status DC Diphenhydramine HCl (Benadryl) 25 mg 1X PRN PRN IV ITCHING; Start 12/23/19 at 07:45; Stop 12/24/19 at 07:44; Status DC Diphenhydramine HCl (Benadryl) 25 mg 1X PRN PRN IV ITCHING; Start 12/23/19 at 07:45; Stop 12/24/19 at 07:44; Status DC Sodium Chloride 1,000 ml @ 400 mls/hr Q2H30M PRN IV PATENCY; Start 12/23/19 at 07:41; Stop 12/23/19 at 19:40; Status DC Info (PHARMACY MONITORING -- do not chart) 1 each PRN DAILY PRN MC SEE COMMENTS; Start 12/23/19 at 07:45 Amoxicillin/ Clavulanate Potassium (Augmentin 500/ 125mg) 1 tab BID PO Last administered on 12/24/19at 08:23; Start 12/23/19 at 09:00; Stop 12/27/19 at 21:01 Active Scripts Active Reported Metformin Hcl Er (Metformin Hcl) 1,000 Mg Tab.er.24 1,000 Mg PO BIDWMEALS Lisinopril-Hctz 20-12.5 Mg Tab (Lisinopril/Hydrochlorothiazide) 1 Each Tablet 1 Tab PO DAILY Glipizide Er (Glipizide) 10 Mg Tab.er.24 10 Mg PO BIDWMEALS Xalatan (Latanoprost) 2.5 Ml Drops 1 Drop OP HS Triamcinolone Acetonide 0.1% Cream (Triamcinolone Acetonide) 15 Gm Cream..g. 1 Isabell TP BID Tramadol Hcl 50 Mg Tablet 50 Mg PO DAILY PRN Flonase Allergy Relief (Fluticasone Propionate) 9.9 Ml Dewitt.susp 2 Sprays NS DAILY Novolin N (Nph, Human Insulin Isophane) 100 Unit/1 Ml Vial 40 Unit SQ DAILYWBKFT Carvedilol (Carvedilol) 6.25 Mg Tablet 6.25 Mg PO BIDWMEALS Simvastatin 40 Mg Tablet 1 Tab PO QHS Furosemide 20 Mg Tablet 1 Tab PO DAILY Vitals/I & O Vital Sign - Last 24 Hours 12/23/19 12/23/19 12/23/19 12/23/19 13:25 14:58 16:57 18:35 Temp 97.7 97.0 98.8 97.7 97.0 98.8 Pulse 117 90 104 Resp 18 20 B/P (MAP) 129/54 (79) 120/54 (76) 119/50 (73) Pulse Ox 90 95 93 94 O2 Delivery Nasal Cannula Nasal Cannula Nasal Cannula Nasal Cannula O2 Flow Rate 5.0 5.0 5.0 5.0 12/23/19 12/23/19 12/23/19 12/23/19 20:04 20:13 20:40 21:40 Resp 18 18 Pulse Ox 97 95 95 O2 Delivery Nasal Cannula Nasal Cannula Nasal Cannula Nasal Cannula O2 Flow Rate 5.0 4.0 4.0 4.0 12/23/19 12/24/19 12/24/19 12/24/19 22:45 03:30 07:23 08:52 Temp 97.8 97.8 97.6 97.8 97.8 97.6 Pulse 86 95 105 Resp 18 B/P (MAP) 123/48 (73) 144/60 (88) 143/66 (91) Pulse Ox 94 94 100 98 O2 Delivery Nasal Cannula Nasal Cannula Nasal Cannula Nasal Cannula O2 Flow Rate 5.0 5.0 5.0 5.0 Intake and Output 12/23/19 12/23/19 12/24/19 15:00 23:00 07:00 Intake Total 120 ml 720 ml 60 ml Output Total 100 ml Balance 120 ml 620 ml 60 ml CHINO MORALES MD Dec 24, 2019 10:35
[2019-12-24 10:38] VITALS: BP 163/84
--- NOTE | 2019-12-24 11:06 | PDOC ---
CARDIOLOGY PROGRESS NOTE SUBJECTIVE: No new issues overnight. Reports she feels much better today. No chest pain. No dyspnea. LE pain improved. OBJECTIVE: Vital Signs/I&O: Vital Signs Date Time Temp Pulse Resp B/P (MAP) Pulse Ox O2 Delivery O2 Flow Rate FiO2 12/24/19 10:38 97.6 108 22 163/84 (110) 95 Nasal Cannula 5.0 97.6 I & O 12/23/19 12/23/19 12/24/19 15:00 23:00 07:00 Intake Total 120 ml 720 ml 60 ml Output Total 100 ml Balance 120 ml 620 ml 60 ml Objective: a/o x3. NAD RRR. Soft abd 1+ LE edema, improved. CURRENT MEDICATIONS: meds reviewed. asa, lasix DIAGNOSTIC TESTING: Labs reviewed ASSESSMENT: 1. Acute on chronic diastolic HF due to ESRD and morbid obesity 2. ESRD 3. LE venous stasis changes/wounds PLAN: 1. Continue negative fluid balance with HD. Supportive care. No further CV testing needed. Outpt f/u in 3 months. ANDREE ASTORGA MD Dec 24, 2019 11:06
--- NOTE | 2019-12-24 11:37 | PDOC ---
SUBJECTIVE ROS Stable OBJECTIVE Vital Signs Vital Signs Date Time Temp Pulse Resp B/P (MAP) Pulse Ox O2 Delivery O2 Flow Rate FiO2 12/24/19 10:38 97.6 108 22 163/84 (110) 95 Nasal Cannula 5.0 97.6 I & 0 Intake and Output 12/24/19 07:00 Intake Total 900 ml Output Total 100 ml Balance 800 ml Intake Oral 900 ml Output Urine Total 100 ml PHYSICAL EXAM Physical Exam GENERAL: NAD HEENT: Oral cavity moist NECK: Supple LUNGS: Clear. HEART: S1, S2 regular. ABDOMEN: Obese, soft and nontender. : Collier in place EXTREMITIES: Bilateral lower extremity pitting edema and excoriation of both the legs with superficial ulcerations.(Per ID) NEUROLOGIC: Alert, awake and appropriate. No focal neurologic deficit. Tunneled HD catheter (12/16) DIAGNOSIS/ASSESSMENT Assessment & Plan ESRD: New Onset ESRD ,on Monday schedule No indication for HD today Access Tunnelled HDC, OP Chair time per SW [facility] as ordered, HTN: antihypertensives Bilateral lower extremity venous insufficiency with superficial ulcerations and possible secondary infection. Congestive heart failure- compensated DM per primary Awaiting COVID - sent today COMMENT/RELEVANT DATA Meds Current Medications Medications (Trade) Dose Ordered Sig/Yulisa Start Time Stop Time Status Last Admin Dose Admin Acetaminophen (Tylenol) 500 mg 1X PRN PRN 12/23/19 07:45 12/24/19 07:44 DC Acetaminophen/ Hydrocodone Bitart (Lortab 5/325) 1 tab PRN Q6HRS PRN 12/16/19 22:00 12/23/19 20:40 1 TAB Albumin Human 200 ml @ 200 mls/hr 1X PRN PRN 12/23/19 07:45 12/23/19 13:44 DC Albuterol Sulfate (Ventolin Neb Soln) 2.5 mg RTQID 12/18/19 12:00 12/24/19 08:49 2.5 MG Amoxicillin/ Clavulanate Potassium (Augmentin 500/ 125mg) 1 tab BID 12/23/19 09:00 12/27/19 21:01 12/24/19 08:23 1 TAB Ascorbic Acid (Vitamin C) 500 mg DAILY 12/19/19 09:00 12/24/19 08:23 500 MG Aspirin (Ecotrin) 81 mg DAILYWBKFT 12/17/19 08:00 12/24/19 08:23 81 MG Calcium Gluconate (Calcium Gluconate) 1,000 mg 1X ONCE 12/14/19 18:00 12/14/19 18:01 DC 12/14/19 18:24 1,000 MG Darbepoetin Norberto (ARANESP for DIALYSIS PTS) 60 mcg WEEKLYHS 12/18/19 21:00 12/18/19 22:02 60 MCG Dextrose (Dextrose 50%-Water Syringe) 25 gm STK-MED ONCE 12/15/19 21:19 12/15/19 21:19 DC Dextrose (Iv Dextrose 5%) 250 ml PRN Q15MIN PRN 12/15/19 21:15 Diphenhydramine HCl (Benadryl) 25 mg 1X PRN PRN 12/23/19 07:45 12/24/19 07:44 DC Enoxaparin Sodium (Lovenox 120mg Syringe) 120 mg 1X ONCE 12/14/19 19:30 12/14/19 19:31 DC 12/14/19 20:05 120 MG Fentanyl Citrate (Fentanyl 2ml Vial) 100 mcg 1X ONCE 12/17/19 12:45 12/17/19 12:47 DC 12/17/19 13:08 50 MCG Furosemide (Lasix) 60 mg DAILY 12/16/19 12:30 12/24/19 08:25 60 MG Info (PHARMACY MONITORING -- do not chart) 1 each PRN DAILY PRN 12/23/19 07:45 Insulin Glargine (Lantus Syringe) 40 unit DAILY 12/21/19 09:00 12/24/19 08:35 40 UNIT Iron Sucrose 500 mg/Sodium Chloride 275 ml @ 78.571 mls/ hr 1X ONCE 12/17/19 13:00 12/17/19 16:29 DC 12/17/19 16:08 78.571 MLS/HR Lactobacillus Rhamnosus (Culturelle) 1 cap BID 12/17/19 21:00 12/24/19 08:23 1 CAP Lidocaine HCl (Buffered Lidocaine 1%) 6 ml 1X ONCE 12/16/19 12:45 12/16/19 12:46 DC 12/16/19 12:56 3 ML Lidocaine/ Epinephrine (LIDOCAINE 1%-EPI 1:100,000 Multi-Dose) 20 ml 1X ONCE 12/17/19 12:45 12/17/19 12:47 DC 12/17/19 13:10 10 ML Magnesium Sulfate 50 ml @ 25 mls/hr 1X ONCE 12/16/19 15:45 12/16/19 17:44 DC 12/16/19 19:21 25 MLS/HR Midazolam HCl (Versed) 2 mg 1X ONCE 12/17/19 12:45 12/17/19 12:47 DC 12/17/19 13:08 1 MG Multivitamins (Thera M Plus) 1 tab DAILY 12/19/19 09:00 12/24/19 08:23 1 TAB Piperacillin Sod/ Tazobactam Sod (Zosyn Per Pharmacy) 1 each PRN DAILY PRN 12/15/19 13:00 12/23/19 08:56 DC Piperacillin Sod/ Tazobactam Sod 2.25 gm/Sodium Chloride 50 ml @ 100 mls/hr Q8HRS 12/16/19 17:00 12/23/19 08:54 DC 12/23/19 04:59 100 MLS/HR Sodium Polystyrene Sulfonate (Kayexalate) 15 gm 1X ONCE 12/15/19 09:00 12/15/19 09:01 DC 12/15/19 09:24 15 GM Sodium Chloride 1,000 ml @ 400 mls/hr Q2H30M PRN 12/23/19 07:41 12/23/19 19:40 DC Sodium Chloride (Normal Saline Flush) 10 ml 1X PRN PRN 12/21/19 07:45 12/22/19 07:44 DC Vancomycin HCl 250 ml @ 166.667 mls/hr 1X ONCE 12/14/19 17:45 12/14/19 19:14 DC 12/14/19 18:24 166.667 MLS/HR Lab Laboratory Tests Test 12/23/19 13:20 12/23/19 16:33 12/23/19 20:48 12/24/19 07:35 Glucose (Fingerstick) 128 mg/dL (70-99) 203 mg/dL (70-99) 352 mg/dL (70-99) 181 mg/dL (70-99) Test 12/24/19 11:33 Glucose (Fingerstick) 256 mg/dL (70-99) Results All relevant outside records, renal labs, imaging studies, telemetry/EKG's were reviewed. EVGENY ESCALANTE MD Dec 24, 2019 11:37
--- NOTE | 2019-12-24 14:47 | NUR ---
Wound Care Pt is now pending COVID-19, pictures from Monday assessed, recommending to continue with same dressing changes. Wound Type/Assessment: BLE stasis ulcers, L plantar heel DFU, bilateral buttocks Stage III pressure ulcers Treatment Recommendations/Plan: BLE-Thorough cleaning and removal of skin, Xeroform gauze, ABDs and kerlix, Medigrip compression (if pt can tolerate), change dressings every other day. L plantar foot/heel-Iodoflex and foam dressing,change every 3-4 days. Extra iodoflex dressings given to KELVIN Cruz for future dressing changes. Buttocks/Coccyx-Calazime cream TID and PRN, as pt is having incontinent episodes. Education provided: KELVIN Cruz educated on turning q2h and continuing with POC POC discussed with KELVIN Cruz. Offloading surface/device: P500 low air loss bed Recommended Referrals/Tests: na Discharge Recommendations for dressings: BLE-Thorough cleaning and removal of skin in the periwound, lotion to intact skin, Xeroform gauze, ABDs and kerlix, Medigrip compression (when pt can tolerate), change dressings every other day. L plantar foot/heel-Iodoflex and foam dressing, change every 3-4 days. Buttocks/Coccyx-Calazime cream TID and PRN, as pt is having incontinent episodes. Once that resolves, recommend Hydrocolloid and foam dressings every 3-4 days.
--- NOTE | 2019-12-24 15:13 | NUR ---
SS following up with discharge planning. SS discussed with pt RN. Pt accepted at [facility], ; fax [phone]. Pt has outpatient dialysis set up at [facility], ; fax [phone]. Pt unable to discharge at this time due to possible exposure to COVID19. Testing ordered and pt is COVID19 test pending. SS will continue to follow for discharge planning. [facility] and [facility] notified of delay in discharge.
[2019-12-24 15:24] VITALS: BP 110/53
[2019-12-24 19:30] VITALS: BP 136/79
[2019-12-24] MEDS ORDERED: ALBUTEROL SULFATE 2.5 MG/3 ML NEBU. NEB PRN (19:30)
[2019-12-24 22:04] VITALS: BP 143/71
[2019-12-24] MEDS: HYDROcodone/APAP 5/325MG 1 TAB TABLET PO PRN (23:36)
[2019-12-25 02:30] VITALS: BP 155/67
[2019-12-25 04:44] LABS: CALCIUM 8.6 mg/dL (8.5-10.1); CREATININE 5.4 mg/dL (0.6-1.0); GFR 7.7; POTASSIUM 3.9 mmol/L (3.5-5.1)
[2019-12-25 07:00] VITALS: BP 154/74
--- NOTE | 2019-12-25 07:29 | PDOC ---
Infectious Disease Note Subjective: Subjective Comfortable, denies pain Denies F/C/SOA/N/V Vital Signs: Vital Signs Vital Signs Date Time Temp Pulse Resp B/P (MAP) Pulse Ox O2 Delivery O2 Flow Rate FiO2 12/25/19 02:30 97.6 105 20 155/67 (96) 99 Nasal Cannula 5.0 97.6 Physical Exam: PHYSICAL EXAM GENERAL: Propped up in bed, alert in NAD HEENT: Oral cavity pink, no lesions NECK: Supple LUNGS: Clear. HEART: S1, S2 regular. ABDOMEN: Obese, soft and nontender. : Collier in place EXTREMITIES: Bilateral lower extremity pitting edema and excoriation of both the legs with superficial ulcerations. Foot has no wound at the fifth metatarsal or phalangeal area bilaterally. The patient appears to have puncture wound with slight dry crackly skin into the actually calcaneal area. Dorsalis pedis is palpable bilaterally. NEUROLOGIC: Alert, awake and appropriate. No focal neurologic deficit. Tunneled HD catheter (12/16) without signs of infection PIV ok Medications: Inpatient Meds: Current Medications Medications (Trade) Dose Ordered Sig/Yulisa Start Time Stop Time Status Last Admin Dose Admin Acetaminophen (Tylenol) 500 mg 1X PRN PRN 12/23/19 07:45 12/24/19 07:44 DC Acetaminophen/ Hydrocodone Bitart (Lortab 5/325) 1 tab PRN Q6HRS PRN 12/16/19 22:00 12/24/19 23:36 1 TAB Albumin Human 200 ml @ 200 mls/hr 1X PRN PRN 12/23/19 07:45 12/23/19 13:44 DC Albuterol Sulfate (Ventolin Neb Soln) 2.5 mg PRN Q4HRS PRN 12/24/19 19:30 Amoxicillin/ Clavulanate Potassium (Augmentin 500/ 125mg) 1 tab DAILY 12/25/19 09:00 12/26/19 09:01 Ascorbic Acid (Vitamin C) 500 mg DAILY 12/19/19 09:00 12/24/19 08:23 500 MG Aspirin (Ecotrin) 81 mg [id number] 12/17/19 08:00 12/24/19 08:23 81 MG Calcium Gluconate (Calcium Gluconate) 1,000 mg 1X ONCE 12/14/19 18:00 12/14/19 18:01 DC 12/14/19 18:24 1,000 MG Darbepoetin Norberto (ARANESP for DIALYSIS PTS) 60 mcg WEEKLYHS 12/18/19 21:00 12/18/19 22:02 60 MCG Dextrose (Dextrose 50%-Water Syringe) 25 gm STK-MED ONCE 12/15/19 21:19 12/15/19 21:19 DC Dextrose (Iv Dextrose 5%) 250 ml PRN Q15MIN PRN 12/15/19 21:15 Diphenhydramine HCl (Benadryl) 25 mg 1X PRN PRN 12/23/19 07:45 12/24/19 07:44 DC Enoxaparin Sodium (Lovenox 120mg Syringe) 120 mg 1X ONCE 12/14/19 19:30 12/14/19 19:31 DC 12/14/19 20:05 120 MG Fentanyl Citrate (Fentanyl 2ml Vial) 100 mcg 1X ONCE 12/17/19 12:45 12/17/19 12:47 DC 12/17/19 13:08 50 MCG Furosemide (Lasix) 60 mg DAILY 12/16/19 12:30 12/24/19 08:25 60 MG Info (PHARMACY MONITORING -- do not chart) 1 each PRN DAILY PRN 12/23/19 07:45 Insulin Glargine (Lantus Syringe) 40 unit DAILY 12/21/19 09:00 12/24/19 08:35 40 UNIT Iron Sucrose 500 mg/Sodium Chloride 275 ml @ 78.571 mls/ hr 1X ONCE 12/17/19 13:00 12/17/19 16:29 DC 12/17/19 16:08 78.571 MLS/HR Lactobacillus Rhamnosus (Culturelle) 1 cap BID 12/17/19 21:00 12/24/19 23:36 1 CAP Lidocaine HCl (Buffered Lidocaine 1%) 6 ml 1X ONCE 12/16/19 12:45 12/16/19 12:46 DC 12/16/19 12:56 3 ML Lidocaine/ Epinephrine (LIDOCAINE 1%-EPI 1:100,000 Multi-Dose) 20 ml 1X ONCE 12/17/19 12:45 12/17/19 12:47 DC 12/17/19 13:10 10 ML Magnesium Sulfate 50 ml @ 25 mls/hr 1X ONCE 12/16/19 15:45 12/16/19 17:44 DC 12/16/19 19:21 25 MLS/HR Midazolam HCl (Versed) 2 mg 1X ONCE 12/17/19 12:45 12/17/19 12:47 DC 12/17/19 13:08 1 MG Multivitamins (Thera M Plus) 1 tab DAILY 12/19/19 09:00 12/24/19 08:23 1 TAB Piperacillin Sod/ Tazobactam Sod (Zosyn Per Pharmacy) 1 each PRN DAILY PRN 12/15/19 13:00 12/23/19 08:56 DC Piperacillin Sod/ Tazobactam Sod 2.25 gm/Sodium Chloride 50 ml @ 100 mls/hr Q8HRS 12/16/19 17:00 12/23/19 08:54 DC 12/23/19 04:59 100 MLS/HR Sodium Polystyrene Sulfonate (Kayexalate) 15 gm 1X ONCE 12/15/19 09:00 12/15/19 09:01 DC 12/15/19 09:24 15 GM Sodium Chloride 1,000 ml @ 400 mls/hr Q2H30M PRN 12/23/19 07:41 12/23/19 19:40 DC Sodium Chloride (Normal Saline Flush) 10 ml 1X PRN PRN 12/21/19 07:45 12/22/19 07:44 DC Vancomycin HCl 250 ml @ 166.667 mls/hr 1X ONCE 12/14/19 17:45 12/14/19 19:14 DC 12/14/19 18:24 166.667 MLS/HR Labs: Lab Laboratory Tests Test 12/24/19 07:35 12/24/19 11:33 12/24/19 16:33 12/24/19 22:02 Glucose (Fingerstick) 181 mg/dL (70-99) 256 mg/dL (70-99) 258 mg/dL (70-99) 277 mg/dL (70-99) Test 12/25/19 03:50 Sodium Level 139 mmol/L (136-145) Potassium Level 3.9 mmol/L (3.5-5.1) Chloride Level 102 mmol/L (98-107) Carbon Dioxide Level 32 mmol/L (21-32) Anion Gap 5 (6-14) Blood Urea Nitrogen 30 mg/dL (7-20) Creatinine 5.4 mg/dL (0.6-1.0) Estimated GFR (Cockcroft-Gault) 7.7 Glucose Level 165 mg/dL (70-99) Calcium Level 8.6 mg/dL (8.5-10.1) Objective: Assessment: 1. Bilateral lower extremity venous insufficiency with superficial ulcerations and possible secondary infection. 2. Left fifth phalangeal changes on x-ray, likely secondary to the trauma and healing fracture, not infection as there is no open wound there. Likely have a puncture wound into the calcaneal area with pain. 3. Congestive heart failure. 4. Acute on chronic renal insufficiency, on hemodialysis now. 5. Diabetes. 6. Hypertension. 7. Obesity Plan: Plan of Care awaiting tx to rehab augmentin bid 3 days; renal dosing Probiotics Local wound care Supportive care ASIA JACKSON MD Dec 25, 2019 07:29
[2019-12-25] MEDS: LACTOBACILLUS RHAMNOSUS GG 1 CAPSULE. PO SCH (08:48)
[2019-12-25] MEDS: ASPIRIN ENTERIC COATED 81 MG TABLET.DR. PO SCH (08:48)
[2019-12-25] MEDS: MULTIVITAMIN with MINERAL TABLET. PO SCH (08:48)
[2019-12-25] MEDS: ASCORBIC ACID 500 MG TABLET PO SCH (08:48)
[2019-12-25] MEDS: FUROSEMIDE 40 MG/4 ML VIAL. IVP SCH (08:49)
[2019-12-25] MEDS: INSULIN GLARGINE SYRINGE. SQ SCH (08:56)
[2019-12-25] MEDS ORDERED: AMOXICILLIN/K CLAV 500/125MG TABLET. PO SCH (09:00)
--- NOTE | 2019-12-25 09:22 | PDOC ---
SUBJECTIVE ROS Stable OBJECTIVE Vital Signs Vital Signs Date Time Temp Pulse Resp B/P (MAP) Pulse Ox O2 Delivery O2 Flow Rate FiO2 12/25/19 07:00 97.8 76 16 154/74 (100) 99 Nasal Cannula 5.0 97.8 I & 0 Intake and Output 12/25/19 07:00 Intake Total 1300 ml Output Total 400 ml Balance 900 ml Intake Oral 1300 ml Output Urine Total 400 ml # Bowel Movements 1 PHYSICAL EXAM Physical Exam GENERAL: NAD HEENT: Oral cavity moist NECK: Supple LUNGS: Clear. HEART: S1, S2 regular. ABDOMEN: Obese, soft and nontender. : Collier in place EXTREMITIES: Bilateral lower extremity pitting edema and excoriation of both the legs with superficial ulcerations.(Per ID) NEUROLOGIC: Alert, awake and appropriate. No focal neurologic deficit. Tunneled HD catheter (12/16) DIAGNOSIS/ASSESSMENT DIAGNOSIS/ASSESSMENT Assessment & Plan ESRD: New Onset ESRD ,on Monday schedule seen on HD , tolerating well, continue as ordered, Dw Drn Access Tunnelled HDC, OP Chair time per SW ANEMIA On Aranesp as ordered, HTN: antihypertensives Bilateral lower extremity venous insufficiency with superficial ulcerations and possible secondary infection. Congestive heart failure- compensated DM per primary CoVid negative COMMENT/RELEVANT DATA Meds Current Medications Medications (Trade) Dose Ordered Sig/Yulisa Start Time Stop Time Status Last Admin Dose Admin Acetaminophen (Tylenol) 500 mg 1X PRN PRN 12/23/19 07:45 12/24/19 07:44 DC Acetaminophen/ Hydrocodone Bitart (Lortab 5/325) 1 tab PRN Q6HRS PRN 12/16/19 22:00 12/24/19 23:36 1 TAB Albumin Human 200 ml @ 200 mls/hr 1X PRN PRN 12/23/19 07:45 12/23/19 13:44 DC Albuterol Sulfate (Ventolin Neb Soln) 2.5 mg PRN Q4HRS PRN 12/24/19 19:30 Amoxicillin/ Clavulanate Potassium (Augmentin 500/ 125mg) 1 tab DAILY 12/25/19 09:00 12/26/19 09:01 12/25/19 08:48 1 TAB Ascorbic Acid (Vitamin C) 500 mg DAILY 12/19/19 09:00 12/25/19 08:48 500 MG Aspirin (Ecotrin) 81 mg [id number] 12/17/19 08:00 12/25/19 08:48 81 MG Calcium Gluconate (Calcium Gluconate) 1,000 mg 1X ONCE 12/14/19 18:00 12/14/19 18:01 DC 12/14/19 18:24 1,000 MG Darbepoetin Norberto (ARANESP for DIALYSIS PTS) 60 mcg WEEKLYHS 12/18/19 21:00 12/18/19 22:02 60 MCG Dextrose (Dextrose 50%-Water Syringe) 25 gm STK-MED ONCE 12/15/19 21:19 12/15/19 21:19 DC Dextrose (Iv Dextrose 5%) 250 ml PRN Q15MIN PRN 12/15/19 21:15 Diphenhydramine HCl (Benadryl) 25 mg 1X PRN PRN 12/23/19 07:45 12/24/19 07:44 DC Enoxaparin Sodium (Lovenox 120mg Syringe) 120 mg 1X ONCE 12/14/19 19:30 12/14/19 19:31 DC 12/14/19 20:05 120 MG Fentanyl Citrate (Fentanyl 2ml Vial) 100 mcg 1X ONCE 12/17/19 12:45 12/17/19 12:47 DC 12/17/19 13:08 50 MCG Furosemide (Lasix) 60 mg DAILY 12/16/19 12:30 12/25/19 08:49 60 MG Info (PHARMACY MONITORING -- do not chart) 1 each PRN DAILY PRN 12/23/19 07:45 Insulin Glargine (Lantus Syringe) 40 unit DAILY 12/21/19 09:00 12/25/19 08:56 40 UNIT Iron Sucrose 500 mg/Sodium Chloride 275 ml @ 78.571 mls/ hr 1X ONCE 12/17/19 13:00 12/17/19 16:29 DC 12/17/19 16:08 78.571 MLS/HR Lactobacillus Rhamnosus (Culturelle) 1 cap BID 12/17/19 21:00 12/25/19 08:48 1 CAP Lidocaine HCl (Buffered Lidocaine 1%) 6 ml 1X ONCE 12/16/19 12:45 12/16/19 12:46 DC 12/16/19 12:56 3 ML Lidocaine/ Epinephrine (LIDOCAINE 1%-EPI 1:100,000 Multi-Dose) 20 ml 1X ONCE 12/17/19 12:45 12/17/19 12:47 DC 12/17/19 13:10 10 ML Magnesium Sulfate 50 ml @ 25 mls/hr 1X ONCE 12/16/19 15:45 12/16/19 17:44 DC 12/16/19 19:21 25 MLS/HR Midazolam HCl (Versed) 2 mg 1X ONCE 12/17/19 12:45 12/17/19 12:47 DC 12/17/19 13:08 1 MG Multivitamins (Thera M Plus) 1 tab DAILY 12/19/19 09:00 12/25/19 08:48 1 TAB Piperacillin Sod/ Tazobactam Sod (Zosyn Per Pharmacy) 1 each PRN DAILY PRN 12/15/19 13:00 12/23/19 08:56 DC Piperacillin Sod/ Tazobactam Sod 2.25 gm/Sodium Chloride 50 ml @ 100 mls/hr Q8HRS 12/16/19 17:00 12/23/19 08:54 DC 12/23/19 04:59 100 MLS/HR Sodium Polystyrene Sulfonate (Kayexalate) 15 gm 1X ONCE 12/15/19 09:00 12/15/19 09:01 DC 12/15/19 09:24 15 GM Sodium Chloride 1,000 ml @ 400 mls/hr Q2H30M PRN 12/23/19 07:41 12/23/19 19:40 DC Sodium Chloride (Normal Saline Flush) 10 ml 1X PRN PRN 12/21/19 07:45 12/22/19 07:44 DC Vancomycin HCl 250 ml @ 166.667 mls/hr 1X ONCE 12/14/19 17:45 12/14/19 19:14 DC 12/14/19 18:24 166.667 MLS/HR Lab Laboratory Tests Test 12/24/19 11:33 12/24/19 16:33 12/24/19 22:02 12/25/19 03:50 Glucose (Fingerstick) 256 mg/dL (70-99) 258 mg/dL (70-99) 277 mg/dL (70-99) Sodium Level 139 mmol/L (136-145) Potassium Level 3.9 mmol/L (3.5-5.1) Chloride Level 102 mmol/L (98-107) Carbon Dioxide Level 32 mmol/L (21-32) Anion Gap 5 (6-14) Blood Urea Nitrogen 30 mg/dL (7-20) Creatinine 5.4 mg/dL (0.6-1.0) Estimated GFR (Cockcroft-Gault) 7.7 Glucose Level 165 mg/dL (70-99) Calcium Level 8.6 mg/dL (8.5-10.1) Test 12/25/19 07:56 Glucose (Fingerstick) 101 mg/dL (70-99) Results All relevant outside records, renal labs, imaging studies, telemetry/EKG's were reviewed. EVGENY ESCALANTE MD Dec 25, 2019 09:22
[2019-12-25 10:56] VITALS: BP 172/87
--- NOTE | 2019-12-25 11:01 | PDOC ---
PROGRESS NOTES Chief Complaint Chief Complaint discharge diagnosis Acute on chronic kidney injury, hyperkalemia, resolved hyponatremia resolved azotemia, imrpoved acute on chronic systolic and diastolic heart failure, elevated troponin anemia and lower extremity wounds. // Lower extremity cellulitis. Left fifth phalangeal changes on x-ray, likely secondary to the trauma and healing fracture, covid-19 exposure in hospital noted, neg on 12/25/19 follow Nephrology delivery consultant recommendations follow Cardiology. recommendations Hold JAYSON inhibitor. IV antibiotics. PT, OT. Wound care nurse to evaluate and treat. DVT prophylaxis. Full code. Prognosis //guarded. temp dialysis cath placement 12/15 OP HD SET UP FOR MWF Ultrasound and fluoroscopic guided placement of right internal jugular temporary dialysis catheter NEEDS TDC AND OP HD SET UP Dialysis as per delivery consultant covid-19 testing 12/23 neg COVID-19 CRITERIA: The patient was evaluated during the global COVID-19 pandemic, and that diagnosis was suspected/considered upon their initial presentation. Their evaluation, treatment and testing was consistent with current guidelines for patients who present with complaints or symptoms that may be related to COVID-19. 37 min pt exam, chart review d/c planning time , > 50% of time spent with exam, chart review, pt care coordination History of Present Illness History of Present Illness No acute events reported overnight, case discussed with nursing staff patient in no acute distress no complaints during my visit most likely will require placement Vitals Vitals Vital Signs Date Time Temp Pulse Resp B/P (MAP) Pulse Ox O2 Delivery O2 Flow Rate FiO2 12/25/19 10:56 97.7 92 16 172/87 (115) 97 Nasal Cannula 5.0 97.7 Physical Exam Physical Exam GENERAL: Propped up in bed, alert in NAD HEENT: Oral cavity pink, no lesions NECK: Supple LUNGS: Clear. HEART: S1, S2 regular. ABDOMEN: Obese, soft and nontender. : Collier in place EXTREMITIES: Bilateral lower extremity pitting edema and excoriation of both the legs with superficial ulcerations. Foot has no wound at the fifth metatarsal or phalangeal area bilaterally. The patient appears to have puncture wound with slight dry crackly skin into the actually calcaneal area. Dorsalis pedis is palpable bilaterally. NEUROLOGIC: Alert, awake and appropriate. No focal neurologic deficit. Tunneled HD catheter (12/16) without signs of infection PIV ok General: Alert, Oriented X3, Cooperative, No acute distress Heart: Regular rate, Normal S1, Normal S2 Lungs: Clear Abdomen: Normal bowel sounds, No tenderness Extremities: No clubbing, No cyanosis Skin: No significant lesion Labs LABS Laboratory Tests Test 12/24/19 11:33 12/24/19 12:00 12/24/19 16:33 12/24/19 22:02 Glucose (Fingerstick) 256 mg/dL (70-99) 258 mg/dL (70-99) 277 mg/dL (70-99) Coronavirus (COVID-19)(PCR) See separate report Test 12/25/19 03:50 12/25/19 07:56 Sodium Level 139 mmol/L (136-145) Potassium Level 3.9 mmol/L (3.5-5.1) Chloride Level 102 mmol/L (98-107) Carbon Dioxide Level 32 mmol/L (21-32) Anion Gap 5 (6-14) Blood Urea Nitrogen 30 mg/dL (7-20) Creatinine 5.4 mg/dL (0.6-1.0) Estimated GFR (Cockcroft-Gault) 7.7 Glucose Level 165 mg/dL (70-99) Calcium Level 8.6 mg/dL (8.5-10.1) Glucose (Fingerstick) 101 mg/dL (70-99) Assessment and Plan Assessmemt and Plan Problems Medical Problems: (1) Cellulitis Status: Acute (2) CHF (congestive heart failure) Status: Acute (3) Elevated troponin Status: Acute (4) Shortness of breath Status: Acute Comment Review of Relevant I have reviewed the following items monalisa (where applicable) has been applied. Labs Laboratory Tests Test 12/23/19 13:20 12/23/19 16:33 12/23/19 20:48 12/24/19 07:35 Glucose (Fingerstick) 128 mg/dL (70-99) 203 mg/dL (70-99) 352 mg/dL (70-99) 181 mg/dL (70-99) Test 12/24/19 11:33 12/24/19 12:00 12/24/19 16:33 12/24/19 22:02 Glucose (Fingerstick) 256 mg/dL (70-99) 258 mg/dL (70-99) 277 mg/dL (70-99) Coronavirus (COVID-19)(PCR) See separate report Test 12/25/19 03:50 12/25/19 07:56 Sodium Level 139 mmol/L (136-145) Potassium Level 3.9 mmol/L (3.5-5.1) Chloride Level 102 mmol/L (98-107) Carbon Dioxide Level 32 mmol/L (21-32) Anion Gap 5 (6-14) Blood Urea Nitrogen 30 mg/dL (7-20) Creatinine 5.4 mg/dL (0.6-1.0) Estimated GFR (Cockcroft-Gault) 7.7 Glucose Level 165 mg/dL (70-99) Calcium Level 8.6 mg/dL (8.5-10.1) Glucose (Fingerstick) 101 mg/dL (70-99) Laboratory Tests Test 12/24/19 11:33 12/24/19 12:00 12/24/19 16:33 12/24/19 22:02 Glucose (Fingerstick) 256 mg/dL (70-99) 258 mg/dL (70-99) 277 mg/dL (70-99) Coronavirus (COVID-19)(PCR) See separate report Test 12/25/19 03:50 12/25/19 07:56 Sodium Level 139 mmol/L (136-145) Potassium Level 3.9 mmol/L (3.5-5.1) Chloride Level 102 mmol/L (98-107) Carbon Dioxide Level 32 mmol/L (21-32) Anion Gap 5 (6-14) Blood Urea Nitrogen 30 mg/dL (7-20) Creatinine 5.4 mg/dL (0.6-1.0) Estimated GFR (Cockcroft-Gault) 7.7 Glucose Level 165 mg/dL (70-99) Calcium Level 8.6 mg/dL (8.5-10.1) Glucose (Fingerstick) 101 mg/dL (70-99) Medications Current Medications Vancomycin HCl 250 ml @ 166.667 mls/hr 1X ONCE IV Last administered on 12/14/19at 18:24; Start 12/14/19 at 17:45; Stop 12/14/19 at 19:14; Status DC Sodium Chloride 1,000 ml @ 1,000 mls/hr 1X ONCE IV Last administered on 12/14/19at 18:23; Start 12/14/19 at 18:00; Stop 12/14/19 at 18:59; Status DC Calcium Gluconate (Calcium Gluconate) 1,000 mg 1X ONCE IVP Last administered on 12/14/19at 18:24; Start 12/14/19 at 18:00; Stop 12/14/19 at 18:01; Status DC Albuterol Sulfate (Ventolin Neb Soln) 10 mg 1X ONCE CONT NEB Last administered on 12/14/19at 18:00; Start 12/14/19 at 18:00; Stop 12/14/19 at 18:01; Status DC Furosemide (Lasix) 40 mg 1X ONCE PO ; Start 12/14/19 at 18:30; Stop 12/14/19 at 18:31; Status DC Enoxaparin Sodium (Lovenox 120mg Syringe) 120 mg 1X ONCE SQ Last administered on 12/14/19at 20:05; Start 12/14/19 at 19:30; Stop 12/14/19 at 19:31; Status DC Furosemide (Lasix) 40 mg 1X ONCE IVP Last administered on 12/14/19at 20:05; Start 12/14/19 at 19:30; Stop 12/14/19 at 19:31; Status DC Dextrose (Dextrose 50%-Water Syringe) 25 gm STK-MED ONCE IV ; Start 12/15/19 at 08:11; Stop 12/15/19 at 08:11; Status DC Sodium Polystyrene Sulfonate (Kayexalate) 30 gm 1X ONCE RC ; Start 12/15/19 at 09:00; Stop 12/15/19 at 08:38; Status DC Sodium Polystyrene Sulfonate (Kayexalate) 15 gm 1X ONCE PO Last administered on 12/15/19at 09:24; Start 12/15/19 at 09:00; Stop 12/15/19 at 09:01; Status DC Piperacillin Sod/ Tazobactam Sod (Zosyn Per Pharmacy) 1 each PRN DAILY PRN MC SEE COMMENTS; Start 12/15/19 at 13:00; Stop 12/23/19 at 08:56; Status DC Piperacillin Sod/ Tazobactam Sod 2.25 gm/Sodium Chloride 50 ml @ 100 mls/hr Q6HRS IV Last administered on 12/16/19at 05:32; Start 12/15/19 at 14:00; Stop 12/16/19 at 16:05; Status DC Dextrose (Dextrose 50%-Water Syringe) 12.5 gm PRN Q15MIN PRN IV SEE COMMENTS Last administered on 12/16/19at 07:56; Start 12/15/19 at 21:15 Dextrose (Iv Dextrose 5%) 250 ml PRN Q15MIN PRN IV SEE COMMENTS; Start 12/15/19 at 21:15 Dextrose (Dextrose 50%-Water Syringe) 25 gm STK-MED ONCE IV ; Start 12/15/19 at 21:19; Stop 12/15/19 at 21:19; Status DC Furosemide (Lasix) 60 mg DAILY IVP Last administered on 12/25/19at 08:49; Start 12/16/19 at 12:30 Lidocaine HCl (Buffered Lidocaine 1%) 3 ml STK-MED ONCE .ROUTE ; Start 12/16/19 at 12:36; Stop 12/16/19 at 12:36; Status DC Lidocaine HCl (Buffered Lidocaine 1%) 6 ml 1X ONCE INJ Last administered on 12/16/19at 12:56; Start 12/16/19 at 12:45; Stop 12/16/19 at 12:46; Status DC Sodium Chloride 1,000 ml @ 1,000 mls/hr Q1H PRN IV hypotension; Start 12/16/19 at 13:11; Stop 12/16/19 at 19:10; Status DC Albumin Human 200 ml @ 200 mls/hr 1X PRN PRN IV Hypotension; Start 12/16/19 at 13:15; Stop 12/16/19 at 19:14; Status DC Diphenhydramine HCl (Benadryl) 25 mg 1X PRN PRN IV ITCHING; Start 12/16/19 at 13:15; Stop 12/17/19 at 13:14; Status DC Diphenhydramine HCl (Benadryl) 25 mg 1X PRN PRN IV ITCHING; Start 12/16/19 at 13:15; Stop 12/17/19 at 13:14; Status DC Sodium Chloride 1,000 ml @ 400 mls/hr Q2H30M PRN IV PATENCY; Start 12/16/19 at 13:11; Stop 12/17/19 at 01:10; Status DC Info (PHARMACY MONITORING -- do not chart) 1 each PRN DAILY PRN MC SEE COMMENTS; Start 12/16/19 at 13:15; Stop 12/20/19 at 16:02; Status DC Magnesium Sulfate 50 ml @ 25 mls/hr 1X ONCE IV Last administered on 12/16/19at 19:21; Start 12/16/19 at 15:45; Stop 12/16/19 at 17:44; Status DC Aspirin (Ecotrin) 81 mg DAILYWBKFT PO Last administered on 12/25/19at 08:48; Start 12/17/19 at 08:00 Piperacillin Sod/ Tazobactam Sod 2.25 gm/Sodium Chloride 50 ml @ 100 mls/hr Q8HRS IV Last administered on 12/23/19at 04:59; Start 12/16/19 at 17:00; Stop 12/23/19 at 08:54; Status DC Acetaminophen/ Hydrocodone Bitart (Lortab 5/325) 1 tab PRN Q6HRS PRN PO MODERATE PAIN 4-6 Last administered on 12/24/19at 23:36; Start 12/16/19 at 22:00 Sodium Chloride 1,000 ml @ 1,000 mls/hr Q1H PRN IV hypotension; Start 12/17/19 at 09:55; Stop 12/17/19 at 15:54; Status DC Albumin Human 200 ml @ 200 mls/hr 1X PRN PRN IV Hypotension Last administered on 12/17/19at 10:48; Start 12/17/19 at 10:00; Stop 12/17/19 at 15:59; Status DC Sodium Chloride 1,000 ml @ 400 mls/hr Q2H30M PRN IV PATENCY; Start 12/17/19 at 09:55; Stop 12/17/19 at 21:54; Status DC Info (PHARMACY MONITORING -- do not chart) 1 each PRN DAILY PRN MC SEE COMMENTS; Start 12/17/19 at 10:00; Status UNV Info (PHARMACY MONITORING -- do not chart) 1 each PRN DAILY PRN MC SEE COMMENTS; Start 12/17/19 at 10:00; Status UNV Iron Sucrose 500 mg/Sodium Chloride 275 ml @ 78.571 mls/ hr 1X ONCE IV Last administered on 12/17/19at 16:08; Start 12/17/19 at 13:00; Stop 12/17/19 at 16:29; Status DC Lidocaine/ Epinephrine (LIDOCAINE 1%-EPI 1:100,000 Multi-Dose) 20 ml STK-MED ONCE .ROUTE ; Start 12/17/19 at 12:29; Stop 12/17/19 at 12:30; Status DC Midazolam HCl (Versed) 2 mg STK-MED ONCE .ROUTE ; Start 12/17/19 at 12:34; Stop 12/17/19 at 12:34; Status DC Fentanyl Citrate (Fentanyl 2ml Vial) 100 mcg STK-MED ONCE .ROUTE ; Start 12/17/19 at 12:34; Stop 12/17/19 at 12:34; Status DC Midazolam HCl (Versed) 2 mg 1X ONCE IV Last administered on 12/17/19at 13:08; Start 12/17/19 at 12:45; Stop 12/17/19 at 12:47; Status DC Fentanyl Citrate (Fentanyl 2ml Vial) 100 mcg 1X ONCE IV Last administered on 12/17/19at 13:08; Start 12/17/19 at 12:45; Stop 12/17/19 at 12:47; Status DC Lidocaine/ Epinephrine (LIDOCAINE 1%-EPI 1:100,000 Multi-Dose) 20 ml 1X ONCE SQ Last administered on 12/17/19at 13:10; Start 12/17/19 at 12:45; Stop 12/17/19 at 12:47; Status DC Lactobacillus Rhamnosus (Culturelle) 1 cap BID PO Last administered on 12/25/19at 08:48; Start 12/17/19 at 21:00 Albuterol Sulfate (Ventolin Neb Soln) 2.5 mg RTQID NEB Last administered on 12/24/19at 16:29; Start 12/18/19 at 12:00; Stop 12/24/19 at 19:31; Status DC Darbepoetin Norberto (ARANESP for DIALYSIS PTS) 60 mcg WEEKLYHS SQ Last administered on 12/18/19at 22:02; Start 12/18/19 at 21:00 Sodium Chloride 1,000 ml @ 1,000 mls/hr Q1H PRN IV hypotension; Start 12/18/19 at 14:02; Stop 12/18/19 at 20:01; Status DC Sodium Chloride (Normal Saline Flush) 10 ml 1X PRN PRN IV AP catheter pack; Start 12/18/19 at 14:15; Stop 12/19/19 at 14:14; Status DC Sodium Chloride (Normal Saline Flush) 10 ml 1X PRN PRN IV FISH HATCHERY INSPECTOR catheter pack; Start 12/18/19 at 14:15; Stop 12/19/19 at 14:14; Status DC Info (PHARMACY MONITORING -- do not chart) 1 each PRN DAILY PRN MC SEE COMMENTS; Start 12/18/19 at 14:15; Status UNV Info (PHARMACY MONITORING -- do not chart) 1 each PRN DAILY PRN MC SEE COMMENTS; Start 12/18/19 at 14:15; Stop 12/20/19 at 16:03; Status DC Multivitamins (Thera M Plus) 1 tab DAILY PO Last administered on 12/25/19at 08:48; Start 12/19/19 at 09:00 Ascorbic Acid (Vitamin C) 500 mg DAILY PO Last administered on 12/25/19at 08:48; Start 12/19/19 at 09:00 Sodium Chloride 1,000 ml @ 1,000 mls/hr Q1H PRN IV hypotension; Start 12/20/19 at 08:11; Stop 12/20/19 at 14:10; Status DC Albumin Human 200 ml @ 200 mls/hr 1X PRN PRN IV Hypotension; Start 12/20/19 at 08:15; Stop 12/20/19 at 14:14; Status DC Acetaminophen (Tylenol) 500 mg 1X PRN PRN PO MILD PAIN / TEMP; Start 12/20/19 at 08:15; Stop 12/21/19 at 08:14; Status DC Diphenhydramine HCl (Benadryl) 25 mg 1X PRN PRN IV ITCHING; Start 12/20/19 at 08:15; Stop 12/21/19 at 08:14; Status DC Diphenhydramine HCl (Benadryl) 25 mg 1X PRN PRN IV ITCHING; Start 12/20/19 at 08:15; Stop 12/21/19 at 08:14; Status DC Sodium Chloride 1,000 ml @ 400 mls/hr Q2H30M PRN IV PATENCY; Start 12/20/19 at 08:11; Stop 12/20/19 at 20:10; Status DC Info (PHARMACY MONITORING -- do not chart) 1 each PRN DAILY PRN MC SEE COMMENTS; Start 12/20/19 at 08:15; Status Cancel Insulin Glargine (Lantus Syringe) 40 unit DAILY SQ Last administered on 12/25/19at 08:56; Start 12/21/19 at 09:00 Sodium Chloride 1,000 ml @ 1,000 mls/hr Q1H PRN IV hypotension; Start 12/21/19 at 07:40; Stop 12/21/19 at 13:39; Status DC Albumin Human 200 ml @ 200 mls/hr 1X PRN PRN IV Hypotension; Start 12/21/19 at 07:45; Stop 12/21/19 at 13:44; Status DC Acetaminophen (Tylenol) 500 mg 1X PRN PRN PO MILD PAIN / TEMP; Start 12/21/19 at 07:45; Stop 12/22/19 at 07:44; Status DC Diphenhydramine HCl (Benadryl) 25 mg 1X PRN PRN IV ITCHING; Start 12/21/19 at 07:45; Stop 12/22/19 at 07:44; Status DC Diphenhydramine HCl (Benadryl) 25 mg 1X PRN PRN IV ITCHING; Start 12/21/19 at 07:45; Stop 12/22/19 at 07:44; Status DC Sodium Chloride (Normal Saline Flush) 10 ml 1X PRN PRN IV AP catheter pack; Start 12/21/19 at 07:45; Stop 12/22/19 at 07:44; Status DC Sodium Chloride (Normal Saline Flush) 10 ml 1X PRN PRN IV [employer] HATCHERY INSPECTOR catheter pack; Start 12/21/19 at 07:45; Stop 12/22/19 at 07:44; Status DC Sodium Chloride 1,000 ml @ 400 mls/hr Q2H30M PRN IV PATENCY; Start 12/21/19 at 07:40; Stop 12/21/19 at 19:39; Status DC Info (PHARMACY MONITORING -- do not chart) 1 each PRN DAILY PRN MC SEE COMMENTS; Start 12/21/19 at 07:45; Status Cancel Sodium Chloride 1,000 ml @ 1,000 mls/hr Q1H PRN IV hypotension; Start 12/23/19 at 07:41; Stop 12/23/19 at 13:40; Status DC Albumin Human 200 ml @ 200 mls/hr 1X PRN PRN IV Hypotension; Start 12/23/19 at 07:45; Stop 12/23/19 at 13:44; Status DC Acetaminophen (Tylenol) 500 mg 1X PRN PRN PO MILD PAIN / TEMP; Start 12/23/19 at 07:45; Stop 12/24/19 at 07:44; Status DC Diphenhydramine HCl (Benadryl) 25 mg 1X PRN PRN IV ITCHING; Start 12/23/19 at 07 :45; Stop 12/24/19 at 07:44; Status DC Diphenhydramine HCl (Benadryl) 25 mg 1X PRN PRN IV ITCHING; Start 12/23/19 at 07:45; Stop 12/24/19 at 07:44; Status DC Sodium Chloride 1,000 ml @ 400 mls/hr Q2H30M PRN IV PATENCY; Start 12/23/19 at 07:41; Stop 12/23/19 at 19:40; Status DC Info (PHARMACY MONITORING -- do not chart) 1 each PRN DAILY PRN MC SEE COMMENTS; Start 12/23/19 at 07:45 Amoxicillin/ Clavulanate Potassium (Augmentin 500/ 125mg) 1 tab BID PO Last administered on 12/24/19at 08:23; Start 12/23/19 at 09:00; Stop 12/24/19 at 15:31; Status DC Amoxicillin/ Clavulanate Potassium (Augmentin 500/ 125mg) 1 tab DAILY PO Last administered on 12/25/19at 08:48; Start 12/25/19 at 09:00; Stop 12/26/19 at 09:01 Albuterol Sulfate (Ventolin Neb Soln) 2.5 mg PRN Q4HRS PRN NEB WHEEZING; Start 12/24/19 at 19:30 Active Scripts Active Reported Metformin Hcl Er (Metformin Hcl) 1,000 Mg Tab.er.24 1,000 Mg PO BIDWMEALS Lisinopril-Hctz 20-12.5 Mg Tab (Lisinopril/Hydrochlorothiazide) 1 Each Tablet 1 Tab PO DAILY Glipizide Er (Glipizide) 10 Mg Tab.er.24 10 Mg PO BIDWMEALS Xalatan (Latanoprost) 2.5 Ml Drops 1 Drop OP HS Triamcinolone Acetonide 0.1% Cream (Triamcinolone Acetonide) 15 Gm Cream..g. 1 Isabell TP BID Tramadol Hcl 50 Mg Tablet 50 Mg PO DAILY PRN Flonase Allergy Relief (Fluticasone Propionate) 9.9 Ml Hana.susp 2 Sprays NS DAILY Novolin N (Nph, Human Insulin Isophane) 100 Unit/1 Ml Vial 40 Unit SQ DAILYWBKFT Carvedilol (Carvedilol) 6.25 Mg Tablet 6.25 Mg PO BIDWMEALS Simvastatin 40 Mg Tablet 1 Tab PO QHS Furosemide 20 Mg Tablet 1 Tab PO DAILY Vitals/I & O Vital Sign - Last 24 Hours 12/24/19 12/24/19 12/24/19 12/24/19 12:00 12:27 15:24 16:29 Temp 97.5 97.5 Pulse 108 Resp 20 B/P (MAP) 110/53 (72) Pulse Ox 97 95 O2 Delivery Nasal Cannula Nasal Cannula Nasal Cannula Nasal Cannula O2 Flow Rate 4.0 5.0 5.0 5.0 12/24/19 12/24/19 12/24/19 12/24/19 19:30 20:16 22:04 23:36 Temp 97.5 97.7 97.5 97.7 Pulse 108 108 Resp 20 20 18 B/P (MAP) 136/79 (98) 143/71 (95) Pulse Ox 99 99 99 O2 Delivery Nasal Cannula Nasal Cannula Nasal Cannula Nasal Cannula O2 Flow Rate 5.0 4.0 5.0 5.0 12/25/19 12/25/19 12/25/19 12/25/19 00:36 02:30 07:00 10:56 Temp 97.6 97.8 97.7 97.6 97.8 97.7 Pulse 105 76 92 Resp 18 20 16 16 B/P (MAP) 155/67 (96) 154/74 (100) 172/87 (115) Pulse Ox 99 99 99 97 O2 Delivery Nasal Cannula Nasal Cannula Nasal Cannula Nasal Cannula O2 Flow Rate 5.0 5.0 5.0 5.0 Intake and Output 12/24/19 12/24/19 12/25/19 15:00 23:00 07:00 Intake Total 720 ml 410 ml 170 ml Output Total 350 ml 50 ml Balance 720 ml 60 ml 120 ml CHINO MORALES MD Dec 25, 2019 11:01
--- NOTE | 2019-12-25 12:21 | NUR ---
IP: HCR requested a COVID test prior to acceptance. Pt is COVID negative.
--- NOTE | 2019-12-25 14:01 | NUR ---
SS following up with discharge planning. SS discussed with pt RN. Pt COVID19 negative. Physician notified. Pt accepted at [facility], ; fax [phone]. SS currently awaiting on discharge orders at this time. Mary Montero notified of potential discharge for today. SS will continue to follow for discharge planning.
--- NOTE | 2019-12-25 14:29 | PDOC3 ---
Discharge Summary Date of Admission: Dec 14, 2019 Date of Discharge: Dec 25, 2019 Follow-Up: 1-2 days Admitting Diagnosis comment: discharge diagnosis Acute on chronic kidney injury, hyperkalemia, resolved hyponatremia resolved azotemia, imrpoved acute on chronic systolic and diastolic heart failure, elevated troponin anemia and lower extremity wounds. // Lower extremity cellulitis. Left fifth phalangeal changes on x-ray, likely secondary to the trauma and healing fracture, covid-19 exposure in hospital noted, neg on 12/25/19 follow Nephrology tour consultant recommendations follow Cardiology. recommendations Hold JAYSON inhibitor. IV antibiotics. PT, OT. Wound care nurse to evaluate and treat. DVT prophylaxis. Full code. Prognosis //guarded. temp dialysis cath placement 12/15 OP HD SET UP FOR MWF Ultrasound and fluoroscopic guided placement of right internal jugular temporary dialysis catheter NEEDS TDC AND OP HD SET UP Dialysis as per tour consultant covid-19 testing 12/23 neg COVID-19 CRITERIA: The patient was evaluated during the global COVID-19 pandemic, and that diagnosis was suspected/considered upon their initial presen tation. Their evaluation, treatment and testing was consistent with current guidelines for patients who present with complaints or symptoms that may be related to COVID-19. 37 min pt exam, chart review d/c planning time , > 50% of time spent with exam, chart review, pt care coordination History of Present Illness History of Present Illness No acute events reported overnight, case discussed with nursing staff patient in no acute distress no complaints during my visit most likely will require placement Vitals Vitals Vital Signs Date Time Temp Pulse Resp B/P (MAP) Pulse Ox O2 Delivery O2 Flow Rate FiO2 12/25/19 10:56 97.7 92 16 172/87 (115) 97 Nasal Cannula 5.0 97.7 Physical Exam Physical Exam GENERAL: Propped up in bed, alert in NAD HEENT: Oral cavity pink, no lesions NECK: Supple LUNGS: Clear. HEART: S1, S2 regular. ABDOMEN: Obese, soft and nontender. : Collier in place EXTREMITIES: Bilateral lower extremity pitting edema and excoriation of both the legs with superficial ulcerations. Foot has no wound at the fifth metatarsal or phalangeal area bilaterally. The patient appears to have puncture wound with slight dry crackly skin into the actually calcaneal area. Dorsalis pedis is palpable bilaterally. NEUROLOGIC: Alert, awake and appropriate. No focal neurologic deficit. Tunneled HD catheter (12/16) without signs of infection PIV ok General: Alert, Oriented X3, Cooperative, No acute distress Heart: Regular rate, Normal S1, Normal S2 Lungs: Clear Abdomen: Normal bowel sounds, No tenderness Extremities: No clubbing, No cyanosis Skin: No significant lesion FINAL DIAGNOSIS Problems Medical Problems: (1) Cellulitis Status: Acute (2) CHF (congestive heart failure) Status: Acute (3) Elevated troponin Status: Acute (4) Shortness of breath Status: Acute Brief Hospital Course Ms. Mercado is a 79 old [sex] who presented with [ SUN] CONDITION AT DISCHARGE: Improved Discharge Medications Current Medications Vancomycin HCl 250 ml @ 166.667 mls/hr 1X ONCE IV Last administered on 12/14/19at 18:24; Start 12/14/19 at 17:45; Stop 12/14/19 at 19:14; Status DC Sodium Chloride 1,000 ml @ 1,000 mls/hr 1X ONCE IV Last administered on 12/14/19at 18:23; Start 12/14/19 at 18:00; Stop 12/14/19 at 18:59; Status DC Calcium Gluconate (Calcium Gluconate) 1,000 mg 1X ONCE IVP Last administered on 12/14/19at 18:24; Start 12/14/19 at 18:00; Stop 12/14/19 at 18:01; Status DC Albuterol Sulfate (Ventolin Neb Soln) 10 mg 1X ONCE CONT NEB Last administered on 12/14/19at 18:00; Start 12/14/19 at 18:00; Stop 12/14/19 at 18:01; Status DC Furosemide (Lasix) 40 mg 1X ONCE PO ; Start 12/14/19 at 18:30; Stop 12/14/19 at 18:31; Status DC Enoxaparin Sodium (Lovenox 120mg Syringe) 120 mg 1X ONCE SQ Last administered on 12/14/19at 20:05; Start 12/14/19 at 19:30; Stop 12/14/19 at 19:31; Status DC Furosemide (Lasix) 40 mg 1X ONCE IVP Last administered on 12/14/19at 20:05; Start 12/14/19 at 19:30; Stop 12/14/19 at 19:31; Status DC Dextrose (Dextrose 50%-Water Syringe) 25 gm STK-MED ONCE IV ; Start 12/15/19 at 08:11; Stop 12/15/19 at 08:11; Status DC Sodium Polystyrene Sulfonate (Kayexalate) 30 gm 1X ONCE RC ; Start 12/15/19 at 09:00; Stop 12/15/19 at 08:38; Status DC Sodium Polystyrene Sulfonate (Kayexalate) 15 gm 1X ONCE PO Last administered on 12/15/19at 09:24; Start 12/15/19 at 09:00; Stop 12/15/19 at 09:01; Status DC Piperacillin Sod/ Tazobactam Sod (Zosyn Per Pharmacy) 1 each PRN DAILY PRN MC SEE COMMENTS; Start 12/15/19 at 13:00; Stop 12/23/19 at 08:56; Status DC Piperacillin Sod/ Tazobactam Sod 2.25 gm/Sodium Chloride 50 ml @ 100 mls/hr Q6HRS IV Last administered on 12/16/19at 05:32; Start 12/15/19 at 14:00; Stop 12/16/19 at 16:05; Status DC Dextrose (Dextrose 50%-Water Syringe) 12.5 gm PRN Q15MIN PRN IV SEE COMMENTS Last administered on 12/16/19at 07:56; Start 12/15/19 at 21:15 Dextrose (Iv Dextrose 5%) 250 ml PRN Q15MIN PRN IV SEE COMMENTS; Start 12/15/19 at 21:15 Dextrose (Dextrose 50%-Water Syringe) 25 gm STK-MED ONCE IV ; Start 12/15/19 at 21:19; Stop 12/15/19 at 21:19; Status DC Furosemide (Lasix) 60 mg DAILY IVP Last administered on 12/25/19at 08:49; Start 12/16/19 at 12:30 Lidocaine HCl (Buffered Lidocaine 1%) 3 ml STK-MED ONCE .ROUTE ; Start 12/16/19 at 12:36; Stop 12/16/19 at 12:36; Status DC Lidocaine HCl (Buffered Lidocaine 1%) 6 ml 1X ONCE INJ Last administered on 12/16/19at 12:56; Start 12/16/19 at 12:45; Stop 12/16/19 at 12:46; Status DC Sodium Chloride 1,000 ml @ 1,000 mls/hr Q1H PRN IV hypotension; Start 12/16/19 at 13:11; Stop 12/16/19 at 19:10; Status DC Albumin Human 200 ml @ 200 mls/hr 1X PRN PRN IV Hypotension; Start 12/16/19 at 13:15; Stop 12/16/19 at 19:14; Status DC Diphenhydramine HCl (Benadryl) 25 mg 1X PRN PRN IV ITCHING; Start 12/16/19 at 13:15; Stop 12/17/19 at 13:14; Status DC Diphenhydramine HCl (Benadryl) 25 mg 1X PRN PRN IV ITCHING; Start 12/16/19 at 13:15; Stop 12/17/19 at 13:14; Status DC Sodium Chloride 1,000 ml @ 400 mls/hr Q2H30M PRN IV PATENCY; Start 12/16/19 at 13:11; Stop 12/17/19 at 01:10; Status DC Info (PHARMACY MONITORING -- do not chart) 1 each PRN DAILY PRN MC SEE COMMENTS; Start 12/16/19 at 13:15; Stop 12/20/19 at 16:02; Status DC Magnesium Sulfate 50 ml @ 25 mls/hr 1X ONCE IV Last administered on 12/16/19at 19:21; Start 12/16/19 at 15:45; Stop 12/16/19 at 17:44; Status DC Aspirin (Ecotrin) 81 mg DAILYWBKFT PO Last administered on 12/25/19at 08:48; Start 12/17/19 at 08:00 Piperacillin Sod/ Tazobactam Sod 2.25 gm/Sodium Chloride 50 ml @ 100 mls/hr Q8HRS IV Last administered on 12/23/19at 04:59; Start 12/16/19 at 17:00; Stop 12/23/19 at 08:54; Status DC Acetaminophen/ Hydrocodone Bitart (Lortab 5/325) 1 tab PRN Q6HRS PRN PO MODE RATE PAIN 4-6 Last administered on 12/24/19at 23:36; Start 12/16/19 at 22:00 Sodium Chloride 1,000 ml @ 1,000 mls/hr Q1H PRN IV hypotension; Start 12/17/19 at 09:55; Stop 12/17/19 at 15:54; Status DC Albumin Human 200 ml @ 200 mls/hr 1X PRN PRN IV Hypotension Last administered on 12/17/19at 10:48; Start 12/17/19 at 10:00; Stop 12/17/19 at 15:59; Status DC Sodium Chloride 1,000 ml @ 400 mls/hr Q2H30M PRN IV PATENCY; Start 12/17/19 at 09:55; Stop 12/17/19 at 21:54; Status DC Info (PHARMACY MONITORING -- do not chart) 1 each PRN DAILY PRN MC SEE COMMENTS; Start 12/17/19 at 10:00; Status UNV Info (PHARMACY MONITORING -- do not chart) 1 each PRN DAILY PRN MC SEE COMMENTS; Start 12/17/19 at 10:00; Status UNV Iron Sucrose 500 mg/Sodium Chloride 275 ml @ 78.571 mls/ hr 1X ONCE IV Last administered on 12/17/19at 16:08; Start 12/17/19 at 13:00; Stop 12/17/19 at 16:29; Status DC Lidocaine/ Epinephrine (LIDOCAINE 1%-EPI 1:100,000 Multi-Dose) 20 ml STK-MED ONCE .ROUTE ; Start 12/17/19 at 12:29; Stop 12/17/19 at 12:30; Status DC Midazolam HCl (Versed) 2 mg STK-MED ONCE .ROUTE ; Start 12/17/19 at 12:34; Stop 12/17/19 at 12:34; Status DC Fentanyl Citrate (Fentanyl 2ml Vial) 100 mcg STK-MED ONCE .ROUTE ; Start 12/17/19 at 12:34; Stop 12/17/19 at 12:34; Status DC Midazolam HCl (Versed) 2 mg 1X ONCE IV Last administered on 12/17/19at 13:08; Start 12/17/19 at 12:45; Stop 12/17/19 at 12:47; Status DC Fentanyl Citrate (Fentanyl 2ml Vial) 100 mcg 1X ONCE IV Last administered on 12/17/19at 13:08; Start 12/17/19 at 12:45; Stop 12/17/19 at 12:47; Status DC Lidocaine/ Epinephrine (LIDOCAINE 1%-EPI 1:100,000 Multi-Dose) 20 ml 1X ONCE SQ Last administered on 12/17/19at 13:10; Start 12/17/19 at 12:45; Stop 12/17/19 at 12:47; Status DC Lactobacillus Rhamnosus (Culturelle) 1 cap BID PO Last administered on 12/25/19at 08:48; Start 12/17/19 at 21:00 Albuterol Sulfate (Ventolin Neb Soln) 2.5 mg RTQID NEB Last administered on 12/24/19at 16:29; Start 12/18/19 at 12:00; Stop 12/24/19 at 19:31; Status DC Darbepoetin Norberto (ARANESP for DIALYSIS PTS) 60 mcg WEEKLYHS SQ Last administered on 12/18/19at 22:02; Start 12/18/19 at 21:00 Sodium Chloride 1,000 ml @ 1,000 mls/hr Q1H PRN IV hypotension; Start 12/18/19 at 14:02; Stop 12/18/19 at 20:01; Status DC Sodium Chloride (Normal Saline Flush) 10 ml 1X PRN PRN IV AP catheter pack; Start 12/18/19 at 14:15; Stop 12/19/19 at 14:14; Status DC Sodium Chloride (Normal Saline Flush) 10 ml 1X PRN PRN IV CERTIFIED LEGAL SECRETARY SPECIALIST catheter pack; Start 12/18/19 at 14:15; Stop 12/19/19 at 14:14; Status DC Info (PHARMACY MONITORING -- do not chart) 1 each PRN DAILY PRN MC SEE COMMENTS; Start 12/18/19 at 14:15; Status UNV Info (PHARMACY MONITORING -- do not chart) 1 each PRN DAILY PRN MC SEE COMMENTS; Start 12/18/19 at 14:15; Stop 12/20/19 at 16:03; Status DC Multivitamins (Thera M Plus) 1 tab DAILY PO Last administered on 12/25/19at 08:48; Start 12/19/19 at 09:00 Ascorbic Acid (Vitamin C) 500 mg DAILY PO Last administered on 12/25/19at 08:48; Start 12/19/19 at 09:00 Sodium Chloride 1,000 ml @ 1,000 mls/hr Q1H PRN IV hypotension; Start 12/20/19 at 08:11; Stop 12/20/19 at 14:10; Status DC Albumin Human 200 ml @ 200 mls/hr 1X PRN PRN IV Hypotension; Start 12/20/19 at 08:15; Stop 12/20/19 at 14:14; Status DC Acetaminophen (Tylenol) 500 mg 1X PRN PRN PO MILD PAIN / TEMP; Start 12/20/19 at 08:15; Stop 12/21/19 at 08:14; Status DC Diphenhydramine HCl (Benadryl) 25 mg 1X PRN PRN IV ITCHING; Start 12/20/19 at 08:15; Stop 12/21/19 at 08:14; Status DC Diphenhydramine HCl (Benadryl) 25 mg 1X PRN PRN IV ITCHING; Start 12/20/19 at 08:15; Stop 12/21/19 at 08:14; Status DC Sodium Chloride 1,000 ml @ 400 mls/hr Q2H30M PRN IV PATENCY; Start 12/20/19 at 08:11; Stop 12/20/19 at 20:10; Status DC Info (PHARMACY MONITORING -- do not chart) 1 each PRN DAILY PRN MC SEE COMMENTS; Start 12/20/19 at 08:15; Status Cancel Insulin Glargine (Lantus Syringe) 40 unit DAILY SQ Last administered on 12/25/19at 08:56; Start 12/21/19 at 09:00 Sodium Chloride 1,000 ml @ 1,000 mls/hr Q1H PRN IV hypotension; Start 12/21/19 at 07:40; Stop 12/21/19 at 13:39; Status DC Albumin Human 200 ml @ 200 mls/hr 1X PRN PRN IV Hypotension; Start 12/21/19 at 07:45; Stop 12/21/19 at 13:44; Status DC Acetaminophen (Tylenol) 500 mg 1X PRN PRN PO MILD PAIN / TEMP; Start 12/21/19 at 07:45; Stop 12/22/19 at 07:44; Status DC Diphenhydramine HCl (Benadryl) 25 mg 1X PRN PRN IV ITCHING; Start 12/21/19 at 07:45; Stop 12/22/19 at 07:44; Status DC Diphenhydramine HCl (Benadryl) 25 mg 1X PRN PRN IV ITCHING; Start 12/21/19 at 07:45; Stop 12/22/19 at 07:44; Status DC Sodium Chloride (Normal Saline Flush) 10 ml 1X PRN PRN IV AP catheter pack; Start 12/21/19 at 07:45; Stop 12/22/19 at 07:44; Status DC Sodium Chloride (Normal Saline Flush) 10 ml 1X PRN PRN IV CERTIFIED LEGAL SECRETARY SPECIALIST catheter pack; Start 12/21/19 at 07:45; Stop 12/22/19 at 07:44; Status DC Sodium Chloride 1,000 ml @ 400 mls/hr Q2H30M PRN IV PATENCY; Start 12/21/19 at 07:40; Stop 12/21/19 at 19:39; Status DC Info (PHARMACY MONITORING -- do not chart) 1 each PRN DAILY PRN MC SEE COMMENTS; Start 12/21/19 at 07:45; Status Cancel Sodium Chloride 1,000 ml @ 1,000 mls/hr Q1H PRN IV hypotension; Start 12/23/19 at 07:41; Stop 12/23/19 at 13:40; Status DC Albumin Human 200 ml @ 200 mls/hr 1X PRN PRN IV Hypotension; Start 12/23/19 at 07:45; Stop 12/23/19 at 13:44; Status DC Acetaminophen (Tylenol) 500 mg 1X PRN PRN PO MILD PAIN / TEMP; Start 12/23/19 at 07:45; Stop 12/24/19 at 07:44; Status DC Diphenhydramine HCl (Benadryl) 25 mg 1X PRN PRN IV ITCHING; Start 12/23/19 at 07:45; Stop 12/24/19 at 07:44; Status DC Diphenhydramine HCl (Benadryl) 25 mg 1X PRN PRN IV ITCHING; Start 12/23/19 at 07:45; Stop 12/24/19 at 07:44; Status DC Sodium Chloride 1,000 ml @ 400 mls/hr Q2H30M PRN IV PATENCY; Start 12/23/19 at 07:41; Stop 12/23/19 at 19:40; Status DC Info (PHARMACY MONITORING -- do not chart) 1 each PRN DAILY PRN MC SEE COMMENTS; Start 4/6/20 at 07:45 Amoxicillin/ Clavulanate Potassium (Augmentin 500/ 125mg) 1 tab BID PO Last administered on 12/24/19at 08:23; Start 12/23/19 at 09:00; Stop 12/24/19 at 15:31; Status DC Amoxicillin/ Clavulanate Potassium (Augmentin 500/ 125mg) 1 tab DAILY PO Last administered on 12/25/19at 08:48; Start 12/25/19 at 09:00; Stop 12/26/19 at 09:01 Albuterol Sulfate (Ventolin Neb Soln) 2.5 mg PRN Q4HRS PRN NEB WHEEZING; Start 12/24/19 at 19:30 Active Scripts Active Reported Metformin Hcl Er (Metformin Hcl) 1,000 Mg Tab.er.24 1,000 Mg PO BIDWMEALS Lisinopril-Hctz 20-12.5 Mg Tab (Lisinopril/Hydrochlorothiazide) 1 Each Tablet 1 Tab PO DAILY Glipizide Er (Glipizide) 10 Mg Tab.er.24 10 Mg PO BIDWMEALS Xalatan (Latanoprost) 2.5 Ml Drops 1 Drop OP HS Triamcinolone Acetonide 0.1% Cream (Triamcinolone Acetonide) 15 Gm Cream..g. 1 [place] TP BID Tramadol Hcl 50 Mg Tablet 50 Mg PO DAILY PRN Flonase Allergy Relief (Fluticasone Propionate) 9.9 Ml [place].susp 2 Sprays NS DAILY Novolin N (Nph, Human Insulin Isophane) 100 Unit/1 Ml Vial 40 Unit SQ DAILYWBKFT Carvedilol (Carvedilol) 6.25 Mg Tablet 6.25 Mg PO BIDWMEALS Simvastatin 40 Mg Tablet 1 Tab PO QHS Furosemide 20 Mg Tablet 1 Tab PO DAILY Vital Signs Vital Signs Date Time Temp Pulse Resp B/P (MAP) Pulse Ox O2 Delivery O2 Flow Rate FiO2 12/25/19 10:56 97.7 92 16 172/87 (115) 97 Nasal Cannula 5.0 97.7 Labs Laboratory Tests Test 12/23/19 16:33 12/23/19 20:48 12/24/19 07:35 12/24/19 11:33 Glucose (Fingerstick) 203 mg/dL (70-99) 352 mg/dL (70-99) 181 mg/dL (70-99) 256 mg/dL (70-99) Test 12/24/19 12:00 12/24/19 16:33 12/24/19 22:02 12/25/19 03:50 Coronavirus (COVID-19)(PCR) See separate report Glucose (Fingerstick) 258 mg/dL (70-99) 277 mg/dL (70-99) Sodium Level 139 mmol/L (136-145) Potassium Level 3.9 mmol/L (3.5-5.1) Chloride Level 102 mmol/L (98-107) Carbon Dioxide Level 32 mmol/L (21-32) Anion Gap 5 (6-14) Blood Urea Nitrogen 30 mg/dL (7-20) Creatinine 5.4 mg/dL (0.6-1.0) Estimated GFR (Cockcroft-Gault) 7.7 Glucose Level 165 mg/dL (70-99) Calcium Level 8.6 mg/dL (8.5-10.1) Test 12/25/19 07:56 12/25/19 11:28 Glucose (Fingerstick) 101 mg/dL (70-99) 147 mg/dL (70-99) Laboratory Tests Test 12/24/19 16:33 12/24/19 22:02 12/25/19 03:50 12/25/19 07:56 Glucose (Fingerstick) 258 mg/dL (70-99) 277 mg/dL (70-99) 101 mg/dL (70-99) Sodium Level 139 mmol/L (136-145) Potassium Level 3.9 mmol/L (3.5-5.1) Chloride Level 102 mmol/L (98-107) Carbon Dioxide Level 32 mmol/L (21-32) Anion Gap 5 (6-14) Blood Urea Nitrogen 30 mg/dL (7-20) Creatinine 5.4 mg/dL (0.6-1.0) Estimated GFR (Cockcroft-Gault) 7.7 Glucose Level 165 mg/dL (70-99) Calcium Level 8.6 mg/dL (8.5-10.1) Test 12/25/19 11:28 Glucose (Fingerstick) 147 mg/dL (70-99) Allergies Allergies Coded Allergies Type Severity Reaction Last Updated Verified No Known Drug Allergies 08/15/17 No Disposition/Orders: Other (D/C TO SNF) CHINO MORALES MD Dec 25, 2019 14:29
[2019-12-25] MEDS ORDERED: LACT1CAP19 PO (14:34)
[2019-12-25] MEDS ORDERED: AMOX1TAB10 PO (14:34)
[2019-12-25] MEDS ORDERED: ASCO500T2 PO (14:34)
[2019-12-25] MEDS ORDERED: ALBU2.5V8 NEB (14:34)
[2019-12-25] MEDS ORDERED: MULT1TAB90 PO (14:34)
[2019-12-25] MEDS ORDERED: ASPI-612 PO (14:34)
--- NOTE | 2019-12-25 14:35 | SNU/HH DC ---
DISCHARGE ORDERS DISCHARGE INFORMATION: FINAL DIAGNOSIS Problems Medical Problems: (1) Cellulitis Status: Acute (2) CHF (congestive heart failure) Status: Acute (3) Elevated troponin Status: Acute (4) Shortness of breath Status: Acute CONDITION ON DISCHARGE: Stable CODE STATUS: Code Status: Full [facility]: SNF STAY <30 DAYS: Yes HOSPICE: HOSPICE: No HOSPICE EVAL & TREAT: No LTAC: ADMIT TO LTAC: No POST DISCHARGE ORDERS: ACTIVITY ORDERS: Activity as tolerated WEIGHT BEARING STATUS: As tolerated BATHING ORDERS: Shower-keep dressing dry, No Tub Bath until see DIET AFTER DISCHARGE: ADA CHECKS AFTER DISCHARGE: CHECKS AFTER DISCHARGE: Check blood sugar, ac/hs TREATMENT/EQUIPMENT ORDERS: RESPIRATORY EQUIPMENT NEEDED: Oxygen Physical Therapy For: Evalulation/Treatment Occupational Therapy For: Evaluation/Treatment Speech Language Pathology For: Evaluation/Treatment DISCHARGE MEDICATIONS: Home Meds Active Scripts Multivits,Ca,Minerals/Iron/Fa (THERA-M TABLET) 1 Each Tablet, 1 TAB PO DAILY for SUPPLEMENT for 30 Days, #30 TAB Prov:CHINO MORALES MD 12/25/19 Ascorbic Acid (VITAMIN C) 500 Mg Tablet, 500 MG PO DAILY for SUPPLEMENT for 30 Days, #30 TAB Prov:CHINO MORALES MD 12/25/19 Lactobacillus Rhamnosus Gg (CULTURELLE) 1 Each Cap.sprink, 1 CAP PO BID for SUPPLEMENT for 30 Days, #60 CAP Prov:CHINO MORALES MD 12/25/19 Aspirin (ASPIRIN EC) 81 Mg Tablet.dr, 81 MG PO DAILYWBKFT for HEART HEALTH for 30 Days, #30 TAB.SR Prov:CHINO MORALES MD 12/25/19 Albuterol Sulfate (Proair Hfa) 8.5 Gm Hfa.aer.ad, 2.5 MG NEB PRN Q4HRS PRN for WHEEZING for 30 Days, #2 INHALER Prov:CHINO MORALES MD 12/25/19 Amoxicillin/Potassium Clav (AMOX TR-K CLV 500-125 MG TAB) 1 Each Tablet, 1 TAB PO DAILY for INFECTION for 3 Days, #3 TAB Prov:CHINO MORALES MD 12/25/19 Reported Medications Latanoprost (XALATAN) 2.5 Ml Drops, 1 DROP OP HS, BOTTLE 12/20/19 Fluticasone Propionate (Flonase Allergy Relief) 9.9 Ml [place].susp, 2 SPRAYS NS DAILY for allergies, BOTTLE 12/15/19 Nph, Human Insulin Isophane (NOVOLIN N) 100 Unit/1 Ml Vial, 40 UNIT SQ DAILYWBKFT for glucose, VIAL 08/16/17 Carvedilol (CARVEDILOL ) 6.25 Mg Tablet, 6.25 MG PO BIDWMEALS, TAB 08/16/17 Simvastatin (SIMVASTATIN) 40 Mg Tablet, 1 TAB PO QHS, #30 TAB 5 Refills 08/16/17 Furosemide (FUROSEMIDE) 20 Mg Tablet, 1 TAB PO DAILY, #90 TAB 1 Refill 08/16/17 Discontinued Reported Medications Metformin Hcl (METFORMIN HCL ER) 1,000 Mg Tab.er.24, 1000 MG PO BIDWMEALS for ANTI-DIABETIC, TAB 0 Refills 12/20/19 Lisinopril/Hydrochlorothiazide (LISINOPRIL-HCTZ 20-12.5 MG TAB) 1 Each Tablet, 1 TAB PO DAILY, #90 TAB 3 Refills 12/20/19 Glipizide (GLIPIZIDE ER) 10 Mg Tab.er.24, 10 MG PO BIDWMEALS, TAB.SR 12/20/19 Triamcinolone Acetonide (TRIAMCINOLONE ACETONIDE 0.1% CREAM) 15 Gm Cream..g., 1 LISBET TP BID for skin, TUBE 12/15/19 Tramadol Hcl (TRAMADOL HCL) 50 Mg Tablet, 50 MG PO DAILY PRN for PAIN, TAB 0 Refills 12/15/19 Metformin Hcl (METFORMIN HCL) 1,000 Mg Tablet, 1000 MG PO BIDWMEALS, TAB 08/16/17 Lisinopril (LISINOPRIL) 40 Mg Tablet, 1 TAB PO DAILY, #30 TAB 5 Refills 08/16/17 Escitalopram Oxalate (ESCITALOPRAM OXALATE) 10 Mg Tablet, 1 TAB PO DAILY, #30 TAB 3 Refills 08/16/17 Glipizide (GLIPIZIDE) 10 Mg Tablet, 10 MG PO BID, TAB 08/16/17 Discontinued Scripts Hydrocodone/Apap 5-325 (NORCO 5-325 TABLET) 1 Each Tablet, 1 TAB PO PRN Q6HRS PRN for PAIN, #8 TAB 0 Refills Prov:HAI TEJEDA MEMBER SERVICE REPRESENTATIVE 10/22/19 Oxycodone Hcl/Acetaminophen (OXYCODONE-ACETAMINOPHEN 5-325) 1 Each Tablet, 1 TAB PO PRN Q4HRS PRN for PAIN, #30 TAB Prov:TAYLOR BACA MD 08/19/17 CHINO MORALES MD Dec 25, 2019 14:35
[2019-12-25] MEDS ORDERED: IV NORMAL SALINE 1000ML BAG 1,000 ML IV PRN ×2 (14:58)
[2019-12-25] MEDS ORDERED: DIALYSIS PATIENT. MC PRN (15:00)
[2019-12-25] MEDS ORDERED: diphenhydrAMINE 50 MG/ML VIAL IV PRN ×2 (15:00)
--- NOTE | 2019-12-25 18:42 | NUR ---
Discharge Note: JHONY HOOPER Discharge instructions and discharge home medications reviewed with Other facility and a copy given. All questions have been answered and understanding verbalized. instructions and handouts were called to [facility]. Discontinued lines and drains: IV catheter removed intact. Patient discharged to [facility] via express.
== END 2019-12-25 18:30 | DRG 673 ==
LOC: ER 15:46 → 2 NORTH 17:29
PROVIDERS: ADMIT Family Medicine; ATTEND Family Medicine
PROC: 02H633Z Insertion of Infusion Device into Right Atrium, Percutaneous Approach (ICD-10-PCS; principal; 2019-12-16)
PROC: B5181ZA Fluoroscopy of Superior Vena Cava using Low Osmolar Contrast, Guidance (ICD-10-PCS; 2019-12-16)
PROC: B548ZZA Ultrasonography of Superior Vena Cava, Guidance (ICD-10-PCS; 2019-12-16)
PROC: 5A1D70Z Performance of Urinary Filtration, Intermittent, Less than 6 Hours Per Day (ICD-10-PCS; 2019-12-16)
PROC: 0JH63XZ Insertion of Tunneled Vascular Access Device into Chest Subcutaneous Tissue and Fascia, Percutaneous Approach (ICD-10-PCS; 2019-12-17)
PROC: 02PAX3Z Removal of Infusion Device from Heart, External Approach (ICD-10-PCS; 2019-12-17)
PROC: 02H633Z Insertion of Infusion Device into Right Atrium, Percutaneous Approach (ICD-10-PCS; 2019-12-17)
PROC: B5181ZA Fluoroscopy of Superior Vena Cava using Low Osmolar Contrast, Guidance (ICD-10-PCS; 2019-12-17)
PROC: 5A1D70Z Performance of Urinary Filtration, Intermittent, Less than 6 Hours Per Day (ICD-10-PCS; 2019-12-17)
PROC: 5A1D70Z Performance of Urinary Filtration, Intermittent, Less than 6 Hours Per Day (ICD-10-PCS; 2019-12-18)
PROC: 5A1D70Z Performance of Urinary Filtration, Intermittent, Less than 6 Hours Per Day (ICD-10-PCS; 2019-12-20)
PROC: 5A1D70Z Performance of Urinary Filtration, Intermittent, Less than 6 Hours Per Day (ICD-10-PCS; 2019-12-21)
PROC: 5A1D70Z Performance of Urinary Filtration, Intermittent, Less than 6 Hours Per Day (ICD-10-PCS; 2019-12-23)
PROC: 5A1D70Z Performance of Urinary Filtration, Intermittent, Less than 6 Hours Per Day (ICD-10-PCS; 2019-12-25)
DX: N17.0 Acute kidney failure with tubular necrosis (principal); I50.43 Acute on chronic combined systolic (congestive) and diastolic (congestive) heart failure; J96.20 Acute and chronic respiratory failure, unspecified whether with hypoxia or hypercapnia; E87.1 Hypo-osmolality and hyponatremia; I13.2 Hypertensive heart and chronic kidney disease with heart failure and with stage 5 chronic kidney disease, or end stage renal disease; Z68.41 Body mass index [BMI] 40.0-44.9, adult; L03.116 Cellulitis of left lower limb; L03.115 Cellulitis of right lower limb; J44.1 Chronic obstructive pulmonary disease with (acute) exacerbation; L97.829 Non-pressure chronic ulcer of other part of left lower leg with unspecified severity; L97.819 Non-pressure chronic ulcer of other part of right lower leg with unspecified severity; I95.9 Hypotension, unspecified; N18.6 End stage renal disease; D64.9 Anemia, unspecified; E11.22 Type 2 diabetes mellitus with diabetic chronic kidney disease; E11.51 Type 2 diabetes mellitus with diabetic peripheral angiopathy without gangrene; E61.1 Iron deficiency; E66.01 Morbid (severe) obesity due to excess calories; E78.5 Hyperlipidemia, unspecified; E87.5 Hyperkalemia; I87.2 Venous insufficiency (chronic) (peripheral); I87.8 Other specified disorders of veins; Z96.659 Presence of unspecified artificial knee joint; M19.90 Unspecified osteoarthritis, unspecified site; Z82.49 Family history of ischemic heart disease and other diseases of the circulatory system; Z87.891 Personal history of nicotine dependence; Z99.2 Dependence on renal dialysis; Z99.81 Dependence on supplemental oxygen; Z90.49 Acquired absence of other specified parts of digestive tract; Z79.899 Other long term (current) drug therapy; Z03.818 Encounter for observation for suspected exposure to other biological agents ruled out; Z87.81 Personal history of (healed) traumatic fracture
CPT/HCPCS: 36415; 36556; 36581; 71045; 73630; 76770; 76937; 77001; 80048; 80053; 80061; 80069; 81001; 82550; 82962; 83540; 83550; 83735; 83880; 84100; 84132; 84484; 85025; 85027; 85610; 85730; 86704; 86706; 87340; 93005; 93306; 94640; 94644; 94760; 96365; 96372; 96375; 99152; C1750; C1769; C1892; J0610; J0882; J1650; J1756; J1815; J1940; J2250; J2543; J3010; J3370; J3475; J3490; J7030; J7042; J7050; P9046; 97110; 97116; 97530; 97535; 99285-25; G0378; J7613

== ENCOUNTER → 2020-02-20 | Outpatient (CLI) | payer MEDICARE ==
[~2020-02-20] MED LIST changes: +ALBU2.5V8 NEB; +AMOX1TAB10 PO; +ASCO500T4 PO; +ASPI-612 PO; +FLUT9.9S NS; +GLIP10TA24 PO; +LACT1CAP19 PO; +LATA2.5D2 OP; +LISI1TAB19 PO; +METF100010 PO; +MULT1TAB90 PO; +TRAM50TA PO; +TRIA15CR3 TP
[2020-02-24 11:53] LABS: BASO # 0.1 x10^3/uL (0.0-0.2); BASO % 1 % (0-3); EOS # 0.3 x10^3/uL (0.0-0.7); EOS % 3 % (0-3); HEMOGLOBIN 11.6 g/dL (12.0-15.5); LYMPH # 1.2 x10^3/uL (1.0-4.8); LYMPH % 12 % (24-48); MEAN CORPUSCULAR HEMOGLOBIN 29 pg (25-35); MEAN CORPUSCULAR HGB CONC 32 g/dL (31-37); MEAN CORPUSCULAR VOLUME 89 fL (79-100); MONO # 0.6 x10^3/uL (0.0-1.1); MONO % 7 % (0-9); NEUT # 7.5 x10^3/uL (1.8-7.7); NEUT % 78 % (31-73); PLATELET COUNT 377 x10^3/uL (140-400); RED BLOOD COUNT 4.04 x10^6/uL (3.50-5.40); RED CELL DISTRIBUTION WIDTH 19.2 % (11.5-14.5); WHITE BLOOD COUNT 9.6 x10^3/uL (4.0-11.0)
[2020-02-24 12:34] LABS: ALBUMIN 2.7 g/dL (3.4-5.0); CALCIUM 9.1 mg/dL (8.5-10.1); CREATININE 1.3 mg/dL (0.6-1.0); GFR 39.7; PHOSPHORUS 3.9 mg/dL (2.6-4.7)
[2020-02-25 00:07] LABS: TOTAL SERUM CREATININE 1.14 mg/dL (0.57-1.00); TOTAL URINE CREATININE 44.6 mg/dL (Not Estab.)
== END | disposition home or self-care (01) ==
LOC: LAB 10:13
PROVIDERS: ATTEND Internal Medicine Nephrology
DX: N17.9 Acute kidney failure, unspecified (principal); E61.1 Iron deficiency
CPT/HCPCS: 36415; 80069; 82575; 82728; 83540; 83550; 85025

== ENCOUNTER → 2020-06-16 | Outpatient (CLI) | payer MEDICARE ==
[~2020-06-16] MED LIST changes: -ASPI-612 PO; +ASPI-886 PO; -LISI1TAB19 PO; +LISI1TAB37 PO
[2020-06-16 10:31] LABS: BASO % 1 % (0-3); EOS # 0.1 x10^3/uL (0.0-0.7); EOS % 2 % (0-3); HEMATOCRIT 39.1 % (36.0-47.0); HEMOGLOBIN 13.1 g/dL (12.0-15.5); LYMPH # 1.2 x10^3/uL (1.0-4.8); LYMPH % 23 % (24-48); MEAN CORPUSCULAR HEMOGLOBIN 31 pg (25-35); MEAN CORPUSCULAR HGB CONC 34 g/dL (31-37); MEAN CORPUSCULAR VOLUME 91 fL (79-100); MONO # 0.4 x10^3/uL (0.0-1.1); MONO % 8 % (0-9); NEUT # 3.7 x10^3/uL (1.8-7.7); NEUT % 67 % (31-73); PLATELET COUNT 216 x10^3/uL (140-400); RED BLOOD COUNT 4.29 x10^6/uL (3.50-5.40); RED CELL DISTRIBUTION WIDTH 13.8 % (11.5-14.5); WHITE BLOOD COUNT 5.5 x10^3/uL (4.0-11.0)
[2020-06-16 10:55] LABS: CREATININE,RANDOM URINE 14.6 mg/dL (Not Establ.)
[2020-06-16 11:03] LABS: ALBUMIN 3.1 g/dL (3.4-5.0); CALCIUM 9.5 mg/dL (8.5-10.1); CREATININE 1.7 mg/dL (0.6-1.0); GFR 29.1; PHOSPHORUS 3.7 mg/dL (2.6-4.7); POTASSIUM 4.2 mmol/L (3.5-5.1); URIC ACID 6.1 mg/dL (2.6-6.0)
[2020-06-16 21:07] LABS: MICROALB RD UR 48.6 ug/mL (Not Estab.)
[2020-06-17 00:08] LABS: CALCIUM PTH 9.7 mg/dL (8.7-10.3); CREATININE PTH 1.48 mg/dL (0.57-1.00); PHOSPHORUS PTH 3.6 mg/dL (3.0-4.3); PTH INTACT 38 pg/mL (15-65)
== END | disposition home or self-care (01) ==
LOC: LAB 09:57
PROVIDERS: ATTEND Nurse Practitioner Adult Health
DX: N17.9 Acute kidney failure, unspecified (principal)
CPT/HCPCS: 80069; 82043; 82570; 82728; 83540; 83550; 83970; 84156; 84550; 85025

== ENCOUNTER 2020-09-28 21:58 | Emergency (ER) | payer MEDICARE ==
[~2020-09-28] VITALS: Ht 157.5 cm; Wt 113.9 kg
[2020-09-28] MEDS ORDERED: MORPHINE SULFATE 4 MG/ML VIAL. IV/SQ PRN (22:30)
[2020-09-28 22:59] LABS: BILIRUBIN,URINE NEGATIVE (NEG); CLARITY,URINE CLEAR; COLOR,URINE YELLOW; NITRITE,URINE NEGATIVE (NEG); PH,URINE 5.5 (<5.0-8.0); PROTEIN,URINE 100 mg/dL (NEG-TRACE); UROBILINOGEN,URINE 0.2 mg/dL (0.2 mg/dL)
[2020-09-28 23:00] LABS: BASO # 0.1 x10^3/uL (0.0-0.2); BASO % 1 % (0-3); EOS # 0.1 x10^3/uL (0.0-0.7); EOS % 1 % (0-3); HEMATOCRIT 38.8 % (36.0-47.0); HEMOGLOBIN 12.9 g/dL (12.0-15.5); LYMPH % 17 % (24-48); MEAN CORPUSCULAR HEMOGLOBIN 31 pg (25-35); MEAN CORPUSCULAR HGB CONC 33 g/dL (31-37); MEAN CORPUSCULAR VOLUME 94 fL (79-100); MONO # 0.6 x10^3/uL (0.0-1.1); MONO % 9 % (0-9); NEUT # 4.4 x10^3/uL (1.8-7.7); NEUT % 72 % (31-73); PLATELET COUNT 229 x10^3/uL (140-400); RED BLOOD COUNT 4.12 x10^6/uL (3.50-5.40); RED CELL DISTRIBUTION WIDTH 14.2 % (11.5-14.5); WHITE BLOOD COUNT 6.1 x10^3/uL (4.0-11.0)
--- NOTE | 2020-09-28 23:10 | PHYS DOC ---
Past Medical History Past Medical History: Arthritis, COPD, Diabetes-Type II, Hypertension Additional Past Medical Histor: HOME O2,CHRONIC KIDNEY DISEASE Past Surgical History: Cholecystectomy, Knee Replacement, Tonsillectomy Additional Past Surgical Histo: BREAST CYSTS, CARPAL TUNNEL Smoking Status: Former Smoker Alcohol Use: None Drug Use: None General Adult EDM: Chief Complaint: MECHANICAL FALL HPI: HPI: Patient is a 79 year old female with history of COPD, hypertension, high cholesterol, diabetes type 2, chronic redness to bilateral lower extremities/cellulitis, who presents to the ED today complaining of 8 out of 10 bilateral knee pain that began today after she fell. Patient denies any loss of consciousness. Denies hitting her head on the ground. She is also complaining of chills that began today. She states her pain to bilateral knees is worse on weightbearing. Denies anything relieving her pain. Review of Systems: Review of Systems: Constitutional: Reports chills. Denies fever Eyes: Denies change in visual acuity. [] HENT: Denies nasal congestion or sore throat. [] Respiratory: Denies cough or shortness of breath. [] Cardiovascular: Denies chest pain or edema. [] GI: Denies abdominal pain, nausea, vomiting, bloody stools or diarrhea. [] : Denies dysuria. [] Musculoskeletal: Bilateral knee pain. Denies back pain or joint pain. [] Integument: Denies rash. [] Neurologic: Denies headache, focal weakness or sensory changes. [] Psychiatric: Denies depression or anxiety. [] Heart Score: Risk Factors: Risk Factors: DM, Current or recent (<one month) smoker, HTN, HLP, family history of CAD, obesity. Risk Scores: Score 0 - 3: 2.5% MACE over next 6 weeks - Discharge Home Score 4 - 6: 20.3% MACE over next 6 weeks - Admit for Clinical Observation Score 7 - 10: 72.7% MACE over next 6 weeks - Early Invasive Strategies Current Medications: Current Medications Medications (Trade) Dose Ordered Sig/Yulisa Start Time Stop Time Status Last Admin Dose Admin Morphine Sulfate (Morphine Sulfate) 4 mg PRN Q15MIN PRN 09/28/20 22:30 09/29/20 22:29 Allergies: Allergies: Allergies Coded Allergies Type Severity Reaction Last Updated Verified No Known Drug Allergies 11/28/17 No Physical Exam: PE: Constitutional: Well developed, well nourished, no acute distress, non-toxic appearance. [] HENT: Normocephalic, atraumatic, bilateral external ears normal, oropharynx moist, no oral exudates, nose normal. [] Eyes: PERRLA, EOMI, conjunctiva normal, no discharge. [] Neck: Normal range of motion, no tenderness, supple, no stridor. [] Cardiovascular:Heart rate regular rhythm, no murmur [] Lungs & Thorax: Bilateral breath sounds clear to auscultation [] Abdomen: Bowel sounds normal, soft, no tenderness, no masses, no pulsatile masses. [] Skin: Warm, dry, no erythema, no rash. [] Back: No tenderness, no CVA tenderness. [] Extremities: Obese patient. Bilateral lower extremities with chronic redness along the way, no warmth over this regions, this appears to be old venous stasis with cellulitis. Negative Homans' sign bilaterally. No tenderness, no cyanosis, no clubbing, ROM intact, chronic trace edema to bilateral lower extremities. Range of motion limited to bilateral knees due to weight. +2 bilateral pedal pulses. Neurologic: Alert and oriented X 3, normal motor function, normal sensory function, no focal deficits noted. [] Psychologic: Affect normal, judgement normal, mood normal. [] Current Patient Data: Vital Signs: Vital Signs Date Time Temp Pulse Resp B/P (MAP) Pulse Ox O2 Delivery O2 Flow Rate FiO2 09/28/20 22:18 97.3 82 20 179/80 (113) 93 Room Air 97.3 EKG: EKG: [] Radiology/Procedures: Radiology/Procedures: []PROCEDURE: KNEE BILAT 4V XR KNEE 4 VIEWS WITH PATELLA History: Reason: bilat knee pain after fall / Spl. Instructions: / History: Technique: 4 views bilateral knees. Comparison: October 22, 2019 Findings: Right knee: Right total knee arthroplasty. Normal alignment. No fracture. No significant knee joint effusion. Anterior knee soft tissue swelling. Left knee: Genu varus alignment. Moderate tricompartment knee DJD most prominent within the medial and patellofemoral compartments. No fracture. Anterior knee soft tissue swelling. Impression: 1. No acute osseous abnormality. 2. Moderate tricompartment left knee DJD. 3. Right total knee arthroplasty. Electronically signed by: Te Felder DO (09/28/2020 11:41 PM) PAM-[facility]EGAN DICTATED and SIGNED BY: TE FELDER DO DATE: 09/28/20 [id number] PROCEDURE: PORTABLE CHEST 1V XR CHEST 1V History: Reason: fever / Spl. Instructions: / History: Comparison: December 21, 2019 Findings: Small left pleural effusion with adjacent opacity. Unchanged heart size.. No pneumothorax. Right shoulder arthroplasty. Impression: 1. Small left pleural effusion. Electronically signed by: Te Felder DO (09/28/2020 11:28 PM) PAMDREW DICTATED and SIGNED BY: TE FELDER DO DATE: 09/28/[id number] 0 Course & Med Decision Making: Course & Med Decision Making Pertinent Labs and Imaging studies reviewed. (See chart for details) This is a 79-year-old female patient presenting to the ED today with bilateral knee pain that began today after she fell. Also complaining of chills. Bilateral knee x-rays are negative for any acute findings, EKG, CBC with no acute acute findings. CMP with creatinine of 1.5, BUN is normal. Glucose 395, with normal anion gap patient has history of chronic kidney disease as well as diabetes type 2 which appears to be uncontrolled from multiple visits in the ED. She was discharged to home. Instructed to follow-up with her PCP next week as well as orthopedic doctor. Zenaida Disclaimer: Zenaida Disclaimer: This electronic medical record was generated, in whole or in part, using a voice recognition dictation system. Departure Departure Impression: Primary Impression: Acute on chronic renal failure Qualified Codes: N17.9 - Acute kidney failure, unspecified; N18.9 - Chronic kidney disease, unspecified Additional Impressions: Bilateral knee pain Qualified Codes: M25.561 - Pain in right knee; M25.562 - Pain in left knee Fall from standing Qualified Codes: W19.XXXA - Unspecified fall, initial encounter Chills Person under investigation for COVID-19 Disposition: 01 DC HOME SELF CARE/HOMELESS Condition: STABLE Referrals: PAIGE HOPE DO (PCP) follow up next week IKER PARK MD follow up next week Patient Instructions: Fall Prevention and Home Safety, Knee Pain, [id number] Additional Instructions: You were evaluated in the emergency room, your knee x-rays are negative for any acute findings. Please follow-up with orthopedic doctor provided. You can also follow-up with your orthopedic doctor if you have one. Your glucose levels are high. Ensure you are using your diabetes medicine. LEONORA HERRERA APRN Sep 28, 2020 23:09
[2020-09-28 23:13] LABS: CALCIUM 9.4 mg/dL (8.5-10.1); CREATININE 1.5 mg/dL (0.6-1.0); GFR 33.7; POTASSIUM 4.5 mmol/L (3.5-5.1)
[2020-09-28 23:18] LABS: BACTERIA,URINE FEW /HPF (0-FEW); RBC,URINE RARE /HPF (0-2)
[2020-09-28 23:19] LABS: ALBUMIN 3.1 g/dL (3.4-5.0); ALBUMIN/GLOBULIN RATIO 0.8 (1.0-1.7); MAGNESIUM 1.7 mg/dL (1.8-2.4); TOTAL BILIRUBIN 0.3 mg/dL (0.2-1.0); TOTAL PROTEIN 6.9 g/dL (6.4-8.2)
--- NOTE | 2020-09-28 23:31 | RAD ---
XR CHEST 1V History: Reason: fever / Spl. Instructions: / History: Comparison: December 21, 2019 Findings: Small left pleural effusion with adjacent opacity. Unchanged heart size.. No pneumothorax. Right shou lder arthroplasty. Impression: 1. Small left pleural effusion. Electronically signed by: Te Felder DO (09/28/2020 11:28 PM) [facility]
--- NOTE | 2020-09-28 23:43 | RAD ---
XR KNEE 4 VIEWS WITH PATELLA History: Reason: bilat knee pain after fall / Spl. Instructions: / History: Technique: 4 views bilateral knees. Comparison: October 22, 2019 Findings: Right knee: Right total knee arthroplasty. Normal alignment. No fracture. No significant knee joint e ffusion. Anterior knee soft tissue swelling. Left knee: Genu varus alignment. Moderate tricompartment knee DJD most prominent within the medial an d patellofemoral compartments. No fracture. Anterior knee soft tissue swelling. Impression: 1. No acute osseous abnormality. 2. Moderate tricompartment left knee DJD. 3. Right total knee arthroplasty. Electronically signed by: Te Felder DO (09/28/2020 11:41 PM) [facility]
[2020-09-28] MEDS ORDERED: MORPHINE SULFATE 10 MG/ML VIAL. IV ONE (23:45)
[2020-09-29] VITALS: BP 185/79
--- NOTE | 2020-09-29 10:40 | EKG ---
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
--- NOTE | 2020-10-01 16:15 | NUR ---
IP: Informed pt of negative COVID test. Pt verbalized understanding.
== END 2020-09-29 00:50 | disposition home or self-care (01) ==
LOC: ER 21:58
DX: M25.561 Pain in right knee (principal); M25.562 Pain in left knee; E11.22 Type 2 diabetes mellitus with diabetic chronic kidney disease; I12.9 Hypertensive chronic kidney disease with stage 1 through stage 4 chronic kidney disease, or unspecified chronic kidney disease; N18.9 Chronic kidney disease, unspecified; N17.9 Acute kidney failure, unspecified; G89.11 Acute pain due to trauma; Z20.828 Contact with and (suspected) exposure to other viral communicable diseases; M17.12 Unilateral primary osteoarthritis, left knee; J44.9 Chronic obstructive pulmonary disease, unspecified; Z87.891 Personal history of nicotine dependence; Z96.651 Presence of right artificial knee joint; Z90.49 Acquired absence of other specified parts of digestive tract; W18.39XA Other fall on same level, initial encounter; Y93.89 Activity, other specified; Y92.89 Other specified places as the place of occurrence of the external cause; Y99.8 Other external cause status
CPT/HCPCS: 36415; 71045; 73564; 80053; 81001; 83605; 83735; 83880; 84145; 84484; 85025; 93005; 96374; 99285; C9803; J2270; U0003

== ENCOUNTER → 2020-12-15 | Outpatient (CLI) | payer MEDICARE ==
[~2020-12-15] MED LIST changes: -MULT1TAB90 PO; +MULT1TAB92 PO
[2020-12-15 11:35] LABS: BASO # 0.1 x10^3/uL (0.0-0.2); BASO % 1 % (0-3); EOS # 0.1 x10^3/uL (0.0-0.7); EOS % 2 % (0-3); HEMATOCRIT 39.4 % (36.0-47.0); HEMOGLOBIN 12.9 g/dL (12.0-15.5); LYMPH # 1.3 x10^3/uL (1.0-4.8); LYMPH % 18 % (24-48); MEAN CORPUSCULAR HEMOGLOBIN 31 pg (25-35); MEAN CORPUSCULAR HGB CONC 33 g/dL (31-37); MEAN CORPUSCULAR VOLUME 93 fL (79-100); MONO # 0.6 x10^3/uL (0.0-1.1); MONO % 8 % (0-9); NEUT # 5.1 x10^3/uL (1.8-7.7); NEUT % 71 % (31-73); PLATELET COUNT 204 x10^3/uL (140-400); RED BLOOD COUNT 4.24 x10^6/uL (3.50-5.40); WHITE BLOOD COUNT 7.2 x10^3/uL (4.0-11.0)
[2020-12-15 11:57] LABS: ALBUMIN 2.8 g/dL (3.4-5.0); CALCIUM 8.9 mg/dL (8.5-10.1); CREATININE 1.2 mg/dL (0.6-1.0); GFR 43.4; PHOSPHORUS 3.8 mg/dL (2.6-4.7); POTASSIUM 4.7 mmol/L (3.5-5.1)
[2020-12-16 10:16] LABS: CALCIUM PTH 9.4 mg/dL (8.7-10.3); CREATININE PTH 1.13 mg/dL (0.57-1.00); PHOSPHORUS PTH 3.6 mg/dL (3.0-4.3); PTH INTACT 56 pg/mL (15-65)
== END ==
LOC: LAB 11:10
PROVIDERS: ATTEND Nurse Practitioner Adult Health
DX: I12.9 Hypertensive chronic kidney disease with stage 1 through stage 4 chronic kidney disease, or unspecified chronic kidney disease (principal); E11.9 Type 2 diabetes mellitus without complications; N18.31 Chronic kidney disease, stage 3a; R80.9 Proteinuria, unspecified; Z68.41 Body mass index [BMI] 40.0-44.9, adult
CPT/HCPCS: 36415; 80069; 83970; 85025

== ENCOUNTER 2021-04-28 16:21 | Inpatient (IN) | payer MEDICARE ==
[~2021-04-28] VITALS: Ht 157.5 cm; Wt 131.5 kg
[2021-04-28 16:53] LABS: BASO # 0.1 x10^3/uL (0.0-0.2); BASO % 1 % (0-3); EOS # 0.1 x10^3/uL (0.0-0.7); EOS % 2 % (0-3); HEMATOCRIT 36.7 % (36.0-47.0); HEMOGLOBIN 11.6 g/dL (12.0-15.5); LYMPH # 0.7 x10^3/uL (1.0-4.8); LYMPH % 9 % (24-48); MEAN CORPUSCULAR HEMOGLOBIN 30 pg (25-35); MEAN CORPUSCULAR HGB CONC 32 g/dL (31-37); MEAN CORPUSCULAR VOLUME 94 fL (79-100); MONO # 0.6 x10^3/uL (0.0-1.1); MONO % 8 % (0-9); NEUT # 6.1 x10^3/uL (1.8-7.7); NEUT % 81 % (31-73); PLATELET COUNT 252 x10^3/uL (140-400); RED BLOOD COUNT 3.93 x10^6/uL (3.50-5.40); RED CELL DISTRIBUTION WIDTH 14.8 % (11.5-14.5); WHITE BLOOD COUNT 7.5 x10^3/uL (4.0-11.0)
[2021-04-28 17:09] LABS: BILIRUBIN,URINE NEGATIVE (NEG); CLARITY,URINE CLEAR; COLOR,URINE YELLOW; NITRITE,URINE NEGATIVE (NEG); PROTEIN,URINE >=300 mg/dL (NEG-TRACE); UROBILINOGEN,URINE 0.2 mg/dL (0.2 mg/dL)
[2021-04-28 17:32] LABS: CALCIUM 8.2 mg/dL (8.5-10.1); CREATININE 1.8 mg/dL (0.6-1.0); GFR 27.2; POTASSIUM 3.6 mmol/L (3.5-5.1)
[2021-04-28 17:38] LABS: BACTERIA,URINE 0 /HPF (0-FEW); RBC,URINE RARE /HPF (0-2); WBC,URINE 0 /HPF (0-4)
[2021-04-28 17:38] LABS: ALBUMIN 2.2 g/dL (3.4-5.0); ALBUMIN/GLOBULIN RATIO 0.5 (1.0-1.7); TOTAL BILIRUBIN 0.2 mg/dL (0.2-1.0); TOTAL PROTEIN 6.8 g/dL (6.4-8.2)
--- NOTE | 2021-04-28 17:47 | RAD ---
CT HEAD AND C-SPINE WO History: Fall, pain. Comparison: None. Technique: Noncontrast CT of the head and cervical spine. Findings: CT HEAD: There is no evidence for intracranial mass or hemorrhage. There is no hydrocephalus or midline shift. No abnormal extra-axial fluid collections are present. No evidence of large territorial infarct. Hypodensity in the left thalamus may represent sequela of l acunar infarct. Postsurgical changes of the right lens. The visualized paranasal sinuses and mastoid air cells are clear. The skull and scalp are within normal limits. CT CERVICAL SPINE: There is no evidence for fracture in the cervical spine. Severe degenerative changes of the cervical spine with straightening of the normal cervical lordosis. Multilevel advanced disc space narrowing and uncovertebral hypertrophy. Multilevel neural foraminal stenosis. Prominent posterior osteophytes at C5-C6 superimposed on congenitally slender canal severel y narrow the anterior posterior canal diameter to approximately 5 mm. No destructive osseous lesions are seen. Mild emphysematous changes in the lung apices. Bilateral carotid bulb calcifications. Impression: 1. No acute intracranial findings. Left thalamic/basal ganglia hypodensity likely sequela of lacunar infarct. 2. No acute fracture in the cervical spine. 3. Advanced multilevel degenerative changes and congenitally slender canal. Severe spinal canal sten osis at C5-C6 with AP diameter of approximately 5 mm. ------- Exposure: One or more of the following individualized dose reduction techniques were utilized for thi s examination: 1. Automated exposure control 2. Adjustment of the mA and/or kV according to patient size 3. Use of iterative reconstruction technique. Electronically signed by: Vikas Carballo MD (04/28/2021 5:44 PM) [facility]
--- NOTE | 2021-04-28 17:51 | RAD ---
PQRS Compliance Statement: One or more of the following individualized dose reduction techniques were utilized for this examinat ion: 1. Automated exposure control 2. Adjustment of the mA and/or kV according to patient size 3. Use of iterative reconstruction technique CT THORACIC SPINE WO, CT LUMBAR SPINE WO Clinical Indication: Reason: fall pain / Spl. Instructions: / History: Comparison: None. TECHNIQUE: Helical CT imaging of the thoracic and the lumbar spine is performed without IV contrast. Findings: No acute fracture of the thoracic spine is identified. The alignment is maintained. The vertebral bod y heights are maintained. There is moderate multilevel degenerative endplate spurring. No high-grade central canal stenosis is identified. The neural foramina are patent with the exception of severe richa rowing on the left at T11/T12. Atherosclerotic aortic arch. There are several subcentimeter mediastinal lymph nodes. Pulmonary arter ies are upper limits of normal in size. Coronary artery disease. There is cardiomegaly. There is mild centrilobular emphysema. Mild scarring or atelectasis in the lung bases. Numerous calcified granulom as in the spleen. Cannot exclude a left renal mass, incompletely imaged. No acute fracture of the lumbar spine is identified. The vertebral body height and alignment are main tained. There is vacuum disc phenomenon of L3-S1. Transverse processes are intact. L3/L4: There is posterior disc osteophyte complex and facet hypertrophy and ligamentum flavum redunda ncy. Central canal stenosis is probably mild to moderate. There is mild bilateral neural foraminal na rrowing. L4/L5: There is posterior disc osteophyte complex and facet hypertrophy and ligamentum flavum redunda ncy. Central canal stenosis is probably mild to moderate. The neural foramina appear adequate. Atherosclerotic abdominal aorta and iliac arteries, no aneurysm. IMPRESSION: 1. There is no acute fracture of the thoracic or lumbar spine. 2. Mild degenerative spondylosis. 3. Cannot exclude a left upper pole renal mass, but kidneys are incompletely imaged. [facility]. Electronically signed by: David Bailey MD (04/28/2021 5:49 PM) [facility]
--- NOTE | 2021-04-28 17:51 | RAD ---
PQRS Compliance Statement: One or more of the following individualized dose reduction techniques were utilized for this examinat ion: 1. Automated exposure control 2. Adjustment of the mA and/or kV according to patient size 3. Use of iterative reconstruction technique CT THORACIC SPINE WO, CT LUMBAR SPINE WO Clinical Indication: Reason: fall pain / Spl. Instructions: / History: Comparison: None. TECHNIQUE: Helical CT imaging of the thoracic and the lumbar spine is performed without IV contrast. Findings: No acute fracture of the thoracic spine is identified. The alignment is maintained. The vertebral bod y heights are maintained. There is moderate multilevel degenerative endplate spurring. No high-grade central canal stenosis is identified. The neural foramina are patent with the exception of severe richa rowing on the left at T11/T12. Atherosclerotic aortic arch. There are several subcentimeter mediastinal lymph nodes. Pulmonary arter ies are upper limits of normal in size. Coronary artery disease. There is cardiomegaly. There is mild centrilobular emphysema. Mild scarring or atelectasis in the lung bases. Numerous calcified granulom as in the spleen. Cannot exclude a left renal mass, incompletely imaged. No acute fracture of the lumbar spine is identified. The vertebral body height and alignment are main tained. There is vacuum disc phenomenon of L3-S1. Transverse processes are intact. L3/L4: There is posterior disc osteophyte complex and facet hypertrophy and ligamentum flavum redunda ncy. Central canal stenosis is probably mild to moderate. There is mild bilateral neural foraminal na rrowing. L4/L5: There is posterior disc osteophyte complex and facet hypertrophy and ligamentum flavum redunda ncy. Central canal stenosis is probably mild to moderate. The neural foramina appear adequate. Atherosclerotic abdominal aorta and iliac arteries, no aneurysm. IMPRESSION: 1. There is no acute fracture of the thoracic or lumbar spine. 2. Mild degenerative spondylosis. 3. Cannot exclude a left upper pole renal mass, but kidneys are incompletely imaged. Suggest [facility]. Electronically signed by: David Bailey MD (04/28/2021 5:49 PM) [facility]
--- NOTE | 2021-04-28 20:27 | PHYS DOC ---
Past Medical History Past Medical History: Arthritis, COPD, Diabetes-Type II, Hypertension, Renal Disease Additional Past Medical Histor: HOME O2,CHRONIC KIDNEY DISEASE Past Surgical History: Cholecystectomy, Knee Replacement, Tonsillectomy Additional Past Surgical Histo: BREAST CYSTS, CARPAL TUNNEL Smoking Status: Former Smoker Alcohol Use: None Drug Use: None General Adult EDM: Chief Complaint: MECHANICAL FALL HPI: HPI: Patient is a 80 year old female with history of diabetes type 2, hypertension, COPD on oxygen, chronic kidney disease, she states she used to be on dialysis but was taken off a year ago. Patient presents today complaining of falling. She states she was trying to get into her shower, she tripped and fell. Denies any loss of consciousness but reports hitting her head on the ground. Complaining of mild posterior neck pain. She is also complaining of swelling to bilateral lower extremities. Patient states she is afraid her kidney function is bad and she may have to go back on dialysis. Patient states her pain to the neck is worse on touching the back of her neck. States immobilization is relieving the pain. Review of Systems: Review of Systems: Constitutional: Denies fever or chills. [] Eyes: Denies change in visual acuity. [] HENT: Denies nasal congestion or sore throat. [] Respiratory: Denies cough or shortness of breath. [] Cardiovascular: Denies chest pain or edema. [] GI: Denies abdominal pain, nausea, vomiting, bloody stools or diarrhea. [] : Denies dysuria. [] Musculoskeletal: Reports posterior neck pain denies back pain Integument: Reports bilateral lower extremity swelling Neurologic: Denies headache, focal weakness or sensory changes. [] Psychiatric: Denies depression or anxiety. [] Heart Score: C/O Chest Pain: N/A Risk Factors: Risk Factors: DM, Current or recent (<one month) smoker, HTN, HLP, family history of CAD, obesity. Risk Scores: Score 0 - 3: 2.5% MACE over next 6 weeks - Discharge Home Score 4 - 6: 20.3% MACE over next 6 weeks - Admit for Clinical Observation Score 7 - 10: 72.7% MACE over next 6 weeks - Early Invasive Strategies Allergies: Allergies: Allergies Coded Allergies Type Severity Reaction Last Updated Verified shellfish derived Adverse Reaction Intermediate Nausea 04/28/21 Yes Physical Exam: PE: Constitutional: Well developed, well nourished, no acute distress, non-toxic aileen earance. [] HENT: Normocephalic,bilateral external ears normal, oropharynx moist, no oral exudates, nose normal. [] Eyes: PERRLA, EOMI, conjunctiva normal, no discharge. [] Neck: Normal range of motion, diffuse paraspinal muscle tenderness to posterior cervical spine, no midline cervical spine tenderness, supple, no stridor. [] Cardiovascular:Heart rate regular rhythm Lungs & Thorax: Diminished breath sounds Abdomen: Bowel sounds normal, soft, no tenderness, no masses, no pulsatile masses. [] Skin: Bilateral lower extremities with +3 edema, cellulitis on the way the patient states is chronic, right lower extremity way is weeping clear fluid. +1 bilateral pedal pulses. Range of motion is intact bilateral lower extremities. Back: No tenderness, no CVA tenderness. [] Extremities: No tenderness, no cyanosis, no clubbing, ROM intact, no edema. [] Neurologic: Alert and oriented X 3, normal motor function, normal sensory function, no focal deficits noted. Cranial nerves II through XII intact Psychologic: Affect normal, judgement normal, mood normal. [] Current Patient Data: Labs: Laboratory Tests Test 04/28/21 16:45 04/28/21 16:53 04/28/21 17:03 White Blood Count 7.5 x10^3/uL (4.0-11.0) Red Blood Count 3.93 x10^6/uL (3.50-5.40) Hemoglobin 11.6 g/dL (12.0-15.5) L Hematocrit 36.7 % (36.0-47.0) Mean Corpuscular Volume 94 fL (79-100) Mean Corpuscular Hemoglobin 30 pg (25-35) Mean Corpuscular Hemoglobin Concent 32 g/dL (31-37) Red Cell Distribution Width 14.8 % (11.5-14.5) H Platelet Count 252 x10^3/uL (140-400) Neutrophils (%) (Auto) 81 % (31-73) H Lymphocytes (%) (Auto) 9 % (24-48) L Monocytes (%) (Auto) 8 % (0-9) Eosinophils (%) (Auto) 2 % (0-3) Basophils (%) (Auto) 1 % (0-3) Neutrophils # (Auto) 6.1 x10^3/uL (1.8-7.7) Lymphocytes # (Auto) 0.7 x10^3/uL (1.0-4.8) L Monocytes # (Auto) 0.6 x10^3/uL (0.0-1.1) Eosinophils # (Auto) 0.1 x10^3/uL (0.0-0.7) Basophils # (Auto) 0.1 x10^3/uL (0.0-0.2) Urine Collection Type U cath Urine Color Yellow Urine Clarity Clear Urine pH 6.0 (<5.0-8.0) Urine Specific [place] 1.020 (1.000-1.030) Urine Protein >=300 mg/dL (NEG-TRACE) Urine Glucose (UA) >=1000 mg/dL (NEG) Urine Ketones (Stick) Negative mg/dL (NEG) Urine Blood Small (NEG) Urine Nitrite Negative (NEG) Urine Bilirubin Negative (NEG) Urine Urobilinogen Dipstick 0.2 mg/dL (0.2 mg/dL) Urine Leukocyte Esterase Negative (NEG) Urine RBC Rare /HPF (0-2) Urine WBC 0 /HPF (0-4) Urine Squamous Epithelial Cells Many /LPF Urine Bacteria 0 /HPF (0-FEW) Sodium Level 141 mmol/L (136-145) Potassium Level 3.6 mmol/L (3.5-5.1) Chloride Level 101 mmol/L (98-107) Carbon Dioxide Level 35 mmol/L (21-32) H Anion Gap 5 (6-14) L Blood Urea Nitrogen 36 mg/dL (7-20) H Creatinine 1.8 mg/dL (0.6-1.0) H Estimated GFR (Cockcroft-Gault) 27.2 BUN/Creatinine Ratio 20 (6-20) Glucose Level 321 mg/dL (70-99) H Calcium Level 8.2 mg/dL (8.5-10.1) L Total Bilirubin 0.2 mg/dL (0.2-1.0) Aspartate Amino Transferase (AST) 21 U/L (15-37) Alanine Aminotransferase (ALT) 26 U/L (14-59) Alkaline Phosphatase 155 U/L (46-116) H IG-Qtn-W-Type Natriuretic Peptide 4639 pg/mL (0-449) H Total Protein 6.8 g/dL (6.4-8.2) Albumin 2.2 g/dL (3.4-5.0) L Albumin/Globulin Ratio 0.5 (1.0-1.7) L Laboratory Tests 04/28/21 16:45 Laboratory Tests 04/28/21 17:03 Vital Signs: Vital Signs Date Time Temp Pulse Resp B/P (MAP) Pulse Ox O2 Delivery O2 Flow Rate FiO2 04/28/21 19:26 82 148/67 (94) 97 Nasal Cannula 2.0 04/28/21 16:35 97.7 20 97.7 EKG: EKG: [] Radiology/Procedures: Radiology/Procedures: []PROCEDURE: CT THORACIC SPINE WO CONTRAST PQRS Compliance Statement: One or more of the following individualized dose reduction techniques were utilized for this examination: 1. Automated exposure control 2. Adjustment of the mA and/or kV according to patient size 3. Use of iterative reconstruction technique CT THORACIC SPINE WO, CT LUMBAR SPINE WO Clinical Indication: Reason: fall pain / Spl. Instructions: / History: Comparison: None. TECHNIQUE: Helical CT imaging of the thoracic and the lumbar spine is performed without IV contrast. Findings: No acute fracture of the thoracic spine is identified. The alignment is maintained. The vertebral body heights are maintained. There is moderate multilevel degenerative endplate spurring. No high-grade central canal stenosis is identified. The neural foramina are patent with the exception of severe narrowing on the left at T11/T12. Atherosclerotic aortic arch. There are several subcentimeter mediastinal lymph nodes. Pulmonary arteries are upper limits of normal in size. Coronary artery disease. There is cardiomegaly. There is mild centrilobular emphysema. Mild scarring or atelectasis in the lung bases. Numerous calcified granulomas in the spleen. Cannot exclude a left renal mass, incompletely imaged. No acute fracture of the lumbar spine is identified. The vertebral body height and alignment are maintained. There is vacuum disc phenomenon of L3-S1. Transverse processes are intact. L3/L4: There is posterior disc osteophyte complex and facet hypertrophy and ligamentum flavum redundancy. Central canal stenosis is probably mild to moderate. There is mild bilateral neural foraminal narrowing. L4/L5: There is posterior disc osteophyte complex and facet hypertrophy and ligamentum flavum redundancy. Central canal stenosis is probably mild to moderate. The neural foramina appear adequate. Atherosclerotic abdominal aorta and iliac arteries, no aneurysm. IMPRESSION: 1. There is no acute fracture of the thoracic or lumbar spine. 2. Mild degenerative spondylosis. 3. Cannot exclude a left upper pole renal mass, but kidneys are incompletely imaged. Suggest nonemergent renal ultrasound. Electronically signed by: David Bailey MD (04/28/2021 5:49 PM) [facility] DICTATED and SIGNED BY: DAVID BAILEY MD DATE: 04/28/21 [id number] PROCEDURE: CT HEAD AND CERVICAL SPINE WO CT HEAD AND C-SPINE WO History: Fall, pain. Comparison: None. Technique: Noncontrast CT of the head and cervical spine. Findings: CT HEAD: There is no evidence for intracranial mass or hemorrhage. There is no hydrocephalus or midline shift. No abnormal extra-axial fluid collections are present. No evidence of large territorial infarct. Hypodensity in the left thalamus may represent sequela of lacunar infarct. Postsurgical changes of the right lens. The visualized paranasal sinuses and mastoid air cells are clear. The skull and scalp are within normal limits. CT CERVICAL SPINE: There is no evidence for fracture in the cervical spine. Severe degenerative changes of the cervical spine with straightening of the normal cervical lordosis. Multilevel advanced disc space narrowing and uncovertebral hypertrophy. Multilevel neural foraminal stenosis. Prominent posterior osteophytes at C5-C6 superimposed on congenitally slender canal severely narrow the anterior posterior canal diameter to approximately 5 mm. No destructive osseous lesions are seen. Mild emphysematous changes in the lung apices. Bilateral carotid bulb calcifications. Impression: 1. No acute intracranial findings. Left thalamic/basal ganglia hypodensity likely sequela of lacunar infarct. 2. No acute fracture in the cervical spine. 3. Advanced multilevel degenerative changes and congenitally slender canal. Severe spinal canal stenosis at C5-C6 with AP diameter of approximately 5 mm. ------- Exposure: One or more of the following individualized dose reduction techniques were utilized for this examination: 1. Automated exposure control 2. Adjustment of the mA and/or kV according to patient size 3. Use of iterative reconstruction technique. Electronically signed by: Vikas Carmona MD (04/28/2021 5:44 PM) [facility] DICTATED and SIGNED BY: VIKAS CARMONA MD DATE: 04/28/21 [id number] 0 Course & Med Decision Making: Course & Med Decision Making Pertinent Labs and Imaging studies reviewed. (See chart for details) This is a 80-year-old female patient presented to the ED today to be evaluated after falling, patient also complaining her kidneys may not be working because she has edema to bilateral lower extremities. History of kidney failure. CT of the head, cervical spine, thoracic and lumbar spine are negative for any acute findings, noted for possible left upper pole renal mass. CBC with a normal WBC, hemoglobin 11.6 with hematocrit of 36.7. CMP with creatinine of 1.8, BUN of 36. Patient states this current creatinine is high, she states her "kidney numbers" have been running normal. BNP 4639. Furosemide 1 dose ordered. Urine negative for infection. Routine consult placed for nephrology as well as renal duplex for tomorrow Spoke with Dr. Cantrell who accepted patient for admission [place] Disclaimer: Zenaida Disclaimer: This electronic medical record was generated, in whole or in part, using a voice recognition dictation system. Departure Departure Impression: Primary Impression: Acute on chronic renal failure Qualified Codes: N17.9 - Acute kidney failure, unspecified; N18.9 - Chronic kidney disease, unspecified Additional Impressions: Edema Qualified Codes: R60.9 - Edema, unspecified Acute cervical sprain Qualified Codes: S13.9XXA - Sprain of joints and ligaments of unspecified parts of neck, initial encounter Disposition: ADMITTED INPATIENT Condition: STABLE Referrals: PAIGE HOPE DO (PCP) LEONORA HERRERA [employer] Apr 28, 2021 20:27
[2021-04-28] MEDS ORDERED: ONDANSETRON PF 4 MG/2 ML VIAL. IVP PRN (20:30)
[2021-04-28] MEDS ORDERED: MORPHINE SULFATE 2 MG/ML INJ. IVP PRN (20:30)
[2021-04-28] MEDS ORDERED: ACETAMINOPHEN 325 MG TABLET. PO PRN (20:30)
[2021-04-28] MEDS ORDERED: FUROSEMIDE 40 MG/4 ML VIAL. IVP ONE (21:00)
[2021-04-28 21:48] VITALS: BP 112/62
[2021-04-28 23:00] VITALS: BP 140/75
[2021-04-29] MEDS ORDERED: INSU100V8 SQ (01:54)
[2021-04-29] MEDS ORDERED: INSU100V38 SQ (01:54)
[2021-04-29 03:00] VITALS: BP 141/76
[2021-04-29 07:00] VITALS: BP 121/72
--- NOTE | 2021-04-29 08:25 | PDOC1 ---
History and Physical Date of Service: DOS: DATE: 04/29/21 TIME: 08:17 Chief Complaint: Chief Complain: A fall History of Present Illness: HPI: Patient is a 80-year-old female with past medical history of diabetes mellitus type 2, hypertension, COPD on home O2, CKD was on dialysis a year ago but taken off, morbid obesity, who presents today after falling. Patient states that she was trying to take a shower but she tripped and fell. She also reports that she has been getting weaker in the past couple weeks and she has gained about 10 pounds and feels like she is getting more edematous. Denies any head trauma or loss of consciousness. However she does complain of mild posterior neck pain and also she complains of swelling to the bilateral lower extremities. Denies fevers, shortness of breath, chest pain, abdominal pain, diarrhea or dysuria. Patient was given dose of IV Lasix as she does report urinary output but she is unsure how much she is putting out because there is a pure wick attached to her. Past Medical/Surgical History: PMH/PSH: Past Medical History: Arthritis, COPD on home oxygen, Diabetes-Type II, Hyper tension, Renal Disease,CHRONIC KIDNEY DISEASE Past Surgical History: Cholecystectomy, Knee Replacement, Tonsillectomy, BREAST CYSTS, CARPAL TUNNEL Allergies: Allergies: Coded Allergies: shellfish derived (Verified Adverse Reaction, Intermediate, Nausea, 04/28/21) Family History: Family History: Reviewed with no relevant findings Social History: Social History: Smoking Status: Former Smoker Alcohol Use: None Drug Use: None Current Medications: Current Medications Current Medications Ondansetron HCl (Zofran) 4 mg PRN Q8HRS PRN IVP NAUSEA/VOMITING; Start 04/28/21 at 20:30; Stop 04/29/21 at 20:29 Morphine Sulfate (Morphine Sulfate) 2 mg PRN Q2HR PRN IVP PAIN; Start 04/28/21 at 20:30; Stop 04/29/21 at 20:29 Acetaminophen (Tylenol) 650 mg PRN Q4HRS PRN PO FEVER > 100.3'F; Start 04/28/21 at 20:30; Stop 04/29/21 at 20:29 Furosemide (Lasix) 40 mg 1X ONCE IVP Last administered on 04/28/21at 23:02; Start 04/28/21 at 21:00; Stop 04/28/21 at 21:01; Status DC Active Scripts Active Thera-M Tablet (Multivits,Ca,Minerals/Iron/Fa) 1 Each Tablet 1 Tab PO DAILY 30 Days Vitamin C (Ascorbic Acid) 500 Mg Tablet 500 Mg PO DAILY 30 Days Culturelle (Lactobacillus Rhamnosus Gg) 1 Each Cap.sprink 1 Cap PO BID 30 Days Aspirin Ec (Aspirin) 81 Mg Tablet.dr 81 Mg PO DAILYWBKFT 30 Days Proair Hfa (Albuterol Sulfate) 8.5 Gm Hfa.aer.ad 2.5 Mg NEB PRN Q4HRS PRN 30 Days Amox Tr-K Clv 500-125 Mg Tab (Amoxicillin/Potassium Clav) 1 Each Tablet 1 Tab PO DAILY 3 Days Reported Lantus (Insulin Glargine,Hum.rec.anlog) 100 Unit/1 Ml Vial 38 Units SQ HS Insulin Lispro 100 Unit/1 Ml Vial 13 Units SQ TIDAC Xalatan (Latanoprost) 2.5 Ml Drops 1 Drop OP HS Flonase Allergy Relief (Fluticasone Propionate) 9.9 Ml [place].susp 2 Sprays NS DAILY Novolin N (Nph, Human Insulin Isophane) 100 Unit/1 Ml Vial 40 Unit SQ DAILYWBKFT Carvedilol (Carvedilol) 6.25 Mg Tablet 6.25 Mg PO BIDWMEALS Simvastatin 40 Mg Tablet 1 Tab PO QHS Furosemide 20 Mg Tablet 1 Tab PO DAILY ROS: Review of Systems Review of System REVIEW OF SYSTEMS: GENERAL: Denies weakness. Positive for neck pain SKIN: No rash or bruising EYES: No blurred, double or loss of vision. NOSE AND THROAT: No history of nosebleeds, hoarseness or sore throat. HEART: No history of palpitations, chest pain or shortness of breath on exertion. LUNGS: Denies cough, hemoptysis, wheezing or shortness of breath. GASTROINTESTINAL: Denies changes in appetite, nausea, vomiting, diarrhea or constipation. GENITOURINARY: No history of frequency, urgency, hesitancy or nocturia. NEUROLOGIC: Denies history of numbness, tingling, or tremor. PSYCHIATRIC: No history of panic, anxiety or depression. ENDOCRINE: No history of heat or cold intolerance, polyuria or polydipsia. EXTREMITIES: Bilateral lower swelling Physical Exam: Vital Signs: Vital Signs Date Time Temp Pulse Resp B/P (MAP) Pulse Ox O2 Delivery O2 Flow Rate FiO2 04/29/21 03:00 98.4 84 18 141/76 (97) 98 Nasal Cannula 3.0 98.4 Physcial Exam: General: Well developed, well nourished, no acute distress, well appearing HEENT: Pupils equally round and reactive to light, EOMI, no discharge, normal conjunctiva Neck: Supple, no nuchal rigidity, no JVD, trachea midline, no tenderness Cardiac: RRR, no murmurs, no gallops, no rubs Chest/Lungs: CTAB, no wheeze, no rhonchi, no crackles Abdomen: soft, non-distended, no guarding, no peritoneal signs, non-tender Back: No tenderness Extremities: Bilateral lower extremities with +3 edema, cellulitis on the way the patient states is chronic, right lower extremity way is weeping clear fl uid. +1 bilateral pedal pulses. Range of motion is intact bilateral lower extremities. Neuro: Alert and oriented x 4, no focal deficits, normal speech Labs: Labs: Laboratory Tests Test 04/28/21 16:45 04/28/21 16:53 04/28/21 17:03 04/29/21 08:07 White Blood Count 7.5 x10^3/uL (4.0-11.0) Red Blood Count 3.93 x10^6/uL (3.50-5.40) Hemoglobin 11.6 g/dL (12.0-15.5) Hematocrit 36.7 % (36.0-47.0) Mean Corpuscular Volume 94 fL (79-100) Mean Corpuscular Hemoglobin 30 pg (25-35) Mean Corpuscular Hemoglobin Concent 32 g/dL (31-37) Red Cell Distribution Width 14.8 % (11.5-14.5) Platelet Count 252 x10^3/uL (140-400) Neutrophils (%) (Auto) 81 % (31-73) Lymphocytes (%) (Auto) 9 % (24-48) Monocytes (%) (Auto) 8 % (0-9) Eosinophils (%) (Auto) 2 % (0-3) Basophils (%) (Auto) 1 % (0-3) Neutrophils # (Auto) 6.1 x10^3/uL (1.8-7.7) Lymphocytes # (Auto) 0.7 x10^3/uL (1.0-4.8) Monocytes # (Auto) 0.6 x10^3/uL (0.0-1.1) Eosinophils # (Auto) 0.1 x10^3/uL (0.0-0.7) Basophils # (Auto) 0.1 x10^3/uL (0.0-0.2) Urine Collection Type U cath Urine Color Yellow Urine Clarity Clear Urine pH 6.0 (<5.0-8.0) Urine Specific [place] 1.020 (1.000-1.030) Urine Protein >=300 mg/dL (NEG-TRACE) Urine Glucose (UA) >=1000 mg/dL (NEG) Urine Ketones (Stick) Negative mg/dL (NEG) Urine Blood Small (NEG) Urine Nitrite Negative (NEG) Urine Bilirubin Negative (NEG) Urine Urobilinogen Dipstick 0.2 mg/dL (0.2 mg/dL) Urine Leukocyte Esterase Negative (NEG) Urine RBC Rare /HPF (0-2) Urine WBC 0 /HPF (0-4) Urine Squamous Epithelial Cells Many /LPF Urine Bacteria 0 /HPF (0-FEW) Sodium Level 141 mmol/L (136-145) Potassium Level 3.6 mmol/L (3.5-5.1) Chloride Level 101 mmol/L (98-107) Carbon Dioxide Level 35 mmol/L (21-32) Anion Gap 5 (6-14) Blood Urea Nitrogen 36 mg/dL (7-20) Creatinine 1.8 mg/dL (0.6-1.0) Estimated GFR (Cockcroft-Gault) 27.2 BUN/Creatinine Ratio 20 (6-20) Glucose Level 321 mg/dL (70-99) Calcium Level 8.2 mg/dL (8.5-10.1) Total Bilirubin 0.2 mg/dL (0.2-1.0) Aspartate Amino Transf (AST/SGOT) 21 U/L (15-37) Alanine Aminotransferase (ALT/SGPT) 26 U/L (14-59) Alkaline Phosphatase 155 U/L (46-116) JQ-[id number]-Type Natriuretic Peptide 4639 pg/mL (0-449) Total Protein 6.8 g/dL (6.4-8.2) Albumin 2.2 g/dL (3.4-5.0) Albumin/Globulin Ratio 0.5 (1.0-1.7) Glucose (Fingerstick) 181 mg/dL (70-99) Laboratory Tests Test 04/28/21 16:45 04/28/21 16:53 04/28/21 17:03 04/29/21 08:07 White Blood Count 7.5 x10^3/uL (4.0-11.0) Red Blood Count 3.93 x10^6/uL (3.50-5.40) Hemoglobin 11.6 g/dL (12.0-15.5) Hematocrit 36.7 % (36.0-47.0) Mean Corpuscular Volume 94 fL (79-100) Mean Corpuscular Hemoglobin 30 pg (25-35) Mean Corpuscular Hemoglobin Concent 32 g/dL (31-37) Red Cell Distribution Width 14.8 % (11.5-14.5) Platelet Count 252 x10^3/uL (140-400) Neutrophils (%) (Auto) 81 % (31-73) Lymphocytes (%) (Auto) 9 % (24-48) Monocytes (%) (Auto) 8 % (0-9) Eosinophils (%) (Auto) 2 % (0-3) Basophils (%) (Auto) 1 % (0-3) Neutrophils # (Auto) 6.1 x10^3/uL (1.8-7.7) Lymphocytes # (Auto) 0.7 x10^3/uL (1.0-4.8) Monocytes # (Auto) 0.6 x10^3/uL (0.0-1.1) Eosinophils # (Auto) 0.1 x10^3/uL (0.0-0.7) Basophils # (Auto) 0.1 x10^3/uL (0.0-0.2) Urine Collection Type U cath Urine Color Yellow Urine Clarity Clear Urine pH 6.0 (<5.0-8.0) Urine Specific [place] 1.020 (1.000-1.030) Urine Protein >=300 mg/dL (NEG-TRACE) Urine Glucose (UA) >=1000 mg/dL (NEG) Urine Ketones (Stick) Negative mg/dL (NEG) Urine Blood Small (NEG) Urine Nitrite Negative (NEG) Urine Bilirubin Negative (NEG) Urine Urobilinogen Dipstick 0.2 mg/dL (0.2 mg/dL) Urine Leukocyte Esterase Negative (NEG) Urine RBC Rare /HPF (0-2) Urine WBC 0 /HPF (0-4) Urine Squamous Epithelial Cells Many /LPF Urine Bacteria 0 /HPF (0-FEW) Sodium Level 141 mmol/L (136-145) Potassium Level 3.6 mmol/L (3.5-5.1) Chloride Level 101 mmol/L (98-107) Carbon Dioxide Level 35 mmol/L (21-32) Anion Gap 5 (6-14) Blood Urea Nitrogen 36 mg/dL (7-20) Creatinine 1.8 mg/dL (0.6-1.0) Estimated GFR (Cockcroft-Gault) 27.2 BUN/Creatinine Ratio 20 (6-20) Glucose Level 321 mg/dL (70-99) Calcium Level 8.2 mg/dL (8.5-10.1) Total Bilirubin 0.2 mg/dL (0.2-1.0) Aspartate Amino Transf (AST/SGOT) 21 U/L (15-37) Alanine Aminotransferase (ALT/SGPT) 26 U/L (14-59) Alkaline Phosphatase 155 U/L (46-116) [id number]-Jmf-Z-Type Natriuretic Peptide 4639 pg/mL (0-449) Total Protein 6.8 g/dL (6.4-8.2) Albumin 2.2 g/dL (3.4-5.0) Albumin/Globulin Ratio 0.5 (1.0-1.7) Glucose (Fingerstick) 181 mg/dL (70-99) Images: Images PROCEDURE: CT HEAD AND CERVICAL SPINE WO Impression: 1. No acute intracranial findings. Left thalamic/basal ganglia hypodensity likely sequela of lacunar infarct. 2. No acute fracture in the cervical spine. 3. Advanced multilevel degenerative changes and congenitally slender canal. Severe spinal canal stenosis at C5-C6 with AP diameter of approximately 5 mm. PROCEDURE: CT LUMBAR SPINE WO CONTRAST IMPRESSION: 1. There is no acute fracture of the thoracic or lumbar spine. 2. Mild degenerative spondylosis. 3. Cannot exclude a left upper pole renal mass, but kidneys are incompletely imaged. Suggest nonemergent renal ultrasound. Assessment/Plan Assessment/Plan Mechanical fall Hypertensive urgency Acute volume overload Acute on chronic kidney failure, due to possible vasomotor nephropathy Lacunar infarct Anemia of chronic kidney disease History of COPD History of diabetes mellitus type 2 History of hypertension Super super morbid obesity Severe protein malnutrition Admit to hospitalist for further management Wound care consult Nephrology consult for renal failure IV diuresis as needed Strict I's and O's Avoid nephrotoxic agents Neurology consult for possible lacunar infarct Permissive hypertension for now Maintain systolic blood pressure less than 180 but greater than 140 Stroke preventative medicationsaspirin and atorvastatin PT OT modalities Heparin for DVT prophylaxis Protonix GI prophylaxis ADA diet Full code Discussed with RN and SW Disposition inpatient management as above Surrogate decision maker is sky Felder Justifications for Admission Other Justification DOROTHY BOTELLO MD Apr 29, 2021 08:25
[2021-04-29] MEDS ORDERED: SENNOSIDES 8.6 MG TABLET PO PRN (08:30)
[2021-04-29] MEDS ORDERED: DEXTROSE 50% 25 GM / 50ML DISP.SYRIN. IV PRN ×2 (08:30)
[2021-04-29] MEDS ORDERED: DOCUSATE SODIUM 100 MG CAPSULE. PO PRN (08:30)
[2021-04-29] MEDS ORDERED: PROCHLORPERAZINE 10 MG/2 ML VIAL. IV PRN (08:30)
[2021-04-29] MEDS ORDERED: ONDANSETRON PF 4 MG/2 ML VIAL. IVP PRN (08:30)
[2021-04-29 08:40] LABS: BASO % 1 % (0-3); EOS # 0.1 x10^3/uL (0.0-0.7); EOS % 2 % (0-3); HEMATOCRIT 33.6 % (36.0-47.0); HEMOGLOBIN 10.9 g/dL (12.0-15.5); LYMPH # 0.7 x10^3/uL (1.0-4.8); LYMPH % 12 % (24-48); MEAN CORPUSCULAR HEMOGLOBIN 30 pg (25-35); MEAN CORPUSCULAR HGB CONC 32 g/dL (31-37); MEAN CORPUSCULAR VOLUME 92 fL (79-100); MONO # 0.5 x10^3/uL (0.0-1.1); MONO % 9 % (0-9); NEUT # 4.4 x10^3/uL (1.8-7.7); NEUT % 77 % (31-73); PLATELET COUNT 252 x10^3/uL (140-400); RED BLOOD COUNT 3.65 x10^6/uL (3.50-5.40); RED CELL DISTRIBUTION WIDTH 14.6 % (11.5-14.5); WHITE BLOOD COUNT 5.7 x10^3/uL (4.0-11.0)
--- NOTE | 2021-04-29 08:43 | RAD ---
EXAM: US RENAL BILAT 04/29/2021 6:57 AM INDICATION: Renal failure, renal mass. COMPARISON: CT thoracic and lumbar spine 04/28/2021 Technique: Grayscale and color Doppler ultrasound images of the kidneys. FINDINGS: There is limited evaluation of the kidneys due to body habitus. The right kidney measures 11.7 x 4.9 x 5.1 cm. The left kidney measures 9.8 x 5.3 x 6.1 cm. Renal echogenicity and cortical thickness ar e unremarkable. No hydronephrosis. There is a 2.2 cm exophytic anechoic cyst in the mid left kidney with no vascularity. No obvious renal mass in the superior left renal pole. The urinary bladder is in completely distended. IMPRESSION: There is a 2.2 cm probable simple cyst in the mid left kidney. No obvious mass in the sup erior left renal pole although very limited visualization of the kidneys due to body habitus. Conside r CT or MRI with renal mass protocol for more definitive evaluation. Electronically signed by: Sunita Arguello MD (04/29/2021 8:41 AM) [id number]
[2021-04-29 08:57] LABS: ALBUMIN/GLOBULIN RATIO 0.5 (1.0-1.7); CALCIUM 8.2 mg/dL (8.5-10.1); CREATININE 1.5 mg/dL (0.6-1.0); GFR 33.6; POTASSIUM 3.5 mmol/L (3.5-5.1); TOTAL BILIRUBIN 0.4 mg/dL (0.2-1.0); TOTAL PROTEIN 6.1 g/dL (6.4-8.2)
[2021-04-29] MEDS: INSULIN LISPRO 300 UNITS/3 ML VIAL. SQ SCH ×5 (09:00→17:00)
--- NOTE | 2021-04-29 10:10 | PDOC2 ---
CONSULT Date of Consult Date of Consult DATE: 04/29/21 TIME: 09:57 Reason for Consult Reason for Consult: RENAL FAILURE Referring Physician Referring Physician: ROSMERY Identification/Chief Complaint Chief Complaint SOB Source Source: Chart review, Patient History of Present Illness Reason for Visit: THIS IS A 80 YR OLD WITH SOB AND INCREASING WEIGHT GAIN FOR A MONTH. HAS LE EDEMA WHICH IS WORSE. HAS BEEN TAKING HER DIURETICS BUT NOT HELPING. HAD SUN ATOP HER CKD STAGE 3B LAST YEAR REQUIRING HD VIA A TUNNELED HD LINE. EVENTUALLY SHE CAME OFF HD AND HER DIALYSIS CATHETER WAS SUBSEQUENTLY REMOVED. CURRENTLY CR OF 1.8. CKD IS DUE TO DM II. HYPOXIC AND NEEDING SUPPLEMENTAL OXYGEN. SHE ALSO HAS COMPLAINED OF A FALL. TRIPPED AND FELL. SHE HAS NECK AND BACK PAIN. IMAGING IS NEG FOR ANY FRACTURES. DID NOT LOSE CONSCIOUSNESS. NO NEPHROTOXINS. HEMODYNAMICALLY STABLE. NO OTHER HX. Past Medical History Cardiovascular: HTN, Hyperlipidemia Pulmonary: COPD GI: Constipation Renal/: Chronic renal insuff, Acute renal failure Endocrine: Diabetes Past Surgical History Past Surgical History TUNNELED HD CATHETER Past Surgical History: Cholecystectomy, Total knee replacement, Tonsillectomy Family History Family History: Hypertension Social History ALCOHOL: none Drugs: None Current Problem List Problem List Problems Medical Problems: (1) Acute cervical sprain Status: Acute (2) Acute on chronic renal failure Status: Acute Current Medications Current Medications Current Medications Ondansetron HCl (Zofran) 4 mg PRN Q8HRS PRN IVP NAUSEA/VOMITING; Start 04/28/21 at 20:30; Stop 04/29/21 at 20:29 Morphine Sulfate (Morphine Sulfate) 2 mg PRN Q2HR PRN IVP PAIN; Start 04/28/21 at 20:30; Stop 04/29/21 at 20:29 Acetaminophen (Tylenol) 650 mg PRN Q4HRS PRN PO FEVER > 100.3'F; Start 04/28/21 at 20:30; Stop 04/29/21 at 20:29 Furosemide (Lasix) 40 mg 1X ONCE IVP Last administered on 04/28/21at 23:02; Start 04/28/21 at 21:00; Stop 04/28/21 at 21:01; Status DC Ascorbic Acid (Vitamin C) 500 mg DAILY PO ; Start 04/29/21 at 09:00 Aspirin (Ecotrin) 81 mg DAILYWBKFT PO ; Start 04/29/21 at 09:00 Carvedilol (Coreg) 6.25 mg BIDWMEALS PO ; Start 04/29/21 at 09:00 Insulin Glargine (Lantus Syringe) 38 unit HS SQ ; Start 04/29/21 at 21:00 Insulin Human Lispro (HumaLOG) 13 units TIDWMEALS SQ ; Start 04/29/21 at 09:00 Simvastatin (Zocor) 40 mg QHS PO ; Start 04/29/21 at 21:00 Insulin Human Lispro (HumaLOG) 0-7 UNITS TIDWMEALS SQ ; Start 04/29/21 at 12:00 Dextrose (Dextrose 50%-Water Syringe) 12.5 gm PRN Q15MIN PRN IV SEE COMMENTS; Start 04/29/21 at 08:30 Sennosides (Senna) 17.2 mg PRN BID PRN PO CONSTIPATION; Start 04/29/21 at 08:30 Docusate Sodium (Colace) 100 mg PRN DAILY PRN PO HARD STOOLS; Start 04/29/21 at 08:30 Ondansetron HCl (Zofran) 4 mg PRN Q6HRS PRN IVP NAUSEA/VOMITING; Start 04/29/21 at 08:30 Dextrose (Dextrose 50%-Water Syringe) 12.5 gm PRN Q15MIN PRN IV SEE COMMENTS; Start 04/29/21 at 08:30 Acetaminophen (Tylenol) 650 mg PRN Q4HRS PRN PO TEMP OVER 100.4F OR MILD PAIN; Start 04/29/21 at 08:30 Heparin Sodium (Porcine) (Heparin Sodium) 5,000 unit Q12HR SQ ; Start 04/29/21 at 09:00 Prochlorperazine Edisylate (Compazine) 10 mg PRN Q6HRS PRN IV NAUSEA/VOMITING, 2ND CHOICE; Start 04/29/21 at 08:30 Active Scripts Active Thera-M Tablet (Multivits,Ca,Minerals/Iron/Fa) 1 Each Tablet 1 Tab PO DAILY 30 Days Vitamin C (Ascorbic Acid) 500 Mg Tablet 500 Mg PO DAILY 30 Days Culturelle (Lactobacillus Rhamnosus Gg) 1 Each Cap.sprink 1 Cap PO BID 30 Days Aspirin Ec (Aspirin) 81 Mg Tablet.dr 81 Mg PO DAILYWBKFT 30 Days Proair Hfa (Albuterol Sulfate) 8.5 Gm Hfa.aer.ad 2.5 Mg NEB PRN Q4HRS PRN 30 Days Amox Tr-K Clv 500-125 Mg Tab (Amoxicillin/Potassium Clav) 1 Each Tablet 1 Tab PO DAILY 3 Days Reported Lantus (Insulin Glargine,Hum.rec.anlog) 100 Unit/1 Ml Vial 38 Units SQ HS Insulin Lispro 100 Unit/1 Ml Vial 13 Units SQ TIDAC Xalatan (Latanoprost) 2.5 Ml Drops 1 Drop OP HS Flonase Allergy Relief (Fluticasone Propionate) 9.9 Ml [place].susp 2 Sprays NS DAILY Novolin N (Nph, Human Insulin Isophane) 100 Unit/1 Ml Vial 40 Unit SQ DAILYWBKFT Carvedilol (Carvedilol) 6.25 Mg Tablet 6.25 Mg PO BIDWMEALS Simvastatin 40 Mg Tablet 1 Tab PO QHS Furosemide 20 Mg Tablet 1 Tab PO DAILY Allergies Allergies: Coded Allergies: shellfish derived (Verified Adverse Reaction, Intermediate, Nausea, 04/28/21) ROS General: YES: Fatigue, Appetite PSYCHOLOGICAL ROS: YES: Anxiety, Depression Eyes: Yes Decreased vision HEENT: YES: Heacaches ALLERGY AND IMMUNOLOGY: YES: Seasonal Allergies Respiratory: YES: Cough, Orthopnea, Shortness of breath, SOB with excertion Cardiovascular: yes Edema Gastrointestinal: Yes Constipation Genitourinary: YES Frequency, YES Other Musculoskeletal: Yes Joint Stiffness, Yes Muscular Weakness Neurological: Yes Weakness Skin: Yes Dry Skin Physical Exam General: Alert, Oriented X3, Cooperative, mild distress HEENT: Mucous membr. moist/pink Lungs: Other (DECREASED AT BASES) Heart: Regular rate, Normal S1, Normal S2 Abdomen: Normal bowel sounds, Soft, No tenderness Extremities: No clubbing, No cyanosis, Other (3+ EDEMA) Neuro: Normal speech Psych/Mental Status: Mental status NL, Mood NL MUSCULOSKELETAL: No joint tenderness, No deformity Vitals VITALS Vital Signs Date Time Temp Pulse Resp B/P (MAP) Pulse Ox O2 Delivery O2 Flow Rate FiO2 04/29/21 07:00 98.7 86 18 121/72 (88) 94 Nasal Cannula 3.0 98.7 Labs Labs Laboratory Tests Test 04/28/21 16:45 04/28/21 16:53 04/28/21 17:03 04/29/21 07:40 White Blood Count 7.5 x10^3/uL (4.0-11.0) 5.7 x10^3/uL (4.0-11.0) Red Blood Count 3.93 x10^6/uL (3.50-5.40) 3.65 x10^6/uL (3.50-5.40) Hemoglobin 11.6 g/dL (12.0-15.5) 10.9 g/dL (12.0-15.5) Hematocrit 36.7 % (36.0-47.0) 33.6 % (36.0-47.0) Mean Corpuscular Volume 94 fL (79-100) 92 fL (79-100) Mean Corpuscular Hemoglobin 30 pg (25-35) 30 pg (25-35) Mean Corpuscular Hemoglobin Concent 32 g/dL (31-37) 32 g/dL (31-37) Red Cell Distribution Width 14.8 % (11.5-14.5) 14.6 % (11.5-14.5) Platelet Count 252 x10^3/uL (140-400) 252 x10^3/uL (140-400) Neutrophils (%) (Auto) 81 % (31-73) 77 % (31-73) Lymphocytes (%) (Auto) 9 % (24-48) 12 % (24-48) Monocytes (%) (Auto) 8 % (0-9) 9 % (0-9) Eosinophils (%) (Auto) 2 % (0-3) 2 % (0-3) Basophils (%) (Auto) 1 % (0-3) 1 % (0-3) Neutrophils # (Auto) 6.1 x10^3/uL (1.8-7.7) 4.4 x10^3/uL (1.8-7.7) Lymphocytes # (Auto) 0.7 x10^3/uL (1.0-4.8) 0.7 x10^3/uL (1.0-4.8) Monocytes # (Auto) 0.6 x10^3/uL (0.0-1.1) 0.5 x10^3/uL (0.0-1.1) Eosinophils # (Auto) 0.1 x10^3/uL (0.0-0.7) 0.1 x10^3/uL (0.0-0.7) Basophils # (Auto) 0.1 x10^3/uL (0.0-0.2) 0.0 x10^3/uL (0.0-0.2) Urine Collection Type U cath Urine Color Yellow Urine Clarity Clear Urine pH 6.0 (<5.0-8.0) Urine Specific Staples 1.020 (1.000-1.030) Urine Protein >=300 mg/dL (NEG-TRACE) Urine Glucose (UA) >=1000 mg/dL (NEG) Urine Ketones (Stick) Negative mg/dL (NEG) Urine Blood Small (NEG) Urine Nitrite Negative (NEG) Urine Bilirubin Negative (NEG) Urine Urobilinogen Dipstick 0.2 mg/dL (0.2 mg/dL) Urine Leukocyte Esterase Negative (NEG) Urine RBC Rare /HPF (0-2) Urine WBC 0 /HPF (0-4) Urine Squamous Epithelial Cells Many /LPF Urine Bacteria 0 /HPF (0-FEW) Sodium Level 141 mmol/L (136-145) 144 mmol/L (136-145) Potassium Level 3.6 mmol/L (3.5-5.1) 3.5 mmol/L (3.5-5.1) Chloride Level 101 mmol/L (98-107) 105 mmol/L (98-107) Carbon Dioxide Level 35 mmol/L (21-32) 38 mmol/L (21-32) Anion Gap 5 (6-14) 1 (6-14) Blood Urea Nitrogen 36 mg/dL (7-20) 33 mg/dL (7-20) Creatinine 1.8 mg/dL (0.6-1.0) 1.5 mg/dL (0.6-1.0) Estimated GFR (Cockcroft-Gault) 27.2 33.6 BUN/Creatinine Ratio 20 (6-20) 22 (6-20) Glucose Level 321 mg/dL (70-99) 183 mg/dL (70-99) Calcium Level 8.2 mg/dL (8.5-10.1) 8.2 mg/dL (8.5-10.1) Total Bilirubin 0.2 mg/dL (0.2-1.0) 0.4 mg/dL (0.2-1.0) Aspartate Amino Transf (AST/SGOT) 21 U/L (15-37) 18 U/L (15-37) Alanine Aminotransferase (ALT/SGPT) 26 U/L (14-59) 21 U/L (14-59) Alkaline Phosphatase 155 U/L (46-116) 106 U/L (46-116) IW-Nfm-L-Type Natriuretic Peptide 4639 pg/mL (0-449) Total Protein 6.8 g/dL (6.4-8.2) 6.1 g/dL (6.4-8.2) Albumin 2.2 g/dL (3.4-5.0) 2.0 g/dL (3.4-5.0) Albumin/Globulin Ratio 0.5 (1.0-1.7) 0.5 (1.0-1.7) Test 04/29/21 08:07 Glucose (Fingerstick) 181 mg/dL (70-99) Laboratory Tests Test 04/28/21 16:45 04/28/21 16:53 04/28/21 17:03 04/29/21 07:40 White Blood Count 7.5 x10^3/uL (4.0-11.0) 5.7 x10^3/uL (4.0-11.0) Red Blood Count 3.93 x10^6/uL (3.50-5.40) 3.65 x10^6/uL (3.50-5.40) Hemoglobin 11.6 g/dL (12.0-15.5) 10.9 g/dL (12.0-15.5) Hematocrit 36.7 % (36.0-47.0) 33.6 % (36.0-47.0) Mean Corpuscular Volume 94 fL (79-100) 92 fL (79-100) Mean Corpuscular Hemoglobin 30 pg (25-35) 30 pg (25-35) Mean Corpuscular Hemoglobin Concent 32 g/dL (31-37) 32 g/dL (31-37) Red Cell Distribution Width 14.8 % (11.5-14.5) 14.6 % (11.5-14.5) Platelet Count 252 x10^3/uL (140-400) 252 x10^3/uL (140-400) Neutrophils (%) (Auto) 81 % (31-73) 77 % (31-73) Lymphocytes (%) (Auto) 9 % (24-48) 12 % (24-48) Monocytes (%) (Auto) 8 % (0-9) 9 % (0-9) Eosinophils (%) (Auto) 2 % (0-3) 2 % (0-3) Basophils (%) (Auto) 1 % (0-3) 1 % (0-3) Neutrophils # (Auto) 6.1 x10^3/uL (1.8-7.7) 4.4 x10^3/uL (1.8-7.7) Lymphocytes # (Auto) 0.7 x10^3/uL (1.0-4.8) 0.7 x10^3/uL (1.0-4.8) Monocytes # (Auto) 0.6 x10^3/uL (0.0-1.1) 0.5 x10^3/uL (0.0-1.1) Eosinophils # (Auto) 0.1 x10^3/uL (0.0-0.7) 0.1 x10^3/uL (0.0-0.7) Basophils # (Auto) 0.1 x10^3/uL (0.0-0.2) 0.0 x10^3/uL (0.0-0.2) Urine Collection Type U cath Urine Color Yellow Urine Clarity Clear Urine pH 6.0 (<5.0-8.0) Urine Specific [place] 1.020 (1.000-1.030) Urine Protein >=300 mg/dL (NEG-TRACE) Urine Glucose (UA) >=1000 mg/dL (NEG) Urine Ketones (Stick) Negative mg/dL (NEG) Urine Blood Small (NEG) Urine Nitrite Negative (NEG) Urine Bilirubin Negative (NEG) Urine Urobilinogen Dipstick 0.2 mg/dL (0.2 mg/dL) Urine Leukocyte Esterase Negative (NEG) Urine RBC Rare /HPF (0-2) Urine WBC 0 /HPF (0-4) Urine Squamous Epithelial Cells Many /LPF Urine Bacteria 0 /HPF (0-FEW) Sodium Level 141 mmol/L (136-145) 144 mmol/L (136-145) Potassium Level 3.6 mmol/L (3.5-5.1) 3.5 mmol/L (3.5-5.1) Chloride Level 101 mmol/L (98-107) 105 mmol/L (98-107) Carbon Dioxide Level 35 mmol/L (21-32) 38 mmol/L (21-32) Anion Gap 5 (6-14) 1 (6-14) Blood Urea Nitrogen 36 mg/dL (7-20) 33 mg/dL (7-20) Creatinine 1.8 mg/dL (0.6-1.0) 1.5 mg/dL (0.6-1.0) Estimated GFR (Cockcroft-Gault) 27.2 33.6 BUN/Creatinine Ratio 20 (6-20) 22 (6-20) Glucose Level 321 mg/dL (70-99) 183 mg/dL (70-99) Calcium Level 8.2 mg/dL (8.5-10.1) 8.2 mg/dL (8.5-10.1) Total Bilirubin 0.2 mg/dL (0.2-1.0) 0.4 mg/dL (0.2-1.0) Aspartate Amino Transf (AST/SGOT) 21 U/L (15-37) 18 U/L (15-37) Alanine Aminotransferase (ALT/SGPT) 26 U/L (14-59) 21 U/L (14-59) Alkaline Phosphatase 155 U/L (46-116) 106 U/L (46-116) OG-Lkg-Z-Type Natriuretic Peptide 4639 pg/mL (0-449) Total Protein 6.8 g/dL (6.4-8.2) 6.1 g/dL (6.4-8.2) Albumin 2.2 g/dL (3.4-5.0) 2.0 g/dL (3.4-5.0) Albumin/Globulin Ratio 0.5 (1.0-1.7) 0.5 (1.0-1.7) Test 04/29/21 08:07 Glucose (Fingerstick) 181 mg/dL (70-99) Images Images INDICATION: Renal failure, renal mass. COMPARISON: CT thoracic and lumbar spine 04/28/2021 Technique: Grayscale and color Doppler ultrasound images of the kidneys. FINDINGS: There is limited evaluation of the kidneys due to body habitus. The right kidney measures 11.7 x 4.9 x 5.1 cm. The left kidney measures 9.8 x 5.3 x 6.1 cm. Renal echogenicity and cortical thickness are unremarkable. No hydronephrosis. There is a 2.2 cm exophytic anechoic cyst in the mid left kidney with no vascularity. No obvious renal mass in the superior left renal pole. The urinary bladder is incompletely distended. IMPRESSION: There is a 2.2 cm probable simple cyst in the mid left kidney. No obvious mass in the superior left renal pole although very limited visualization of the kidneys due to body habitus. Consider CT or MRI with renal mass protocol for more definitive evaluation. Assessment/Plan Assessment/Plan IMP FALL ANASARCA EDEMA CKD STAGE 3B TO 4-CR OF 1.8 MORBID OBESITY UNCONTROLLED HTN VOLUME OVERLOAD CHF - SUSPECT ACUTE ON CHRONIC SYSTOLIC AND DIASTOLIC HX OF COPD DM II PROTEINURIA DECONDITIONING ANEMIA OF CKD PLAN NEEDS DIURESIS CONTROL BP CONTROL BG HOPEFULLY BP IMPROVES WITH DIURESIS MAY END UP NEEDING DIALYSIS AGAIN IF UNABLE TO DIURESE FLUID RESTRICT AVOID NEPHROTOXINS CONSIDER ECHOCARDIOGRAM CHECK IRON STORES CHECK PO4 ENC COMPLIANCE YASSINE MARTINEZ MD Apr 29, 2021 10:10
[2021-04-29] MEDS ORDERED: POTASSIUM CHLORIDE 20 MEQ TABLET.ER. PO ONE (10:15)
[2021-04-29] MEDS ORDERED: FUROSEMIDE 40 MG/4 ML VIAL. IVP ONE (10:15)
[2021-04-29 11:00] VITALS: BP 134/69
[2021-04-29] MEDS: ASCORBIC ACID 500 MG TABLET PO SCH (11:47)
[2021-04-29] MEDS: CARVEDILOL 6.25 MG TABLET. PO SCH ×2 (11:47→17:00)
[2021-04-29] MEDS: ASPIRIN ENTERIC COATED 81 MG TABLET.DR. PO SCH (11:47)
[2021-04-29] MEDS: HEPARIN for SUB-Q USE 5,000 UNIT/ML VIAL. SQ SCH ×2 (11:50→22:55)
--- NOTE | 2021-04-29 13:09 | PDOC2 ---
NEUROLOGY CONSULT Date of Service DOS: DATE: 04/29/21 TIME: 13:01 Reason for Consult Reason for Consult: Abnormal head CT Referring Physician Referring Physician: Dr. 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 She is a gets around with a cane or a walker. She has been living on her own for over 3 years, prior to that she had a short stay in rehab after a fall. She does have some mild neck pain. She has never had a stroke, seizure, or head injury. There are no focal symptoms of transient ischemic attack now or at any time in the past. I am asked to see her regarding abnormal head CT as reviewed below. Past Medical History Cardiovascular: HTN, Hyperlipidemia Pulmonary: Other (Sleep apnea) CENTRAL NERVOUS SYSTEM: Periperal neuropathy Endocrine: Diabetes Past Surgical History Past Surgical History: Cholecystectomy, Total knee replacement, Tonsillectomy, Other (Breast biopsy, bilateral carpal tunnel, right shoulder) Family History Family History: CVA Social History Social History Lives alone, no alcohol or tobacco, Current Medications Current Medications Current Medications Ondansetron HCl (Zofran) 4 mg PRN Q8HRS PRN IVP NAUSEA/VOMITING; Start 04/28/21 at 20:30; Stop 04/29/21 at 20:29 Morphine Sulfate (Morphine Sulfate) 2 mg PRN Q2HR PRN IVP PAIN; Start 04/28/21 at 20:30; Stop 04/29/21 at 20:29 Acetaminophen (Tylenol) 650 mg PRN Q4HRS PRN PO FEVER > 100.3'F; Start 04/28/21 at 20:30; Stop 04/29/21 at 20:29 Furosemide (Lasix) 40 mg 1X ONCE IVP Last administered on 04/28/21at 23:02; Start 04/28/21 at 21:00; Stop 04/28/21 at 21:01; Status DC Ascorbic Acid (Vitamin C) 500 mg DAILY PO Last administered on 04/29/21at 11:47; Start 04/29/21 at 09:00 Aspirin (Ecotrin) 81 mg DAILYWBKFT PO Last administered on 04/29/21at 11:47; Start 04/29/21 at 09:00 Carvedilol (Coreg) 6.25 mg BIDWMEALS PO Last administered on 04/29/21at 11:47; Start 04/29/21 at 09:00 Insulin Glargine (Lantus Syringe) 38 unit HS SQ ; Start 04/29/21 at 21:00 Insulin Human Lispro (HumaLOG) 13 units TIDWMEALS SQ ; Start 04/29/21 at 09:00 Simvastatin (Zocor) 40 mg QHS PO ; Start 04/29/21 at 21:00 Insulin Human Lispro (HumaLOG) 0-7 UNITS TIDWMEALS SQ ; Start 04/29/21 at 12:00 Dextrose (Dextrose 50%-Water Syringe) 12.5 gm PRN Q15MIN PRN IV SEE COMMENTS; Start 04/29/21 at 08:30 Sennosides (Senna) 17.2 mg PRN BID PRN PO CONSTIPATION; Start 04/29/21 at 08:30 Docusate Sodium (Colace) 100 mg PRN DAILY PRN PO HARD STOOLS; Start 04/29/21 at 08:30 Ondansetron HCl (Zofran) 4 mg PRN Q6HRS PRN IVP NAUSEA/VOMITING; Start 04/29/21 at 08:30 Dextrose (Dextrose 50%-Water Syringe) 12.5 gm PRN Q15MIN PRN IV SEE COMMENTS; Start 04/29/21 at 08:30 Acetaminophen (Tylenol) 650 mg PRN Q4HRS PRN PO TEMP OVER 100.4F OR MILD PAIN; Start 04/29/21 at 08:30 Heparin Sodium (Porcine) (Heparin Sodium) 5,000 unit Q12HR SQ Last administered on 04/29/21at 11:50; Start 04/29/21 at 09:00 Prochlorperazine Edisylate (Compazine) 10 mg PRN Q6HRS PRN IV NAUSEA/VOMITING, 2ND CHOICE; Start 04/29/21 at 08:30 Furosemide (Lasix) 80 mg 1X ONCE IVP Last administered on 04/29/21at 11:47; Start 04/29/21 at 10:15; Stop 04/29/21 at 10:18; Status DC Furosemide 100 mg/ Sodium Chloride 100 ml @ 5 mls/hr CONT PRN IV SEE I/O RECORD; Start 04/29/21 at 11:00 Potassium Chloride (Klor-Con) 40 meq 1X ONCE PO Last administered on 04/29/21at 11:46; Start 04/29/21 at 10:15; Stop 04/29/21 at 10:18; Status DC Active Scripts Active Thera-M Tablet (Multivits,Ca,Minerals/Iron/Fa) 1 Each Tablet 1 Tab PO DAILY 30 Days Vitamin C (Ascorbic Acid) 500 Mg Tablet 500 Mg PO DAILY 30 Days Culturelle (Lactobacillus Rhamnosus Gg) 1 Each Cap.sprink 1 Cap PO BID 30 Days Aspirin Ec (Aspirin) 81 Mg Tablet.dr 81 Mg PO DAILYWBKFT 30 Days Proair Hfa (Albuterol Sulfate) 8.5 Gm Hfa.aer.ad 2.5 Mg NEB PRN Q4HRS PRN 30 Days Amox Tr-K Clv 500-125 Mg Tab (Amoxicillin/Potassium Clav) 1 Each Tablet 1 Tab PO DAILY 3 Days Reported Lantus (Insulin Glargine,Hum.rec.anlog) 100 Unit/1 Ml Vial 38 Units SQ HS Insulin Lispro 100 Unit/1 Ml Vial 13 Units SQ TIDAC Xalatan (Latanoprost) 2.5 Ml Drops 1 Drop OP HS Flonase Allergy Relief (Fluticasone Propionate) 9.9 Ml [place].susp 2 Sprays NS DAILY Novolin N (Nph, Human Insulin Isophane) 100 Unit/1 Ml Vial 40 Unit SQ DAILYWBKFT Carvedilol (Carvedilol) 6.25 Mg Tablet 6.25 Mg PO BIDWMEALS Simvastatin 40 Mg Tablet 1 Tab PO QHS Furosemide 20 Mg Tablet 1 Tab PO DAILY Allergies Allergies: Coded Allergies: shellfish derived (Verified Adverse Reaction, Intermediate, Nausea, 04/28/21) ROS Review of System Negative for fever, chills, weight loss, shortness of breath, chest pain, indigestion, hematochezia, melena, and dysuria. Full 14-point review of systems is negative. Physical Exam Physical Examination General: Well-developed, well-nourished white female in no acute distress HEENT: Normocephalic andatraumatic. Temporal arteriespulsatile and nontender. Neck: Supple without bruit, no meningismus Musculoskeletal: Stability:see neurologic. Gait exam:see neurologic. Tone:see neurologic.Strength:see neurologic. Neurological: Mental Status:intact, orientation, memory, attention span/concentration, language, fund of knowledge normal. Cranial Nerves:Pupils equal and reactive to light, extraocular movements areintact, visual baker are full to confrontation. Facial sensation is normal. There is no facial asymmetry. Vestibulo-ocular reflex is intact. Palate elevates and tongue protrudes in midline. All other cranial related problems are negative except as mentioned before.Reflexes:0-1+ and symmetric with flexor plantar responses. Motor:4/5 strength with normal tone and bulk. Coordination:Finger-nose finger and rahj-po-ktmq testing are normal. Rapid alternating movements and fine finger movements are intact. Gait:Not tested. Sensory:Bilateral leg dressings, still has bilateral stocking loss Vitals VITALS Vital Signs Date Time Temp Pulse Resp B/P (MAP) Pulse Ox O2 Delivery O2 Flow Rate FiO2 04/29/21 11:47 86 121/72 04/29/21 11:00 97.6 18 97 Nasal Cannula 3.0 97.6 Labs Labs Laboratory Tests Test 04/28/21 16:45 04/28/21 16:53 04/28/21 17:03 04/29/21 07:40 White Blood Count 7.5 x10^3/uL (4.0-11.0) 5.7 x10^3/uL (4.0-11.0) Red Blood Count 3.93 x10^6/uL (3.50-5.40) 3.65 x10^6/uL (3.50-5.40) Hemoglobin 11.6 g/dL (12.0-15.5) 10.9 g/dL (12.0-15.5) Hematocrit 36.7 % (36.0-47.0) 33.6 % (36.0-47.0) Mean Corpuscular Volume 94 fL (79-100) 92 fL (79-100) Mean Corpuscular Hemoglobin 30 pg (25-35) 30 pg (25-35) Mean Corpuscular Hemoglobin Concent 32 g/dL (31-37) 32 g/dL (31-37) Red Cell Distribution Width 14.8 % (11.5-14.5) 14.6 % (11.5-14.5) Platelet Count 252 x10^3/uL (140-400) 252 x10^3/uL (140-400) Neutrophils (%) (Auto) 81 % (31-73) 77 % (31-73) Lymphocytes (%) (Auto) 9 % (24-48) 12 % (24-48) Monocytes (%) (Auto) 8 % (0-9) 9 % (0-9) Eosinophils (%) (Auto) 2 % (0-3) 2 % (0-3) Basophils (%) (Auto) 1 % (0-3) 1 % (0-3) Neutrophils # (Auto) 6.1 x10^3/uL (1.8-7.7) 4.4 x10^3/uL (1.8-7.7) Lymphocytes # (Auto) 0.7 x10^3/uL (1.0-4.8) 0.7 x10^3/uL (1.0-4.8) Monocytes # (Auto) 0.6 x10^3/uL (0.0-1.1) 0.5 x10^3/uL (0.0-1.1) Eosinophils # (Auto) 0.1 x10^3/uL (0.0-0.7) 0.1 x10^3/uL (0.0-0.7) Basophils # (Auto) 0.1 x10^3/uL (0.0-0.2) 0.0 x10^3/uL (0.0-0.2) Urine Collection Type U cath Urine Color Yellow Urine Clarity Clear Urine pH 6.0 (<5.0-8.0) Urine Specific [place] 1.020 (1.000-1.030) Urine Protein >=300 mg/dL (NEG-TRACE) Urine Glucose (UA) >=1000 mg/dL (NEG) Urine Ketones (Stick) Negative mg/dL (NEG) Urine Blood Small (NEG) Urine Nitrite Negative (NEG) Urine Bilirubin Negative (NEG) Urine Urobilinogen Dipstick 0.2 mg/dL (0.2 mg/dL) Urine Leukocyte Esterase Negative (NEG) Urine RBC Rare /HPF (0-2) Urine WBC 0 /HPF (0-4) Urine Squamous Epithelial Cells Many /LPF Urine Bacteria 0 /HPF (0-FEW) Sodium Level 141 mmol/L (136-145) 144 mmol/L (136-145) Potassium Level 3.6 mmol/L (3.5-5.1) 3.5 mmol/L (3.5-5.1) Chloride Level 101 mmol/L (98-107) 105 mmol/L (98-107) Carbon Dioxide Level 35 mmol/L (21-32) 38 mmol/L (21-32) Anion Gap 5 (6-14) 1 (6-14) Blood Urea Nitrogen 36 mg/dL (7-20) 33 mg/dL (7-20) Creatinine 1.8 mg/dL (0.6-1.0) 1.5 mg/dL (0.6-1.0) Estimated GFR (Cockcroft-Gault) 27.2 33.6 BUN/Creatinine Ratio 20 (6-20) 22 (6-20) Glucose Level 321 mg/dL (70-99) 183 mg/dL (70-99) Calcium Level 8.2 mg/dL (8.5-10.1) 8.2 mg/dL (8.5-10.1) Total Bilirubin 0.2 mg/dL (0.2-1.0) 0.4 mg/dL (0.2-1.0) Aspartate Amino Transf (AST/SGOT) 21 U/L (15-37) 18 U/L (15-37) Alanine Aminotransferase (ALT/SGPT) 26 U/L (14-59) 21 U/L (14-59) Alkaline Phosphatase 155 U/L (46-116) 106 U/L (46-116) AK-Wle-T-Type Natriuretic Peptide 4639 pg/mL (0-449) Total Protein 6.8 g/dL (6.4-8.2) 6.1 g/dL (6.4-8.2) Albumin 2.2 g/dL (3.4-5.0) 2.0 g/dL (3.4-5.0) Albumin/Globulin Ratio 0.5 (1.0-1.7) 0.5 (1.0-1.7) Test 04/29/21 08:07 Glucose (Fingerstick) 181 mg/dL (70-99) Laboratory Tests Test 04/28/21 16:45 04/28/21 16:53 04/28/21 17:03 04/29/21 07:40 White Blood Count 7.5 x10^3/uL (4.0-11.0) 5.7 x10^3/uL (4.0-11.0) Red Blood Count 3.93 x10^6/uL (3.50-5.40) 3.65 x10^6/uL (3.50-5.40) Hemoglobin 11.6 g/dL (12.0-15.5) 10.9 g/dL (12.0-15.5) Hematocrit 36.7 % (36.0-47.0) 33.6 % (36.0-47.0) Mean Corpuscular Volume 94 fL (79-100) 92 fL (79-100) Mean Corpuscular Hemoglobin 30 pg (25-35) 30 pg (25-35) Mean Corpuscular Hemoglobin Concent 32 g/dL (31-37) 32 g/dL (31-37) Red Cell Distribution Width 14.8 % (11.5-14.5) 14.6 % (11.5-14.5) Platelet Count 252 x10^3/uL (140-400) 252 x10^3/uL (140-400) Neutrophils (%) (Auto) 81 % (31-73) 77 % (31-73) Lymphocytes (%) (Auto) 9 % (24-48) 12 % (24-48) Monocytes (%) (Auto) 8 % (0-9) 9 % (0-9) Eosinophils (%) (Auto) 2 % (0-3) 2 % (0-3) Basophils (%) (Auto) 1 % (0-3) 1 % (0-3) Neutrophils # (Auto) 6.1 x10^3/uL (1.8-7.7) 4.4 x10^3/uL (1.8-7.7) Lymphocytes # (Auto) 0.7 x10^3/uL (1.0-4.8) 0.7 x10^3/uL (1.0-4.8) Monocytes # (Auto) 0.6 x10^3/uL (0.0-1.1) 0.5 x10^3/uL (0.0-1.1) Eosinophils # (Auto) 0.1 x10^3/uL (0.0-0.7) 0.1 x10^3/uL (0.0-0.7) Basophils # (Auto) 0.1 x10^3/uL (0.0-0.2) 0.0 x10^3/uL (0.0-0.2) Urine Collection Type U cath Urine Color Yellow Urine Clarity Clear Urine pH 6.0 (<5.0-8.0) Urine Specific [place] 1.020 (1.000-1.030) Urine Protein >=300 mg/dL (NEG-TRACE) Urine Glucose (UA) >=1000 mg/dL (NEG) Urine Ketones (Stick) Negative mg/dL (NEG) Urine Blood Small (NEG) Urine Nitrite Negative (NEG) Urine Bilirubin Negative (NEG) Urine Urobilinogen Dipstick 0.2 mg/dL (0.2 mg/dL) Urine Leukocyte Esterase Negative (NEG) Urine RBC Rare /HPF (0-2) Urine WBC 0 /HPF (0-4) Urine Squamous Epithelial Cells Many /LPF Urine Bacteria 0 /HPF (0-FEW) Sodium Level 141 mmol/L (136-145) 144 mmol/L (136-145) Potassium Level 3.6 mmol/L (3.5-5.1) 3.5 mmol/L (3.5-5.1) Chloride Level 101 mmol/L (98-107) 105 mmol/L (98-107) Carbon Dioxide Level 35 mmol/L (21-32) 38 mmol/L (21-32) Anion Gap 5 (6-14) 1 (6-14) Blood Urea Nitrogen 36 mg/dL (7-20) 33 mg/dL (7-20) Creatinine 1.8 mg/dL (0.6-1.0) 1.5 mg/dL (0.6-1.0) Estimated GFR (Cockcroft-Gault) 27.2 33.6 BUN/Creatinine Ratio 20 (6-20) 22 (6-20) Glucose Level 321 mg/dL (70-99) 183 mg/dL (70-99) Calcium Level 8.2 mg/dL (8.5-10.1) 8.2 mg/dL (8.5-10.1) Total Bilirubin 0.2 mg/dL (0.2-1.0) 0.4 mg/dL (0.2-1.0) Aspartate Amino Transf (AST/SGOT) 21 U/L (15-37) 18 U/L (15-37) Alanine Aminotransferase (ALT/SGPT) 26 U/L (14-59) 21 U/L (14-59) Alkaline Phosphatase 155 U/L (46-116) 106 U/L (46-116) RF-Bpd-S-Type Natriuretic Peptide 4639 pg/mL (0-449) Total Protein 6.8 g/dL (6.4-8.2) 6.1 g/dL (6.4-8.2) Albumin 2.2 g/dL (3.4-5.0) 2.0 g/dL (3.4-5.0) Albumin/Globulin Ratio 0.5 (1.0-1.7) 0.5 (1.0-1.7) Test 04/29/21 08:07 Glucose (Fingerstick) 181 mg/dL (70-99) Images Images CT HEAD AND C-SPINE WO History: Fall, pain. Comparison: None. Technique: Noncontrast CT of the head and cervical spine. Findings: CT HEAD: There is no evidence for intracranial mass or hemorrhage. There is no hydrocephalus or midline shift. No abnormal extra-axial fluid collections are present. No evidence of large territorial infarct. Hypodensity in the left thalamus may represent sequela of lacunar infarct. Postsurgical changes of the right lens. The visualized paranasal sinuses and mastoid air cells are clear. The skull and scalp are within normal limits. CT CERVICAL SPINE: There is no evidence for fracture in the cervical spine. Severe degenerative changes of the cervical spine with straightening of the normal cervical lordosis. Multilevel advanced disc space narrowing and uncovertebral hypertrophy. Multilevel neural foraminal stenosis. Prominent post erior osteophytes at C5-C6 superimposed on congenitally slender canal severely narrow the anterior posterior canal diameter to approximately 5 mm. No destructive osseous lesions are seen. Mild emphysematous changes in the lung apices. Bilateral carotid bulb calcifications. Impression: 1. No acute intracranial findings. Left thalamic/basal ganglia hypodensity likely sequela of lacunar infarct. 2. No acute fracture in the cervical spine. 3. Advanced multilevel degenerative changes and congenitally slender canal. Severe spinal canal stenosis at C5-C6 with AP diameter of approximately 5 mm. 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 Specifically the patient denies any history of stroke or transient ischemic attack symptoms Mechanical fall Gait disorder from peripheral neuropathy and arthritis, deconditioning Recommendations: Discussed further work-up with the patient such as echocardiogram and carotid Doppler, I do not think she needs this She is on aspirin and statin Rehabilitation modalities Neurology signs off. Thank you for letting me help with the patient's care. KATHARINA LABOY MD Apr 29, 2021 13:09
[2021-04-29 15:00] VITALS: BP 139/72
--- NOTE | 2021-04-29 15:13 | NUR ---
SW following. Discussed with RN, pt from home, 3L (SW to determine if pt uses oxygen at home), renal diet, rapid COVID-19 negative. Neurology, Nephrology and Wound care following. PT/OT ordered. SW will continue to follow.
--- NOTE | 2021-04-29 15:50 | NUR ---
Wound/Ostomy Care Wound Type/Assessment: BLE are red and swollen with open areas from swelling. red non-granulated bases with maceration. Moderate drainage noted. WC pictured, measured, assessed and redressed wounds Treatment Recommendations/Plan: Cleanse legs, apply xeroform, ABD and wrap with kerlix. Apply medigrips size G bilaterally from knees to toes with no folds or wrinkles, change every 1-2 days and as needed for drainage. Education provided: WC POC and PU prevention Offloading surface/device: pt is a self turn Recommended Referrals/Tests: may need arterial and venous studies if wounds do not resolve with elevation and light compression Discharge Recommendations for dressings: see above, pt may follow up in wound center if desired.
[2021-04-29 19:00] VITALS: BP 119/65
[2021-04-29] MEDS: SIMVASTATIN 40 MG TABLET. PO SCH (22:54)
[2021-04-29] MEDS: INSULIN GLARGINE SYRINGE. SQ SCH (22:55)
[2021-04-29 23:00] VITALS: BP 131/65
[2021-04-30 03:00] VITALS: BP 134/60
[2021-04-30 05:56] LABS: CALCIUM 8.8 mg/dL (8.5-10.1); CREATININE 1.5 mg/dL (0.6-1.0); GFR 33.6; MAGNESIUM 1.8 mg/dL (1.8-2.4); PHOSPHORUS 3.2 mg/dL (2.6-4.7)
[2021-04-30 07:00] VITALS: BP 114/46
[2021-04-30] MEDS: INSULIN LISPRO 300 UNITS/3 ML VIAL. SQ SCH ×8 (08:00→18:35)
[2021-04-30] MEDS: ASPIRIN ENTERIC COATED 81 MG TABLET.DR. PO SCH (09:18)
[2021-04-30] MEDS: ASCORBIC ACID 500 MG TABLET PO SCH (09:18)
[2021-04-30] MEDS: CARVEDILOL 6.25 MG TABLET. PO SCH ×2 (09:19→18:34)
[2021-04-30] MEDS: HEPARIN for SUB-Q USE 5,000 UNIT/ML VIAL. SQ SCH ×2 (09:20→20:56)
[2021-04-30 10:02] LABS: BASO % 1 % (0-3); EOS # 0.1 x10^3/uL (0.0-0.7); EOS % 2 % (0-3); HEMATOCRIT 32.2 % (36.0-47.0); HEMOGLOBIN 10.2 g/dL (12.0-15.5); LYMPH # 0.7 x10^3/uL (1.0-4.8); LYMPH % 14 % (24-48); MEAN CORPUSCULAR HEMOGLOBIN 30 pg (25-35); MEAN CORPUSCULAR HGB CONC 32 g/dL (31-37); MEAN CORPUSCULAR VOLUME 93 fL (79-100); MONO # 0.5 x10^3/uL (0.0-1.1); MONO % 10 % (0-9); NEUT # 3.9 x10^3/uL (1.8-7.7); NEUT % 73 % (31-73); PLATELET COUNT 228 x10^3/uL (140-400); RED BLOOD COUNT 3.46 x10^6/uL (3.50-5.40); RED CELL DISTRIBUTION WIDTH 14.8 % (11.5-14.5); WHITE BLOOD COUNT 5.3 x10^3/uL (4.0-11.0)
--- NOTE | 2021-04-30 10:15 | PDOC ---
Renal-Progress Notes Subjective Notes Notes NO NEW COMPLAINTS History of Present Illness Hx of present illness STABLE Vitals Vitals Vital Signs Date Time Temp Pulse Resp B/P (MAP) Pulse Ox O2 Delivery O2 Flow Rate FiO2 04/30/21 09:19 69 114/46 04/30/21 07:00 98.6 20 94 Nasal Cannula 3.0 98.6 Weight Weight [ ] I.O. Intake and Output Intake and Output 04/30/21 07:00 Intake Total 1210 ml Balance 1210 ml Intake Oral 1210 ml # Voids 2 # Bowel Movements 2 Labs Labs Laboratory Tests Test 04/29/21 17:03 04/29/21 20:46 04/30/21 04:30 04/30/21 07:41 Glucose (Fingerstick) 193 mg/dL (70-99) 248 mg/dL (70-99) 93 mg/dL (70-99) Sodium Level 142 mmol/L (136-145) Potassium Level 4.0 mmol/L (3.5-5.1) Chloride Level 106 mmol/L (98-107) Carbon Dioxide Level 36 mmol/L (21-32) Anion Gap 0 (6-14) Blood Urea Nitrogen 34 mg/dL (7-20) Creatinine 1.5 mg/dL (0.6-1.0) Estimated GFR (Cockcroft-Gault) 33.6 Glucose Level 175 mg/dL (70-99) Calcium Level 8.8 mg/dL (8.5-10.1) Phosphorus Level 3.2 mg/dL (2.6-4.7) Magnesium Level 1.8 mg/dL (1.8-2.4) Iron Level 29 ug/dL (50-170) Total Iron Binding Capacity 233 ug/dL (250-450) Iron Saturation 12 % (15-34) Test 04/30/21 09:20 White Blood Count 5.3 x10^3/uL (4.0-11.0) Red Blood Count 3.46 x10^6/uL (3.50-5.40) Hemoglobin 10.2 g/dL (12.0-15.5) Hematocrit 32.2 % (36.0-47.0) Mean Corpuscular Volume 93 fL (79-100) Mean Corpuscular Hemoglobin 30 pg (25-35) Mean Corpuscular Hemoglobin Concent 32 g/dL (31-37) Red Cell Distribution Width 14.8 % (11.5-14.5) Platelet Count 228 x10^3/uL (140-400) Neutrophils (%) (Auto) 73 % (31-73) Lymphocytes (%) (Auto) 14 % (24-48) Monocytes (%) (Auto) 10 % (0-9) Eosinophils (%) (Auto) 2 % (0-3) Basophils (%) (Auto) 1 % (0-3) Neutrophils # (Auto) 3.9 x10^3/uL (1.8-7.7) Lymphocytes # (Auto) 0.7 x10^3/uL (1.0-4.8) Monocytes # (Auto) 0.5 x10^3/uL (0.0-1.1) Eosinophils # (Auto) 0.1 x10^3/uL (0.0-0.7) Basophils # (Auto) 0.0 x10^3/uL (0.0-0.2) Review of Systems Constitutional: yes: weakness, alert, oriented Ears/Nose/Throat: Yes: no symptom reported Eyes: Yes: no symptom reported Pulmonary: Yes dyspnea Cardiovascular: Yes edema Gastrointestional: Yes: constipation Genitourinary: Yes: no symptom reported Musculoskeletal: Yes: muscle stiffness Skin: Yes no symptom reported Psychiatric/Neurological: Yes: depressed Endocrine: Yes: no symptom reported Hematologic/Lymphatic: Yes: no symptom reported Physical Exam General Appearance: no apparent distress, obese, febrile Skin: warm, edema Respiratory: decreased breath sounds Heart: S1S2 Abdomen: soft, bowel sounds present Genitourinary: bladder flat, pedraza catheter Extremities: pulses present, edema Neurology: alert, oriented, Ext weakness Musculoskeletal: Osteoarthritis Assessment Assessment IMP FALL ANASARCA EDEMA 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
--- NOTE | 2021-04-30 10:19 | PDOC ---
PROGRESS NOTES Date of Service DATE: 04/30/21 TIME: 10:16 Assessment Problems Medical Problems: (1) Acute cervical sprain Status: Acute (2) Acute on chronic renal failure Status: Acute Hypodensity in the left thalamus is an incidentaloma not requiring any further evaluation or treatment. Specifically the patient denies any history of stroke or transient ischemic attack symptoms Mechanical fall Gait disorder from peripheral neuropathy and arthritis, deconditioning Plan Discussed further work-up with the patient such as echocardiogram and carotid Doppler, patient would now like to get the carotid Doppler checked. I am not can add check an echocardiogram because I do not think she is a candidate for anticoagulation given her gait disorder, certainly cardiology can order one of the deem it necessary She is on aspirin and statin PT/OT Subjective Strongly wants to go home rather than to any rehab Objective Vital Signs Date Time Temp Pulse Resp B/P (MAP) Pulse Ox O2 Delivery O2 Flow Rate FiO2 04/30/21 09:19 69 114/46 04/30/21 07:00 98.6 20 94 Nasal Cannula 3.0 98.6 Intake and Output 04/30/21 07:00 Intake Total 1210 ml Balance 1210 ml Intake Oral 1210 ml # Voids 2 # Bowel Movements 2 PHYSICAL EXAM Physical Exam: Alert. Oriented to time, place and person. PERRL. EOMI. CN: no focal findings. Muscle tone: normal. Muscle strength: 4/5 DTR: 0-1+ Plantar reflex: flexor Gait: not examined in bed. Sensory exam: bilateral stocking loss. No cerebellar signs elicited. Review of Relevant I have reviewed the following items moanlisa (where applicable) has been applied. Labs Laboratory Tests Test 04/28/21 13:25 04/28/21 16:45 04/28/21 16:53 04/28/21 17:03 SARS-CoV-2 RNA (TIMMY) Negative (Negative) SARS-CoV-2 Antigen (Rapid) Negative (NEGATIVE) White Blood Count 7.5 x10^3/uL (4.0-11.0) Red Blood Count 3.93 x10^6/uL (3.50-5.40) Hemoglobin 11.6 g/dL (12.0-15.5) Hematocrit 36.7 % (36.0-47.0) Mean Corpuscular Volume 94 fL (79-100) Mean Corpuscular Hemoglobin 30 pg (25-35) Mean Corpuscular Hemoglobin Concent 32 g/dL (31-37) Red Cell Distribution Width 14.8 % (11.5-14.5) Platelet Count 252 x10^3/uL (140-400) Neutrophils (%) (Auto) 81 % (31-73) Lymphocytes (%) (Auto) 9 % (24-48) Monocytes (%) (Auto) 8 % (0-9) Eosinophils (%) (Auto) 2 % (0-3) Basophils (%) (Auto) 1 % (0-3) Neutrophils # (Auto) 6.1 x10^3/uL (1.8-7.7) Lymphocytes # (Auto) 0.7 x10^3/uL (1.0-4.8) Monocytes # (Auto) 0.6 x10^3/uL (0.0-1.1) Eosinophils # (Auto) 0.1 x10^3/uL (0.0-0.7) Basophils # (Auto) 0.1 x10^3/uL (0.0-0.2) Urine Collection Type U cath Urine Color Yellow Urine Clarity Clear Urine pH 6.0 (<5.0-8.0) Urine Specific [place] 1.020 (1.000-1.030) Urine Protein >=300 mg/dL (NEG-TRACE) Urine Glucose (UA) >=1000 mg/dL (NEG) Urine Ketones (Stick) Negative mg/dL (NEG) Urine Blood Small (NEG) Urine Nitrite Negative (NEG) Urine Bilirubin Negative (NEG) Urine Urobilinogen Dipstick 0.2 mg/dL (0.2 mg/dL) Urine Leukocyte Esterase Negative (NEG) Urine RBC Rare /HPF (0-2) Urine WBC 0 /HPF (0-4) Urine Squamous Epithelial Cells Many /LPF Urine Bacteria 0 /HPF (0-FEW) Sodium Level 141 mmol/L (136-145) Potassium Level 3.6 mmol/L (3.5-5.1) Chloride Level 101 mmol/L (98-107) Carbon Dioxide Level 35 mmol/L (21-32) Anion Gap 5 (6-14) Blood Urea Nitrogen 36 mg/dL (7-20) Creatinine 1.8 mg/dL (0.6-1.0) Estimated GFR (Cockcroft-Gault) 27.2 BUN/Creatinine Ratio 20 (6-20) Glucose Level 321 mg/dL (70-99) Calcium Level 8.2 mg/dL (8.5-10.1) Total Bilirubin 0.2 mg/dL (0.2-1.0) Aspartate Amino Transf (AST/SGOT) 21 U/L (15-37) Alanine Aminotransferase (ALT/SGPT) 26 U/L (14-59) Alkaline Phosphatase 155 U/L (46-116) JH-Vsv-A-Type Natriuretic Peptide 4639 pg/mL (0-449) Total Protein 6.8 g/dL (6.4-8.2) Albumin 2.2 g/dL (3.4-5.0) Albumin/Globulin Ratio 0.5 (1.0-1.7) Test 04/29/21 07:40 04/29/21 08:07 04/29/21 17:03 04/29/21 20:46 White Blood Count 5.7 x10^3/uL (4.0-11.0) Red Blood Count 3.65 x10^6/uL (3.50-5.40) Hemoglobin 10.9 g/dL (12.0-15.5) Hematocrit 33.6 % (36.0-47.0) Mean Corpuscular Volume 92 fL (79-100) Mean Corpuscular Hemoglobin 30 pg (25-35) Mean Corpuscular Hemoglobin Concent 32 g/dL (31-37) Red Cell Distribution Width 14.6 % (11.5-14.5) Platelet Count 252 x10^3/uL (140-400) Neutrophils (%) (Auto) 77 % (31-73) Lymphocytes (%) (Auto) 12 % (24-48) Monocytes (%) (Auto) 9 % (0-9) Eosinophils (%) (Auto) 2 % (0-3) Basophils (%) (Auto) 1 % (0-3) Neutrophils # (Auto) 4.4 x10^3/uL (1.8-7.7) Lymphocytes # (Auto) 0.7 x10^3/uL (1.0-4.8) Monocytes # (Auto) 0.5 x10^3/uL (0.0-1.1) Eosinophils # (Auto) 0.1 x10^3/uL (0.0-0.7) Basophils # (Auto) 0.0 x10^3/uL (0.0-0.2) Sodium Level 144 mmol/L (136-145) Potassium Level 3.5 mmol/L (3.5-5.1) Chloride Level 105 mmol/L (98-107) Carbon Dioxide Level 38 mmol/L (21-32) Anion Gap 1 (6-14) Blood Urea Nitrogen 33 mg/dL (7-20) Creatinine 1.5 mg/dL (0.6-1.0) Estimated GFR (Cockcroft-Gault) 33.6 BUN/Creatinine Ratio 22 (6-20) Glucose Level 183 mg/dL (70-99) Calcium Level 8.2 mg/dL (8.5-10.1) Total Bilirubin 0.4 mg/dL (0.2-1.0) Aspartate Amino Transf (AST/SGOT) 18 U/L (15-37) Alanine Aminotransferase (ALT/SGPT) 21 U/L (14-59) Alkaline Phosphatase 106 U/L (46-116) Total Protein 6.1 g/dL (6.4-8.2) Albumin 2.0 g/dL (3.4-5.0) Albumin/Globulin Ratio 0.5 (1.0-1.7) Glucose (Fingerstick) 181 mg/dL (70-99) 193 mg/dL (70-99) 248 mg/dL (70-99) Test 04/30/21 04:30 04/30/21 07:41 04/30/21 09:20 Sodium Level 142 mmol/L (136-145) Potassium Level 4.0 mmol/L (3.5-5.1) Chloride Level 106 mmol/L (98-107) Carbon Dioxide Level 36 mmol/L (21-32) Anion Gap 0 (6-14) Blood Urea Nitrogen 34 mg/dL (7-20) Creatinine 1.5 mg/dL (0.6-1.0) Estimated GFR (Cockcroft-Gault) 33.6 Glucose Level 175 mg/dL (70-99) Calcium Level 8.8 mg/dL (8.5-10.1) Phosphorus Level 3.2 mg/dL (2.6-4.7) Magnesium Level 1.8 mg/dL (1.8-2.4) Iron Level 29 ug/dL (50-170) Total Iron Binding Capacity 233 ug/dL (250-450) Iron Saturation 12 % (15-34) Glucose (Fingerstick) 93 mg/dL (70-99) White Blood Count 5.3 x10^3/uL (4.0-11.0) Red Blood Count 3.46 x10^6/uL (3.50-5.40) Hemoglobin 10.2 g/dL (12.0-15.5) Hematocrit 32.2 % (36.0-47.0) Mean Corpuscular Volume 93 fL (79-100) Mean Corpuscular Hemoglobin 30 pg (25-35) Mean Corpuscular Hemoglobin Concent 32 g/dL (31-37) Red Cell Distribution Width 14.8 % (11.5-14.5) Platelet Count 228 x10^3/uL (140-400) Neutrophils (%) (Auto) 73 % (31-73) Lymphocytes (%) (Auto) 14 % (24-48) Monocytes (%) (Auto) 10 % (0-9) Eosinophils (%) (Auto) 2 % (0-3) Basophils (%) (Auto) 1 % (0-3) Neutrophils # (Auto) 3.9 x10^3/uL (1.8-7.7) Lymphocytes # (Auto) 0.7 x10^3/uL (1.0-4.8) Monocytes # (Auto) 0.5 x10^3/uL (0.0-1.1) Eosinophils # (Auto) 0.1 x10^3/uL (0.0-0.7) Basophils # (Auto) 0.0 x10^3/uL (0.0-0.2) Laboratory Tests Test 04/29/21 17:03 04/29/21 20:46 04/30/21 04:30 04/30/21 07:41 Glucose (Fingerstick) 193 mg/dL (70-99) 248 mg/dL (70-99) 93 mg/dL (70-99) Sodium Level 142 mmol/L (136-145) Potassium Level 4.0 mmol/L (3.5-5.1) Chloride Level 106 mmol/L (98-107) Carbon Dioxide Level 36 mmol/L (21-32) Anion Gap 0 (6-14) Blood Urea Nitrogen 34 mg/dL (7-20) Creatinine 1.5 mg/dL (0.6-1.0) Estimated GFR (Cockcroft-Gault) 33.6 Glucose Level 175 mg/dL (70-99) Calcium Level 8.8 mg/dL (8.5-10.1) Phosphorus Level 3.2 mg/dL (2.6-4.7) Magnesium Level 1.8 mg/dL (1.8-2.4) Iron Level 29 ug/dL (50-170) Total Iron Binding Capacity 233 ug/dL (250-450) Iron Saturation 12 % (15-34) Test 04/30/21 09:20 White Blood Count 5.3 x10^3/uL (4.0-11.0) Red Blood Count 3.46 x10^6/uL (3.50-5.40) Hemoglobin 10.2 g/dL (12.0-15.5) Hematocrit 32.2 % (36.0-47.0) Mean Corpuscular Volume 93 fL (79-100) Mean Corpuscular Hemoglobin 30 pg (25-35) Mean Corpuscular Hemoglobin Concent 32 g/dL (31-37) Red Cell Distribution Width 14.8 % (11.5-14.5) Platelet Count 228 x10^3/uL (140-400) Neutrophils (%) (Auto) 73 % (31-73) Lymphocytes (%) (Auto) 14 % (24-48) Monocytes (%) (Auto) 10 % (0-9) Eosinophils (%) (Auto) 2 % (0-3) Basophils (%) (Auto) 1 % (0-3) Neutrophils # (Auto) 3.9 x10^3/uL (1.8-7.7) Lymphocytes # (Auto) 0.7 x10^3/uL (1.0-4.8) Monocytes # (Auto) 0.5 x10^3/uL (0.0-1.1) Eosinophils # (Auto) 0.1 x10^3/uL (0.0-0.7) Basophils # (Auto) 0.0 x10^3/uL (0.0-0.2) Medications Current Medications Ondansetron HCl (Zofran) 4 mg PRN Q8HRS PRN IVP NAUSEA/VOMITING; Start 04/28/21 at 20:30; Stop 04/29/21 at 18:37; Status DC Morphine Sulfate (Morphine Sulfate) 2 mg PRN Q2HR PRN IVP PAIN; Start 04/28/21 at 20:30; Stop 04/29/21 at 20:29; Status DC Acetaminophen (Tylenol) 650 mg PRN Q4HRS PRN PO FEVER > 100.3'F; Start 04/28/21 at 20:30; Stop 04/29/21 at 18:36; Status DC Furosemide (Lasix) 40 mg 1X ONCE IVP Last administered on 04/28/21at 23:02; Start 04/28/21 at 21:00; Stop 04/28/21 at 21:01; Status DC Ascorbic Acid (Vitamin C) 500 mg DAILY PO Last administered on 04/30/21at 09:18; Start 04/29/21 at 09:00 Aspirin (Ecotrin) 81 mg DAILYWBKFT PO Last administered on 04/30/21at 09:18; Start 04/29/21 at 09:00 Carvedilol (Coreg) 6.25 mg BIDWMEALS PO Last administered on 04/30/21at 09:19; Start 04/29/21 at 09:00 Insulin Glargine (Lantus Syringe) 38 unit HS SQ Last administered on 04/29/21at 22:55; Start 04/29/21 at 21:00 Insulin Human Lispro (HumaLOG) 13 units TIDWMEALS SQ Last administered on 04/29/21at 17:00; Start 04/29/21 at 09:00 Simvastatin (Zocor) 40 mg QHS PO Last administered on 04/29/21at 22:54; Start 04/29/21 at 21:00 Insulin Human Lispro (HumaLOG) 0-7 UNITS TIDWMEALS SQ Last administered on 04/29/21at 17:00; Start 04/29/21 at 12:00 Dextrose (Dextrose 50%-Water Syringe) 12.5 gm PRN Q15MIN PRN IV SEE COMMENTS; Start 04/29/21 at 08:30 Sennosides (Senna) 17.2 mg PRN BID PRN PO CONSTIPATION; Start 04/29/21 at 08:30 Docusate Sodium (Colace) 100 mg PRN DAILY PRN PO HARD STOOLS Last administered on 04/30/21at 09:17; Start 04/29/21 at 08:30 Ondansetron HCl (Zofran) 4 mg PRN Q6HRS PRN IVP NAUSEA/VOMITING, 1st CHOICE Last administered on 04/30/21at 09:19; Start 04/29/21 at 08:30 Dextrose (Dextrose 50%-Water Syringe) 12.5 gm PRN Q15MIN PRN IV SEE COMMENTS; Start 04/29/21 at 08:30; Status Cancel Acetaminophen (Tylenol) 650 mg PRN Q4HRS PRN PO TEMP OVER 100.4F OR MILD PAIN; Start 04/29/21 at 08:30 Heparin Sodium (Porcine) (Heparin Sodium) 5,000 unit Q12HR SQ Last administered on 04/30/21at 09:20; Start 04/29/21 at 09:00 Prochlorperazine Edisylate (Compazine) 10 mg PRN Q6HRS PRN IV NAUSEA/VOMITING, 2ND CHOICE; Start 04/29/21 at 08:30 Furosemide (Lasix) 80 mg 1X ONCE IVP Last administered on 04/29/21at 11:47; Start 04/29/21 at 10:15; Stop 04/29/21 at 10:18; Status DC Furosemide 100 mg/ Sodium Chloride 100 ml @ 5 mls/hr CONT PRN IV SEE I/O RECORD; Start 04/29/21 at 11:00 Potassium Chloride (Klor-Con) 40 meq 1X ONCE PO Last administered on 04/29/21at 11:46; Start 04/29/21 at 10:15; Stop 04/29/21 at 10:18; Status DC Active Scripts Active Thera-M Tablet (Multivits,Ca,Minerals/Iron/Fa) 1 Each Tablet 1 Tab PO DAILY 30 Days Vitamin C (Ascorbic Acid) 500 Mg Tablet 500 Mg PO DAILY 30 Days Culturelle (Lactobacillus Rhamnosus Gg) 1 Each Cap.sprink 1 Cap PO BID 30 Days Aspirin Ec (Aspirin) 81 Mg Tablet.dr 81 Mg PO DAILYWBKFT 30 Days Proair Hfa (Albuterol Sulfate) 8.5 Gm Hfa.aer.ad 2.5 Mg NEB PRN Q4HRS PRN 30 Days Amox Tr-K Clv 500-125 Mg Tab (Amoxicillin/Potassium Clav) 1 Each Tablet 1 Tab PO DAILY 3 Days Reported Lantus (Insulin Glargine,Hum.rec.anlog) 100 Unit/1 Ml Vial 38 Units SQ HS Insulin Lispro 100 Unit/1 Ml Vial 13 Units SQ TIDAC Xalatan (Latanoprost) 2.5 Ml Drops 1 Drop OP HS Flonase Allergy Relief (Fluticasone Propionate) 9.9 Ml [place].susp 2 Sprays NS DAILY Novolin N (Nph, Human Insulin Isophane) 100 Unit/1 Ml Vial 40 Unit SQ DAILYWBKFT Carvedilol (Carvedilol) 6.25 Mg Tablet 6.25 Mg PO BIDWMEALS Simvastatin 40 Mg Tablet 1 Tab PO QHS Furosemide 20 Mg Tablet 1 Tab PO DAILY Vitals/I & O Vital Sign - Last 24 Hours 04/29/21 04/29/21 04/29/21 04/29/21 11:00 11:47 15:00 15:00 Temp 97.6 98.6 97.4 97.6 98.6 97.4 Pulse 81 86 80 Resp 18 18 B/P (MAP) 134/69 (90) 121/72 139/72 (94) Pulse Ox 97 94 O2 Delivery Nasal Cannula Nasal Cannula O2 Flow Rate 3.0 3.0 04/29/21 04/29/21 04/29/21 04/29/21 17:00 19:00 20:07 23:00 Temp 98.2 98.1 98.2 98.1 Pulse 86 68 75 Resp 18 17 B/P (MAP) 121/72 119/65 (83) 131/65 (87) Pulse Ox 94 98 O2 Delivery Nasal Cannula Nasal Cannula Nasal Cannula O2 Flow Rate 3.0 3.0 3.0 04/30/21 04/30/21 04/30/21 03:00 07:00 09:19 Temp 98.1 98.6 98.1 98.6 Pulse 70 69 69 Resp 18 20 B/P (MAP) 134/60 (84) 114/46 (68) 114/46 Pulse Ox 98 94 O2 Delivery Nasal Cannula Nasal Cannula O2 Flow Rate 3.0 3.0 Intake and Output 04/29/21 04/29/21 04/30/21 15:00 23:00 07:00 Intake Total 610 ml 600 ml Balance 610 ml 600 ml Justicifation of Admission Dx: Justifications for Admission: Justification of Admission Dx: N/A KATHARINA LABOY MD Apr 30, 2021 10:19
[2021-04-30 11:00] VITALS: BP 139/64
--- NOTE | 2021-04-30 11:20 | PDOC ---
[facility] PROGRESS NOTE Date of Service DOS: DATE: 04/30/21 TIME: 11:04 Chief Complaint Chief Complaint Mechanical fall. Hypertensive urgency. Cervical spinal stenosis. Acute volume overload. Acute on chronic kidney failure, due to possible vasomotor nephropathy. Left thalamus hypodensity, incidental finding, no further evaluation or treatment. Anemia of chronic kidney disease. Deconditioning. Peripheral neuropathy. Osteoarthritis. COPD. DM type 2. HTN. Morbid obesity. Severe protein malnutrition. History of Present Illness History of Present Illness Patient is a 80-year-old female with past medical history of diabetes mellitus type 2, hypertension, COPD on home O2, CKD was on dialysis a year ago but taken off, morbid obesity, who presents today after falling. Patient states that she was trying to take a shower but she tripped and fell. She also reports that she has been getting weaker in the past couple weeks and she has gained about 10 pounds and feels like she is getting more edematous. Denies any head trauma or loss of consciousness. However she does complain of mild posterior neck pain and also she complains of swelling to the bilateral lower extremities. Denies fevers, shortness of breath, chest pain, abdominal pain, diarrhea or dysuria. Patient was given dose of IV Lasix as she does report urinary output but she is unsure how much she is putting out because there is a pure wick attached to her. 04/30/21 Patient seen and examined at bedside. D/W RN. Chart reviewed. SpO2 94% on 3 lpm via NC. U/S found L renal simple cyst. Patient denies stroke symptoms. Per neurology, hypodensity was found in L thalamus. No further evaluation or treatment necessary. Patient prefers to have carotid doppler study done. Vitals/I&O Vitals/I&O: Vital Signs Date Time Temp Pulse Resp B/P (MAP) Pulse Ox O2 Delivery O2 Flow Rate FiO2 04/30/21 09:19 69 114/46 04/30/21 07:00 98.6 20 94 Nasal Cannula 3.0 98.6 I & O 04/29/21 04/29/21 04/30/21 15:00 23:00 07:00 Intake Total 610 ml 600 ml Balance 610 ml 600 ml Physical Exam General: Alert, Oriented X3, Cooperative, mild distress Heart: Regular rate, Normal S1, Normal S2 Lungs: Clear Abdomen: Normal bowel sounds, Soft, No tenderness Extremities: No clubbing, No cyanosis, Other (3+ EDEMA) Labs Labs: Laboratory Tests Test 04/29/21 17:03 04/29/21 20:46 04/30/21 04:30 04/30/21 07:41 Glucose (Fingerstick) 193 mg/dL (70-99) 248 mg/dL (70-99) 93 mg/dL (70-99) Sodium Level 142 mmol/L (136-145) Potassium Level 4.0 mmol/L (3.5-5.1) Chloride Level 106 mmol/L (98-107) Carbon Dioxide Level 36 mmol/L (21-32) Anion Gap 0 (6-14) Blood Urea Nitrogen 34 mg/dL (7-20) Creatinine 1.5 mg/dL (0.6-1.0) Estimated GFR (Cockcroft-Gault) 33.6 Glucose Level 175 mg/dL (70-99) Calcium Level 8.8 mg/dL (8.5-10.1) Phosphorus Level 3.2 mg/dL (2.6-4.7) Magnesium Level 1.8 mg/dL (1.8-2.4) Iron Level 29 ug/dL (50-170) Total Iron Binding Capacity 233 ug/dL (250-450) Iron Saturation 12 % (15-34) Test 04/30/21 09:20 White Blood Count 5.3 x10^3/uL (4.0-11.0) Red Blood Count 3.46 x10^6/uL (3.50-5.40) Hemoglobin 10.2 g/dL (12.0-15.5) Hematocrit 32.2 % (36.0-47.0) Mean Corpuscular Volume 93 fL (79-100) Mean Corpuscular Hemoglobin 30 pg (25-35) Mean Corpuscular Hemoglobin Concent 32 g/dL (31-37) Red Cell Distribution Width 14.8 % (11.5-14.5) Platelet Count 228 x10^3/uL (140-400) Neutrophils (%) (Auto) 73 % (31-73) Lymphocytes (%) (Auto) 14 % (24-48) Monocytes (%) (Auto) 10 % (0-9) Eosinophils (%) (Auto) 2 % (0-3) Basophils (%) (Auto) 1 % (0-3) Neutrophils # (Auto) 3.9 x10^3/uL (1.8-7.7) Lymphocytes # (Auto) 0.7 x10^3/uL (1.0-4.8) Monocytes # (Auto) 0.5 x10^3/uL (0.0-1.1) Eosinophils # (Auto) 0.1 x10^3/uL (0.0-0.7) Basophils # (Auto) 0.0 x10^3/uL (0.0-0.2) Review of Systems Review of Systems: Denies focal neurologic deficits or confusion. Denies hunger. Assessment and Plan Assessmemt and Plan Problems Medical Problems: (1) Acute cervical sprain Status: Acute (2) Acute on chronic renal failure Status: Acute Assessment: Mechanical fall. Hypertensive urgency. Cervical spinal stenosis. Acute volume overload. Acute on chronic kidney failure, due to possible vasomotor nephropathy. Left thalamus hypodensity, incidental finding, no further evaluation or treatment. Anemia of chronic kidney disease. Deconditioning. Peripheral neuropathy. Osteoarthritis. COPD. DM type 2. HTN. Morbid obesity. Severe protein malnutrition. Plan: Cardiac monitoring. Wound care. Trend labs. Appreciate subspecialist input. Lasix. Awaiting carotid doppler. Avoid nephrotoxic agents. Control BP. Control BG. Iron supplements. Home meds. Aspirin. Atorvastatin. PT/OT. Heparin for DVT prophylaxis. Protonix GI prophylaxis. ADA diet. Full code. Comment Review of Relevant I have reviewed the following items monalisa (where applicable) has been applied. Medications: Current Medications Medications (Trade) Dose Ordered Sig/Yulisa Route PRN Reason Start Time Stop Time Status Last Admin Dose Admin Insulin Glargine (Lantus Syringe) 38 unit HS SQ 04/29/21 21:00 04/29/21 22:55 Simvastatin (Zocor) 40 mg QHS PO 04/29/21 21:00 04/29/21 22:54 Insulin Human Lispro (HumaLOG) 0-7 UNITS TIDWMEALS SQ 04/29/21 12:00 04/29/21 17:00 Justifications for Admission Other Justification Fall with acute renal failure JOE MORGAN III DO Apr 30, 2021 11:20
--- NOTE | 2021-04-30 11:21 | RAD ---
EXAM: CAROTID DOPPLER SONOGRAM. HISTORY: Left thalamic stroke, fall. TECHNIQUE: Brennan scale and color Doppler sonographic evaluation of the neck with spectral waveform yo lysis was performed and static images are submitted for review. FINDINGS: RIGHT: The peak systolic velocity within the common carotid artery is 218 cm/sec. The peak systolic v elocity within the internal carotid artery is 249 cm/sec and the end diastolic velocity within the in ternal carotid artery is 29 cm/sec. The ICA/CCA ratio is 1.3. Grayscale images demonstrate no graysca le stenosis. LEFT: The peak systolic velocity within the common carotid artery is 161 cm/sec. The peak systolic ve locity within the internal carotid artery is 160 cm/sec and the end diastolic velocity within the int ernal carotid artery is 37 cm/sec. The ICA/CCA ratio is 1.0. Grayscale images demonstrate no grayscal e stenosis. There is antegrade flow within both vertebral arteries. IMPRESSION: 1. 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 Lesser stenosis more distally on the right. 2. 50-69% stenosis within the left proximal and mid internal carotid artery. 3. CTA or MRA could further quantify stenosis if there is persistent concern. PQRS Compliance Statement - Stenosis calculations for CT, MR and conventional angiography are based u anish measurement of the distal ICA diameter in accordance with the NASCET methodology. Stenosis calcu lations for carotid ultrasound studies are derived from validated velocity criteria which are known t o correlate with the NASCET methodology. Electronically signed by: Kostas Jeronimo MD (04/30/2021 11:18 AM) [id number]
[2021-04-30] MEDS: IRON POLYSACCHARIDE COMPLEX 150 MG CAPSULE PO SCH (12:46)
[2021-04-30] MEDS: ACETAMINOPHEN 325 MG TABLET. PO PRN (12:47)
[2021-04-30] MEDS: POTASSIUM CHLORIDE 20 MEQ TABLET.ER. PO SCH (12:47)
[2021-04-30 15:00] VITALS: BP 148/68
--- NOTE | 2021-04-30 15:18 | NUR ---
SW following. Discussed with RN, pt from home, 3L, renal diet. Therapy recommending SNF - SW met with pt, pt agreeable as long as she doesn't have to quarantine for 14 days. Pt reported she has had the COVID vaccines - SW advised she does not need to quarantine because she has had the vaccines. Pt agreeable to referral, would like it faxed to [facility]. SW phoned and faxed referral. Pt accepted, pending insurance auth - anticipate auth on Monday (05/03/21). RN notified. COVID-19 negative. SW will continue to follow.
[2021-04-30 19:00] VITALS: BP 131/63
[2021-04-30] MEDS: SIMVASTATIN 40 MG TABLET. PO SCH (20:47)
[2021-04-30] MEDS: INSULIN GLARGINE SYRINGE. SQ SCH (20:56)
--- NOTE | 2021-04-30 21:46 | NUR ---
Report called to [facility] and patient transferred to room 675 for lasix gtt. All belongings sent with pt.
[2021-04-30 22:05] VITALS: BP 149/70
[2021-04-30] MEDS: FUROSEMIDE INJ 100 MG in IV NORMAL SALINE 100ML 100 ML IV PRN (22:17)
--- NOTE | 2021-05-01 01:00 | NUR ---
0100 Pt had purewick line tucked underneath her, line had become disconnected from suction canister. Pt urine was not measured this occurrence as purewick did not catch it. Chux was soaked, pt cleaned and chux changed. Purewick re-connected and is working properly now. Accurate I&O attempted to be obtained due to pt on lasix gtt per nephrology.
[2021-05-01 03:59] VITALS: BP 141/64
[2021-05-01 06:55] VITALS: BP 158/66
[2021-05-01] MEDS: ASPIRIN ENTERIC COATED 81 MG TABLET.DR. PO SCH (08:00)
[2021-05-01 08:17] LABS: BASO % 0 % (0-3); EOS # 0.1 x10^3/uL (0.0-0.7); EOS % 3 % (0-3); HEMATOCRIT 35.2 % (36.0-47.0); HEMOGLOBIN 10.9 g/dL (12.0-15.5); LYMPH # 0.5 x10^3/uL (1.0-4.8); LYMPH % 11 % (24-48); MEAN CORPUSCULAR HEMOGLOBIN 29 pg (25-35); MEAN CORPUSCULAR HGB CONC 31 g/dL (31-37); MEAN CORPUSCULAR VOLUME 95 fL (79-100); MONO # 0.5 x10^3/uL (0.0-1.1); MONO % 11 % (0-9); NEUT # 3.6 x10^3/uL (1.8-7.7); NEUT % 75 % (31-73); PLATELET COUNT 235 x10^3/uL (140-400); RED BLOOD COUNT 3.72 x10^6/uL (3.50-5.40); RED CELL DISTRIBUTION WIDTH 14.9 % (11.5-14.5); WHITE BLOOD COUNT 4.8 x10^3/uL (4.0-11.0)
[2021-05-01 08:54] LABS: CALCIUM 8.9 mg/dL (8.5-10.1); CREATININE 1.6 mg/dL (0.6-1.0); GFR 31.2; MAGNESIUM 1.9 mg/dL (1.8-2.4); POTASSIUM 4.4 mmol/L (3.5-5.1)
[2021-05-01] MEDS: POTASSIUM CHLORIDE 20 MEQ TABLET.ER. PO SCH (09:39)
[2021-05-01] MEDS: IRON POLYSACCHARIDE COMPLEX 150 MG CAPSULE PO SCH (09:39)
[2021-05-01] MEDS: ASCORBIC ACID 500 MG TABLET PO SCH (09:39)
[2021-05-01] MEDS: CARVEDILOL 6.25 MG TABLET. PO SCH ×2 (09:40→17:06)
[2021-05-01] MEDS: INSULIN LISPRO 300 UNITS/3 ML VIAL. SQ SCH ×6 (09:50→17:00)
[2021-05-01] MEDS: HEPARIN for SUB-Q USE 5,000 UNIT/ML VIAL. SQ SCH ×2 (09:52→22:42)
--- NOTE | 2021-05-01 10:57 | PDOC ---
Renal-Progress Notes Subjective Notes Notes STILL SOB History of Present Illness Hx of present illness SUBJECTIVELY NOT ANY BETTER WITH RESPECT TO SOB Vitals Vitals Vital Signs Date Time Temp Pulse Resp B/P (MAP) Pulse Ox O2 Delivery O2 Flow Rate FiO2 05/01/21 09:40 71 158/66 05/01/21 06:55 98.1 21 95 Nasal Cannula 3.0 98.1 Weight Weight [ ] I.O. Intake and Output Intake and Output 05/01/21 07:00 Intake Total 200 ml Output Total 625 ml Balance -425 ml Intake Oral 200 ml Output Urine Total 625 ml # Voids 3 # Bowel Movements 2 Labs Labs Laboratory Tests Test 04/30/21 11:48 04/30/21 17:05 04/30/21 20:40 05/01/21 07:33 Glucose (Fingerstick) 95 mg/dL (70-99) 154 mg/dL (70-99) 212 mg/dL (70-99) 175 mg/dL (70-99) Test 05/01/21 07:35 White Blood Count 4.8 x10^3/uL (4.0-11.0) Red Blood Count 3.72 x10^6/uL (3.50-5.40) Hemoglobin 10.9 g/dL (12.0-15.5) Hematocrit 35.2 % (36.0-47.0) Mean Corpuscular Volume 95 fL (79-100) Mean Corpuscular Hemoglobin 29 pg (25-35) Mean Corpuscular Hemoglobin Concent 31 g/dL (31-37) Red Cell Distribution Width 14.9 % (11.5-14.5) Platelet Count 235 x10^3/uL (140-400) Neutrophils (%) (Auto) 75 % (31-73) Lymphocytes (%) (Auto) 11 % (24-48) Monocytes (%) (Auto) 11 % (0-9) Eosinophils (%) (Auto) 3 % (0-3) Basophils (%) (Auto) 0 % (0-3) Neutrophils # (Auto) 3.6 x10^3/uL (1.8-7.7) Lymphocytes # (Auto) 0.5 x10^3/uL (1.0-4.8) Monocytes # (Auto) 0.5 x10^3/uL (0.0-1.1) Eosinophils # (Auto) 0.1 x10^3/uL (0.0-0.7) Basophils # (Auto) 0.0 x10^3/uL (0.0-0.2) Sodium Level 143 mmol/L (136-145) Potassium Level 4.4 mmol/L (3.5-5.1) Chloride Level 106 mmol/L (98-107) Carbon Dioxide Level 37 mmol/L (21-32) Anion Gap 0 (6-14) Blood Urea Nitrogen 36 mg/dL (7-20) Creatinine 1.6 mg/dL (0.6-1.0) Estimated GFR (Cockcroft-Gault) 31.2 Glucose Level 186 mg/dL (70-99) Calcium Level 8.9 mg/dL (8.5-10.1) Phosphorus Level 3.0 mg/dL (2.6-4.7) Magnesium Level 1.9 mg/dL (1.8-2.4) Review of Systems Constitutional: yes: weakness, alert, oriented Ears/Nose/Throat: Yes: no symptom reported Eyes: Yes: no symptom reported Pulmonary: Yes dyspnea Cardiovascular: Yes edema Gastrointestional: Yes: constipation Genitourinary: Yes: no symptom reported Musculoskeletal: Yes: muscle stiffness Skin: Yes no symptom reported Psychiatric/Neurological: Yes: depressed Endocrine: Yes: no symptom reported Hematologic/Lymphatic: Yes: no symptom reported Physical Exam General Appearance: no apparent distress, obese, febrile Skin: warm, edema Respiratory: decreased breath sounds Heart: S1S2 Abdomen: soft, bowel sounds present Genitourinary: bladder flat, pedraza catheter Extremities: pulses present, edema Neurology: alert, oriented, Ext weakness Musculoskeletal: Osteoarthritis Assessment Assessment IMP FALL ANASARCA EDEMA CKD STAGE 3B TO 4-CR OF 1.6 MORBID OBESITY UNCONTROLLED HTN VOLUME OVERLOAD CHF - SUSPECT ACUTE ON CHRONIC SYSTOLIC AND DIASTOLIC HX OF COPD DM II PROTEINURIA DECONDITIONING ANEMIA OF CKD PLAN CONT DIURESIS LASIX GTT START THIAZIDE TO SUPPLEMENT LOOP DIURETIC CONTROL BP CONTROL BG HOPEFULLY BP IMPROVES WITH DIURESIS MAY END UP NEEDING DIALYSIS AGAIN IF UNABLE TO DIURESE FLUID RESTRICT AVOID NEPHROTOXINS CONSIDER ECHOCARDIOGRAM IRON SUPPLEMENTS ENC COMPLIANCE COVID 19 NEG D/W ATTENDING YASSINE MARTINEZ MD May 01, 2021 10:57
[2021-05-01 11:00] VITALS: BP 147/67
--- NOTE | 2021-05-01 11:30 | PDOC ---
[facility] PROGRESS NOTE Date of Service DOS: DATE: 05/01/21 TIME: 11:22 Chief Complaint Chief Complaint Mechanical fall. Hypertensive urgency. Cervical spinal stenosis. Acute volume overload. Acute on chronic kidney failure, due to possible vasomotor nephropathy. Left thalamus hypodensity, incidental finding, no further evaluation or treatment. Anemia of chronic kidney disease. Deconditioning. Peripheral neuropathy. Osteoarthritis. COPD. DM type 2. HTN. Morbid obesity. Severe protein malnutrition. History of Present Illness History of Present Illness Patient is a 80-year-old female with past medical history of diabetes mellitus type 2, hypertension, COPD on home O2, CKD was on dialysis a year ago but taken off, morbid obesity, who presents today after falling. Patient states that she was trying to take a shower but she tripped and fell. She also reports that she has been getting weaker in the past couple weeks and she has gained about 10 pounds and feels like she is getting more edematous. Denies any head trauma or loss of consciousness. However she does complain of mild posterior neck pain and also she complains of swelling to the bilateral lower extremities. Denies fevers, shortness of breath, chest pain, abdominal pain, diarrhea or dysuria. Patient was given dose of IV Lasix as she does report urinary output but she is unsure how much she is putting out because there is a pure wick attached to her. 04/30/21 Patient seen and examined at bedside. D/W RN. Chart reviewed. SpO2 94% on 3 lpm via NC. U/S found L renal simple cyst. Patient denies stroke symptoms. Per neurology, hypodensity was found in L thalamus. No further evaluation or treatment necessary. Patient prefers to have carotid doppler study done. 05/01/21 Patient seen and examined at bedside. D/W RN. Dr. Haynes (nephrology) and I plan to follow creatinine levels, continue diuretics, and consider dialysis. 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 Plan to consult Dr. Higuera (vascular surgery). Vitals/I&O Vitals/I&O: Vital Signs Date Time Temp Pulse Resp B/P (MAP) Pulse Ox O2 Delivery O2 Flow Rate FiO2 05/01/21 09:40 71 158/66 05/01/21 06:55 98.1 21 95 Nasal Cannula 3.0 98.1 I & O 04/30/21 04/30/21 05/01/21 15:00 23:00 07:00 Intake Total 200 ml Output Total 625 ml Balance -425 ml Physical Exam General: Alert, Oriented X3, Cooperative, mild distress Heart: Regular rate, Normal S1, Normal S2 Lungs: Clear Abdomen: Normal bowel sounds, Soft, No tenderness Extremities: No clubbing, No cyanosis, Other (3+ EDEMA) Labs Labs: Laboratory Tests Test 04/30/21 11:48 04/30/21 17:05 04/30/21 20:40 05/01/21 07:33 Glucose (Fingerstick) 95 mg/dL (70-99) 154 mg/dL (70-99) 212 mg/dL (70-99) 175 mg/dL (70-99) Test 05/01/21 07:35 White Blood Count 4.8 x10^3/uL (4.0-11.0) Red Blood Count 3.72 x10^6/uL (3.50-5.40) Hemoglobin 10.9 g/dL (12.0-15.5) Hematocrit 35.2 % (36.0-47.0) Mean Corpuscular Volume 95 fL (79-100) Mean Corpuscular Hemoglobin 29 pg (25-35) Mean Corpuscular Hemoglobin Concent 31 g/dL (31-37) Red Cell Distribution Width 14.9 % (11.5-14.5) Platelet Count 235 x10^3/uL (140-400) Neutrophils (%) (Auto) 75 % (31-73) Lymphocytes (%) (Auto) 11 % (24-48) Monocytes (%) (Auto) 11 % (0-9) Eosinophils (%) (Auto) 3 % (0-3) Basophils (%) (Auto) 0 % (0-3) Neutrophils # (Auto) 3.6 x10^3/uL (1.8-7.7) Lymphocytes # (Auto) 0.5 x10^3/uL (1.0-4.8) Monocytes # (Auto) 0.5 x10^3/uL (0.0-1.1) Eosinophils # (Auto) 0.1 x10^3/uL (0.0-0.7) Basophils # (Auto) 0.0 x10^3/uL (0.0-0.2) Sodium Level 143 mmol/L (136-145) Potassium Level 4.4 mmol/L (3.5-5.1) Chloride Level 106 mmol/L (98-107) Carbon Dioxide Level 37 mmol/L (21-32) Anion Gap 0 (6-14) Blood Urea Nitrogen 36 mg/dL (7-20) Creatinine 1.6 mg/dL (0.6-1.0) Estimated GFR (Cockcroft-Gault) 31.2 Glucose Level 186 mg/dL (70-99) Calcium Level 8.9 mg/dL (8.5-10.1) Phosphorus Level 3.0 mg/dL (2.6-4.7) Magnesium Level 1.9 mg/dL (1.8-2.4) Review of Systems Review of Systems: Denies confusion. Denies nausea or vomiting. Assessment and Plan Assessmemt and Plan Problems Medical Problems: (1) Acute cervical sprain Status: Acute (2) Acute on chronic renal failure Status: Acute Assessment: Mechanical fall. Hypertensive urgency. Cervical spinal stenosis. Acute volume overload. Acute on chronic kidney failure, due to possible vasomotor nephropathy. Left thalamus hypodensity, incidental finding, no further evaluation or treatment. Anemia of chronic kidney disease. Deconditioning. Peripheral neuropathy. Osteoarthritis. COPD. DM type 2. HTN. Morbid obesity. Severe protein malnutrition. Plan: Cardiac monitoring. Wound care. Trend labs. Appreciate subspecialist input. Continue Lasix. Add thiazide diuretics. Consult vascular surgery. Avoid nephrotoxic agents. Control BP. Control BG. Iron supplements. Home meds. Aspirin. Atorvastatin. PT/OT. Heparin for DVT prophylaxis. Protonix GI prophylaxis. ADA diet. Full code. Comment Review of Relevant I have reviewed the following items monalisa (where applicable) has been applied. Medications: Current Medications Medications (Trade) Dose Ordered Sig/Yulisa Route PRN Reason Start Time Stop Time Status Last Admin Dose Admin Potassium Chloride (Klor-Con) 20 meq [id number] PO 04/30/21 12:00 05/01/21 09:39 Polysaccharide Iron Complex (Niferex 150) 150 mg DAILY PO 04/30/21 12:00 05/01/21 09:39 Justifications for Admission Other Justification Fall with acute renal failure JOE MORGAN III DO May 01, 2021 11:30
--- NOTE | 2021-05-01 11:41 | PDOC ---
Provider Note Date of Service: DATE: 05/01/21 TIME: 11:39 Provider Note (Please see full dictated note for details.) She is a 80-year-old female with multiple medical problems including COPD, morbid obesity, and chronic renal failure who presented with a recent fall. She has no lateralizing TIA or stroke symptoms. A carotid ultrasound showed some increased velocities in her right common and internal carotid artery that may be consistent with around 70% diameter narrowing. I would not recommend any intervention for her asymptomatic carotid disease. Risks likely outweigh po tential benefits. Would continue maximum medical management for stroke risk reduction including good blood pressure and cholesterol control as well as antiplatelet therapy with aspirin daily. Would likely only recommend carotid intervention if she has symptomatic disease. Justifications for Admission Other Justification Fall with acute renal failure YOLY REYES MD May 01, 2021 11:41
[2021-05-01] MEDS: metOLazone 2.5 MG TABLET PO SCH (12:22)
--- NOTE | 2021-05-01 13:19 | CONS ---
DATE OF CONSULTATION: 05/01/2021 CHIEF COMPLAINT: Recent fall. HISTORY OF PRESENT ILLNESS: The patient is a 80-year-old female with multiple medical problems including class 3 chronic kidney disease, COPD, hypertension, hyperlipidemia, diabetes and osteoarthritis, who presents after a recent fall. She denies any unilateral weakness/numbness, vision loss, speech changes or other lateralizing TIA or stroke symptoms. She has some chronic instability. She was recently getting into the shower where she tripped and fell. During her evaluation, she had a carotid artery ultrasound that showed some increased velocities in her right common and internal carotid arteries. This may be consistent with approximately 70% right internal carotid artery narrowing. There is more moderate left internal carotid artery disease. Although there are increased velocities in the right internal carotid artery, the internal common carotid ratio was low. She had a CT of the head that showed no acute intracranial findings. There is a left thalamic and basal ganglia hypodensity likely sequelae of a previous lacunar infarct. I was asked to evaluate her due to her carotid vascular disease. PAST MEDICAL HISTORY: 1. Hypertension. 2. Hyperlipidemia. 3. COPD, on home oxygen (2-3 liters). 4. Chronic kidney disease (class 3). 5. Diabetes. 6. Morbid obesity. PAST SURGICAL HISTORY: 1. Cholecystectomy. 2. Right total knee arthroplasty. 3. Right shoulder ORIF. 4. Tonsillectomy. 5. Bilateral carpal tunnel release. 6. Previous right cataract removal. CURRENT MEDICATIONS: Zaroxolyn, Niferex, potassium chloride, Zocor, insulin, Coreg, aspirin, vitamin C, Compazine, senna, Colace, supplemental oxygen. ALLERGIES: No known drug allergies. SOCIAL HISTORY: She denies any smoking for the last 14 years. She denies any alcohol use. She currently lives with her family. FAMILY HISTORY: Significant for hypertension. REVIEW OF SYSTEMS: No recent fevers, chills or chest pain. She has chronic shortness of breath with minimal activity. She is on supplemental oxygen as noted above. She has some chronic constipation for which she takes medications. She denies any hematochezia or melena. She denies any dysuria. She has a previous episode of acute kidney failure, requiring temporary hemodialysis. This was stopped almost a year ago. She has a history of previous bleeding in the right eye that prompted intervention. She has had no sudden recent changes in her eyesight, however. She denies any TIA or stroke symptoms as outlined above. Other 14-point review of system was unremarkable. PHYSICAL EXAMINATION: GENERAL: This is a morbidly obese female in no acute distress, but somewhat short of breath even lying in bed. VITAL SIGNS: Temperature 98.1, pulse 71, blood pressure 158/66, respirations 20, O2 sat is 95% on 3 liters per nasal cannula supplemental oxygen. NECK: Supple, no lymphadenopathy. Very obese neck. CARDIAC: Regular rhythm. RESPIRATIONS: Slightly increased work of breathing. ABDOMEN: Obese, soft, nontender, nondistended, no palpable masses. EXTREMITIES: She has palpable radial and pedal pulses bilaterally. She has moderate bilateral lower extremity swelling. NEUROLOGIC: She is awake, alert, answering questions appropriately. Her face is symmetrical without focal deficits. Her tongue is midline. Equal upper and lower extremity strength. No focal deficits at this time. LABORATORY DATA: Labs are significant for white blood cell 4.8, hemoglobin 10.9, platelet count of 235. Sodium 143, potassium 4.4, BUN 36, creatinine 1.6, glucose 186. ProBNP on admission was 4639. RADIOGRAPHIC IMAGING: As above. IMPRESSION: 1. Asymptomatic bilateral carotid artery stenosis, right somewhat worse than left. The ultrasound velocities are consistent with approximately 70% right internal carotid artery stenosis. There may be some more significant common carotid artery stenosis as well. 2. Generalized weakness and instability. 3. Chronic kidney disease (class 3). 4. Chronic obstructive pulmonary disease, on home oxygen. 5. Morbid obesity. 6. Hypertension. 7. Osteoarthritis. RECOMMENDATION: 1. I discussed the risks of carotid artery stenosis as well as options for risk factor reduction for future stroke. She has no TIA or stroke symptoms at this time. Would continue aspirin daily with good efforts of blood pressure and cholesterol control. 2. I discussed options of intervention including risks and potential benefits for her carotid vascular disease. It is unclear if the right carotid vascular narrowing is more than 70%. I outlined risks and potential benefits of either endarterectomy or stenting due to her carotid vascular disease. Risks likely outweigh potential benefits. If we were going to consider intervention at some point in the future, we will warrant more proximal evaluation with either CT angiogram or MR angiogram. Would not put her through the risk of contrast exposure at this time, because I would not consider intervention even with greater than 70% common or internal carotid artery stenosis due to her other comorbid factors. Risks of intervention likely outweigh potential benefits. I discussed this extensively with her and her nephews at the bedside. All questions were answered. RUBA DR: Shahid TID: [id number] CC: KATHARINA LABOY MD, DOROTHY BOTELLO MD, Leighton Martínez, DO
[2021-05-01] MEDS: FUROSEMIDE INJ 100 MG in IV NORMAL SALINE 100ML 100 ML IV PRN (13:58)
[2021-05-01 15:00] VITALS: BP 140/60
[2021-05-01 19:50] VITALS: BP 157/77
[2021-05-01] MEDS: SIMVASTATIN 40 MG TABLET. PO SCH (22:35)
[2021-05-01] MEDS: INSULIN GLARGINE SYRINGE. SQ SCH (22:44)
[2021-05-01 23:30] VITALS: BP 194/90
[2021-05-02 02:38] VITALS: BP 176/71
[2021-05-02 07:41] VITALS: BP 193/75
[2021-05-02] MEDS: INSULIN LISPRO 300 UNITS/3 ML VIAL. SQ SCH ×6 (08:00→17:49)
[2021-05-02 08:07] LABS: BASO % 1 % (0-3); EOS # 0.2 x10^3/uL (0.0-0.7); EOS % 4 % (0-3); HEMATOCRIT 35.4 % (36.0-47.0); HEMOGLOBIN 11.5 g/dL (12.0-15.5); LYMPH # 0.7 x10^3/uL (1.0-4.8); LYMPH % 13 % (24-48); MEAN CORPUSCULAR HEMOGLOBIN 30 pg (25-35); MEAN CORPUSCULAR HGB CONC 33 g/dL (31-37); MEAN CORPUSCULAR VOLUME 92 fL (79-100); MONO # 0.4 x10^3/uL (0.0-1.1); MONO % 9 % (0-9); NEUT # 3.7 x10^3/uL (1.8-7.7); NEUT % 74 % (31-73); PLATELET COUNT 234 x10^3/uL (140-400); RED BLOOD COUNT 3.85 x10^6/uL (3.50-5.40); RED CELL DISTRIBUTION WIDTH 14.6 % (11.5-14.5)
[2021-05-02 08:11] LABS: CALCIUM 8.9 mg/dL (8.5-10.1); CREATININE 1.7 mg/dL (0.6-1.0); GFR 29.1; MAGNESIUM 1.4 mg/dL (1.8-2.4); POTASSIUM 3.8 mmol/L (3.5-5.1)
[2021-05-02] MEDS: POTASSIUM CHLORIDE 20 MEQ TABLET.ER. PO SCH (08:45)
[2021-05-02] MEDS: IRON POLYSACCHARIDE COMPLEX 150 MG CAPSULE PO SCH (08:45)
[2021-05-02] MEDS: metOLazone 2.5 MG TABLET PO SCH (08:45)
[2021-05-02] MEDS: ASCORBIC ACID 500 MG TABLET PO SCH (08:45)
[2021-05-02] MEDS: ASPIRIN ENTERIC COATED 81 MG TABLET.DR. PO SCH (08:45)
[2021-05-02] MEDS: CARVEDILOL 6.25 MG TABLET. PO SCH ×2 (08:46→17:34)
[2021-05-02] MEDS: HEPARIN for SUB-Q USE 5,000 UNIT/ML VIAL. SQ SCH ×2 (08:47→22:20)
[2021-05-02] MEDS: FUROSEMIDE INJ 100 MG in IV NORMAL SALINE 100ML 100 ML IV PRN (08:48)
--- NOTE | 2021-05-02 10:53 | PDOC ---
Renal-Progress Notes Subjective Notes Notes NO NEW COMPLAINTS History of Present Illness Hx of present illness STABLE Vitals Vitals Vital Signs Date Time Temp Pulse Resp B/P (MAP) Pulse Ox O2 Delivery O2 Flow Rate FiO2 05/02/21 08:46 70 193/75 05/02/21 07:41 97.7 24 93 Nasal Cannula 3.0 97.7 Weight Weight [ ] I.O. Intake and Output Intake and Output 05/02/21 07:00 Intake Total 939 ml Output Total 3200 ml Balance -2261 ml Intake Oral 780 ml IV Total 159 ml Output Urine Total 3200 ml # Voids 2 # Bowel Movements 1 Labs Labs Laboratory Tests Test 05/01/21 11:28 05/01/21 16:54 05/01/21 20:46 05/02/21 06:45 Glucose (Fingerstick) 149 mg/dL (70-99) 54 mg/dL (70-99) 185 mg/dL (70-99) White Blood Count 5.0 x10^3/uL (4.0-11.0) Red Blood Count 3.85 x10^6/uL (3.50-5.40) Hemoglobin 11.5 g/dL (12.0-15.5) Hematocrit 35.4 % (36.0-47.0) Mean Corpuscular Volume 92 fL (79-100) Mean Corpuscular Hemoglobin 30 pg (25-35) Mean Corpuscular Hemoglobin Concent 33 g/dL (31-37) Red Cell Distribution Width 14.6 % (11.5-14.5) Platelet Count 234 x10^3/uL (140-400) Neutrophils (%) (Auto) 74 % (31-73) Lymphocytes (%) (Auto) 13 % (24-48) Monocytes (%) (Auto) 9 % (0-9) Eosinophils (%) (Auto) 4 % (0-3) Basophils (%) (Auto) 1 % (0-3) Neutrophils # (Auto) 3.7 x10^3/uL (1.8-7.7) Lymphocytes # (Auto) 0.7 x10^3/uL (1.0-4.8) Monocytes # (Auto) 0.4 x10^3/uL (0.0-1.1) Eosinophils # (Auto) 0.2 x10^3/uL (0.0-0.7) Basophils # (Auto) 0.0 x10^3/uL (0.0-0.2) Sodium Level 145 mmol/L (136-145) Potassium Level 3.8 mmol/L (3.5-5.1) Chloride Level 103 mmol/L (98-107) Carbon Dioxide Level 41 mmol/L (21-32) Anion Gap 1 (6-14) Blood Urea Nitrogen 35 mg/dL (7-20) Creatinine 1.7 mg/dL (0.6-1.0) Estimated GFR (Cockcroft-Gault) 29.1 Glucose Level 163 mg/dL (70-99) Calcium Level 8.9 mg/dL (8.5-10.1) Phosphorus Level 3.0 mg/dL (2.6-4.7) Magnesium Level 1.4 mg/dL (1.8-2.4) Test 05/02/21 07:41 Glucose (Fingerstick) 140 mg/dL (70-99) Review of Systems Constitutional: yes: weakness, alert, oriented Ears/Nose/Throat: Yes: no symptom reported Eyes: Yes: no symptom reported Pulmonary: Yes dyspnea Cardiovascular: Yes edema Gastrointestional: Yes: constipation Genitourinary: Yes: no symptom reported Musculoskeletal: Yes: muscle stiffness Skin: Yes no symptom reported Psychiatric/Neurological: Yes: depressed Endocrine: Yes: no symptom reported Hematologic/Lymphatic: Yes: no symptom reported Physical Exam General Appearance: no apparent distress, obese, febrile Skin: warm, edema Respiratory: decreased breath sounds Heart: S1S2 Abdomen: soft, bowel sounds present Genitourinary: bladder flat, pedraza catheter Extremities: pulses present, edema Neurology: alert, oriented, Ext weakness Musculoskeletal: Osteoarthritis Assessment Assessment IMP FALL ANASARCA EDEMA CKD STAGE 3B TO 4-CR OF 1.7 HYPOMAGNESEMIA MORBID OBESITY UNCONTROLLED HTN VOLUME OVERLOAD CHF - SUSPECT ACUTE ON CHRONIC SYSTOLIC AND DIASTOLIC HX OF COPD DM II PROTEINURIA DECONDITIONING ANEMIA OF CKD PLAN CONT DIURESIS LASIX GTT CONT METOLAZONE REPLACE MAG CONTROL BP CONTROL BG HOPEFULLY BP IMPROVES WITH DIURESIS MAY END UP NEEDING DIALYSIS AGAIN IF UNABLE TO DIURESE FLUID RESTRICT AVOID NEPHROTOXINS CONSIDER ECHOCARDIOGRAM IRON SUPPLEMENTS ENC COMPLIANCE D/W ATTENDING YSASINE MARTINEZ MD May 02, 2021 10:53
[2021-05-02 11:00] VITALS: BP 167/68
[2021-05-02] MEDS ORDERED: MAGNESIUM SULFATE 2GM 50 ML IV ONE (12:00)
--- NOTE | 2021-05-02 13:42 | PDOC ---
[facility] PROGRESS NOTE Date of Service DOS: DATE: 05/02/21 TIME: 13:38 Chief Complaint Chief Complaint Mechanical fall. Hypertensive urgency. Cervical spinal stenosis. Acute volume overload. Acute on chronic kidney failure, due to possible vasomotor nephropathy. Left thalamus hypodensity, incidental finding, no further evaluation or treatment. Anemia of chronic kidney disease. Deconditioning. Peripheral neuropathy. Osteoarthritis. COPD. DM type 2. HTN. Morbid obesity. Severe protein malnutrition. History of Present Illness History of Present Illness Patient is a 80-year-old female with past medical history of diabetes mellitus type 2, hypertension, COPD on home O2, CKD was on dialysis a year ago but taken off, morbid obesity, who presents today after falling. Patient states that she was trying to take a shower but she tripped and fell. She also reports that she has been getting weaker in the past couple weeks and she has gained about 10 pounds and feels like she is getting more edematous. Denies any head trauma or loss of consciousness. However she does complain of mild posterior neck pain and also she complains of swelling to the bilateral lower extremities. Denies fevers, shortness of breath, chest pain, abdominal pain, diarrhea or dysuria. Patient was given dose of IV Lasix as she does report urinary output but she is unsure how much she is putting out because there is a pure wick attached to her. 04/30/21 Patient seen and examined at bedside. D/W RN. Chart reviewed. SpO2 94% on 3 lpm via NC. U/S found L renal simple cyst. Patient denies stroke symptoms. Per neurology, hypodensity was found in L thalamus. No further evaluation or treatment necessary. Patient prefers to have carotid doppler study done. 05/01/21 Patient seen and examined at bedside. D/W RN. Dr. Haynes (nephrology) and I plan to follow creatinine levels, continue diuretics, and consider dialysis. 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 Plan to consult Dr. Higuera (vascular surgery). 05/02/21 Patient seen and examined at bedside. D/W RN. Per Dr. Higuera, intervention of carotid stenosis is warranted. Vitals/I&O Vitals/I&O: Vital Signs Date Time Temp Pulse Resp B/P (MAP) Pulse Ox O2 Delivery O2 Flow Rate FiO2 05/02/21 11:00 97.7 64 20 167/68 (101) 95 Nasal Cannula 3.0 97.7 I & O 05/01/21 05/01/21 05/02/21 15:00 23:00 07:00 Intake Total 159 ml 780 ml Output Total 900 ml 700 ml 1600 ml Balance -900 ml -541 ml -820 ml Physical Exam General: Alert, Oriented X3, Cooperative, mild distress Heart: Regular rate, Normal S1, Normal S2 Lungs: Clear Abdomen: Normal bowel sounds, Soft, No tenderness Extremities: No clubbing, No cyanosis, Other (3+ EDEMA) Labs Labs: Laboratory Tests Test 05/01/21 16:54 05/01/21 20:46 05/02/21 06:45 05/02/21 07:41 Glucose (Fingerstick) 54 mg/dL (70-99) 185 mg/dL (70-99) 140 mg/dL (70-99) White Blood Count 5.0 x10^3/uL (4.0-11.0) Red Blood Count 3.85 x10^6/uL (3.50-5.40) Hemoglobin 11.5 g/dL (12.0-15.5) Hematocrit 35.4 % (36.0-47.0) Mean Corpuscular Volume 92 fL (79-100) Mean Corpuscular Hemoglobin 30 pg (25-35) Mean Corpuscular Hemoglobin Concent 33 g/dL (31-37) Red Cell Distribution Width 14.6 % (11.5-14.5) Platelet Count 234 x10^3/uL (140-400) Neutrophils (%) (Auto) 74 % (31-73) Lymphocytes (%) (Auto) 13 % (24-48) Monocytes (%) (Auto) 9 % (0-9) Eosinophils (%) (Auto) 4 % (0-3) Basophils (%) (Auto) 1 % (0-3) Neutrophils # (Auto) 3.7 x10^3/uL (1.8-7.7) Lymphocytes # (Auto) 0.7 x10^3/uL (1.0-4.8) Monocytes # (Auto) 0.4 x10^3/uL (0.0-1.1) Eosinophils # (Auto) 0.2 x10^3/uL (0.0-0.7) Basophils # (Auto) 0.0 x10^3/uL (0.0-0.2) Sodium Level 145 mmol/L (136-145) Potassium Level 3.8 mmol/L (3.5-5.1) Chloride Level 103 mmol/L (98-107) Carbon Dioxide Level 41 mmol/L (21-32) Anion Gap 1 (6-14) Blood Urea Nitrogen 35 mg/dL (7-20) Creatinine 1.7 mg/dL (0.6-1.0) Estimated GFR (Cockcroft-Gault) 29.1 Glucose Level 163 mg/dL (70-99) Calcium Level 8.9 mg/dL (8.5-10.1) Phosphorus Level 3.0 mg/dL (2.6-4.7) Magnesium Level 1.4 mg/dL (1.8-2.4) Test 05/02/21 11:44 Glucose (Fingerstick) 135 mg/dL (70-99) Review of Systems Review of Systems: No fever. No confusion. Assessment and Plan Assessmemt and Plan Problems Medical Problems: (1) Acute cervical sprain Status: Acute (2) Acute on chronic renal failure Status: Acute Assessment: Mechanical fall. Hypertensive urgency. Cervical spinal stenosis. Acute volume overload. Acute on chronic kidney failure, due to possible vasomotor nephropathy. Left thalamus hypodensity, incidental finding, no further evaluation or treatment. Anemia of chronic kidney disease. Deconditioning. Peripheral neuropathy. Osteoarthritis. COPD. DM type 2. HTN. Morbid obesity. Severe protein malnutrition. Plan: Cardiac monitoring. Wound care. Trend labs. Appreciate subspecialist input. Continue Lasix. Continue thiazide diuretics. Avoid nephrotoxic agents. Magnesium replacement. Control BP. Control BG. Iron supplements. Home meds. Aspirin. Atorvastatin. PT/OT. Heparin for DVT prophylaxis. Protonix GI prophylaxis. ADA diet. Full code. Comment Review of Relevant I have reviewed the following items monalisa (where applicable) has been applied. Medications: Current Medications Medications (Trade) Dose Ordered Sig/Yulisa Route PRN Reason Start Time Stop Time Status Last Admin Dose Admin Magnesium Sulfate 50 ml @ 25 mls/hr 1X ONCE IV 05/02/21 12:00 05/02/21 13:59 05/02/21 12:00 Justifications for Admission Other Justification Fall with acute renal failure JOE MORGAN III DO May 02, 2021 13:42
[2021-05-02 15:00] VITALS: BP 184/75
[2021-05-02 19:00] VITALS: BP 169/61
[2021-05-02] MEDS: SIMVASTATIN 40 MG TABLET. PO SCH (22:14)
[2021-05-02] MEDS: INSULIN GLARGINE SYRINGE. SQ SCH (22:20)
[2021-05-02 23:00] VITALS: BP 156/71
[2021-05-03 02:38] VITALS: BP 178/61
[2021-05-03] MEDS: FUROSEMIDE INJ 100 MG in IV NORMAL SALINE 100ML 100 ML IV PRN ×2 (03:33→21:52)
[2021-05-03 07:00] VITALS: BP 150/79
[2021-05-03] MEDS: INSULIN LISPRO 300 UNITS/3 ML VIAL. SQ SCH ×6 (08:00→17:17)
[2021-05-03 08:28] LABS: BLOOD UREA NITROGEN 29 mg/dL (7-20); CALCIUM 9.4 mg/dL (8.5-10.1); CHLORIDE 100 mmol/L (98-107); CREATININE 1.5 mg/dL (0.6-1.0); GFR 33.6; GLUCOSE 77 mg/dL (70-99); MAGNESIUM 1.5 mg/dL (1.8-2.4); PHOSPHORUS 3.2 mg/dL (2.6-4.7); POTASSIUM 3.2 mmol/L (3.5-5.1); SODIUM 148 mmol/L (136-145)
[2021-05-03 08:31] LABS: CARBON DIOXIDE > 45 mmol/L (21-32)
[2021-05-03] MEDS: CARVEDILOL 6.25 MG TABLET. PO SCH ×2 (08:33→17:10)
[2021-05-03] MEDS: metOLazone 2.5 MG TABLET PO SCH (08:34)
[2021-05-03] MEDS: ASPIRIN ENTERIC COATED 81 MG TABLET.DR. PO SCH (08:34)
[2021-05-03] MEDS: POTASSIUM CHLORIDE 20 MEQ TABLET.ER. PO SCH (08:34)
[2021-05-03] MEDS: ASCORBIC ACID 500 MG TABLET PO SCH (08:34)
[2021-05-03] MEDS: IRON POLYSACCHARIDE COMPLEX 150 MG CAPSULE PO SCH (08:34)
[2021-05-03] MEDS: HEPARIN for SUB-Q USE 5,000 UNIT/ML VIAL. SQ SCH ×2 (08:39→21:46)
--- NOTE | 2021-05-03 09:54 | PDOC ---
PROGRESS NOTES Date of Service: DATE: 05/03/21 TIME: 09:54 Chief Complaint Chief Complaint Mechanical fall. Hypertensive urgency. Cervical spinal stenosis. Acute volume overload. Acute on chronic kidney failure, due to possible vasomotor nephropathy. Left thalamus hypodensity, incidental finding, no further evaluation or treatment. Anemia of chronic kidney disease. Deconditioning. Peripheral neuropathy. Osteoarthritis. COPD. DM type 2. HTN. Morbid obesity. Severe protein malnutrition. History of Present Illness History of Present Illness Patient is a 80-year-old female with past medical history of diabetes mellitus type 2, hypertension, COPD on home O2, CKD was on dialysis a year ago but taken off, morbid obesity, who presents today after falling. Patient states that she was trying to take a shower but she tripped and fell. She also reports that she has been getting weaker in the past couple weeks and she has gained about 10 pounds and feels like she is getting more edematous. Denies any head trauma or loss of consciousness. However she does complain of mild posterior neck pain and also she complains of swelling to the bilateral lower extremities. Denies f adam, shortness of breath, chest pain, abdominal pain, diarrhea or dysuria. Patient was given dose of IV Lasix as she does report urinary output but she is unsure how much she is putting out because there is a pure wick attached to her. 04/30/21 Patient seen and examined at bedside. D/W RN. Chart reviewed. SpO2 94% on 3 lpm via NC. U/S found L renal simple cyst. Patient denies stroke symptoms. Per neurology, hypodensity was found in L thalamus. No further evaluation or treatment necessary. Patient prefers to have carotid doppler study done. 05/01/21 Patient seen and examined at bedside. D/W RN. Dr. Haynes (nephrology) and I plan to follow creatinine levels, continue diuretics, and consider dialysis. 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 Plan to consult Dr. Higuera (vascular surgery). 05/02/21 Patient seen and examined at bedside. D/W RN. Per Dr. Higuera, intervention of carotid stenosis is warranted. Vitals Vitals Vital Signs Date Time Temp Pulse Resp B/P (MAP) Pulse Ox O2 Delivery O2 Flow Rate FiO2 05/03/21 08:33 74 178/61 05/03/21 07:00 96.4 20 96 Nasal Cannula 4.0 96.4 Physical Exam General: Alert, Oriented X3, Cooperative, mild distress Heart: Regular rate, Normal S1, Normal S2 Lungs: Clear Abdomen: Normal bowel sounds, Soft, No tenderness Extremities: No clubbing, No cyanosis, Other (3+ EDEMA) Labs LABS try tothink and talk about your own wishes for healthcare in case youre ever not able to tell your loved ones or healthcare team what your wishes are. If you became really sick tomorrow, would your loved ones or healthcare team know what your wishes were? Here are some examples of different sets of goals and health care directives for your conversations: My wish is to use all medical therapies including resuscitation (such as CPR) and artificial life-sustaining treatments (such as machines and medicine) in an intensive care unit, to keep me alive if at all possible. My wish is to live as long as possible, but I dont want attempts to bring me back to life if my heart and breathing stop. I would like full medical care but without using resuscitation or artificial life- sustaining intensive treatments, if these are unlikely to make me live longer or restore me to a certain quality of life. I will accept treatments that try to fix medical problems, but if Im not getting better or going to have a certain quality of life, I would want to switch to focusing only on my comfort and letting my happen naturally. My wish is for healthcare to focus on my comfort and lessen suffering. I would like medical care that focuses only on my quality of life and that allows me to naturally. Consider: What does a good quality of life mean for me? For many people, it is the ability to live independently and tell their own story. I may define it differently. Under what circumstances would I not want to be kept alive by medical treatments, resuscitation, or intensive care? What kind of changes to my health or life might make me change my mind? If I clearly am facing the last chapter of my life, how do I want the story to end? Who do I want to speak for me if I cant speak for myself? Do they understand my preferences? Are they willing to assume the role of my Durable Power of Bread Stacker? Can I change my Goals of Care Designation? Yes, your Goals of Care Designation can be changed at any time. It should be reviewed if: your health condition changes your circumstances change (such as new understanding) you are transferred or admitted to another healthcare setting dpoa review, to pt portal 17 min and question review Laboratory Tests Test 05/02/21 11:44 05/02/21 17:08 05/02/21 21:34 05/03/21 07:05 Glucose (Fingerstick) 135 mg/dL (70-99) 188 mg/dL (70-99) 177 mg/dL (70-99) Sodium Level 148 mmol/L (136-145) Potassium Level 3.2 mmol/L (3.5-5.1) Chloride Level 100 mmol/L (98-107) Carbon Dioxide Level > 45 mmol/L (21-32) Anion Gap (6-14) Blood Urea Nitrogen 29 mg/dL (7-20) Creatinine 1.5 mg/dL (0.6-1.0) Estimated GFR (Cockcroft-Gault) 33.6 Glucose Level 77 mg/dL (70-99) Calcium Level 9.4 mg/dL (8.5-10.1) Phosphorus Level 3.2 mg/dL (2.6-4.7) Magnesium Level 1.5 mg/dL (1.8-2.4) Test 05/03/21 08:30 Glucose (Fingerstick) 74 mg/dL (70-99) Assessment and Plan Assessmemt and Plan Problems Medical Problems: (1) Acute cervical sprain Status: Acute (2) Acute on chronic renal failure Status: Acute Comment Review of Relevant I have reviewed the following items monalisa (where applicable) has been applied. Labs Laboratory Tests Test 05/01/21 11:28 05/01/21 16:54 05/01/21 20:46 05/02/21 06:45 Glucose (Fingerstick) 149 mg/dL (70-99) 54 mg/dL (70-99) 185 mg/dL (70-99) White Blood Count 5.0 x10^3/uL (4.0-11.0) Red Blood Count 3.85 x10^6/uL (3.50-5.40) Hemoglobin 11.5 g/dL (12.0-15.5) Hematocrit 35.4 % (36.0-47.0) Mean Corpuscular Volume 92 fL (79-100) Mean Corpuscular Hemoglobin 30 pg (25-35) Mean Corpuscular Hemoglobin Concent 33 g/dL (31-37) Red Cell Distribution Width 14.6 % (11.5-14.5) Platelet Count 234 x10^3/uL (140-400) Neutrophils (%) (Auto) 74 % (31-73) Lymphocytes (%) (Auto) 13 % (24-48) Monocytes (%) (Auto) 9 % (0-9) Eosinophils (%) (Auto) 4 % (0-3) Basophils (%) (Auto) 1 % (0-3) Neutrophils # (Auto) 3.7 x10^3/uL (1.8-7.7) Lymphocytes # (Auto) 0.7 x10^3/uL (1.0-4.8) Monocytes # (Auto) 0.4 x10^3/uL (0.0-1.1) Eosinophils # (Auto) 0.2 x10^3/uL (0.0-0.7) Basophils # (Auto) 0.0 x10^3/uL (0.0-0.2) Sodium Level 145 mmol/L (136-145) Potassium Level 3.8 mmol/L (3.5-5.1) Chloride Level 103 mmol/L (98-107) Carbon Dioxide Level 41 mmol/L (21-32) Anion Gap 1 (6-14) Blood Urea Nitrogen 35 mg/dL (7-20) Creatinine 1.7 mg/dL (0.6-1.0) Estimated GFR (Cockcroft-Gault) 29.1 Glucose Level 163 mg/dL (70-99) Calcium Level 8.9 mg/dL (8.5-10.1) Phosphorus Level 3.0 mg/dL (2.6-4.7) Magnesium Level 1.4 mg/dL (1.8-2.4) Test 05/02/21 07:41 05/02/21 11:44 05/02/21 17:08 05/02/21 21:34 Glucose (Fingerstick) 140 mg/dL (70-99) 135 mg/dL (70-99) 188 mg/dL (70-99) 177 mg/dL (70-99) Test 05/03/21 07:05 05/03/21 08:30 Sodium Level 148 mmol/L (136-145) Potassium Level 3.2 mmol/L (3.5-5.1) Chloride Level 100 mmol/L (98-107) Carbon Dioxide Level > 45 mmol/L (21-32) Anion Gap (6-14) Blood Urea Nitrogen 29 mg/dL (7-20) Creatinine 1.5 mg/dL (0.6-1.0) Estimated GFR (Cockcroft-Gault) 33.6 Glucose Level 77 mg/dL (70-99) Calcium Level 9.4 mg/dL (8.5-10.1) Phosphorus Level 3.2 mg/dL (2.6-4.7) Magnesium Level 1.5 mg/dL (1.8-2.4) Glucose (Fingerstick) 74 mg/dL (70-99) Laboratory Tests Test 05/02/21 11:44 05/02/21 17:08 05/02/21 21:34 05/03/21 07:05 Glucose (Fingerstick) 135 mg/dL (70-99) 188 mg/dL (70-99) 177 mg/dL (70-99) Sodium Level 148 mmol/L (136-145) Potassium Level 3.2 mmol/L (3.5-5.1) Chloride Level 100 mmol/L (98-107) Carbon Dioxide Level > 45 mmol/L (21-32) Anion Gap (6-14) Blood Urea Nitrogen 29 mg/dL (7-20) Creatinine 1.5 mg/dL (0.6-1.0) Estimated GFR (Cockcroft-Gault) 33.6 Glucose Level 77 mg/dL (70-99) Calcium Level 9.4 mg/dL (8.5-10.1) Phosphorus Level 3.2 mg/dL (2.6-4.7) Magnesium Level 1.5 mg/dL (1.8-2.4) Test 05/03/21 08:30 Glucose (Fingerstick) 74 mg/dL (70-99) Medications Current Medications Ondansetron HCl (Zofran) 4 mg PRN Q8HRS PRN IVP NAUSEA/VOMITING; Start 04/28/21 at 20:30; Stop 04/29/21 at 18:37; Status DC Morphine Sulfate (Morphine Sulfate) 2 mg PRN Q2HR PRN IVP PAIN; Start 04/28/21 at 20:30; Stop 04/29/21 at 20:29; Status DC Acetaminophen (Tylenol) 650 mg PRN Q4HRS PRN PO FEVER > 100.3'F; Start 04/28/21 at 20:30; Stop 04/29/21 at 18:36; Status DC Furosemide (Lasix) 40 mg 1X ONCE IVP Last administered on 04/28/21at 23:02; Start 04/28/21 at 21:00; Stop 04/28/21 at 21:01; Status DC Ascorbic Acid (Vitamin C) 500 mg DAILY PO Last administered on 05/03/21at 08:34; Start 04/29/21 at 09:00 Aspirin (Ecotrin) 81 mg DAILYWBKFT PO Last administered on 05/03/21at 08:34; Start 04/29/21 at 09:00 Carvedilol (Coreg) 6.25 mg BIDWMEALS PO Last administered on 05/03/21at 08:33; Start 04/29/21 at 09:00 Insulin Glargine (Lantus Syringe) 38 unit HS SQ Last administered on 05/02/21at 22:20; Start 04/29/21 at 21:00 Insulin Human Lispro (HumaLOG) 13 units TIDWMEALS SQ Last administered on 05/02/21at 17:48; Start 04/29/21 at 09:00 Simvastatin (Zocor) 40 mg QHS PO Last administered on 05/02/21at 22:14; Start 04/29/21 at 21:00 Insulin Human Lispro (HumaLOG) 0-7 UNITS TIDWMEALS SQ Last administered on 05/02/21at 17:49; Start 04/29/21 at 12:00 Dextrose (Dextrose 50%-Water Syringe) 12.5 gm PRN Q15MIN PRN IV SEE COMMENTS; Start 04/29/21 at 08:30 Sennosides (Senna) 17.2 mg PRN BID PRN PO CONSTIPATION; Start 04/29/21 at 08:30 Docusate Sodium (Colace) 100 mg PRN DAILY PRN PO HARD STOOLS Last administered on 04/30/21at 09:17; Start 04/29/21 at 08:30 Ondansetron HCl (Zofran) 4 mg PRN Q6HRS PRN IVP NAUSEA/VOMITING, 1st CHOICE Last administered on 04/30/21 09:19; Start 04/29/21 at 08:30 Dextrose (Dextrose 50%-Water Syringe) 12.5 gm PRN Q15MIN PRN IV SEE COMMENTS; Start 04/29/21 at 08:30; Status Cancel Acetaminophen (Tylenol) 650 mg PRN Q4HRS PRN PO TEMP OVER 100.4F OR MILD PAIN Last administered on 04/30/21at 12:47; Start 04/29/21 at 08:30 Heparin Sodium (Porcine) (Heparin Sodium) 5,000 unit Q12HR SQ Last administered on 05/03/21 08:39; Start 04/29/21 at 09:00 Prochlorperazine Edisylate (Compazine) 10 mg PRN Q6HRS PRN IV NAUSEA/VOMITING, 2ND CHOICE; Start 04/29/21 at 08:30 Furosemide (Lasix) 80 mg 1X ONCE IVP Last administered on 04/29/21at 11:47; Start 04/29/21 at 10:15; Stop 04/29/21 at 10:18; Status DC Furosemide 100 mg/ Sodium Chloride 100 ml @ 5 mls/hr CONT PRN IV SEE I/O RECORD Last administered on 05/03/21at 03:33; Start 04/29/21 at 11:00 Potassium Chloride (Klor-Con) 40 meq 1X ONCE PO Last administered on 04/29/21at 11:46; Start 04/29/21 at 10:15; Stop 04/29/21 at 10:18; Status DC Potassium Chloride (Klor-Con) 20 meq DAILYWBKFT PO Last administered on 05/03/21 08:34; Start 04/30/21 at 12:00 Polysaccharide Iron Complex (Niferex 150) 150 mg DAILY PO Last administered on 05/03/21 08:34; Start 04/30/21 at 12:00 Metolazone (Zaroxolyn) 5 mg DAILY PO Last administered on 05/03/21 08:34; Start 05/01/21 at 12:00 Magnesium Sulfate 50 ml @ 25 mls/hr 1X ONCE IV Last administered on 05/02/21at 12:00; Start 05/02/21 at 12:00; Stop 05/02/21 at 13:59; Status DC Active Scripts Active Thera-M Tablet (Multivits,Ca,Minerals/Iron/Fa) 1 Each Tablet 1 Tab PO DAILY 30 Days Vitamin C (Ascorbic Acid) 500 Mg Tablet 500 Mg PO DAILY 30 Days Culturelle (Lactobacillus Rhamnosus Gg) 1 Each Cap.sprink 1 Cap PO BID 30 Days Aspirin Ec (Aspirin) 81 Mg Tablet.dr 81 Mg PO DAILYWBKFT 30 Days Proair Hfa (Albuterol Sulfate) 8.5 Gm Hfa.aer.ad 2.5 Mg NEB PRN Q4HRS PRN 30 Days Amox Tr-K Clv 500-125 Mg Tab (Amoxicillin/Potassium Clav) 1 Each Tablet 1 Tab PO DAILY 3 Days Reported Lantus (Insulin Glargine,Hum.rec.anlog) 100 Unit/1 Ml Vial 38 Units SQ HS Insulin Lispro 100 Unit/1 Ml Vial 13 Units SQ TIDAC Xalatan (Latanoprost) 2.5 Ml Drops 1 Drop OP HS Flonase Allergy Relief (Fluticasone Propionate) 9.9 Ml [place].susp 2 Sprays NS DAILY Novolin N (Nph, Human Insulin Isophane) 100 Unit/1 Ml Vial 40 Unit SQ DAILYWBKFT Carvedilol (Carvedilol) 6.25 Mg Tablet 6.25 Mg PO BIDWMEALS Simvastatin 40 Mg Tablet 1 Tab PO QHS Furosemide 20 Mg Tablet 1 Tab PO DAILY Vitals/I & O Vital Sign - Last 24 Hours 05/02/21 05/02/21 05/02/21 05/02/21 11:00 15:00 17:34 19:00 Temp 97.7 97.8 98.1 97.7 97.8 98.1 Pulse 64 72 72 71 Resp 20 20 19 B/P (MAP) 167/68 (101) 184/75 (111) 184/75 169/61 (97) Pulse Ox 95 95 96 O2 Delivery Nasal Cannula Nasal Cannula Nasal Cannula O2 Flow Rate 3.0 5.0 5.0 05/02/21 05/02/21 05/03/21 05/03/21 19:40 23:00 02:38 07:00 Temp 98.0 98.3 96.4 98.0 98.3 96.4 Pulse 74 74 80 Resp 19 18 20 B/P (MAP) 156/71 (99) 178/61 (100) 150/79 (102) Pulse Ox 98 95 96 O2 Delivery Nasal Cannula Nasal Cannula Nasal Cannula Nasal Cannula O2 Flow Rate 3.5 5.0 5.0 4.0 05/03/21 08:33 Pulse 74 B/P (MAP) 178/61 Intake and Output 05/02/21 05/02/21 05/03/21 15:00 23:00 07:00 Intake Total 660 ml 350 ml 200 ml Output Total 1500 ml 1875 ml Balance -840 ml 350 ml -1675 ml Justicifation of Admission Dx: Justifications for Admission: Justification of Admission Dx: N/A CHINO MORALES MD May 03, 2021 09:54
--- NOTE | 2021-05-03 09:59 | PDOC ---
PROGRESS NOTES Date of Service DATE: 05/03/21 TIME: 09:56 Assessment Problems Medical Problems: (1) Acute cervical sprain Status: Acute (2) Acute on chronic renal failure Status: Acute Hypodensity in the left thalamus is an incidentaloma not requiring any further evaluation or treatment. Specifically the patient denies any history of stroke or transient ischemic attack symptoms Mechanical fall Gait disorder from peripheral neuropathy and arthritis, deconditioning Carotid artery stenosis on the right, per Dr. Higuera, intervention is NOT warranted--I agree Plan Aspirin and statin SNU PT/OT Subjective no complaints Objective Vital Signs Date Time Temp Pulse Resp B/P (MAP) Pulse Ox O2 Delivery O2 Flow Rate FiO2 05/03/21 08:33 74 178/61 05/03/21 07:00 96.4 20 96 Nasal Cannula 4.0 96.4 Intake and Output 05/03/21 07:00 Intake Total 1210 ml Output Total 3375 ml Balance -2165 ml Intake Oral 1210 ml Output Urine Total 3375 ml # Voids 3 PHYSICAL EXAM Alert. Oriented to time, place and person. PERRL. EOMI. CN: no focal findings. Muscle tone: normal. Muscle strength: 4/5 DTR: 0-1+ Plantar reflex: flexor Gait: not examined in bed. Sensory exam: bilateral stocking loss. No cerebellar signs elicited. Review of Relevant I have reviewed the following items monalisa (where applicable) has been applied. Labs Laboratory Tests Test 05/01/21 11:28 05/01/21 16:54 05/01/21 20:46 05/02/21 06:45 Glucose (Fingerstick) 149 mg/dL (70-99) 54 mg/dL (70-99) 185 mg/dL (70-99) White Blood Count 5.0 x10^3/uL (4.0-11.0) Red Blood Count 3.85 x10^6/uL (3.50-5.40) Hemoglobin 11.5 g/dL (12.0-15.5) Hematocrit 35.4 % (36.0-47.0) Mean Corpuscular Volume 92 fL (79-100) Mean Corpuscular Hemoglobin 30 pg (25-35) Mean Corpuscular Hemoglobin Concent 33 g/dL (31-37) Red Cell Distribution Width 14.6 % (11.5-14.5) Platelet Count 234 x10^3/uL (140-400) Neutrophils (%) (Auto) 74 % (31-73) Lymphocytes (%) (Auto) 13 % (24-48) Monocytes (%) (Auto) 9 % (0-9) Eosinophils (%) (Auto) 4 % (0-3) Basophils (%) (Auto) 1 % (0-3) Neutrophils # (Auto) 3.7 x10^3/uL (1.8-7.7) Lymphocytes # (Auto) 0.7 x10^3/uL (1.0-4.8) Monocytes # (Auto) 0.4 x10^3/uL (0.0-1.1) Eosinophils # (Auto) 0.2 x10^3/uL (0.0-0.7) Basophils # (Auto) 0.0 x10^3/uL (0.0-0.2) Sodium Level 145 mmol/L (136-145) Potassium Level 3.8 mmol/L (3.5-5.1) Chloride Level 103 mmol/L (98-107) Carbon Dioxide Level 41 mmol/L (21-32) Anion Gap 1 (6-14) Blood Urea Nitrogen 35 mg/dL (7-20) Creatinine 1.7 mg/dL (0.6-1.0) Estimated GFR (Cockcroft-Gault) 29.1 Glucose Level 163 mg/dL (70-99) Calcium Level 8.9 mg/dL (8.5-10.1) Phosphorus Level 3.0 mg/dL (2.6-4.7) Magnesium Level 1.4 mg/dL (1.8-2.4) Test 05/02/21 07:41 05/02/21 11:44 05/02/21 17:08 05/02/21 21:34 Glucose (Fingerstick) 140 mg/dL (70-99) 135 mg/dL (70-99) 188 mg/dL (70-99) 177 mg/dL (70-99) Test 05/03/21 07:05 05/03/21 08:30 Sodium Level 148 mmol/L (136-145) Potassium Level 3.2 mmol/L (3.5-5.1) Chloride Level 100 mmol/L (98-107) Carbon Dioxide Level > 45 mmol/L (21-32) Anion Gap (6-14) Blood Urea Nitrogen 29 mg/dL (7-20) Creatinine 1.5 mg/dL (0.6-1.0) Estimated GFR (Cockcroft-Gault) 33.6 Glucose Level 77 mg/dL (70-99) Calcium Level 9.4 mg/dL (8.5-10.1) Phosphorus Level 3.2 mg/dL (2.6-4.7) Magnesium Level 1.5 mg/dL (1.8-2.4) Glucose (Fingerstick) 74 mg/dL (70-99) Laboratory Tests Test 05/02/21 11:44 05/02/21 17:08 05/02/21 21:34 05/03/21 07:05 Glucose (Fingerstick) 135 mg/dL (70-99) 188 mg/dL (70-99) 177 mg/dL (70-99) Sodium Level 148 mmol/L (136-145) Potassium Level 3.2 mmol/L (3.5-5.1) Chloride Level 100 mmol/L (98-107) Carbon Dioxide Level > 45 mmol/L (21-32) Anion Gap (6-14) Blood Urea Nitrogen 29 mg/dL (7-20) Creatinine 1.5 mg/dL (0.6-1.0) Estimated GFR (Cockcroft-Gault) 33.6 Glucose Level 77 mg/dL (70-99) Calcium Level 9.4 mg/dL (8.5-10.1) Phosphorus Level 3.2 mg/dL (2.6-4.7) Magnesium Level 1.5 mg/dL (1.8-2.4) Test 05/03/21 08:30 Glucose (Fingerstick) 74 mg/dL (70-99) Medications Current Medications Ondansetron HCl (Zofran) 4 mg PRN Q8HRS PRN IVP NAUSEA/VOMITING; Start 04/28/21 at 20:30; Stop 04/29/21 at 18:37; Status DC Morphine Sulfate (Morphine Sulfate) 2 mg PRN Q2HR PRN IVP PAIN; Start 04/28/21 at 20:30; Stop 04/29/21 at 20:29; Status DC Acetaminophen (Tylenol) 650 mg PRN Q4HRS PRN PO FEVER > 100.3'F; Start 04/28/21 at 20:30; Stop 04/29/21 at 18:36; Status DC Furosemide (Lasix) 40 mg 1X ONCE IVP Last administered on 04/28/21 23:02; Start 04/28/21 at 21:00; Stop 04/28/21 at 21:01; Status DC Ascorbic Acid (Vitamin C) 500 mg DAILY PO Last administered on 05/03/21 08:34; Start 04/29/21 at 09:00 Aspirin (Ecotrin) 81 mg DAILYWBKFT PO Last administered on 05/03/21 08:34; Start 04/29/21 at 09:00 Carvedilol (Coreg) 6.25 mg BIDWMEALS PO Last administered on 05/03/21 08:33; Start 04/29/21 at 09:00 Insulin Glargine (Lantus Syringe) 38 unit HS SQ Last administered on 05/02/21 22:20; Start 04/29/21 at 21:00 Insulin Human Lispro (HumaLOG) 13 units TIDWMEALS SQ Last administered on 05/02/21 17:48; Start 04/29/21 at 09:00 Simvastatin (Zocor) 40 mg QHS PO Last administered on 05/02/21 22:14; Start 04/29/21 at 21:00 Insulin Human Lispro (HumaLOG) 0-7 UNITS TIDWMEALS SQ Last administered on 05/02/21 17:49; Start 04/29/21 at 12:00 Dextrose (Dextrose 50%-Water Syringe) 12.5 gm PRN Q15MIN PRN IV SEE COMMENTS; Start 04/29/21 at 08:30 Sennosides (Senna) 17.2 mg PRN BID PRN PO CONSTIPATION; Start 04/29/21 at 08:30 Docusate Sodium (Colace) 100 mg PRN DAILY PRN PO HARD STOOLS Last administered on 04/30/21 09:17; Start 04/29/21 at 08:30 Ondansetron HCl (Zofran) 4 mg PRN Q6HRS PRN IVP NAUSEA/VOMITING, 1st CHOICE Last administered on 04/30/21 09:19; Start 04/29/21 at 08:30 Dextrose (Dextrose 50%-Water Syringe) 12.5 gm PRN Q15MIN PRN IV SEE COMMENTS; Start 04/29/21 at 08:30; Status Cancel Acetaminophen (Tylenol) 650 mg PRN Q4HRS PRN PO TEMP OVER 100.4F OR MILD PAIN Last administered on 04/30/21at 12:47; Start 04/29/21 at 08:30 Heparin Sodium (Porcine) (Heparin Sodium) 5,000 unit Q12HR SQ Last administered on 05/03/21at 08:39; Start 04/29/21 at 09:00 Prochlorperazine Edisylate (Compazine) 10 mg PRN Q6HRS PRN IV NAUSEA/VOMITING, 2ND CHOICE; Start 04/29/21 at 08:30 Furosemide (Lasix) 80 mg 1X ONCE IVP Last administered on 04/29/21at 11:47; Start 04/29/21 at 10:15; Stop 04/29/21 at 10:18; Status DC Furosemide 100 mg/ Sodium Chloride 100 ml @ 5 mls/hr CONT PRN IV SEE I/O RECORD Last administered on 05/03/21at 03:33; Start 04/29/21 at 11:00 Potassium Chloride (Klor-Con) 40 meq 1X ONCE PO Last administered on 04/29/21at 11:46; Start 04/29/21 at 10:15; Stop 04/29/21 at 10:18; Status DC Potassium Chloride (Klor-Con) 20 meq DAILYWBKFT PO Last administered on 05/03/21at 08:34; Start 04/30/21 at 12:00 Polysaccharide Iron Complex (Niferex 150) 150 mg DAILY PO Last administered on 05/03/21at 08:34; Start 04/30/21 at 12:00 Metolazone (Zaroxolyn) 5 mg DAILY PO Last administered on 05/03/21at 08:34; Start 05/01/21 at 12:00 Magnesium Sulfate 50 ml @ 25 mls/hr 1X ONCE IV Last administered on 05/02/21at 12:00; Start 05/02/21 at 12:00; Stop 05/02/21 at 13:59; Status DC Active Scripts Active Thera-M Tablet (Multivits,Ca,Minerals/Iron/Fa) 1 Each Tablet 1 Tab PO DAILY 30 Days Vitamin C (Ascorbic Acid) 500 Mg Tablet 500 Mg PO DAILY 30 Days Culturelle (Lactobacillus Rhamnosus Gg) 1 Each Cap.sprink 1 Cap PO BID 30 Days Aspirin Ec (Aspirin) 81 Mg Tablet.dr 81 Mg PO DAILYWBKFT 30 Days Proair Hfa (Albuterol Sulfate) 8.5 Gm Hfa.aer.ad 2.5 Mg NEB PRN Q4HRS PRN 30 Days Amox Tr-K Clv 500-125 Mg Tab (Amoxicillin/Potassium Clav) 1 Each Tablet 1 Tab PO DAILY 3 Days Reported Lantus (Insulin Glargine,Hum.rec.anlog) 100 Unit/1 Ml Vial 38 Units SQ HS Insulin Lispro 100 Unit/1 Ml Vial 13 Units SQ TIDAC Xalatan (Latanoprost) 2.5 Ml Drops 1 Drop OP HS Flonase Allergy Relief (Fluticasone Propionate) 9.9 Ml [place].susp 2 Sprays NS DAILY Novolin N (Nph, Human Insulin Isophane) 100 Unit/1 Ml Vial 40 Unit SQ DAILYWBKFT Carvedilol (Carvedilol) 6.25 Mg Tablet 6.25 Mg PO BIDWMEALS Simvastatin 40 Mg Tablet 1 Tab PO QHS Furosemide 20 Mg Tablet 1 Tab PO DAILY Vitals/I & O Vital Sign - Last 24 Hours 05/02/21 05/02/21 05/02/21 05/02/21 11:00 15:00 17:34 19:00 Temp 97.7 97.8 98.1 97.7 97.8 98.1 Pulse 64 72 72 71 Resp 20 20 19 B/P (MAP) 167/68 (101) 184/75 (111) 184/75 169/61 (97) Pulse Ox 95 95 96 O2 Delivery Nasal Cannula Nasal Cannula Nasal Cannula O2 Flow Rate 3.0 5.0 5.0 05/02/21 05/02/21 05/03/21 05/03/21 19:40 23:00 02:38 07:00 Temp 98.0 98.3 96.4 98.0 98.3 96.4 Pulse 74 74 80 Resp 19 18 20 B/P (MAP) 156/71 (99) 178/61 (100) 150/79 (102) Pulse Ox 98 95 96 O2 Delivery Nasal Cannula Nasal Cannula Nasal Cannula Nasal Cannula O2 Flow Rate 3.5 5.0 5.0 4.0 05/03/21 08:33 Pulse 74 B/P (MAP) 178/61 Intake and Output 05/02/21 05/02/21 05/03/21 15:00 23:00 07:00 Intake Total 660 ml 350 ml 200 ml Output Total 1500 ml 1875 ml Balance -840 ml 350 ml -1675 ml Justicifation of Admission Dx: Justifications for Admission: Justification of Admission Dx: N/A KATHARINA LABOY MD May 03, 2021 09:58
--- NOTE | 2021-05-03 10:48 | PDOC ---
Renal-Progress Notes Subjective Notes Notes LESS SOB History of Present Illness Hx of present illness STABLE Vitals Vitals Vital Signs Date Time Temp Pulse Resp B/P (MAP) Pulse Ox O2 Delivery O2 Flow Rate FiO2 05/03/21 08:33 74 178/61 05/03/21 07:00 96.4 20 96 Nasal Cannula 4.0 96.4 Weight Weight [ ] I.O. Intake and Output Intake and Output 05/03/21 07:00 Intake Total 1210 ml Output Total 3375 ml Balance -2165 ml Intake Oral 1210 ml Output Urine Total 3375 ml # Voids 3 Labs Labs Laboratory Tests Test 05/02/21 11:44 05/02/21 17:08 05/02/21 21:34 05/03/21 07:05 Glucose (Fingerstick) 135 mg/dL (70-99) 188 mg/dL (70-99) 177 mg/dL (70-99) Sodium Level 148 mmol/L (136-145) Potassium Level 3.2 mmol/L (3.5-5.1) Chloride Level 100 mmol/L (98-107) Carbon Dioxide Level > 45 mmol/L (21-32) Anion Gap (6-14) Blood Urea Nitrogen 29 mg/dL (7-20) Creatinine 1.5 mg/dL (0.6-1.0) Estimated GFR (Cockcroft-Gault) 33.6 Glucose Level 77 mg/dL (70-99) Calcium Level 9.4 mg/dL (8.5-10.1) Phosphorus Level 3.2 mg/dL (2.6-4.7) Magnesium Level 1.5 mg/dL (1.8-2.4) Test 05/03/21 08:30 Glucose (Fingerstick) 74 mg/dL (70-99) Review of Systems Constitutional: yes: weakness, alert, oriented Ears/Nose/Throat: Yes: no symptom reported Eyes: Yes: no symptom reported Pulmonary: Yes dyspnea Cardiovascular: Yes edema Gastrointestional: Yes: constipation Genitourinary: Yes: no symptom reported Musculoskeletal: Yes: muscle stiffness Skin: Yes no symptom reported Psychiatric/Neurological: Yes: depressed Endocrine: Yes: no symptom reported Hematologic/Lymphatic: Yes: no symptom reported Physical Exam General Appearance: no apparent distress, obese, febrile Skin: warm, edema Respiratory: decreased breath sounds Heart: S1S2 Abdomen: soft, bowel sounds present Genitourinary: bladder flat, pedraza catheter Extremities: pulses present, edema Neurology: alert, oriented, Ext weakness Musculoskeletal: Osteoarthritis Assessment Assessment IMP FALL ANASARCA EDEMA CKD STAGE 3B TO 4-CR OF 1.7 HYPOMAGNESEMIA HYPOKALEMIA MORBID OBESITY UNCONTROLLED HTN VOLUME OVERLOAD CHF - SUSPECT ACUTE ON CHRONIC SYSTOLIC AND DIASTOLIC HX OF COPD-ON 2-3 LITERS CONTINUOUSLY DM II PROTEINURIA DECONDITIONING ANEMIA OF CKD PLAN CONT DIURESIS LASIX GTT CONT METOLAZONE REPLACE MAG AND K CONTROL BP CONTROL BG HOPEFULLY BP IMPROVES WITH DIURESIS MAY END UP NEEDING DIALYSIS AGAIN IF UNABLE TO DIURESE FLUID RESTRICT AVOID NEPHROTOXINS IRON SUPPLEMENTS ENC COMPLIANCE D/W ATTENDING YASSINE MARTINEZ MD May 03, 2021 10:48
[2021-05-03 11:00] VITALS: BP 138/83
[2021-05-03] MEDS ORDERED: MAGNESIUM SULFATE 2GM 50 ML IV ONE (11:00)
[2021-05-03] MEDS ORDERED: POTASSIUM CHLORIDE 10MEQ 100 ML IV SCH (11:00)
[2021-05-03] MEDS ORDERED: POTASSIUM CHLORIDE 20MEQ 100 ML IV SCH (11:00)
[2021-05-03] MEDS ORDERED: POTASSIUM CHLORIDE 20 MEQ TABLET.ER. PO ONE (12:30)
--- NOTE | 2021-05-03 14:10 | NUR ---
SS following for discharge planning. SS reviewed pt chart and discussed with pt RN. Pt is currently requiring oxygen at five liters nasal canula. COVID19 negative. Pt on Lasix drip. PT/OT recommended shelter unit. Pt accepted at [facility], ; fax [phone]. Insurance authorization received. Nephrology not signed off at this time. Probable discharge to [facility] tomorrow. SS will continue to follow for discharge planning.
--- NOTE | 2021-05-03 17:42 | CARD ---
MR#: [id number] Date of Study: 05/03/2021 Ordering Physician: DOROTHY BOTELLO, Referring Physician: DOROTHY BOTELLO, Tech: Khushi Rizzo, [facility] APPROVED REPORT EXAM: Two-dimensional and M-mode echocardiogram with Doppler and color Doppler. Other Information Quality : AverageHR: 81bpm Technically limited study due to Obesity INDICATION COPD Congestive Heart Failure RISK FACTORS Hypertension Diabetes 2D DIMENSIONS Left Atrium(2D)3.7 (1.6-4.0cm)IVSd1.1 (0.7-1.1cm) Aortic Root(2D)3.1 (2.0-3.7cm)LVDd4.9 (3.9-5.9cm) LVOT Diameter2.0 (1.8-2.4cm)PWd1.0 (0.7-1.1cm) LVDs2.8 (2.5-4.0cm)FS (%) 41.8 % SV80.6 ml Aortic Valve AoV Peak Kirby.171.6cm/sAoV VTI42.1cm AO Peak GR.11.8mmHgLVOT VTI 22.53cm AO Mean GR.7mmHg Mitral Valve MV E Mskcyrbs638.6cm/sMV DECEL OIXJ662ct MV A Xjpkyvee987.9cm/sE/A Ratio1.1 TDI Lateral E' P. V8.11cm/sMedial E' P. V6.18cm/s E/Lateral E'16.0E/Medial E'21.0 Tricuspid Valve TR P. Mvbczdvn665fu/sRAP WVUCIRME6uoVr TR Peak Gr.[id number] LEFT VENTRICLE The left ventricle is normal size. There is mild concentric left ventricular hypertrophy. The left ve ntricular systolic function is normal and the ejection fraction is within normal range. The Ejection Fraction is 50-55%. Wall motion consistent with conduction abnormality. Transmitral Doppler flow mina jose l is Grade II-pseudonormal filling dynamics. RIGHT VENTRICLE The right ventricle is borderline dilated. There is normal right ventricular wall thickness. Systolic function is borderline reduced. ATRIA The left atrium is mildly dilated. The right atrium is borderline dilated. The interatrial septum is intact with no evidence for an atrial septal defect or patent foramen ovale as noted on 2-D or Dopple r imaging. AORTIC VALVE The aortic valve is normal in structure and function. Doppler and Color Flow revealed no significant aortic regurgitation. There is no significant aortic valvular stenosis. Calculated aortic valve area is 1.93 cm2 with maximum pressure gradient of 15 mmHg and mean pressure gradient of 7 mmHg. MITRAL VALVE The mitral valve is normal in structure and function. There is no evidence of mitral valve prolapse. There is no mitral valve stenosis. Doppler and Color-flow revealed trace mitral regurgitation. TRICUSPID VALVE The tricuspid valve is normal in structure and function. Doppler and Color Flow revealed trace to mil d tricuspid regurgitation with an estimated PAP of 55 mmHg. There is no tricuspid valve stenosis. PULMONIC VALVE The pulmonic valve is not well visualized. Doppler and Color Flow revealed trace pulmonic valvular re gurgitation. GREAT VESSELS The aortic root is normal in size. The IVC is dilated. PERICARDIAL EFFUSION There is no evidence of significant pericardial effusion. Critical Notification Critical Value: No <Conclusion> The left ventricle is normal size. The left ventricular systolic function is normal and the ejection fraction is within normal range. The Ejection Fraction is 50-55%. There is mild concentric left ventricular hypertrophy. Doppler and Color Flow revealed no significant aortic regurgitation. There is no significant aortic valvular stenosis. Doppler and Color-flow revealed trace mitral regurgitation. Doppler and Color Flow revealed trace to mild tricuspid regurgitation with an estimated PAP of 55 mmH g. Signed by : Glenn Lui MD Electronically Approved : 05/03/2021 17:41:30
[2021-05-03 19:00] VITALS: BP 169/68
[2021-05-03] MEDS ORDERED: INSULIN GLARGINE SYRINGE. SQ SCH (21:00)
[2021-05-03] MEDS: ACETAMINOPHEN 325 MG TABLET. PO PRN (21:45)
[2021-05-03] MEDS: SIMVASTATIN 40 MG TABLET. PO SCH (21:45)
[2021-05-03 23:00] VITALS: BP 133/85
[2021-05-04 03:00] VITALS: BP 135/53
[2021-05-04 06:18] LABS: BLOOD UREA NITROGEN 35 mg/dL (7-20); CALCIUM 9.5 mg/dL (8.5-10.1); CHLORIDE 100 mmol/L (98-107); CREATININE 1.6 mg/dL (0.6-1.0); GFR 31.2; GLUCOSE 57 mg/dL (70-99); MAGNESIUM 1.8 mg/dL (1.8-2.4); PHOSPHORUS 4.3 mg/dL (2.6-4.7); POTASSIUM 3.4 mmol/L (3.5-5.1); SODIUM 145 mmol/L (136-145)
[2021-05-04 06:23] LABS: CARBON DIOXIDE > 45 mmol/L (21-32)
[2021-05-04 07:00] VITALS: BP 166/59
[2021-05-04] MEDS: INSULIN LISPRO 300 UNITS/3 ML VIAL. SQ SCH ×2 (08:00)
[2021-05-04] MEDS: IRON POLYSACCHARIDE COMPLEX 150 MG CAPSULE PO SCH (08:35)
[2021-05-04 08:36] VITALS: BP 166/59
[2021-05-04] MEDS: ASCORBIC ACID 500 MG TABLET PO SCH (08:36)
[2021-05-04] MEDS: ASPIRIN ENTERIC COATED 81 MG TABLET.DR. PO SCH (08:36)
[2021-05-04] MEDS: CARVEDILOL 6.25 MG TABLET. PO SCH (08:36)
[2021-05-04] MEDS: POTASSIUM CHLORIDE 20 MEQ TABLET.ER. PO SCH (08:36)
[2021-05-04] MEDS: metOLazone 2.5 MG TABLET PO SCH (08:37)
[2021-05-04] MEDS: HEPARIN for SUB-Q USE 5,000 UNIT/ML VIAL. SQ SCH (08:44)
--- NOTE | 2021-05-04 09:57 | PDOC ---
PROGRESS NOTES Date of Service: DATE: 05/04/21 TIME: 09:57 Chief Complaint Chief Complaint Mechanical fall. Hypertensive urgency. Cervical spinal stenosis. Acute volume overload. Acute on chronic kidney failure, due to possible vasomotor nephropathy. Left thalamus hypodensity, incidental finding, no further evaluation or treatment. Anemia of chronic kidney disease. Deconditioning. Peripheral neuropathy. Osteoarthritis. COPD. DM type 2. HTN. Morbid obesity. Severe protein malnutrition. History of Present Illness History of Present Illness Patient is a 80-year-old female with past medical history of diabetes mellitus type 2, hypertension, COPD on home O2, CKD was on dialysis a year ago but taken off, morbid obesity, who presents today after falling. Patient states that she was trying to take a shower but she tripped and fell. She also reports that she has been getting weaker in the past couple weeks and she has gained about 10 pounds and feels like she is getting more edematous. Denies any head trauma or loss of consciousness. However she does complain of mild posterior neck pain and also she complains of swelling to the bilateral lower extremities. Denies f adam, shortness of breath, chest pain, abdominal pain, diarrhea or dysuria. Patient was given dose of IV Lasix as she does report urinary output but she is unsure how much she is putting out because there is a pure wick attached to her. 04/30/21 Patient seen and examined at bedside. D/W RN. Chart reviewed. SpO2 94% on 3 lpm via NC. U/S found L renal simple cyst. Patient denies stroke symptoms. Per neurology, hypodensity was found in L thalamus. No further evaluation or treatment necessary. Patient prefers to have carotid doppler study done. 05/01/21 Patient seen and examined at bedside. D/W RN. Dr. Haynes (nephrology) and I plan to follow creatinine levels, continue diuretics, and consider dialysis. 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 Plan to consult Dr. Higuera (vascular surgery). 05/02/21 Patient seen and examined at bedside. Shawn/W RN. Per Dr. Higuera, intervention of carotid stenosis is warranted. 05/03/21 Patient seen and examined at bedside. Shawn/W RN. Per Dr. Higuera, intervention of carotid stenosis is warranted. CONT METOLAZONE REPLACE K AVOID NEPHROTOXINS IRON SUPPLEMENTS ENC COMPLIANCE D/W ATTENDING F/U IN 4-6 WEEKS 05/04/21 Patient seen and examined at bedside. D/W RN. Per Dr. Higuera, intervention of carotid stenosis is warranted. CONT METOLAZONE REPLACE K AVOID NEPHROTOXINS IRON SUPPLEMENTS ENC COMPLIANCE D/W ATTENDING F/U IN 4-6 WEEKS D/C PLANNING 34 MIN Vitals Vitals Vital Signs Date Time Temp Pulse Resp B/P (MAP) Pulse Ox O2 Delivery O2 Flow Rate FiO2 05/04/21 08:36 65 166/59 05/04/21 07:00 97.7 19 94 Nasal Cannula 4.0 97.7 Physical Exam Physical Exam IN NAD, NEEDS SNF General: Alert, Oriented X3, Cooperative, No acute distress Heart: Regular rate, Normal S1, Normal S2 Lungs: Clear Abdomen: Normal bowel sounds, Soft, No tenderness Extremities: No clubbing, No cyanosis, Other (3+ EDEMA) Labs LABS Laboratory Tests Test 05/03/21 11:51 05/03/21 16:57 05/03/21 21:20 05/04/21 05:30 Glucose (Fingerstick) 120 mg/dL (70-99) 294 mg/dL (70-99) 194 mg/dL (70-99) Sodium Level 145 mmol/L (136-145) Potassium Level 3.4 mmol/L (3.5-5.1) Chloride Level 100 mmol/L (98-107) Carbon Dioxide Level > 45 mmol/L (21-32) Anion Gap (6-14) Blood Urea Nitrogen 35 mg/dL (7-20) Creatinine 1.6 mg/dL (0.6-1.0) Estimated GFR (Cockcroft-Gault) 31.2 Glucose Level 57 mg/dL (70-99) Calcium Level 9.5 mg/dL (8.5-10.1) Phosphorus Level 4.3 mg/dL (2.6-4.7) Magnesium Level 1.8 mg/dL (1.8-2.4) Test 05/04/21 07:54 Glucose (Fingerstick) 69 mg/dL (70-99) Assessment and Plan Assessmemt and Plan Problems Medical Problems: (1) Acute cervical sprain Status: Acute (2) Acute on chronic renal failure Status: Acute Comment Review of Relevant I have reviewed the following items monalisa (where applicable) has been applied. Labs Laboratory Tests Test 05/02/21 11:44 05/02/21 17:08 05/02/21 21:34 05/03/21 07:05 Glucose (Fingerstick) 135 mg/dL (70-99) 188 mg/dL (70-99) 177 mg/dL (70-99) Sodium Level 148 mmol/L (136-145) Potassium Level 3.2 mmol/L (3.5-5.1) Chloride Level 100 mmol/L (98-107) Carbon Dioxide Level > 45 mmol/L (21-32) Anion Gap (6-14) Blood Urea Nitrogen 29 mg/dL (7-20) Creatinine 1.5 mg/dL (0.6-1.0) Estimated GFR (Cockcroft-Gault) 33.6 Glucose Level 77 mg/dL (70-99) Calcium Level 9.4 mg/dL (8.5-10.1) Phosphorus Level 3.2 mg/dL (2.6-4.7) Magnesium Level 1.5 mg/dL (1.8-2.4) Test 05/03/21 08:30 05/03/21 11:51 05/03/21 16:57 05/03/21 21:20 Glucose (Fingerstick) 74 mg/dL (70-99) 120 mg/dL (70-99) 294 mg/dL (70-99) 194 mg/dL (70-99) Test 05/04/21 05:30 05/04/21 07:54 Sodium Level 145 mmol/L (136-145) Potassium Level 3.4 mmol/L (3.5-5.1) Chloride Level 100 mmol/L (98-107) Carbon Dioxide Level > 45 mmol/L (21-32) Anion Gap (6-14) Blood Urea Nitrogen 35 mg/dL (7-20) Creatinine 1.6 mg/dL (0.6-1.0) Estimated GFR (Cockcroft-Gault) 31.2 Glucose Level 57 mg/dL (70-99) Calcium Level 9.5 mg/dL (8.5-10.1) Phosphorus Level 4.3 mg/dL (2.6-4.7) Magnesium Level 1.8 mg/dL (1.8-2.4) Glucose (Fingerstick) 69 mg/dL (70-99) Laboratory Tests Test 05/03/21 11:51 05/03/21 16:57 05/03/21 21:20 05/04/21 05:30 Glucose (Fingerstick) 120 mg/dL (70-99) 294 mg/dL (70-99) 194 mg/dL (70-99) Sodium Level 145 mmol/L (136-145) Potassium Level 3.4 mmol/L (3.5-5.1) Chloride Level 100 mmol/L (98-107) Carbon Dioxide Level > 45 mmol/L (21-32) Anion Gap (6-14) Blood Urea Nitrogen 35 mg/dL (7-20) Creatinine 1.6 mg/dL (0.6-1.0) Estimated GFR (Cockcroft-Gault) 31.2 Glucose Level 57 mg/dL (70-99) Calcium Level 9.5 mg/dL (8.5-10.1) Phosphorus Level 4.3 mg/dL (2.6-4.7) Magnesium Level 1.8 mg/dL (1.8-2.4) Test 05/04/21 07:54 Glucose (Fingerstick) 69 mg/dL (70-99) Medications Current Medications Ondansetron HCl (Zofran) 4 mg PRN Q8HRS PRN IVP NAUSEA/VOMITING; Start 04/28/21 at 20:30; Stop 04/29/21 at 18:37; Status DC Morphine Sulfate (Morphine Sulfate) 2 mg PRN Q2HR PRN IVP PAIN; Start 04/28/21 at 20:30; Stop 04/29/21 at 20:29; Status DC Acetaminophen (Tylenol) 650 mg PRN Q4HRS PRN PO FEVER > 100.3'F; Start 04/28/21 at 20:30; Stop 04/29/21 at 18:36; Status DC Furosemide (Lasix) 40 mg 1X ONCE IVP Last administered on 04/28/21at 23:02; Start 04/28/21 at 21:00; Stop 04/28/21 at 21:01; Status DC Ascorbic Acid (Vitamin C) 500 mg DAILY PO Last administered on 05/04/21at 08:36; Start 04/29/21 at 09:00 Aspirin (Ecotrin) 81 mg DAILYWBKFT PO Last administered on 05/04/21at 08:36; Start 04/29/21 at 09:00 Carvedilol (Coreg) 6.25 mg BIDWMEALS PO Last administered on 05/04/21 08:36; Start 04/29/21 at 09:00 Insulin Glargine (Lantus Syringe) 38 unit HS SQ Last administered on 05/02/21 22:20; Start 04/29/21 at 21:00; Stop 05/03/21 at 14:43; Status DC Insulin Human Lispro (HumaLOG) 13 units TIDWMEALS SQ Last administered on 05/03/21 17:17; Start 04/29/21 at 09:00 Simvastatin (Zocor) 40 mg QHS PO Last administered on 05/03/21 21:45; Start 04/29/21 at 21:00 Insulin Human Lispro (HumaLOG) 0-7 UNITS TIDWMEALS SQ Last administered on 05/03/21 17:17; Start 04/29/21 at 12:00 Dextrose (Dextrose 50%-Water Syringe) 12.5 gm PRN Q15MIN PRN IV SEE COMMENTS; Start 04/29/21 at 08:30 Sennosides (Senna) 17.2 mg PRN BID PRN PO CONSTIPATION; Start 04/29/21 at 08:30 Docusate Sodium (Colace) 100 mg PRN DAILY PRN PO HARD STOOLS Last administered on 04/30/21 09:17; Start 04/29/21 at 08:30 Ondansetron HCl (Zofran) 4 mg PRN Q6HRS PRN IVP NAUSEA/VOMITING, 1st CHOICE Last administered on 04/30/21at 09:19; Start 04/29/21 at 08:30 Dextrose (Dextrose 50%-Water Syringe) 12.5 gm PRN Q15MIN PRN IV SEE COMMENTS; Start 04/29/21 at 08:30; Status Cancel Acetaminophen (Tylenol) 650 mg PRN Q4HRS PRN PO TEMP OVER 100.4F OR MILD PAIN Last administered on 05/03/21at 21:45; Start 04/29/21 at 08:30 Heparin Sodium (Porcine) (Heparin Sodium) 5,000 unit Q12HR SQ Last administered on 05/04/21at 08:44; Start 04/29/21 at 09:00 Prochlorperazine Edisylate (Compazine) 10 mg PRN Q6HRS PRN IV NAUSEA/VOMITING, 2ND CHOICE; Start 04/29/21 at 08:30 Furosemide (Lasix) 80 mg 1X ONCE IVP Last administered on 04/29/21at 11:47; Start 04/29/21 at 10:15; Stop 04/29/21 at 10:18; Status DC Furosemide 100 mg/ Sodium Chloride 100 ml @ 5 mls/hr CONT PRN IV SEE I/O RECORD Last administered on 05/03/21at 21:52; Start 04/29/21 at 11:00 Potassium Chloride (Klor-Con) 40 meq 1X ONCE PO Last administered on 04/29/21at 11:46; Start 04/29/21 at 10:15; Stop 04/29/21 at 10:18; Status DC Potassium Chloride (Klor-Con) 20 meq DAILYWBKFT PO Last administered on 05/04/21at 08:36; Start 04/30/21 at 12:00 Polysaccharide Iron Complex (Niferex 150) 150 mg DAILY PO Last administered on 05/04/21at 08:35; Start 04/30/21 at 12:00 Metolazone (Zaroxolyn) 5 mg DAILY PO Last administered on 05/04/21at 08:37; Start 05/01/21 at 12:00 Magnesium Sulfate 50 ml @ 25 mls/hr 1X ONCE IV Last administered on 05/02/21at 12:00; Start 05/02/21 at 12:00; Stop 05/02/21 at 13:59; Status DC Magnesium Sulfate 50 ml @ 25 mls/hr 1X ONCE IV Last administered on 05/03/21at 11:15; Start 05/03/21 at 11:00; Stop 05/03/21 at 12:59; Status DC Potassium Chloride/Water 100 ml @ 100 mls/hr Q1H IV ; Start 05/03/21 at 11:00; Stop 05/03/21 at 12:59; Status UNV Potassium Chloride/Water 100 ml @ 100 mls/hr Q1H IV Last administered on 05/03/21at 11:23; Start 05/03/21 at 11:00; Stop 05/03/21 at 12:32; Status DC Potassium Chloride (Klor-Con) 40 meq 1X ONCE PO Last administered on 05/03/21at 13:39; Start 05/03/21 at 12:30; Stop 05/03/21 at 12:34; Status DC Insulin Glargine (Lantus Syringe) 30 unit QHS SQ Last administered on 05/03/21at 21:48; Start 05/03/21 at 21:00 Active Scripts Active Thera-M Tablet (Multivits,Ca,Minerals/Iron/Fa) 1 Each Tablet 1 Tab PO DAILY 30 Days Vitamin C (Ascorbic Acid) 500 Mg Tablet 500 Mg PO DAILY 30 Days Culturelle (Lactobacillus Rhamnosus Gg) 1 Each Cap.sprink 1 Cap PO BID 30 Days Aspirin Ec (Aspirin) 81 Mg Tablet.dr 81 Mg PO DAILYWBKFT 30 Days Proair Hfa (Albuterol Sulfate) 8.5 Gm Hfa.aer.ad 2.5 Mg NEB PRN Q4HRS PRN 30 Days Amox Tr-K Clv 500-125 Mg Tab (Amoxicillin/Potassium Clav) 1 Each Tablet 1 Tab PO DAILY 3 Days Reported Lantus (Insulin Glargine,Hum.rec.anlog) 100 Unit/1 Ml Vial 38 Units SQ HS Insulin Lispro 100 Unit/1 Ml Vial 13 Units SQ TIDAC Xalatan (Latanoprost) 2.5 Ml Drops 1 Drop OP HS Flonase Allergy Relief (Fluticasone Propionate) 9.9 Ml [place]den.susp 2 Sprays NS DAILY Novolin N (Nph, Human Insulin Isophane) 100 Unit/1 Ml Vial 40 Unit SQ DAILYWBKFT Carvedilol (Carvedilol) 6.25 Mg Tablet 6.25 Mg PO BIDWMEALS Simvastatin 40 Mg Tablet 1 Tab PO QHS Furosemide 20 Mg Tablet 1 Tab PO DAILY Vitals/I & O Vital Sign - Last 24 Hours 05/03/21 05/03/21 05/03/21 05/03/21 11:00 17:10 19:00 20:00 Temp 98.0 98.5 98.0 98.5 Pulse 71 71 72 Resp 20 18 B/P (MAP) 138/83 (101) 138/83 169/68 (101) Pulse Ox 95 96 O2 Delivery Nasal Cannula Nasal Cannula Nasal Cannula O2 Flow Rate 4.0 4.0 3.0 05/03/21 05/04/21 05/04/21 05/04/21 23:00 03:00 07:00 08:36 Temp 97.7 97.5 97.7 97.7 97.5 97.7 Pulse 93 64 65 65 Resp 18 18 19 B/P (MAP) 133/85 (101) 135/53 (80) 166/59 (94) 166/59 Pulse Ox 96 96 94 O2 Delivery Nasal Cannula Nasal Cannula Nasal Cannula O2 Flow Rate 4.0 4.0 4.0 Intake and Output 05/03/21 05/03/21 05/04/21 15:00 23:00 07:00 Intake Total 660 ml 200 ml Output Total 750 ml Balance 660 ml 200 ml -750 ml Justicifation of Admission Dx: Justifications for Admission: Justification of Admission Dx: N/A CHINO MORALES MD May 04, 2021 09:57
--- NOTE | 2021-05-04 10:23 | PDOC ---
PROGRESS NOTES Date of Service DATE: 05/04/21 TIME: 10:21 Assessment Problems Medical Problems: (1) Acute cervical sprain Status: Acute (2) Acute on chronic renal failure Status: Acute Chronic infract in the left thalamus without history of stroke or transient ischemic attack symptoms Carotid artery stenosis on the right, per Dr. Higuera, intervention is NOT warranted--I agree Mechanical fall Gait disorder from peripheral neuropathy and arthritis, deconditioning Plan Aspirin and statin SNU PT/OT Subjective No complaints, ready to go to half-way Objective Vital Signs Date Time Temp Pulse Resp B/P (MAP) Pulse Ox O2 Delivery O2 Flow Rate FiO2 05/04/21 08:36 65 166/59 05/04/21 07:00 97.7 19 94 Nasal Cannula 4.0 97.7 Intake and Output 05/04/21 07:00 Intake Total 860 ml Output Total 750 ml Balance 110 ml Intake Oral 860 ml Output Urine Total 750 ml # Voids 4 PHYSICAL EXAM Alert. Oriented to time, place and person. PERRL. EOMI. CN: no focal findings. Muscle tone: normal. Muscle strength: 4/5 DTR: 0-1+ Plantar reflex: flexor Gait: not examined in bed. Sensory exam: bilateral stocking loss. No cerebellar signs elicited. Review of Relevant I have reviewed the following items monalisa (where applicable) has been applied. Labs Laboratory Tests Test 05/02/21 11:44 05/02/21 17:08 05/02/21 21:34 05/03/21 07:05 Glucose (Fingerstick) 135 mg/dL (70-99) 188 mg/dL (70-99) 177 mg/dL (70-99) Sodium Level 148 mmol/L (136-145) Potassium Level 3.2 mmol/L (3.5-5.1) Chloride Level 100 mmol/L (98-107) Carbon Dioxide Level > 45 mmol/L (21-32) Anion Gap (6-14) Blood Urea Nitrogen 29 mg/dL (7-20) Creatinine 1.5 mg/dL (0.6-1.0) Estimated GFR (Cockcroft-Gault) 33.6 Glucose Level 77 mg/dL (70-99) Calcium Level 9.4 mg/dL (8.5-10.1) Phosphorus Level 3.2 mg/dL (2.6-4.7) Magnesium Level 1.5 mg/dL (1.8-2.4) Test 05/03/21 08:30 05/03/21 11:51 05/03/21 16:57 05/03/21 21:20 Glucose (Fingerstick) 74 mg/dL (70-99) 120 mg/dL (70-99) 294 mg/dL (70-99) 194 mg/dL (70-99) Test 05/04/21 05:30 05/04/21 07:54 Sodium Level 145 mmol/L (136-145) Potassium Level 3.4 mmol/L (3.5-5.1) Chloride Level 100 mmol/L (98-107) Carbon Dioxide Level > 45 mmol/L (21-32) Anion Gap (6-14) Blood Urea Nitrogen 35 mg/dL (7-20) Creatinine 1.6 mg/dL (0.6-1.0) Estimated GFR (Cockcroft-Gault) 31.2 Glucose Level 57 mg/dL (70-99) Calcium Level 9.5 mg/dL (8.5-10.1) Phosphorus Level 4.3 mg/dL (2.6-4.7) Magnesium Level 1.8 mg/dL (1.8-2.4) Glucose (Fingerstick) 69 mg/dL (70-99) Laboratory Tests Test 05/03/21 11:51 05/03/21 16:57 05/03/21 21:20 05/04/21 05:30 Glucose (Fingerstick) 120 mg/dL (70-99) 294 mg/dL (70-99) 194 mg/dL (70-99) Sodium Level 145 mmol/L (136-145) Potassium Level 3.4 mmol/L (3.5-5.1) Chloride Level 100 mmol/L (98-107) Carbon Dioxide Level > 45 mmol/L (21-32) Anion Gap (6-14) Blood Urea Nitrogen 35 mg/dL (7-20) Creatinine 1.6 mg/dL (0.6-1.0) Estimated GFR (Cockcroft-Gault) 31.2 Glucose Level 57 mg/dL (70-99) Calcium Level 9.5 mg/dL (8.5-10.1) Phosphorus Level 4.3 mg/dL (2.6-4.7) Magnesium Level 1.8 mg/dL (1.8-2.4) Test 05/04/21 07:54 Glucose (Fingerstick) 69 mg/dL (70-99) Medications Current Medications Ondansetron HCl (Zofran) 4 mg PRN Q8HRS PRN IVP NAUSEA/VOMITING; Start 04/28/21 at 20:30; Stop 04/29/21 at 18:37; Status DC Morphine Sulfate (Morphine Sulfate) 2 mg PRN Q2HR PRN IVP PAIN; Start 04/28/21 at 20:30; Stop 04/29/21 at 20:29; Status DC Acetaminophen (Tylenol) 650 mg PRN Q4HRS PRN PO FEVER > 100.3'F; Start 04/28/21 at 20:30; Stop 04/29/21 at 18:36; Status DC Furosemide (Lasix) 40 mg 1X ONCE IVP Last administered on 04/28/21at 23:02; Start 04/28/21 at 21:00; Stop 04/28/21 at 21:01; Status DC Ascorbic Acid (Vitamin C) 500 mg DAILY PO Last administered on 05/04/21at 08:36; Start 04/29/21 at 09:00 Aspirin (Ecotrin) 81 mg DAILYWBKFT PO Last administered on 05/04/21at 08:36; Start 04/29/21 at 09:00 Carvedilol (Coreg) 6.25 mg BIDWMEALS PO Last administered on 05/04/21at 08:36; Start 04/29/21 at 09:00 Insulin Glargine (Lantus Syringe) 38 unit HS SQ Last administered on 05/02/21at 22:20; Start 04/29/21 at 21:00; Stop 05/03/21 at 14:43; Status DC Insulin Human Lispro (HumaLOG) 13 units TIDWMEALS SQ Last administered on 05/03/21at 17:17; Start 04/29/21 at 09:00 Simvastatin (Zocor) 40 mg QHS PO Last administered on 05/03/21at 21:45; Start 04/29/21 at 21:00 Insulin Human Lispro (HumaLOG) 0-7 UNITS TIDWMEALS SQ Last administered on 05/03/21at 17:17; Start 04/29/21 at 12:00 Dextrose (Dextrose 50%-Water Syringe) 12.5 gm PRN Q15MIN PRN IV SEE COMMENTS; Start 04/29/21 at 08:30 Sennosides (Senna) 17.2 mg PRN BID PRN PO CONSTIPATION; Start 04/29/21 at 08:30 Docusate Sodium (Colace) 100 mg PRN DAILY PRN PO HARD STOOLS Last administered on 04/30/21at 09:17; Start 04/29/21 at 08:30 Ondansetron HCl (Zofran) 4 mg PRN Q6HRS PRN IVP NAUSEA/VOMITING, 1st CHOICE Last administered on 04/30/21at 09:19; Start 04/29/21 at 08:30 Dextrose (Dextrose 50%-Water Syringe) 12.5 gm PRN Q15MIN PRN IV SEE COMMENTS; Start 04/29/21 at 08:30; Status Cancel Acetaminophen (Tylenol) 650 mg PRN Q4HRS PRN PO TEMP OVER 100.4F OR MILD PAIN Last administered on 05/03/21at 21:45; Start 04/29/21 at 08:30 Heparin Sodium (Porcine) (Heparin Sodium) 5,000 unit Q12HR SQ Last administered on 05/04/21at 08:44; Start 04/29/21 at 09:00 Prochlorperazine Edisylate (Compazine) 10 mg PRN Q6HRS PRN IV NAUSEA/VOMITING, 2ND CHOICE; Start 04/29/21 at 08:30 Furosemide (Lasix) 80 mg 1X ONCE IVP Last administered on 04/29/21at 11:47; Start 04/29/21 at 10:15; Stop 04/29/21 at 10:18; Status DC Furosemide 100 mg/ Sodium Chloride 100 ml @ 5 mls/hr CONT PRN IV SEE I/O RECORD Last administered on 05/03/21at 21:52; Start 04/29/21 at 11:00 Potassium Chloride (Klor-Con) 40 meq 1X ONCE PO Last administered on 04/29/21at 11:46; Start 04/29/21 at 10:15; Stop 04/29/21 at 10:18; Status DC Potassium Chloride (Klor-Con) 20 meq DAILYWBKFT PO Last administered on 1at 08:36; Start 04/30/21 at 12:00 Polysaccharide Iron Complex (Niferex 150) 150 mg DAILY PO Last administered on 05/04/21at 08:35; Start 04/30/21 at 12:00 Metolazone (Zaroxolyn) 5 mg DAILY PO Last administered on 05/04/21at 08:37; Start 05/01/21 at 12:00 Magnesium Sulfate 50 ml @ 25 mls/hr 1X ONCE IV Last administered on 05/02/21at 12:00; Start 05/02/21 at 12:00; Stop 05/02/21 at 13:59; Status DC Magnesium Sulfate 50 ml @ 25 mls/hr 1X ONCE IV Last administered on 05/03/21at 11:15; Start 05/03/21 at 11:00; Stop 05/03/21 at 12:59; Status DC Potassium Chloride/Water 100 ml @ 100 mls/hr Q1H IV ; Start 05/03/21 at 11:00; Stop 05/03/21 at 12:59; Status UNV Potassium Chloride/Water 100 ml @ 100 mls/hr Q1H IV Last administered on 05/03/21at 11:23; Start 05/03/21 at 11:00; Stop 05/03/21 at 12:32; Status DC Potassium Chloride (Klor-Con) 40 meq 1X ONCE PO Last administered on 05/03/21at 13:39; Start 05/03/21 at 12:30; Stop 05/03/21 at 12:34; Status DC Insulin Glargine (Lantus Syringe) 30 unit QHS SQ Last administered on 05/03/21at 21:48; Start 05/03/21 at 21:00 Active Scripts Active Thera-M Tablet (Multivits,Ca,Minerals/Iron/Fa) 1 Each Tablet 1 Tab PO DAILY 30 Days Vitamin C (Ascorbic Acid) 500 Mg Tablet 500 Mg PO DAILY 30 Days Culturelle (Lactobacillus Rhamnosus Gg) 1 Each Cap.sprink 1 Cap PO BID 30 Days Aspirin Ec (Aspirin) 81 Mg Tablet.dr 81 Mg PO DAILYWBKFT 30 Days Proair Hfa (Albuterol Sulfate) 8.5 Gm Hfa.aer.ad 2.5 Mg NEB PRN Q4HRS PRN 30 Days Amox Tr-K Clv 500-125 Mg Tab (Amoxicillin/Potassium Clav) 1 Each Tablet 1 Tab PO DAILY 3 Days Reported Lantus (Insulin Glargine,Hum.rec.anlog) 100 Unit/1 Ml Vial 38 Units SQ HS Insulin Lispro 100 Unit/1 Ml Vial 13 Units SQ TIDAC Xalatan (Latanoprost) 2.5 Ml Drops 1 Drop OP HS Flonase Allergy Relief (Fluticasone Propionate) 9.9 Ml [place].susp 2 Sprays NS DAILY Novolin N (Nph, Human Insulin Isophane) 100 Unit/1 Ml Vial 40 Unit SQ DAILYWBKFT Carvedilol (Carvedilol) 6.25 Mg Tablet 6.25 Mg PO BIDWMEALS Simvastatin 40 Mg Tablet 1 Tab PO QHS Furosemide 20 Mg Tablet 1 Tab PO DAILY Vitals/I & O Vital Sign - Last 24 Hours 05/03/21 05/03/21 05/03/21 05/03/21 11:00 17:10 19:00 20:00 Temp 98.0 98.5 98.0 98.5 Pulse 71 71 72 Resp 20 18 B/P (MAP) 138/83 (101) 138/83 169/68 (101) Pulse Ox 95 96 O2 Delivery Nasal Cannula Nasal Cannula Nasal Cannula O2 Flow Rate 4.0 4.0 3.0 05/03/21 05/04/21 05/04/21 05/04/21 23:00 03:00 07:00 08:36 Temp 97.7 97.5 97.7 97.7 97.5 97.7 Pulse 93 64 65 65 Resp 18 18 19 B/P (MAP) 133/85 (101) 135/53 (80) 166/59 (94) 166/59 Pulse Ox 96 96 94 O2 Delivery Nasal Cannula Nasal Cannula Nasal Cannula O2 Flow Rate 4.0 4.0 4.0 Intake and Output 05/03/21 05/03/21 05/04/21 15:00 23:00 07:00 Intake Total 660 ml 200 ml Output Total 750 ml Balance 660 ml 200 ml -750 ml Justicifation of Admission Dx: Justifications for Admission: Justification of Admission Dx: N/A KATHARINA LABOY MD May 04, 2021 10:23
--- NOTE | 2021-05-04 11:11 | NUR ---
SS following up with discharge planning. SS reviewed pt chart and discussed with pt RN. Pt is currently requiring oxygen at four liters nasal canula. COVID19 negative. Pt on Lasix drip. PT/OT recommended [facility] unit. Pt accepted at [facility], ; fax [phone]. Insurance authorization received. SS discussed with Dr. Haynes this morning. Lasix drip to be discontinued. Anticipate discharge to [facility] today. SS will continue to follow for discharge planning. Addendum: 05/04/21 at 1253 by ASHLY MEYER SS Discharge orders received for [facility]. SS phoned and faxed discharge orders to [facility]. Pt will discharge today and go to [facility] at 1400 via [facility] transport. Pt, pt's RN, and pt's nephew notified.
--- NOTE | 2021-05-04 12:00 | PDOC ---
Renal-Progress Notes Subjective Notes Notes FEELING BETTER History of Present Illness Hx of present illness IMPROVED AND STABLE Vitals Vitals Vital Signs Date Time Temp Pulse Resp B/P (MAP) Pulse Ox O2 Delivery O2 Flow Rate FiO2 05/04/21 08:36 65 166/59 05/04/21 08:00 Nasal Cannula 4.0 05/04/21 07:00 97.7 19 94 97.7 Weight Weight [ ] I.O. Intake and Output Intake and Output 05/04/21 07:00 Intake Total 860 ml Output Total 750 ml Balance 110 ml Intake Oral 860 ml Output Urine Total 750 ml # Voids 4 Labs Labs Laboratory Tests Test 05/03/21 16:57 05/03/21 21:20 05/04/21 05:30 05/04/21 07:54 Glucose (Fingerstick) 294 mg/dL (70-99) 194 mg/dL (70-99) 69 mg/dL (70-99) Sodium Level 145 mmol/L (136-145) Potassium Level 3.4 mmol/L (3.5-5.1) Chloride Level 100 mmol/L (98-107) Carbon Dioxide Level > 45 mmol/L (21-32) Anion Gap (6-14) Blood Urea Nitrogen 35 mg/dL (7-20) Creatinine 1.6 mg/dL (0.6-1.0) Estimated GFR (Cockcroft-Gault) 31.2 Glucose Level 57 mg/dL (70-99) Calcium Level 9.5 mg/dL (8.5-10.1) Phosphorus Level 4.3 mg/dL (2.6-4.7) Magnesium Level 1.8 mg/dL (1.8-2.4) Review of Systems Constitutional: yes: weakness, alert, oriented Ears/Nose/Throat: Yes: no symptom reported Eyes: Yes: no symptom reported Pulmonary: Yes dyspnea Cardiovascular: Yes edema Gastrointestional: Yes: constipation Genitourinary: Yes: no symptom reported Musculoskeletal: Yes: muscle stiffness Skin: Yes no symptom reported Psychiatric/Neurological: Yes: depressed Endocrine: Yes: no symptom reported Hematologic/Lymphatic: Yes: no symptom reported Physical Exam General Appearance: no apparent distress, obese, febrile Skin: warm, edema Respiratory: decreased breath sounds Heart: S1S2 Abdomen: soft, bowel sounds present Genitourinary: bladder flat, pedraza catheter Extremities: pulses present, edema Neurology: alert, oriented, Ext weakness Musculoskeletal: Osteoarthritis Assessment Assessment IMP FALL ANASARCA EDEMA CKD STAGE 3B TO 4-CR OF 1.7 HYPOMAGNESEMIA-CORRECTED HYPOKALEMIA MORBID OBESITY UNCONTROLLED HTN VOLUME OVERLOAD CHF - SUSPECT ACUTE ON CHRONIC SYSTOLIC AND DIASTOLIC HX OF COPD-ON 2-3 LITERS CONTINUOUSLY DM II PROTEINURIA DECONDITIONING ANEMIA OF CKD PLAN CONT DIURESIS LASIX GTT TO PO LASIX CONT METOLAZONE REPLACE K AVOID NEPHROTOXINS IRON SUPPLEMENTS ENC COMPLIANCE D/W ATTENDING F/U IN 4-6 WEEKS D/C PLANS NOTED YASSINE MARTINEZ MD May 04, 2021 12:00
--- NOTE | 2021-05-04 12:17 | PDOC3 ---
Discharge Summary Date of Admission: Apr 28, 2021 Date of Discharge: May 04, 2021 Follow-Up: 1-2 days Admitting Diagnosis comment: History of Present Illness History of Present Illness Patient is a 80-year-old female with past medical history of diabetes mellitus type 2, hypertension, COPD on home O2, CKD was on dialysis a year ago but taken off, morbid obesity, who presents today after falling. Patient states that she was trying to take a shower but she tripped and fell. She also reports that she has been getting weaker in the past couple weeks and she has gained about 10 pounds and feels like she is getting more edematous. Denies any head trauma or loss of consciousness. However she does complain of mild posterior neck pain and also she complains of swelling to the bilateral lower extremities. Denies fevers, shortness of breath, chest pain, abdominal pain, diarrhea or dysuria. Patient was given dose of IV Lasix as she does report urinary output but she is unsure how much she is putting out because there is a pure wick attached to her. D/C MEDS SEE MAR COMPLICATIONS NONE D/C CONDITION GOOD CONSULTS NEPHROLOGY, NEUROLOGY, VASCULAR SURGERY PROGNOSIS GOOD WITH COMPLIANCE D/C DIET HEART HEALTH[facility] TO SNF / PP TODAY DISCHARGE DX Chief Complaint Mechanical fall. Hypertensive urgency. Cervical spinal stenosis. Acute volume overload. Acute on chronic kidney failure, due to possible vasomotor nephropathy. Left thalamus hypodensity, incidental finding, no further evaluation or treatment. Anemia of chronic kidney disease. Deconditioning. Peripheral neuropathy. Osteoarthritis. COPD. DM type 2. HTN. Morbid obesity. Severe protein malnutrition. History of Present Illness History of Present Illness Patient is a 80-year-old female with past medical history of diabetes mellitus type 2, hypertension, COPD on home O2, CKD was on dialysis a year ago but taken off, morbid obesity, who presents today after falling. Patient states that she was trying to take a shower but she tripped and fell. She also reports that she has been getting weaker in the past couple weeks and she has gained about 10 pounds and feels like she is getting more edematous. Denies any head trauma or loss of consciousness. However she does complain of mild posterior neck pain and also she complains of swelling to the bilateral lower extremities. Denies fevers, shortness of breath, chest pain, abdominal pain, diarrhea or dysuria. Patient was given dose of IV Lasix as she does report urinary output but she is unsure how much she is putting out because there is a pure wick attached to her. 04/30/21 Patient seen and examined at bedside. D/W RN. Chart reviewed. SpO2 94% on 3 lpm via NC. U/S found L renal simple cyst. Patient denies stroke symptoms. Per neurology, hypodensity was found in L thalamus. No further evaluation or treatment necessary. Patient prefers to have carotid doppler study done. 05/01/21 Patient seen and examined at bedside. D/W RN. Dr. Haynes (nephrology) and I plan to follow creatinine levels, continue diuretics, and consider dialysis. 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 Plan to consult Dr. Higuera (vascular surgery). 05/02/21 Patient seen and examined at bedside. D/W RN. Per Dr. Higuera, intervention of carotid stenosis is warranted. 05/03/21 Patient seen and examined at bedside. D/W RN. Per Dr. Higuera, intervention of carotid stenosis is warranted. CONT METOLAZONE REPLACE K AVOID NEPHROTOXINS IRON SUPPLEMENTS ENC COMPLIANCE D/W ATTENDING F/U IN 4-6 WEEKS 05/04/21 Patient seen and examined at bedside. D/W RN. Per Dr. Higuera, intervention of carotid stenosis is warranted. CONT METOLAZONE REPLACE K AVOID NEPHROTOXINS IRON SUPPLEMENTS ENC COMPLIANCE D/W ATTENDING F/U IN 4-6 WEEKS D/C PLANNING 34 MIN Vitals Vitals Vital Signs Date Time Temp Pulse Resp B/P (MAP) Pulse Ox O2 Delivery O2 Flow Rate FiO2 05/04/21 08:36 65 166/59 05/04/21 07:00 97.7 19 94 Nasal Cannula 4.0 97.7 Physical Exam Physical Exam IN NAD, NEEDS SNF General: Alert, Oriented X3, Cooperative, No acute distress Heart: Regular rate, Normal S1, Normal S2 Lungs: Clear Abdomen: Normal bowel sounds, Soft, No tenderness Extremities: No clubbing, No cyanosis, Other (3+ EDEMA) FINAL DIAGNOSIS Problems Medical Problems: (1) Acute cervical sprain Status: Acute (2) Acute on chronic renal failure Status: Acute Brief Hospital Course Ms. Mercado is a 80 old [sex] who presented with [ FALL, SUN, HTN ] CONDITION AT DISCHARGE: Improved Discharge Medications Current Medications Ondansetron HCl (Zofran) 4 mg PRN Q8HRS PRN IVP NAUSEA/VOMITING; Start 04/28/21 at 20:30; Stop 04/29/21 at 18:37; Status DC Morphine Sulfate (Morphine Sulfate) 2 mg PRN Q2HR PRN IVP PAIN; Start 04/28/21 at 20:30; Stop 04/29/21 at 20:29; Status DC Acetaminophen (Tylenol) 650 mg PRN Q4HRS PRN PO FEVER > 100.3'F; Start 04/28/21 at 20:30; Stop 04/29/21 at 18:36; Status DC Furosemide (Lasix) 40 mg 1X ONCE IVP Last administered on 04/28/21at 23:02; Start 04/28/21 at 21:00; Stop 04/28/21 at 21:01; Status DC Ascorbic Acid (Vitamin C) 500 mg DAILY PO Last administered on 05/04/21at 08:36; Start 04/29/21 at 09:00 Aspirin (Ecotrin) 81 mg DAILYWBKFT PO Last administered on 05/04/21at 08:36; Start 04/29/21 at 09:00 Carvedilol (Coreg) 6.25 mg BIDWMEALS PO Last administered on 05/04/21at 08:36; Start 04/29/21 at 09:00 Insulin Glargine (Lantus Syringe) 38 unit HS SQ Last administered on 05/02/21at 22:20; Start 04/29/21 at 21:00; Stop 05/03/21 at 14:43; Status DC Insulin Human Lispro (HumaLOG) 13 units TIDWMEALS SQ Last administered on 05/03/21at 17:17; Start 04/29/21 at 09:00 Simvastatin (Zocor) 40 mg QHS PO Last administered on 05/03/21at 21:45; Start 04/29/21 at 21:00 Insulin Human Lispro (HumaLOG) 0-7 UNITS TIDWMEALS SQ Last administered on 05/03/21at 17:17; Start 04/29/21 at 12:00 Dextrose (Dextrose 50%-Water Syringe) 12.5 gm PRN Q15MIN PRN IV SEE COMMENTS; Start 04/29/21 at 08:30 Sennosides (Senna) 17.2 mg PRN BID PRN PO CONSTIPATION; Start 04/29/21 at 08:30 Docusate Sodium (Colace) 100 mg PRN DAILY PRN PO HARD STOOLS Last administered on 04/30/21at 09:17; Start 04/29/21 at 08:30 Ondansetron HCl (Zofran) 4 mg PRN Q6HRS PRN IVP NAUSEA/VOMITING, 1st CHOICE Last administered on 04/30/21at 09:19; Start 04/29/21 at 08:30 Dextrose (Dextrose 50%-Water Syringe) 12.5 gm PRN Q15MIN PRN IV SEE COMMENTS; Start 04/29/21 at 08:30; Status Cancel Acetaminophen (Tylenol) 650 mg PRN Q4HRS PRN PO TEMP OVER 100.4F OR MILD PAIN Last administered on 05/03/21at 21:45; Start 04/29/21 at 08:30 Heparin Sodium (Porcine) (Heparin Sodium) 5,000 unit Q12HR SQ Last administered on 05/04/21at 08:44; Start 04/29/21 at 09:00 Prochlorperazine Edisylate (Compazine) 10 mg PRN Q6HRS PRN IV NAUSEA/VOMITING, 2ND CHOICE; Start 04/29/21 at 08:30 Furosemide (Lasix) 80 mg 1X ONCE IVP Last administered on 04/29/21at 11:47; Start 04/29/21 at 10:15; Stop 04/29/21 at 10:18; Status DC Furosemide 100 mg/ Sodium Chloride 100 ml @ 5 mls/hr CONT PRN IV SEE I/O RECORD Last administered on 05/03/21at 21:52; Start 04/29/21 at 11:00; Stop 05/04/21 at 12:02; Status DC Potassium Chloride (Klor-Con) 40 meq 1X ONCE PO Last administered on 04/29/21at 11:46; Start 04/29/21 at 10:15; Stop 04/29/21 at 10:18; Status DC Potassium Chloride (Klor-Con) 20 meq DAILYWBKFT PO Last administered on 05/04/21at 08:36; Start 04/30/21 at 12:00 Polysaccharide Iron Complex (Niferex 150) 150 mg DAILY PO Last administered on 05/04/21at 08:35; Start 04/30/21 at 12:00 Metolazone (Zaroxolyn) 5 mg DAILY PO Last administered on 05/04/21at 08:37; Start 05/01/21 at 12:00 Magnesium Sulfate 50 ml @ 25 mls/hr 1X ONCE IV Last administered on 05/02/21at 12:00; Start 05/02/21 at 12:00; Stop 05/02/21 at 13:59; Status DC Magnesium Sulfate 50 ml @ 25 mls/hr 1X ONCE IV Last administered on 05/03/21at 11:15; Start 05/03/21 at 11:00; Stop 05/03/21 at 12:59; Status DC Potassium Chloride/Water 100 ml @ 100 mls/hr Q1H IV ; Start 05/03/21 at 11:00; Stop 05/03/21 at 12:59; Status UNV Potassium Chloride/Water 100 ml @ 100 mls/hr Q1H IV Last administered on 05/03/21at 11:23; Start 05/03/21 at 11:00; Stop 05/03/21 at 12:32; Status DC Potassium Chloride (Klor-Con) 40 meq 1X ONCE PO Last administered on 05/03/21at 13:39; Start 05/03/21 at 12:30; Stop 05/03/21 at 12:34; Status DC Insulin Glargine (Lantus Syringe) 30 unit QHS SQ Last administered on 05/03/21at 21:48; Start 05/03/21 at 21:00 Potassium Chloride (Klor-Con) 40 meq 1X ONCE PO ; Start 05/04/21 at 13:00; Stop 05/04/21 at 13:01 Furosemide (Lasix) 40 mg BID94 PO ; Start 05/04/21 at 16:00 Active Scripts Active Thera-M Tablet (Multivits,Ca,Minerals/Iron/Fa) 1 Each Tablet 1 Tab PO DAILY 30 Days Vitamin C (Ascorbic Acid) 500 Mg Tablet 500 Mg PO DAILY 30 Days Culturelle (Lactobacillus Rhamnosus Gg) 1 Each Cap.sprink 1 Cap PO BID 30 Days Aspirin Ec (Aspirin) 81 Mg Tablet.dr 81 Mg PO DAILYWBKFT 30 Days Proair Hfa (Albuterol Sulfate) 8.5 Gm Hfa.aer.ad 2.5 Mg NEB PRN Q4HRS PRN 30 Days Amox Tr-K Clv 500-125 Mg Tab (Amoxicillin/Potassium Clav) 1 Each Tablet 1 Tab PO DAILY 3 Days Reported Lantus (Insulin Glargine,Hum.rec.anlog) 100 Unit/1 Ml Vial 38 Units SQ HS Insulin Lispro 100 Unit/1 Ml Vial 13 Units SQ TIDAC Xalatan (Latanoprost) 2.5 Ml Drops 1 Drop OP HS Flonase Allergy Relief (Fluticasone Propionate) 9.9 Ml [place].susp 2 Sprays NS DAILY Novolin N (Nph, Human Insulin Isophane) 100 Unit/1 Ml Vial 40 Unit SQ DAILYWBKFT Carvedilol (Carvedilol) 6.25 Mg Tablet 6.25 Mg PO BIDWMEALS Simvastatin 40 Mg Tablet 1 Tab PO QHS Furosemide 20 Mg Tablet 1 Tab PO DAILY Vital Signs Vital Signs Date Time Temp Pulse Resp B/P (MAP) Pulse Ox O2 Delivery O2 Flow Rate FiO2 05/04/21 08:36 65 166/59 05/04/21 08:00 Nasal Cannula 4.0 05/04/21 07:00 97.7 19 94 97.7 Labs Laboratory Tests Test 05/02/21 17:08 05/02/21 21:34 05/03/21 07:05 05/03/21 08:30 Glucose (Fingerstick) 188 mg/dL (70-99) 177 mg/dL (70-99) 74 mg/dL (70-99) Sodium Level 148 mmol/L (136-145) Potassium Level 3.2 mmol/L (3.5-5.1) Chloride Level 100 mmol/L (98-107) Carbon Dioxide Level > 45 mmol/L (21-32) Anion Gap (6-14) Blood Urea Nitrogen 29 mg/dL (7-20) Creatinine 1.5 mg/dL (0.6-1.0) Estimated GFR (Cockcroft-Gault) 33.6 Glucose Level 77 mg/dL (70-99) Calcium Level 9.4 mg/dL (8.5-10.1) Phosphorus Level 3.2 mg/dL (2.6-4.7) Magnesium Level 1.5 mg/dL (1.8-2.4) Test 05/03/21 11:51 05/03/21 16:57 05/03/21 21:20 05/04/21 05:30 Glucose (Fingerstick) 120 mg/dL (70-99) 294 mg/dL (70-99) 194 mg/dL (70-99) Sodium Level 145 mmol/L (136-145) Potassium Level 3.4 mmol/L (3.5-5.1) Chloride Level 100 mmol/L (98-107) Carbon Dioxide Level > 45 mmol/L (21-32) Anion Gap (6-14) Blood Urea Nitrogen 35 mg/dL (7-20) Creatinine 1.6 mg/dL (0.6-1.0) Estimated GFR (Cockcroft-Gault) 31.2 Glucose Level 57 mg/dL (70-99) Calcium Level 9.5 mg/dL (8.5-10.1) Phosphorus Level 4.3 mg/dL (2.6-4.7) Magnesium Level 1.8 mg/dL (1.8-2.4) Test 05/04/21 07:54 05/04/21 11:58 Glucose (Fingerstick) 69 mg/dL (70-99) 135 mg/dL (70-99) Laboratory Tests Test 05/03/21 16:57 05/03/21 21:20 05/04/21 05:30 05/04/21 07:54 Glucose (Fingerstick) 294 mg/dL (70-99) 194 mg/dL (70-99) 69 mg/dL (70-99) Sodium Level 145 mmol/L (136-145) Potassium Level 3.4 mmol/L (3.5-5.1) Chloride Level 100 mmol/L (98-107) Carbon Dioxide Level > 45 mmol/L (21-32) Anion Gap (6-14) Blood Urea Nitrogen 35 mg/dL (7-20) Creatinine 1.6 mg/dL (0.6-1.0) Estimated GFR (Cockcroft-Gault) 31.2 Glucose Level 57 mg/dL (70-99) Calcium Level 9.5 mg/dL (8.5-10.1) Phosphorus Level 4.3 mg/dL (2.6-4.7) Magnesium Level 1.8 mg/dL (1.8-2.4) Test 05/04/21 11:58 Glucose (Fingerstick) 135 mg/dL (70-99) Allergies Allergies Coded Allergies Type Severity Reaction Last Updated Verified shellfish derived Adverse Reaction Intermediate Nausea 04/28/21 Yes Disposition/Orders: Other (D/C TO SNF) Justicifation of Admission Dx: Justifications for Admission: Justification of Admission Dx: N/A CHINO MORALES MD May 04, 2021 12:17
[2021-05-04] MEDS ORDERED: DOCU100C28 PO (12:23)
[2021-05-04] MEDS ORDERED: FURO40TA4 PO (12:23)
[2021-05-04] MEDS ORDERED: METO2.5T PO (12:23)
[2021-05-04] MEDS ORDERED: INSU100V35 SQ (12:23)
[2021-05-04] MEDS ORDERED: IRON150C11 PO (12:23)
[2021-05-04] MEDS ORDERED: INSU100V8 SQ (12:23)
[2021-05-04] MEDS ORDERED: POTA20TA4 PO (12:23)
[2021-05-04] MEDS ORDERED: ACET325T21 PO (12:23)
--- NOTE | 2021-05-04 12:24 | SNU/HH DC ---
DISCHARGE ORDERS DISCHARGE INFORMATION: DISCHARGE DATE: May 04, 2021 FINAL DIAGNOSIS Problems Medical Problems: (1) Acute cervical sprain Status: Acute (2) Acute on chronic renal failure Status: Acute CONDITION ON DISCHARGE: Stable CODE STATUS: Code Status: Full CUSTODIAL: SNF STAY <30 DAYS: Yes HOSPICE: HOSPICE: No HOSPICE EVAL & TREAT: No POST DISCHARGE ORDERS: ACTIVITY ORDERS: Activity as tolerated WEIGHT BEARING STATUS: As tolerated BATHING ORDERS: Shower-keep dressing dry, No Tub Bath until see DIET AFTER DISCHARGE: ADA CHECKS AFTER DISCHARGE: CHECKS AFTER DISCHARGE: Check blood press - daily, Check blood sugar, ac/hs FOLLOW-UP: PHYSICIAN FOLLOW-UP: pcp at snf today ADDITIONAL FOLLOW-UP: Nephrology 3-4 weeks TREATMENT/EQUIPMENT ORDERS: ADAPTIVE EQUIPMENT NEEDED: Front wheeled walker RESPIRATORY EQUIPMENT NEEDED: Oxygen Physical Therapy For: Evalulation/Treatment Occupational Therapy For: Evaluation/Treatment Speech Language Pathology For: Evaluation/Treatment DISCHARGE MEDICATIONS: Home Meds Active Scripts Insulin Lispro (Admelog) 100 Unit/1 Ml Vial, 0 UNITS SQ TIDWMEALS for PER SS PROTOCOL for 30 Days, #2 EACH Prov:CHINO MORALES MD 05/04/21 Insulin Glargine,Hum.rec.anlog (LANTUS) 100 Unit/1 Ml Vial, 30 UNIT SQ QHS for DIABETES for 30 Days, #2 EACH Prov:CHINO MORALES MD 05/04/21 Docusate Sodium (DOCUSATE SODIUM) 100 Mg Capsule, 100 MG PO PRN DAILY PRN for HARD STOOLS for 30 Days, #60 CAP Prov:CHINO MORALES MD 05/04/21 Metolazone (METOLAZONE) 2.5 Mg Tablet, 5 MG PO DAILY for HEART for 30 Days, #60 TAB Prov:CHINO MORALES MD 05/04/21 Furosemide (FUROSEMIDE) 40 Mg Tablet, 40 MG PO BID94 for HEART for 14 Days, #30 TAB Prov:CHINO MORALES MD 05/04/21 Potassium Chloride (KLOR-CON M20) 20 Meq Tab.er.prt, 20 MEQ PO DAILYWBKFT for SUPPLEMENT for 14 Days, #14 TAB.SR Prov:CHINO MORALES MD 05/04/21 Acetaminophen (ACETAMINOPHEN) 325 Mg Tablet, 650 MG PO PRN Q4HRS PRN for TEMP OVER 100.4F OR MILD PAIN for 30 Days, #60 TAB Prov:CHINO MORALES MD 05/04/21 Iron Polysaccharides Complex (POLY-IRON) 150 Mg Capsule, 150 MG PO DAILY for ANEMIA for 30 Days, #30 CAP Prov:CHINO MORALES MD 05/04/21 Multivits,Ca,Minerals/Iron/Fa (THERA-M TABLET) 1 Each Tablet, 1 TAB PO DAILY for SUPPLEMENT for 30 Days, #30 TAB Prov:CHINO MORALES MD 12/25/19 Ascorbic Acid (VITAMIN C) 500 Mg Tablet, 500 MG PO DAILY for SUPPLEMENT for 30 Days, #30 TAB Prov:CHINO MORALES MD 12/25/19 Aspirin (ASPIRIN EC) 81 Mg Tablet.dr, 81 MG PO DAILYWBKFT for HEART HEALTH for 30 Days, #30 TAB.SR Prov:CHINO MORALES MD 12/25/19 Reported Medications Insulin Lispro (Insulin Lispro) 100 Unit/1 Ml Vial, 13 UNITS SQ TIDAC for diabetes 04/29/21 Latanoprost (XALATAN) 2.5 Ml Drops, 1 DROP OP HS, BOTTLE 12/20/19 Fluticasone Propionate (Flonase Allergy Relief) 9.9 Ml Anson.susp, 2 SPRAYS NS DAILY for allergies, BOTTLE 12/15/19 Carvedilol (CARVEDILOL ) 6.25 Mg Tablet, 6.25 MG PO BIDWMEALS, TAB 08/16/17 Simvastatin (SIMVASTATIN) 40 Mg Tablet, 1 TAB PO QHS, #30 TAB 5 Refills 08/16/17 Discontinued Reported Medications Insulin Glargine,Hum.rec.anlog (LANTUS) 100 Unit/1 Ml Vial, 38 UNITS SQ HS for diabetes 04/29/21 Nph, Human Insulin Isophane (NOVOLIN N) 100 Unit/1 Ml Vial, 40 UNIT SQ DAILYWBKFT for glucose, VIAL 08/16/17 Furosemide (FUROSEMIDE) 20 Mg Tablet, 1 TAB PO DAILY, #90 TAB 1 Refill 08/16/17 Discontinued Scripts Lactobacillus Rhamnosus Gg (CULTURELLE) 1 Each Cap.sprink, 1 CAP PO BID for SUPPLEMENT for 30 Days, #60 CAP Prov:CHINO MORALES MD 12/25/19 Albuterol Sulfate (Proair Hfa) 8.5 Gm Hfa.aer.ad, 2.5 MG NEB PRN Q4HRS PRN for WHEEZING for 30 Days, #2 INHALER Prov:CHINO MORALES MD 12/25/19 Amoxicillin/Potassium Clav (AMOX TR-K CLV 500-125 MG TAB) 1 Each Tablet, 1 TAB PO DAILY for INFECTION for 3 Days, #3 TAB Prov:CHINO MORALES MD 12/25/19 CHINO MORALES MD May 04, 2021 12:24
[2021-05-04] MEDS ORDERED: POTASSIUM CHLORIDE 20 MEQ TABLET.ER. PO ONE (13:00)
--- NOTE | 2021-05-04 15:16 | NUR ---
AT 1410, PATIENT DISCHARGED TO [facility]. DISCHARGE REPORT GIVEN TO NURSING STAFF. PATIENT OFF UNIT PER WHEELCHAIR PER [facility] TRANSPORT.
[2021-05-04] MEDS ORDERED: FUROSEMIDE 40 MG TABLET. PO SCH (16:00)
== END 2021-05-04 14:13 | DRG 682 ==
LOC: ER 16:21 → 5 SOUTH 19:20 → 6 SOUTH 04-30 22:10
PROVIDERS: ADMIT Internal Medicine; ATTEND Internal Medicine
DX: N17.0 Acute kidney failure with tubular necrosis (principal); E43 Unspecified severe protein-calorie malnutrition; Z68.43 Body mass index [BMI] 50.0-59.9, adult; D63.1 Anemia in chronic kidney disease; E11.22 Type 2 diabetes mellitus with diabetic chronic kidney disease; E11.40 Type 2 diabetes mellitus with diabetic neuropathy, unspecified; E66.01 Morbid (severe) obesity due to excess calories; E78.5 Hyperlipidemia, unspecified; E83.42 Hypomagnesemia; E87.6 Hypokalemia; E87.70 Fluid overload, unspecified; I12.9 Hypertensive chronic kidney disease with stage 1 through stage 4 chronic kidney disease, or unspecified chronic kidney disease; I16.0 Hypertensive urgency; I65.23 Occlusion and stenosis of bilateral carotid arteries; J44.9 Chronic obstructive pulmonary disease, unspecified; M47.9 Spondylosis, unspecified; M48.02 Spinal stenosis, cervical region; N18.32 Chronic kidney disease, stage 3b; N28.1 Cyst of kidney, acquired; N28.89 Other specified disorders of kidney and ureter; S13.4XXA Sprain of ligaments of cervical spine, initial encounter; W18.2XXA Fall in (into) shower or empty bathtub, initial encounter; Y92.002 Bathroom of unspecified non-institutional (private) residence as the place of occurrence of the external cause; Y93.E1 Activity, personal bathing and showering; Z82.3 Family history of stroke; Z82.49 Family history of ischemic heart disease and other diseases of the circulatory system; Z86.73 Personal history of transient ischemic attack (TIA), and cerebral infarction without residual deficits; Z87.891 Personal history of nicotine dependence; Z96.651 Presence of right artificial knee joint; Z98.41 Cataract extraction status, right eye; Z99.2 Dependence on renal dialysis; Z99.81 Dependence on supplemental oxygen; Z90.49 Acquired absence of other specified parts of digestive tract; Z79.899 Other long term (current) drug therapy
CPT/HCPCS: 36415; 70450; 72125; 72128; 72131; 76770; 80048; 80053; 81001; 82962; 83540; 83550; 83735; 83880; 84100; 85025; 87426; 93306; 93880; J1644; J1815; J1940; J2405; J3475; J3480; U0003; U0005; 97535-GO; 99285-25; G0378

== ENCOUNTER → 2021-06-21 | Outpatient (CLI) | payer MEDICARE ==
[~2021-06-21] MED LIST changes: +ACET325T21 PO; +DOCU100C28 PO; +FURO40TA4 PO; +INSU100V35 SQ; +INSU100V38 SQ; +INSU100V8 SQ; +IRON150C11 PO; +METO2.5T PO; +POTA-121 PO
[2021-06-21 11:05] LABS: BASO # 0.1 x10^3/uL (0.0-0.2); BASO % 1 % (0-3); EOS # 0.2 x10^3/uL (0.0-0.7); EOS % 2 % (0-3); HEMATOCRIT 33.2 % (36.0-47.0); HEMOGLOBIN 10.9 g/dL (12.0-15.5); LYMPH # 1.1 x10^3/uL (1.0-4.8); LYMPH % 14 % (24-48); MEAN CORPUSCULAR HEMOGLOBIN 30 pg (25-35); MEAN CORPUSCULAR HGB CONC 33 g/dL (31-37); MEAN CORPUSCULAR VOLUME 92 fL (79-100); MONO # 0.6 x10^3/uL (0.0-1.1); MONO % 7 % (0-9); NEUT # 6.2 x10^3/uL (1.8-7.7); NEUT % 76 % (31-73); PLATELET COUNT 242 x10^3/uL (140-400); RED BLOOD COUNT 3.61 x10^6/uL (3.50-5.40); RED CELL DISTRIBUTION WIDTH 15.6 % (11.5-14.5); WHITE BLOOD COUNT 8.1 x10^3/uL (4.0-11.0)
[2021-06-21 11:08] LABS: CREATININE,RANDOM URINE 78.6 mg/dL (Not Establ.)
[2021-06-21 11:22] LABS: ALBUMIN 2.8 g/dL (3.4-5.0); CALCIUM 9.4 mg/dL (8.5-10.1); GFR 24.1; PHOSPHORUS 3.5 mg/dL (2.6-4.7); POTASSIUM 4.7 mmol/L (3.5-5.1)
[2021-06-22 13:22] LABS: CALCIUM PTH 9.1 mg/dL (8.7-10.3); CREATININE PTH 1.72 mg/dL (0.57-1.00); PHOSPHORUS PTH 3.3 mg/dL (3.0-4.3); PTH INTACT 59 pg/mL (15-65)
== END ==
LOC: LAB 10:18
PROVIDERS: ATTEND Internal Medicine Nephrology
DX: I12.9 Hypertensive chronic kidney disease with stage 1 through stage 4 chronic kidney disease, or unspecified chronic kidney disease (principal); E11.22 Type 2 diabetes mellitus with diabetic chronic kidney disease; N18.31 Chronic kidney disease, stage 3a; R80.9 Proteinuria, unspecified; Z68.42 Body mass index [BMI] 45.0-49.9, adult
CPT/HCPCS: 36415; 80069; 82570; 83970; 84156; 85025

== ENCOUNTER → 2021-08-17 | Outpatient (CLI) | payer MEDICARE ==
[2021-08-17 09:36] LABS: BASO # 0.1 x10^3/uL (0.0-0.2); BASO % 1 % (0-3); EOS # 0.2 x10^3/uL (0.0-0.7); EOS % 3 % (0-3); HEMATOCRIT 38.6 % (36.0-47.0); HEMOGLOBIN 12.4 g/dL (12.0-15.5); LYMPH # 1.2 x10^3/uL (1.0-4.8); LYMPH % 15 % (24-48); MEAN CORPUSCULAR HEMOGLOBIN 30 pg (25-35); MEAN CORPUSCULAR HGB CONC 32 g/dL (31-37); MEAN CORPUSCULAR VOLUME 92 fL (79-100); MONO # 0.5 x10^3/uL (0.0-1.1); MONO % 6 % (0-9); NEUT # 6.2 x10^3/uL (1.8-7.7); NEUT % 76 % (31-73); PLATELET COUNT 240 x10^3/uL (140-400); RED BLOOD COUNT 4.19 x10^6/uL (3.50-5.40); RED CELL DISTRIBUTION WIDTH 15.8 % (11.5-14.5); WHITE BLOOD COUNT 8.2 x10^3/uL (4.0-11.0)
[2021-08-17 10:19] LABS: ALBUMIN 2.9 g/dL (3.4-5.0); CALCIUM 9.4 mg/dL (8.5-10.1); CREATININE 1.2 mg/dL (0.6-1.0); GFR 43.4; PHOSPHORUS 3.7 mg/dL (2.6-4.7); POTASSIUM 3.9 mmol/L (3.5-5.1)
[2021-08-17 10:20] LABS: CREATININE,RANDOM URINE 55.6 mg/dL (Not Establ.)
[2021-08-18 01:09] LABS: CALCIUM PTH 9.8 mg/dL (8.7-10.3); PHOSPHORUS PTH 3.6 mg/dL (3.0-4.3); PTH INTACT 48 pg/mL (15-65)
== END ==
LOC: LAB 09:10
PROVIDERS: ATTEND Internal Medicine Nephrology
DX: I12.9 Hypertensive chronic kidney disease with stage 1 through stage 4 chronic kidney disease, or unspecified chronic kidney disease (principal); E11.22 Type 2 diabetes mellitus with diabetic chronic kidney disease; N18.31 Chronic kidney disease, stage 3a; R80.9 Proteinuria, unspecified; Z68.42 Body mass index [BMI] 45.0-49.9, adult
CPT/HCPCS: 36415; 80069; 82570; 83970; 84156; 85025

== ENCOUNTER 2022-01-07 16:50 | Emergency (ER) | payer MEDICARE ==
[~2022-01-07] VITALS: Ht 157.5 cm; Wt 109.1 kg
[~2022-01-07 16:50] MED LIST changes: -EMPA25TA PO; +EMPA25TA3 PO
[2022-01-07 18:00] LABS: BASO # 0.1 x10^3/uL (0.0-0.2); BASO % 0 % (0-3); EOS % 0 % (0-3); HEMATOCRIT 31.5 % (36.0-47.0); HEMOGLOBIN 9.9 g/dL (12.0-15.5); LYMPH # 0.8 x10^3/uL (1.0-4.8); LYMPH % 7 % (24-48); MEAN CORPUSCULAR HEMOGLOBIN 28 pg (25-35); MEAN CORPUSCULAR HGB CONC 31 g/dL (31-37); MEAN CORPUSCULAR VOLUME 89 fL (79-100); MONO # 0.4 x10^3/uL (0.0-1.1); MONO % 3 % (0-9); NEUT # 10.7 x10^3/uL (1.8-7.7); NEUT % 90 % (31-73); PLATELET COUNT 301 x10^3/uL (140-400); RED BLOOD COUNT 3.56 x10^6/uL (3.50-5.40); RED CELL DISTRIBUTION WIDTH 16.8 % (11.5-14.5)
[2022-01-07 18:13] LABS: CALCIUM 8.6 mg/dL (8.5-10.1); CREATININE 1.8 mg/dL (0.6-1.0); GFR 27.1; POTASSIUM 4.2 mmol/L (3.5-5.1)
[2022-01-07 18:19] LABS: ALBUMIN 3.3 g/dL (3.4-5.0); ALBUMIN/GLOBULIN RATIO 0.8 (1.0-1.7); MAGNESIUM 2.2 mg/dL (1.8-2.4); PHOSPHORUS 5.3 mg/dL (2.6-4.7); TOTAL BILIRUBIN 0.3 mg/dL (0.2-1.0); TOTAL PROTEIN 7.6 g/dL (6.4-8.2)
[2022-01-07 18:34] LABS: BACTERIA,URINE 0 /HPF (0-FEW); RBC,URINE 0 /HPF (0-2)
--- NOTE | 2022-01-07 19:17 | RAD ---
XR CHEST 1V History: Reason: Hypoglycemic episode, altered mental status / Spl. Instructions: / History: Comparison: September 28, 2020 Findings: Mild diffuse interstitial thickening with ill-defined opacities. No pleural effusion. No pneumothorax . Enlarged cardiac size, unchanged. Right shoulder arthroplasty. Impression: 1. Mild diffuse interstitial thickening with ill-defined opacities, may represent pulmonary edema. Electronically signed by: Te Felder DO (01/07/2022 7:15 PM) [facility]
--- NOTE | 2022-01-07 20:21 | PHYS DOC ---
Past Medical History Past Medical History: Arthritis, COPD, Diabetes-Type II, Hypertension, Renal Disease Additional Past Medical Histor: HOME O2,CHRONIC KIDNEY DISEASE Past Surgical History: Cholecystectomy, Knee Replacement, Tonsillectomy Additional Past Surgical Histo: BREAST CYSTS, CARPAL TUNNEL Smoking Status: Never Smoker Alcohol Use: None Drug Use: None General Adult EDM: Chief Complaint: HYPOGLYCEMIA HPI: HPI: Patient is a 81-year-old female who presents to the emergency department related to a hypoglycemic episode at home. Patient states that she takes insulin in the evening, did not eat breakfast early enough, states that her blood sugar dropped, patient reports she does not recall her family member coming in the house and finding her unresponsive, per EMS screen handler patient's blood sugar was 32 upon their arrival, they gave D50, recheck blood glucose equal 318, patient's blood glucose on arrival to the emergency department equals 117. Patient currently denies any physical complaints or physical concerns. Patient states that she feels better and wishes to go home. Patient states this does not happen very often but she knows why her blood sugar dropped. Patient states she did not eat breakfast this morning like she should have. Patient states she does live at home alone, her nephew comes by to check on her daily. Review of Systems: Review of Systems: 14 body systems of review of systems have been reviewed. See HPI for pertinent positives and negative responses, otherwise all other systems are negative, nonpertinent or noncontributory. Constitutional: Negative except as outlined in HPI above. Skin: Negative except as outlined in HPI above. Eyes: Negative except as outlined in HPI above. HENT: Negative except as outlined in HPI above. Respiratory: Negative except as outlined in HPI above. Cardiovascular: Negative except as outlined in HPI above. GI: Negative except as outlined in HPI above. : Negative except as outlined in HPI above. Musculoskeletal: Negative except as outlined in HPI above. Integument: Negative except as outlined in HPI above. Neurologic: Negative except as outlined in HPI above. Endocrine: Negative except as outlined in HPI above. Lymphatic: Negative except as outlined in HPI above. Psychiatric: Negative except as outlined in HPI above. Heart Score: C/O Chest Pain: No Risk Factors: Risk Factors: DM, Current or recent (<one month) smoker, HTN, HLP, family history of CAD, obesity. Risk Scores: Score 0 - 3: 2.5% MACE over next 6 weeks - Discharge Home Score 4 - 6: 20.3% MACE over next 6 weeks - Admit for Clinical Observation Score 7 - 10: 72.7% MACE over next 6 weeks - Early Invasive Strategies Allergies: Allergies: Allergies Coded Allergies Type Severity Reaction Last Updated Verified shellfish derived Adverse Reaction Intermediate Nausea 04/28/21 Yes Physical Exam: PE: Constitutional: Well developed, well nourished, no acute distress, non-toxic appearance. 81-year-old female in no apparent distress. HENT: Normocephalic, atraumatic. Eyes: Conjunctiva normal, no discharge. Neck: Normal range of motion, no stridor. Cardiovascular: No cyanosis appreciated, distal cap refill less than 2 seconds. Lungs & Thorax: Patient is in no respiratory distress, no audible adventitious lung sounds appreciated. Abdomen: Nontender, no abnormalities noted. Skin: Warm, dry, no erythema, no rash. Back: No tenderness, no deformities. Extremities: No tenderness, no cyanosis, no clubbing, ROM intact, no edema. Neurologic: Alert and oriented X 3, normal motor function, normal sensory function, no focal deficits noted. Psychologic: Affect normal, judgement normal, mood normal. Current Patient Data: Labs: Laboratory Tests Test 01/07/22 17:05 01/07/22 17:18 01/07/22 17:45 01/07/22 19:29 White Blood Count 12.0 x10^3/uL (4.0-11.0) H Red Blood Count 3.56 x10^6/uL (3.50-5.40) Hemoglobin 9.9 g/dL (12.0-15.5) L Hematocrit 31.5 % (36.0-47.0) L Mean Corpuscular Volume 89 fL (79-100) Mean Corpuscular Hemoglobin 28 pg (25-35) Mean Corpuscular Hemoglobin Concent 31 g/dL (31-37) Red Cell Distribution Width 16.8 % (11.5-14.5) H Platelet Count 301 x10^3/uL (140-400) Neutrophils (%) (Auto) 90 % (31-73) H Lymphocytes (%) (Auto) 7 % (24-48) L Monocytes (%) (Auto) 3 % (0-9) Eosinophils (%) (Auto) 0 % (0-3) Basophils (%) (Auto) 0 % (0-3) Neutrophils # (Auto) 10.7 x10^3/uL (1.8-7.7) H Lymphocytes # (Auto) 0.8 x10^3/uL (1.0-4.8) L Monocytes # (Auto) 0.4 x10^3/uL (0.0-1.1) Eosinophils # (Auto) 0.0 x10^3/uL (0.0-0.7) Basophils # (Auto) 0.1 x10^3/uL (0.0-0.2) Sodium Level 137 mmol/L (136-145) Potassium Level 4.2 mmol/L (3.5-5.1) Chloride Level 100 mmol/L (98-107) Carbon Dioxide Level 28 mmol/L (21-32) Anion Gap 9 (6-14) Blood Urea Nitrogen 73 mg/dL (7-20) H Creatinine 1.8 mg/dL (0.6-1.0) H Estimated GFR (Cockcroft-Gault) 27.1 BUN/Creatinine Ratio 41 (6-20) H Glucose Level 113 mg/dL (70-99) H Glucose (Fingerstick) 117 mg/dL (70-99) H 114 mg/dL (70-99) H 147 mg/dL (70-99) H Lactic Acid Level 0.6 mmol/L (0.4-2.0) Calcium Level 8.6 mg/dL (8.5-10.1) Phosphorus Level 5.3 mg/dL (2.6-4.7) H Magnesium Level 2.2 mg/dL (1.8-2.4) Total Bilirubin 0.3 mg/dL (0.2-1.0) Aspartate Amino Transferase (AST) 19 U/L (15-37) Alanine Aminotransferase (ALT) 22 U/L (14-59) Alkaline Phosphatase 96 U/L (46-116) Creatine Kinase 50 U/L (26-192) Troponin I High Sensitivity 8 ng/L (4-50) Total Protein 7.6 g/dL (6.4-8.2) Albumin 3.3 g/dL (3.4-5.0) L Albumin/Globulin Ratio 0.8 (1.0-1.7) L Urine Collection Type Unknown Urine Color (Auto) Light yellow Urine Turbidity Clear Urine pH (Auto) 5.5 (<5.0-8.0) Urine Specific Odell 1.017 (1.000-1.030) Urine Protein (Auto) 200 mg/dL (Negative) Urine Glucose (Auto)(UA) 100 mg/dL (Negative) Urine Ketones (Auto) Negative mg/dL (Negative) Urine Blood (Auto) Negative (Negative) Urine Nitrite Negative (Negative) Urine Bilirubin (Auto) Negative (Negative) Urine Urobilinogen (Auto) Normal mg/dL (Normal) Urine Leukocyte Esterase (Auto) Small (Negative) Urine RBC 0 /HPF (0-2) Urine WBC 5-10 /HPF (0-4) Urine Squamous Epithelial Cells Many /LPF Urine Transitional Epithelial Cells Few /LPF Urine Renal Epithelial Cells Few /LPF Urine Bacteria 0 /HPF (0-FEW) Laboratory Tests 01/07/22 17:05 Laboratory Tests 01/07/22 17:05 Vital Signs: Vital Signs Date Time Temp Pulse Resp B/P (MAP) Pulse Ox O2 Delivery O2 Flow Rate FiO2 01/07/22 19:33 48 20 153/67 (95) 100 Nasal Cannula 3.0 EKG: EKG: EKG performed at 1901 by ED nursing staff shows a sinus bradycardia with a first-degree AV block heart rate 54 bpm no ectopy appreciated, RI interval point 248, QTc interval 0.470, no acute STEMI, no ACS, no acute ischemia appreciated, EKG interpreted by ED attending physician Dr. Lu. Radiology/Procedures: Radiology/Procedures: REASON: Hypoglycemic episode, altered mental status PROCEDURE: CHEST AP ONLY XR CHEST 1V History: Reason: Hypoglycemic episode, altered mental status / Spl. Instructions: / History: Comparison: September 28, 2020 Findings: Mild diffuse interstitial thickening with ill-defined opacities. No pleural effusion. No pneumothorax. Enlarged cardiac size, unchanged. Right shoulder arthroplasty. Impression: 1. Mild diffuse interstitial thickening with ill-defined opacities, may represent pulmonary edema. Electronically signed by: Te Felder DO (01/07/2022 7:15 PM) [facility] Course & Med Decision Making: Course & Med Decision Making Pertinent Labs and Imaging studies reviewed. (See chart for details) 81-year-old female, vital signs reviewed, presents emergency department concerning hypoglycemic episode at home. Patient's explanation of events is consistent with patient's presentation. Patient states she did not eat breakfast this morning and knows that her blood sugar will drop if she does not, patient states she was fixing herself breakfast but apparently did not eat soon enough. Patient is currently alert and oriented x3. Is eating a food meal tray. Will order blood pressure monitoring, cardiac monitoring, continuous pulse ox, saline lock, twelve-lead EKG, chest x-ray, CBC, creatinine kinase, C MP, lactic acid, magnesium level, phosphorus level, high-sensitivity troponin I, urinalysis assay with culture. The patient is on 2 to 3 L of oxygen per nasal cannula at home at all times, patient was placed on 2 L NC O2. The patient's urine is not infected, the patient's labs are unremarkable, bertram camacho was monitored for approximately 3 hours in the emergency department, latest blood glucose 148, discussed with patient home safety with diabetes. Patient states her nephew will come check on her. Patient states she feels safe to go home. Discussed with patient strict follow-up with primary care this coming week, return to ER precautions and concerns were reviewed. Patient is alert and oriented x3, patient is able to transfer self from bed to a standing position and ambulate to bathroom and back to room and back into bed with own strength without assistance. Patient states she can take care of herself at home and does not require assistance for ADLs. Will discharge patient to home. Discussed with the patient all findings and diagnostic testing as well as the need to follow-up with their primary care provider for further evaluation and treatment or return to the ED if any new or worsening symptoms. Strict return precautions were also discussed at length, the patient voiced understanding and agreement with the discharge planning. The patient was nontoxic in appearance, in no apparent distress, and hemodynamically stable at the time of disposition. Dragon Disclaimer: Dragon Disclaimer: This electronic medical record was generated, in whole or in part, using a voice recognition dictation system. Departure Departure Impression: Primary Impression: Hypoglycemic episode in patient with diabetes mellitus Disposition: HOME / SELF CARE / HOMELESS Condition: GOOD Referrals: PAIGE HOPE DO (PCP) Patient Instructions: Hypoglycemia (Low Blood Sugar) Additional Instructions: You were seen today in the emergency department after a hypoglycemic episode at your home. As you and I investigated the reason for your hypoglycemic episode, we have come to the conclusion that you did not eat breakfast this morning. It is very important to eat after taking insulin and diabetes medications. Please continue to take all of your home medications as prescribed by your primary care physician. Please see your primary care doctor this coming week. Return to the emergency department for worsening symptoms or other concerns. Thank you for visiting our Emergency Department. It was a pleasure taking care of you today in the emergency department and we appreciate you trusting us with your care. If any additional problems come up don't hesitate to return to visit us. Please follow up with your primary care provider so they can plan additional care if needed and know about the problem that you had. If symptoms worsen come back to the Emergency Department. Any concerning symptoms that start such as chest pain, shortness of air, weakness or numbness on one side of the body, running high fevers or any other concerning symptoms return to the ER. DIANE MCKEON APRN Jan 07, 2022 20:21
[2022-01-07 21:01] VITALS: BP 194/79
--- NOTE | 2022-01-08 04:14 | EKG ---
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
== END 2022-01-07 21:22 | disposition home or self-care (01) ==
LOC: ER 16:50
DX: E11.649 Type 2 diabetes mellitus with hypoglycemia without coma (principal); Z79.4 Long term (current) use of insulin; J44.9 Chronic obstructive pulmonary disease, unspecified; E11.22 Type 2 diabetes mellitus with diabetic chronic kidney disease; I12.9 Hypertensive chronic kidney disease with stage 1 through stage 4 chronic kidney disease, or unspecified chronic kidney disease; N18.9 Chronic kidney disease, unspecified; Z91.013 Allergy to seafood
CPT/HCPCS: 36415; 71045; 80053; 81001; 82550; 82962; 83605; 83735; 84100; 84484; 85025; 87086; 93005; 99285-25

== ENCOUNTER → 2022-02-15 | Outpatient (CLI) | payer MEDICARE ==
[2022-02-15 13:23] LABS: BASO % 1 % (0-3); EOS # 0.1 x10^3/uL (0.0-0.7); EOS % 2 % (0-3); HEMOGLOBIN 11.1 g/dL (12.0-15.5); LYMPH % 14 % (24-48); MEAN CORPUSCULAR HEMOGLOBIN 29 pg (25-35); MEAN CORPUSCULAR HGB CONC 33 g/dL (31-37); MEAN CORPUSCULAR VOLUME 87 fL (79-100); MONO # 0.5 x10^3/uL (0.0-1.1); MONO % 7 % (0-9); NEUT # 5.9 x10^3/uL (1.8-7.7); NEUT % 78 % (31-73); PLATELET COUNT 257 x10^3/uL (140-400); RED CELL DISTRIBUTION WIDTH 17.6 % (11.5-14.5); WHITE BLOOD COUNT 7.6 x10^3/uL (4.0-11.0)
[2022-02-15 13:24] LABS: CREATININE,RANDOM URINE 23.7 mg/dL (Not Establ.)
[2022-02-15 13:51] LABS: CALCIUM 9.5 mg/dL (8.5-10.1); PHOSPHORUS 5.7 mg/dL (2.6-4.7); POTASSIUM 4.4 mmol/L (3.5-5.1)
[2022-02-16 11:15] LABS: CALCIUM PTH 9.5 mg/dL (8.7-10.3); PHOSPHORUS PTH 5.6 mg/dL (3.0-4.3); PTH INTACT 61 pg/mL (15-65)
== END ==
LOC: LAB 12:42
PROVIDERS: ATTEND Nurse Practitioner Adult Health
DX: I12.9 Hypertensive chronic kidney disease with stage 1 through stage 4 chronic kidney disease, or unspecified chronic kidney disease (principal); E11.22 Type 2 diabetes mellitus with diabetic chronic kidney disease; N18.31 Chronic kidney disease, stage 3a; R80.9 Proteinuria, unspecified; Z79.4 Long term (current) use of insulin; Z68.42 Body mass index [BMI] 45.0-49.9, adult
CPT/HCPCS: 36415; 80069; 82570; 82728; 83540; 83550; 83970; 84156; 85025